=== PATIENT | female | born 1960 | race Caucasian/White ===

== ENCOUNTER 2022-08-14 18:12 | Inpatient (IN) ==
[2022-08-14] MEDS ORDERED: ONDANSETRON INJ 2 MG/ML 2 ML VIAL IV STA (18:58)
[2022-08-14] MEDS ORDERED: MoRPHine SULFATE 10 MG/ML CARP/VIAL IV STA ×2 (18:58→21:03)
[2022-08-14 19:28] LABS: iSTAT Creatinine 0.4 mg/dl (0.6-1.3); iSTAT Hemoglobin 12.9 g/dl (12.0-16.0); iSTAT Ionized Calcium 0.97 mmol/l (1.12-1.32); iSTAT Potassium 3.6 mmol/L (3.3-5.0)
[2022-08-14 19:31] LABS: Basophils # (auto) 0.03 K/uL (0-0.2); Basophils % (auto) 0.4 %; Eosinophils # (auto) 0.05 K/uL (0-0.50); Eosinophils % (auto) 0.6 %; Hematocrit (blood only) 35.9 % (34.1-44.9); Hemoglobin 12.9 g/dl (12.0-16.0); Immature Granulocytes # (auto) 0.02 K/uL (0.00-0.02); Immature Granulocytes % (auto) 0.3 %; Lymphocytes # (auto) 1.35 K/uL (1.2-3.4); Lymphocytes % (auto) 17.4 %; Mean Corpuscular Hemoglobin 34.5 pg (25.0-34.0); Mean Corpuscular Hgb Conc 35.9 g/dL (32.0-36.0); Mean Platelet Volume 10.9 fL (9.4-12.3); Monocytes # (auto) 0.44 K/uL (0.24-0.82); Monocytes % (auto) 5.7 %; Neutrophils # (auto) 5.89 K/uL (1.4-6.5); Neutrophils % (auto) 75.6 %; Platelet Count 176 K/uL (130-400); RDW Coefficient of Variation 12.5 % (11.5-14.5); RDW Standard Deviation 43.4 fL (36.4-46.3); Red Blood Count 3.74 M/uL (3.93-5.22); White Blood Count 7.78 K/ul (4.8-10.8)
--- NOTE | 2022-08-14 19:34 | Emergency Department Note ---
Impression & Plan Fall, Closed rib fracture, Headache, HTN (hypertension) ED Provider Note NAME: MILO FORD AGE: 62 SEX: F : 1960 ARRIVES VIA: Walk-In INFORMANT: Patient ED PROVIDER(S): Kristopher Landaverde DO CHIEF COMPLAINT: fall HPI: Patient is a 62-year-old female with past medical history of diabetes, asthma and hypertension that presents to the ER following mechanical fall. She has fallen twice in the past week. She fell last night and once a week ago. She notes her left knee gives out. She is having severe left-sided rib pain as well as head and neck pain. Pain with breathing as well as twisting, turning, or bending. No belly pain. No nausea, vomiting, or diarrhea. No dysuria, urgency, or frequency. Pain is a 10 and 10. No other exacerbating or remitting factors. PAST MEDICAL HISTORY:See Below PAST SURGICAL HISTORY:See Below FAMILY HISTORY:See Below SOCIAL HISTORY:See Below HOME MEDICATIONS:See Below ALLERGIES:See Below VITALS:See Below PHYSICAL EXAMINATION: GENERAL: alert, well appearing, well nourished, no distress, non-toxic HEAD: normal cephalic, atraumatic EYE EXAM: normal conjunctiva, PERRL and EOM's grossly intact NECK: supple, no nuchal rigidity, no adenopathy, non-tender CHEST: stable to compression anteriorly and posteriorly LUNGS: clear to auscultation. Normal chest wall mechanics HEART: no murmurs, S1 normal and S2 normal ABDOMEN: abdomen soft, non-tender, normo-active bowel sounds, no masses, no rebound or guarding. PELVIS: stable to compression anteriorly and posteriorly BACK: Back is symmetrical on inspection and there is no deformity, no midline tenderness, no CVA tenderness. UPPER EXTREMITIES: full active and passive range of motion of all joints without tenderness to palpation LOWER EXTREMITIES: full active and passive range of motion of all joints without tenderness to palpation NEURO EXAM: Normal sensorium, cranial nerves II-XII grossly intact, normal speech, no gross weakness of arms, no gross weakness of legs. GCS: 15. MEDICAL DECISION MAKING: Patient is a 62-year-old female who presents ER for recurrent falls. IV was established blood work was obtained. External records reviewed. Labs show no significant leukocytosis or anemia. BMP shows an elevated glucose at 200. No transaminitis. T bili 1.3. CT of the head cervical spine was unremarkable. CT of the chest showed [address] abdomen pelvis was negative. Patient was updated at bedside. Patient was given IV morphine and IV Dilaudid. She is updated bedside. Due to the recurrent pain discussed with Dr. Reginald Guerra for further evaluation and treatment. Triage Nursing notes reviewed. Limited review of prior medical records performed Vital Signs: reviewed and remarkable for HTN Differential diagnosis: Differential diagnoses include major intracranial, cervical, spinal, thoracic, abdominal, pelvic and neurologic injury. Fracture, contusion, sprain, strain, laceration, abrasions included as well. ER treatment provided: See below Diagnostics interpreted by me include EKG and cardiac monitoring as listed below: -Cardiac Monitoring: An order was placed for continuous cardiac monitoring. The monitor shows a rate of 82 with sius rhythm. -ECG: none -Laboratory studies:Interpreted by me as stated above in MDM and shown below. Imaging studies: Xrays: As interpreted by me:none CTs show: Graham scan CT shows 2 rib fractures Consultation(s): Discussed with Dr. Reginald Guerra for further evaluation and management in regards to 2 rib fractures and recurrent doses of pain medications Procedures:none Critical Care: None Past Med/Surg History Medical History (Updated 08/14/22 @ 22:14 by Kristopher Landaverde DO) Acute kidney injury Surgical History (Updated 03/27/20 @ 16:05 by Minerva Casillas MA) H/O LEEP History of tonsillectomy and adenoidectomy S/P ORIF (open reduction internal fixation) fracture Family History (Updated 03/27/20 @ 16:07 by Minerva Casillas MA) Mother Diabetes Hypertension Colorectal cancer Myelodysplasia (myelodysplastic syndrome) Father Heart disease Hypertension Brother Hypertension Brother Schizo affective schizophrenia Brother Suicide Social History (Updated 04/25/20 @ 15:07 by JOSSUE Rojo) Smoking Status: Current every day smoker Tobacco Type: Cigarettes Age Started Using Tobacco: 59; packs per day: 0.75; Second Hand Exposure: Yes; Hx Alcohol Use: No Hx Substance Use: No Preferred Language: Mauritanian Communication Ability: Effective Hearing Ability: Normal Certified Industrial Hygienist Required: No marital status: Current Living Situation: Significant Other current occupational status: disabled How many Children do You have: 2 Feels Safe at Home: Yes Childhood Exposure to Second-Hand Smoke: Yes Seatbelt Use: always Sunscreen Use: Yes Allergies Allergies Allergy/AdvReac Type Severity Reaction Status Date / Time tuberculin,PPD,multi-puncture Allergy Unknown CAN'T Verified 08/14/22 21:24 REMEMBER azithromycin [From Zithromax] AdvReac Severe manic Verified 08/14/22 21:24 acetaminophen [From Tylenol] AdvReac Intermediate nausea, Verified 08/14/22 21:24 vomitting buspirone [From BuSpar] AdvReac Intermediate anxious Verified 08/14/22 21:24 NSAIDS (Non-Steroidal AdvReac Unknown HX OF A GI Verified 08/14/22 21:28 Anti-Inflamma BLEED/NOT TO TAKE. Home Meds Home Medications Medication Instructions Recorded Confirmed albuterol sulfate 90 mcg/actuation 2 puff inhalation Q6H PRN 03/27/20 08/14/22 aerosol inhaler (Ventolin HFA) Shortness Of Breath Or Wheezing atorvastatin 10 mg tablet 10 mg PO DAILY 03/27/20 08/14/22 budesonide-formoterol HFA 160 2 puff inhalation BID 03/27/20 08/14/22 mcg-4.5 mcg/actuation aerosol inhaler (Symbicort) levothyroxine 150 mcg tablet 150 mcg PO DAILY 03/27/20 08/14/22 montelukast 10 mg tablet 10 mg PO HS 03/27/20 08/14/22 omeprazole 20 mg capsule,delayed 20 mg PO DAILY 03/27/20 08/14/22 release metoprolol tartrate 100 mg tablet 50 mg PO BID 02/13/22 08/14/22 apixaban 5 mg tablet (Eliquis) 5 mg PO BID 08/14/22 08/14/22 diltiazem HCl 240 mg 240 mg PO QAM 08/14/22 08/14/22 capsule,extended release 24 hr gabapentin 400 mg capsule 400 mg PO BID 08/14/22 08/14/22 lorazepam 1 mg tablet 1 mg PO TID PRN Anxiety 08/14/22 08/14/22 sertraline 100 mg tablet (Zoloft) 150 mg PO DAILY 08/14/22 08/14/22 Previous Rx's Medication Instructions Recorded linagliptin 5 mg tablet (Tradjenta) 5 mg PO DAILY #30 tabs 04/30/20 Results & Data (ED) Vital Signs Vital Signs - 24 hr 08/14/22 18:18 Temperature 36.4 C L Temperature Source Temporal Artery Scan Pulse Rate 90 Respiratory Rate 20 Respiratory Effort / Characteristics Non-Labored Respiratory Depth Normal Respiratory Pattern Regular Blood Pressure 215/95 H Blood Pressure Mean 135 Blood Pressure Position Sitting Pulse Oximetry 97 Oxygen Delivery Method Room Air Sepsis Recent Fever Within 48 Hours No Sepsis New/Unexplained Change in Mental Status No Sepsis Action Taken by Nursing No Action Required Laboratory Data 08/14/22 19:05 08/14/22 19:05 Lab Results 08/14/22 08/14/22 08/14/22 Range/Units 19:05 19:05 19:16 WBC 7.78 (4.8-10.8) K/ul RBC 3.74 L (3.93-5.22) M/uL Hgb 12.9 (12.0-16.0) g/dl POC Hgb 12.9 (12.0-16.0) g/dl Hct 35.9 (34.1-44.9) % POC Hct 38 (37-47) % MCV 96.0 (80.0-100.0) fL MCH 34.5 H (25.0-34.0) pg MCHC 35.9 (32.0-36.0) g/dL RDW Std Deviation 43.4 (36.4-46.3) fL RDW Coeff of Natividad 12.5 (11.5-14.5) % Plt Count 176 (130-400) K/uL MPV 10.9 (9.4-12.3) fL Immature Gran % (Auto) 0.3 % Neut % (Auto) 75.6 % Lymph % (Auto) 17.4 % Leslie % (Auto) 5.7 % Eos % (Auto) 0.6 % Baso % (Auto) 0.4 % Neut # (Auto) 5.89 (1.4-6.5) K/uL Lymph # (Auto) 1.35 (1.2-3.4) K/uL Leslie # (Auto) 0.44 (0.24-0.82) K/uL Eos # (Auto) 0.05 (0-0.50) K/uL Baso # (Auto) 0.03 (0-0.2) K/uL Immature Gran # (Auto) 0.02 (0.00-0.02) K/uL POC Sodium 141 (135-144) mmol/L Sodium 140 (136-145) mmol/L POC Potassium 3.6 (3.3-5.0) mmol/L Potassium 3.6 (3.5-5.1) mmol/L POC Chloride 102 (101-112) mmol/L Chloride 105 (98-107) mmol/L Carbon Dioxide 23 (21-32) mmol/L POC Total CO2 22 L (24-31) mmol/L Anion Gap 12 H (3-11) POC Anion Gap 21.0 (16-25) mmol/L POC BUN 4 L (7-18) mg/dl BUN 6 (6-23) mg/dl Creatinine 0.65 (0.6-1.2) mg/dl POC Creatinine 0.4 L (0.6-1.3) mg/dl Est Cr Clr Drug Dosing 98.7 ml/min Est GFR ( Amer) 109.5 ml/min Est GFR (Non-Af Amer) 94.5 ml/min BUN/Creatinine Ratio 9.2 L (10-20) Glucose 212 H (70-99(Fasting)) mg/dl POC Glucose (other) 213 H (70-99) mg/dl Calcium 8.0 L (8.5-10.1) mg/dl POC Ioniz Calcium Cassius 0.97 L (1.12-1.32) mmol/l Total Bilirubin 1.3 H (0.2-1.0) mg/dl AST 37 (13-39) U/L ALT 45 (7-52) U/L Alkaline Phosphatase 127 H (34-104) U/L Total Protein 7.6 (6.0-8.3) gm/dl Albumin 4.1 (3.4-5.0) gm/dl Globulin 3.5 (2.5-4.0) gm/dl Albumin/Globulin Ratio 1.2 (0.9-2) Administered Medications Discontinued Medications Ioversol (Optiray 350 100ml) 82 ml IV ONCE ONE Stop: 08/14/22 19:47 Last Admin: 08/14/22 19:47 Dose: 82 ml Documented By: ATA Morphine Sulfate (Morphine Sulfate 10 Mg/Ml Carp/Vial) 6 mg IV NOW STA Stop: 08/14/22 18:59 Last Admin: 08/14/22 19:21 Dose: 6 mg Documented By: MITALI Morphine Sulfate (Morphine Sulfate 10 Mg/Ml Carp/Vial) 6 mg IV NOW STA Stop: 08/14/22 21:04 Last Admin: 08/14/22 21:34 Dose: 6 mg Documented By: [id number] Ondansetron HCl (Ondansetron Inj 2 Mg/Ml 2 Ml Vial) 4 mg IV NOW STA Stop: 08/14/22 18:59 Last Admin: 08/14/22 19:23 Dose: 4 mg Documented By: AN Imaging Data Radiologist's Impression: Abdomen/Pelvis CT 08/14/22 18:58 CT SCAN OF THE CHEST, ABDOMEN, AND PELVIS WITH IV CONTRAST CLINICAL HISTORY: Fall. COMPARISON STUDY: Abdominal ultrasound dated 03/03/2022. TECHNIQUE: Following the IV administration of 82 of Optiray 350, CT scan of the chest, abdomen, and pelvis was performed from the thoracic inlet to the proximal femora. Images are reviewed in the axial, sagittal, and coronal planes. IV contrast was administered without complication. A dose lowering technique was utilized adhering to the principles of ALARA. CT DOSE: 3519.59 mGy.cm FINDINGS: CHEST: Thoracic aorta: The thoracic aorta is normal in caliber and demonstrates standard 3-vessel arch anatomy. No dissection is seen. Pulmonary vasculature: The pulmonary trunk is normal in caliber. There are no filling defects identified in the central pulmonary vessels to indicate pulm onary embolus. Note that this examination was not protocoled for evaluation of the pulmonary arteries. Heart: The heart is top normal in size and without pericardial effusion. There are coronary artery calcifications. Lungs and pleural spaces: There is no airspace consolidation, pleural effusion, or pneumothorax. The trachea and central airways are clear. Mild atelectasis is seen at the lung bases. Mediastinum: There is no mediastinal hematoma or lymphadenopathy. Susan: Clear. Axillae: There is no axillary lymphadenopathy. Bony thorax: The skeletal structures are osteopenic. No lytic or blastic lesions are identified. There is chronic posttraumatic deformity of the sternum. Suspect acute left lateral 7th and 8th rib fractures. Numerous additional bilateral rib fractures appear chronic. ABDOMEN AND PELVIS: Liver: The contrast-enhanced liver is enlarged, measuring 22 cm in length. The liver demonstrates diffusely diminished attenuation indicating steatosis. Nodularity of the hepatic surface contour indicates morphologic changes of cirrhosis. There is no intrahepatic biliary ductal dilatation. The hepatic veins and portal veins are patent. Gallbladder: Unremarkable. Spleen: The spleen is mildly enlarged measuring 14.3 cm in length. There are calcifications along the splenic capsule. Pancreas: Unremarkable. Adrenal glands: Left adrenal calcifications are likely chronic. The adrenal glands are otherwise normal in appearance. Kidneys: The contrast enhanced kidneys are normal in size and without hydronephrosis. The kidneys enhance symmetrically. Abdominal vasculature: The abdominal aorta is normal in course and caliber noting mild atherosclerotic calcification. Bowel: There is no bowel obstruction. The appendix is well-visualized and normal. Peritoneum: There is no intraperitoneal free air or abdominal ascites. There is a fat-containing umbilical hernia. Lymphadenopathy: None. Pelvic viscera: The bladder, uterus, and adnexa are normal as visualized. Skeletal structures: The skeletal structures are osteopenic. No lytic or blastic lesions are seen. The lumbosacral spine, bony pelvis, and proximal femora appear intact. There is mild lumbosacral spondylosis. 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 IMPRESSION: 1. There is no airspace consolidation, pleural effusion, or pneumothorax. 2. Question an acute left lateral 7th and 8th rib fracture. Correlate for point tenderness. 3. There is no evidence of solid organ injury in the abdomen or pelvis. 4. The liver is enlarged and steatotic. Nodularity of the hepatic surface contour indicates early morphologic changes of cirrhosis. 5. Mild splenomegaly. 6. Additional findings as above. ACT 112: Negative or not required by law. Electronically signed by: Pritesh Go M.D. 08/14/2022 8:[address] 08/14/22 18:58 CT SCAN OF THE CERVICAL SPINE CLINICAL HISTORY: Fall. Neck pain. COMPARISON STUDY: No priors. TECHNIQUE: CT scan of the cervical spine is performed from the skull base to the upper thoracic spine. Images are reviewed in the axial, sagittal, and coronal planes. IV contrast was not administered for this examination. A dose lowering technique was utilized adhering to the principles of ALARA. FINDINGS: Skeletal structures: The skeletal structures are osteopenic. There is no evidence of fracture or subluxation involving the cervical spine. Vertebral body height and alignment are maintained. Anterior osteophytes are seen throughout. The odontoid process and lateral masses are intact. The atlantoaxial articulation is preserved noting productive degenerative change. The spinous processes appear intact. There is mild multilevel facet arthropathy. Intervertebral discs: There is moderate disc space narrowing at C4-C5, C5-C6, and C6-C7. Central canal: Posterior disc osteophyte complexes at C4-C5 and C5-C6 may contribute to acquired compromise of the central canal. Soft tissues: The prevertebral and paraspinous soft tissues are within normal limits. Calvarium: The visualized calvarium at the skull base appears intact. Brain parenchyma: Partially visualized brain parenchyma at the skull base is within normal limits. Sinuses and mastoids: There is trace mucosal thickening within the maxillary and sphenoid sinuses. The mastoid air cells are well pneumatized. Lung apices: Clear as visualized. IMPRESSION: There is no evidence of fracture or subluxation involving the cervical spine. ACT 112: Negative or not required by law. Electronically signed by: Pritesh Go M.D. 08/14/2022 8:[address] 08/14/22 18:58 CT SCAN OF THE CHEST, ABDOMEN, AND PELVIS WITH IV CONTRAST CLINICAL HISTORY: Fall. COMPARISON STUDY: Abdominal ultrasound dated 03/03/2022. TECHNIQUE: Following the IV administration of 82 of Optiray 350, CT scan of the chest, abdomen, and pelvis was performed from the thoracic inlet to the proximal femora. Images are reviewed in the axial, sagittal, and coronal planes. IV contrast was administered without complication. A dose lowering technique was utilized adhering to the principles of ALARA. CT DOSE: 3519.59 mGy.cm FINDINGS: CHEST: Thoracic aorta: The thoracic aorta is normal in caliber and demonstrates standard 3-vessel arch anatomy. No dissection is seen. Pulmonary vasculature: The pulmonary trunk is normal in caliber. There are no filling defects identified in the central pulmonary vessels to indicate pulmonary embolus. Note that this examination was not protocoled for evaluation of the pulmonary arteries. Heart: The heart is top normal in size and without pericardial effusion. There are coronary artery calcifications. Lungs and pleural spaces: There is no airspace consolidation, pleural effusion, or pneumothorax. The trachea and central airways are clear. Mild atelectasis is seen at the lung bases. Mediastinum: There is no mediastinal hematoma or lymphadenopathy. Susan: Clear. Axillae: There is no axillary lymphadenopathy. Bony thorax: The skeletal structures are osteopenic. No lytic or blastic lesions are identified. There is chronic posttraumatic deformity of the sternum. Suspect acute left lateral 7th and 8th rib fractures. Numerous additional bilateral rib fractures appear chronic. ABDOMEN AND PELVIS: Liver: The contrast-enhanced liver is enlarged, measuring 22 cm in length. The liver demonstrates diffusely diminished attenuation indicating steatosis. Nodularity of the hepatic surface contour indicates morphologic changes of cirrhosis. There is no intrahepatic biliary ductal dilatation. The hepatic veins and portal veins are patent. Gallbladder: Unremarkable. Spleen: The spleen is mildly enlarged measuring 14.3 cm in length. There are calcifications along the splenic capsule. Pancreas: Unremarkable. Adrenal glands: Left adrenal calcifications are likely chronic. The adrenal gl ands are otherwise normal in appearance. Kidneys: The contrast enhanced kidneys are normal in size and without hydronephrosis. The kidneys enhance symmetrically. Abdominal vasculature: The abdominal aorta is normal in course and caliber noting mild atherosclerotic calcification. Bowel: There is no bowel obstruction. The appendix is well-visualized and normal. Peritoneum: There is no intraperitoneal free air or abdominal ascites. There is a fat-containing umbilical hernia. Lymphadenopathy: None. Pelvic viscera: The bladder, uterus, and adnexa are normal as visualized. Skeletal structures: The skeletal structures are osteopenic. No lytic or blastic lesions are seen. The lumbosacral spine, bony pelvis, and proximal femora appear intact. There is mild lumbosacral spondylosis. 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 IMPRESSION: 1. There is no airspace consolidation, pleural effusion, or pneumothorax. 2. Question an acute left lateral 7th and 8th rib fracture. Correlate for point tenderness. 3. There is no evidence of solid organ injury in the abdomen or pelvis. 4. The liver is enlarged and steatotic. Nodularity of the hepatic surface contour indicates early morphologic changes of cirrhosis. 5. Mild splenomegaly. 6. Additional findings as above. ACT 112: Negative or not required by law. Electronically signed by: Pritesh Go M.D. 08/14/2022 8:[address] 08/14/22 18:58 CT SCAN OF THE BRAIN WITHOUT IV CONTRAST CLINICAL HISTORY: Headache. COMPARISON STUDY: No priors. TECHNIQUE: Unenhanced axial CT scan of the brain is performed from the vertex to the skull base. A dose lowering technique was utilized adhering to the principles of ALARA. FINDINGS: Brain parenchyma: There is age-related involutional change noting mild subcortical and periventricular microangiopathic disease. There is no hemorrhage, mass effect, or evidence of acute territorial ischemia by CT criteria. Hensley-white matter differentiation is preserved. No extra-axial fluid collection is seen. Ventricles, sulci, cisterns: Prominent secondary to involutional change. Intracranial vasculature: There is atherosclerotic calcification of the cavernous carotid and vertebral arteries. Calvarium: Unremarkable. Sinuses and mastoids: There is trace mucosal thickening within the maxillary antra. The remaining paranasal sinuses are clear. The mastoid air cells are well pneumatized. Orbits: The bony orbits are grossly intact. IMPRESSION: No acute intracranial abnormality. ACT 112: Negative or not required by law. Electronically signed by: Pritesh Go M.D. 08/14/2022 8:03 PM Discharge Plan Visit Data Chief Complaint: Fall Stated Complaint: REF BY DOC, FALL, RIB PAIN, HEAD PAIN, SOB ED Provider: Kristopher Landaverde Discharge Problem: Fall, Closed rib fracture, Headache, HTN (hypertension) Forms Stand Alone Forms: My [facility] Prescriptions Prescriptions: No Action Tradjenta 5 mg tablet 5 mg PO DAILY Qty: 30 2RF atorvastatin 10 mg tablet 10 mg PO DAILY omeprazole 20 mg capsule,delayed release(DR/EC) 20 mg PO DAILY levothyroxine 150 mcg tablet 150 mcg PO DAILY montelukast 10 mg tablet 10 mg PO HS budesonide-formoterol [Symbicort] 160-4.5 mcg/actuation HFA aerosol inhaler 2 puff inhalation BID albuterol sulfate [Ventolin HFA] 90 mcg/actuation HFA aerosol inhaler 2 puff inhalation Q6H PRN (Reason: Shortness Of Breath Or Wheezing) metoprolol tartrate 100 mg tablet 50 mg PO BID diltiazem HCl 240 mg Capsule,Extended Release 24hr 240 mg PO QAM sertraline [Zoloft] 100 mg Tablet 150 mg PO DAILY lorazepam 1 mg Tablet 1 mg PO TID PRN (Reason: Anxiety) Rx Instructions: PER PT "TAKE PRETTY REGULARLY". Eliquis 5 mg Tablet 5 mg PO BID gabapentin 400 mg capsule 400 mg PO BID Referrals Referrals: Tania Adame [Physician] -
[2022-08-14] MEDS ORDERED: OPTIRAY 350 100ml IV ONE (19:46)
--- NOTE | 2022-08-14 20:05 | CT Scan Report ---
CT SCAN OF THE BRAIN WITHOUT IV CONTRAST CLINICAL HISTORY: Headache. COMPARISON STUDY: No priors. TECHNIQUE: Unenhanced axial CT scan of the brain is performed from the vertex to the skull base. A do se lowering technique was utilized adhering to the principles of ALARA. FINDINGS: Brain parenchyma: There is age-related involutional change noting mild subcortical and periventricula r microangiopathic disease. There is no hemorrhage, mass effect, or evidence of acute territorial isc hemia by CT criteria. Hensley-white matter differentiation is preserved. No extra-axial fluid collection is seen. Ventricles, sulci, cisterns: Prominent secondary to involutional change. Intracranial vasculature: There is atherosclerotic calcification of the cavernous carotid and vertebr al arteries. Calvarium: Unremarkable. Sinuses and mastoids: There is trace mucosal thickening within the maxillary antra. The remaining par anasal sinuses are clear. The mastoid air cells are well pneumatized. Orbits: The bony orbits are grossly intact. IMPRESSION: No acute intracranial abnormality. ACT 112: Negative or not required by law. Electronically signed by: Pritesh Go M.D. 08/14/2022 8:03 PM
[2022-08-14 20:08] LABS: Albumin Globulin Ratio 1.2 (0.9-2); Albumin Level 4.1 gm/dl (3.4-5.0); BUN Creatinine Ratio 9.2 (10-20); Bilirubin,Total 1.3 mg/dl (0.2-1.0); Creatinine Clr Calc Pharmacy 98.7 ml/min; Est GFR (African American) 109.5 ml/min; Est GFR (Non-African American) 94.5 ml/min; Globulin 3.5 gm/dl (2.5-4.0); Potassium 3.6 mmol/L (3.5-5.1); Total Protein 7.6 gm/dl (6.0-8.3)
--- NOTE | 2022-08-14 20:12 | CT Scan Report ---
CT SCAN OF THE CERVICAL SPINE CLINICAL HISTORY: Fall. Neck pain. COMPARISON STUDY: No priors. TECHNIQUE: CT scan of the cervical spine is performed from the skull base to the upper thoracic spine . Images are reviewed in the axial, sagittal, and coronal planes. IV contrast was not administered fo r this examination. A dose lowering technique was utilized adhering to the principles of ALARA. FINDINGS: Skeletal structures: The skeletal structures are osteopenic. There is no evidence of fracture or subl uxation involving the cervical spine. Vertebral body height and alignment are maintained. Anterior os teophytes are seen throughout. The odontoid process and lateral masses are intact. The atlantoaxial a rticulation is preserved noting productive degenerative change. The spinous processes appear intact. There is mild multilevel facet arthropathy. Intervertebral discs: There is moderate disc space narrowing at C4-C5, C5-C6, and C6-C7. Central canal: Posterior disc osteophyte complexes at C4-C5 and C5-C6 may contribute to acquired comp romise of the central canal. Soft tissues: The prevertebral and paraspinous soft tissues are within normal limits. Calvarium: The visualized calvarium at the skull base appears intact. Brain parenchyma: Partially visualized brain parenchyma at the skull base is within normal limits. Sinuses and mastoids: There is trace mucosal thickening within the maxillary and sphenoid sinuses. Th e mastoid air cells are well pneumatized. Lung apices: Clear as visualized. IMPRESSION: There is no evidence of fracture or subluxation involving the cervical spine. ACT 112: Negative or not required by law. Electronically signed by: Pritesh Go M.D. 08/14/2022 8:09 PM
--- NOTE | 2022-08-14 20:28 | CT Scan Report ---
CT SCAN OF THE CHEST, ABDOMEN, AND PELVIS WITH IV CONTRAST CLINICAL HISTORY: Fall. COMPARISON STUDY: Abdominal ultrasound dated 03/03/2022. TECHNIQUE: Following the IV administration of 82 of Optiray 350, CT scan of the chest, abdomen, and p janell was performed from the thoracic inlet to the proximal femora. Images are reviewed in the axial, sagittal, and coronal planes. IV contrast was administered without complication. A dose lowering te chnique was utilized adhering to the principles of ALARA. CT DOSE: 3519.59 mGy.cm FINDINGS: CHEST: Thoracic aorta: The thoracic aorta is normal in caliber and demonstrates standard 3-vessel arch anato my. No dissection is seen. Pulmonary vasculature: The pulmonary trunk is normal in caliber. There are no filling defects identif ied in the central pulmonary vessels to indicate pulmonary embolus. Note that this examination was no t protocoled for evaluation of the pulmonary arteries. Heart: The heart is top normal in size and without pericardial effusion. There are coronary artery ca lcifications. Lungs and pleural spaces: There is no airspace consolidation, pleural effusion, or pneumothorax. The trachea and central airways are clear. Mild atelectasis is seen at the lung bases. Mediastinum: There is no mediastinal hematoma or lymphadenopathy. Susan: Clear. Axillae: There is no axillary lymphadenopathy. Bony thorax: The skeletal structures are osteopenic. No lytic or blastic lesions are identified. Ther e is chronic posttraumatic deformity of the sternum. Suspect acute left lateral 7th and 8th rib fract ures. Numerous additional bilateral rib fractures appear chronic. ABDOMEN AND PELVIS: Liver: The contrast-enhanced liver is enlarged, measuring 22 cm in length. The liver demonstrates dif fusely diminished attenuation indicating steatosis. Nodularity of the hepatic surface contour indicat es morphologic changes of cirrhosis. There is no intrahepatic biliary ductal dilatation. The hepatic veins and portal veins are patent. Gallbladder: Unremarkable. Spleen: The spleen is mildly enlarged measuring 14.3 cm in length. There are calcifications along the splenic capsule. Pancreas: Unremarkable. Adrenal glands: Left adrenal calcifications are likely chronic. The adrenal glands are otherwise norm al in appearance. Kidneys: The contrast enhanced kidneys are normal in size and without hydronephrosis. The kidneys enh ance symmetrically. Abdominal vasculature: The abdominal aorta is normal in course and caliber noting mild atheroscleroti c calcification. Bowel: There is no bowel obstruction. The appendix is well-visualized and normal. Peritoneum: There is no intraperitoneal free air or abdominal ascites. There is a fat-containing umbi lical hernia. Lymphadenopathy: None. Pelvic viscera: The bladder, uterus, and adnexa are normal as visualized. Skeletal structures: The skeletal structures are osteopenic. No lytic or blastic lesions are seen. Th e lumbosacral spine, bony pelvis, and proximal femora appear intact. There is mild lumbosacral spondy losis. 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 IMPRESSION: 1. There is no airspace consolidation, pleural effusion, or pneumothorax. 2. Question an acute left lateral 7th and 8th rib fracture. Correlate for point tenderness. 3. There is no evidence of solid organ injury in the abdomen or pelvis. 4. The liver is enlarged and steatotic. Nodularity of the hepatic surface contour indicates early mor phologic changes of cirrhosis. 5. Mild splenomegaly. 6. Additional findings as above. ACT 112: Negative or not required by law. Electronically signed by: Pritesh Go M.D. 08/14/2022 8:26 PM
--- NOTE | 2022-08-14 23:13 | History & Physical Report ---
Date of Service August 14, 2022 Assessment & Plan (1) Fall: Plan: Patient is a 62 yo female with PMHx including pAfib/flutter, asthma, hyperlipidemia, HTN, TIAs, peripheral neuropathy secondary to DM2, hypothyroidism, anxiety/depression, GERD, and GI bleed who presented to the [facility] ER on 08/14/22 after having multiple falls at home. Falls - Patient reports frequent falls at home related to left knee pain/giving out as well as her peripheral neuropathy - She is planning to get LifeAlert; states that she currently does not feel safe at home as she now lives alone as she was 2 months ago - Does not need to use stairs to enter the home, however there are multiple stairs inside of the home - Ambulates at baseline with a cane - PT/OT evals Closed Rib Fx - Chest CT 08/14 with ? L 7th and 8th rib fx - Tramadol 50mg po q4h prn for pain - Lidoderm patch - Encourage incentive spirometer use q1h while awake Left Knee Pain - Longstanding hx of left knee pain and "giving out" - Left knee XRs ordered, pending - Recommend outpatient ortho consult - PT/OT ordered Headache - CT head/neck 08/14 w/o abnormalities - Pain control as noted above - Avoid NSAID given hx of GI bleed Hypertension, paroxysmal Afib/flutter - Continue home metoprolol, diltiazem, and Eliquis - Patient notes that she has not taken her home diltiazem in several days as there was an error with regards to med refill Peripheral neuropathy - Continue home gabapentin Diabetes - Hold home meds on admission - SSI ordered - Goal 100-140, CF 50, CR 17 - Check A1c in AM Hypothyroidism - Continue home levothyroxine - Unknown last TSH; will check in AM Hypocalcemia - Mild hypocalcemia, Ca 8.0, iCa 0.97 - Unknown hx of hypocalcemia - Will check Vitamin D level and PTH Asthma - Continue home albuterol, Singulair, and Spiriva Depression/Anxiety - Patient reports having outpatient psychiatrist but no therapist - Encouraged her to establish with therapist, especially in light of current grief with of her - Continue home Sertraline and GERD - Continue home omeprazole FENGI: Carb consisent/DM2 diet DVT Ppx: home Eliquis Dispo: admit to med/surg Code status: conditional code -- extensive discussion with patient; she would like chest compressions, defibrillation, and all ACLS medications but would not like to be intubated/on ventilator (2) Closed rib fracture: (3) Headache: (4) HTN (hypertension): (5) Hypercholesterolemia: (6) Hypothyroidism: (7) Diabetes mellitus: (8) Left knee pain: (9) Hypocalcemia: History of Present Illness Primary Care Provider: Leigh Ann Colorado Thereseisaac Patient is a 62 yo female with PMHx including pAfib/flutter, asthma, hyperlipidemia, HTN, TIAs, peripheral neuropathy secondary to DM2, hypothyroidism, anxiety/depression, GERD, and GI bleed who presented to the [facility] ER on 08/14/22 after having a fall at home. Patient states that yesterday, she was walking down the inside stairs of her home with her cane when the left knee "gave out" and she fell down 7 steps. At the bottom of the steps, patient struck her left forehead on a chair and then fell backwards. Her primary complaint at this time is left sided rib pain, a headache, and left knee pain. Patient notes that she has been falling frequently, about 1x per week. She notes that all falls are due to either her left knee giving out or her peripheral neuropathy. There was no reported syncope or LOC. She states that she has been evaluated by ortho in the outpatient setting. She also states that she is "tired of physical therapy" and that she has had physical therapy for years. Patient is tearful and anxious throughout interview and exam. She notes that her 2 months ago and since then she has had difficulty living in her home alone. Patient has started the process to get a LifeAlert but does not yet have one. In the ER, patient received 6mg Morphine x2 and 4mg Zofran. A CT chest/abd/pelvis was performed which revealed no solid organ injury but ? acute left lateral 7th and 8th rib fractures. Head CT with no acute intracranial abnormalities. Labs with no leukocytosis or anemia. Allergies Allergy/AdvReac Type Severity Reaction Status Date / Time tuberculin,PPD,multi-puncture Allergy Unknown CAN'T Verified 08/14/22 21:24 REMEMBER azithromycin [From Zithromax] AdvReac Severe manic Verified 08/14/22 21:24 acetaminophen [From Tylenol] AdvReac Intermediate nausea, Verified 08/14/22 21:24 vomitting buspirone [From BuSpar] AdvReac Intermediate anxious Verified 08/14/22 21:24 NSAIDS (Non-Steroidal AdvReac Unknown HX OF A GI Verified 08/14/22 21:28 Anti-Inflamma BLEED/NOT TO TAKE. Home Medications Medication Instructions Recorded Confirmed Type albuterol sulfate 90 mcg/actuation 2 puff inhalation Q6H PRN 03/27/20 08/14/22 History aerosol inhaler (Ventolin HFA) Shortness Of Breath Or Wheezing atorvastatin 10 mg tablet 10 mg PO DAILY 03/27/20 08/14/22 History budesonide-formoterol HFA 160 2 puff inhalation BID 03/27/20 08/14/22 History mcg-4.5 mcg/actuation aerosol inhaler (Symbicort) levothyroxine 150 mcg tablet 150 mcg PO DAILY 03/27/20 08/14/22 History montelukast 10 mg tablet 10 mg PO HS 03/27/20 08/14/22 History omeprazole 20 mg capsule,delayed 20 mg PO DAILY 03/27/20 08/14/22 History release linagliptin 5 mg tablet (Tradjenta) 5 mg PO DAILY #30 tabs 04/30/20 08/14/22 Rx metoprolol tartrate 100 mg tablet 50 mg PO BID 02/13/22 08/14/22 History apixaban 5 mg tablet (Eliquis) 5 mg PO BID 08/14/22 08/14/22 History diltiazem HCl 240 mg 240 mg PO QAM 08/14/22 08/14/22 History capsule,extended release 24 hr gabapentin 400 mg capsule 400 mg PO BID 08/14/22 08/14/22 History lorazepam 1 mg tablet 1 mg PO TID PRN Anxiety 08/14/22 08/14/22 History sertraline 100 mg tablet (Zoloft) 150 mg PO DAILY 08/14/22 08/14/22 History Past Med/Surg History Medical History (Updated 08/15/22 @ 04:39 by Milana Willams DO) Acute kidney injury Left knee pain Surgical History (Updated 03/27/20 @ 16:05 by Minerva Casillas MA) H/O LEEP History of tonsillectomy and adenoidectomy S/P ORIF (open reduction internal fixation) fracture Family History (Updated 03/27/20 @ 16:07 by Minerva Casillas MA) Mother Diabetes Hypertension Colorectal cancer Myelodysplasia (myelodysplastic syndrome) Father Heart disease Hypertension Brother Hypertension Brother Schizo affective schizophrenia Brother Suicide Social History (Updated 04/25/20 @ 15:07 by JOSSUE Rojo) Smoking Status: Current every day smoker Tobacco Type: Cigarettes Age Started Using Tobacco: 59; packs per day: 0.75; Cigarettes Per Day: 2; Second Hand Exposure: Yes; Do You Dip or Chew Tobacco: No; Tobacco Cessation Education Requested by Patient: No Hx Alcohol Use: Yes Alcohol type: wine Hx Substance Use: No Preferred Language: Irish Communication Ability: Effective Hearing Ability: Normal Assistant Manager [employer] Required: No Beliefs That Will Affect Care: None marital status: Current Living Situation: Alone current occupational status: disabled How many Children do You have: 2 Other Information That Helps Us Care for You: No Feels Safe at Home: Yes Safety Concerns: Feels Safe At This Time Childhood Exposure to Second-Hand Smoke: Yes Seatbelt Use: always Sunscreen Use: Yes Assistive Devices: Cane Review of Systems Review of Systems: See HPI Physical Exam Physical Exam: GENERAL: Well developed and well nourished. Vital signs reviewed as above. EYES: EOMI. Anicteric sclerae. HENT: Moist mucous membranes. RESPIRATORY: Clear to auscultation bilaterally. No wheezing, rales, or rhonchi. CARDIOVASCULAR: Regular rate and rhythm. No murmurs. ABDOMEN: Soft, non-tender and non-distended. Normal bowel sounds. EXTREMITIES: Multiple ecchymosis over bilateral knees, L>R, with variable degrees of healing. Full active range of motion of left knee. SKIN: Warm, dry. NEUROLOGIC: A/O x3. Normal speech. No focal neurological deficits. PSYCHIATRIC: Cooperative. Labile mood. On initial presentation, patient was calm seated in bed reading a book. Throughout interview and exam, she was frequently crying. Results & Data Results & Data ([facility]) Vital Signs (Past 12 Hours) Vital Signs Temp Pulse Resp BP Pulse Ox O2 Del Method 08/14/22 22:30 158/81 H 97 Room Air 08/14/22 22:00 92 Room Air 08/14/22 21:30 96 Room Air 08/14/22 21:00 96 Room Air 08/14/22 20:30 81 14 161/82 H 94 Room Air 08/14/22 20:04 17 08/14/22 19:30 97 08/14/22 19:15 84 15 98 08/14/22 18:18 36.4 C L 90 20 215/95 H 97 Room Air Laboratory Results 08/15/22 08/15/22 08/14/22 Range/Units 03:00 01:09 22:54 WBC (4.8-10.8) K/ul RBC (3.93-5.22) M/uL Hgb (12.0-16.0) g/dl POC Hgb (12.0-16.0) g/dl Hct (34.1-44.9) % POC Hct (37-47) % MCV (80.0-100.0) fL MCH (25.0-34.0) pg MCHC (32.0-36.0) g/dL RDW Std Deviation (36.4-46.3) fL RDW Coeff of [place]ivid[place] (11.5-14.5) % Plt Count (130-400) K/uL MPV (9.4-12.3) fL Immature Gran % (Auto) % Neut % (Auto) % Lymph % (Auto) % [place] % (Auto) % Eos % (Auto) % Baso % (Auto) % Neut # (Auto) (1.4-6.5) K/uL Lymph # (Auto) (1.2-3.4) K/uL [place] # (Auto) (0.24-0.82) K/uL Eos # (Auto) (0-0.50) K/uL Baso # (Auto) (0-0.2) K/uL Immature Gran # (Auto) (0.00-0.02) K/uL POC Sodium (135-144) mmol/L Sodium (136-145) mmol/L POC Potassium (3.3-5.0) mmol/L Potassium (3.5-5.1) mmol/L POC Chloride (101-112) mmol/L Chloride (98-107) mmol/L Carbon Dioxide (21-32) mmol/L POC Total CO2 (24-31) mmol/L Anion Gap (3-11) POC Anion Gap (16-25) mmol/L POC BUN (7-18) mg/dl BUN (6-23) mg/dl Creatinine (0.6-1.2) mg/dl POC Creatinine (0.6-1.3) mg/dl Est Cr Clr Drug Dosing ml/min Est GFR ( Amer) ml/min Est GFR (Non-Af Amer) ml/min BUN/Creatinine Ratio (10-20) Glucose (70-99(Fasting)) mg/dl POC Glucose 176 H (70-99) mg/dl POC Glucose (other) (70-99) mg/dl Calcium (8.5-10.1) mg/dl POC Ioniz Calcium Cassius (1.12-1.32) mmol/l Total Bilirubin (0.2-1.0) mg/dl AST (13-39) U/L ALT (7-52) U/L Alkaline Phosphatase (34-104) U/L Total Protein (6.0-8.3) gm/dl Albumin (3.4-5.0) gm/dl Globulin (2.5-4.0) gm/dl Albumin/Globulin Ratio (0.9-2) Urine Color Yellow Urine Appearance Clear (Clear) Urine pH 6.0 (4.5-7.5) Ur Specific [place] > 1.045 H (1.000-1.030) Urine Protein Trace H (Negative) Urine Glucose (UA) Negative (Negative) Urine Ketones Negative (Negative) Urine Blood Negative (Negative) Urine Nitrite Negative (Negative) Urine Bilirubin Negative (Negative) Urine Urobilinogen Negative (Negative) Ur Leukocyte Esterase Negative (Negative) Urine WBC (Auto) 1-5 (0-5) /hpf Urine RBC (Auto) 0-4 (0-4) /hpf U Hyaline Cast (Auto) 1-5 (0-5) /lpf U Epithel Cells (Auto) >30 H (0-5) /lpf Urine Bacteria (Auto) Negative (Negative) SARS-CoV-2, RNA, NAAT NEGATIVE (NEGATIVE) 08/14/22 08/14/22 08/14/22 Range/Units 19:16 19:05 19:05 WBC 7.78 (4.8-10.8) K/ul RBC 3.74 L (3.93-5.22) M/uL Hgb 12.9 (12.0-16.0) g/dl POC Hgb 12.9 (12.0-16.0) g/dl Hct 35.9 (34.1-44.9) % POC Hct 38 (37-47) % MCV 96.0 (80.0-100.0) fL MCH 34.5 H (25.0-34.0) pg MCHC 35.9 (32.0-36.0) g/dL RDW Std Deviation 43.4 (36.4-46.3) fL RDW Coeff of [place]ivid[place] 12.5 (11.5-14.5) % Plt Count 176 (130-400) K/uL MPV 10.9 (9.4-12.3) fL Immature Gran % (Auto) 0.3 % Neut % (Auto) 75.6 % Lymph % (Auto) 17.4 % [place] % (Auto) 5.7 % Eos % (Auto) 0.6 % Baso % (Auto) 0.4 % Neut # (Auto) 5.89 (1.4-6.5) K/uL Lymph # (Auto) 1.35 (1.2-3.4) K/uL [place] # (Auto) 0.44 (0.24-0.82) K/uL Eos # (Auto) 0.05 (0-0.50) K/uL Baso # (Auto) 0.03 (0-0.2) K/uL Immature Gran # (Auto) 0.02 (0.00-0.02) K/uL POC Sodium 141 (135-144) mmol/L Sodium 140 (136-145) mmol/L POC Potassium 3.6 (3.3-5.0) mmol/L Potassium 3.6 (3.5-5.1) mmol/L POC Chloride 102 (101-112) mmol/L Chloride 105 (98-107) mmol/L Carbon Dioxide 23 (21-32) mmol/L POC Total CO2 22 L (24-31) mmol/L Anion Gap 12 H (3-11) POC Anion Gap 21.0 (16-25) mmol/L POC BUN 4 L (7-18) mg/dl BUN 6 (6-23) mg/dl Creatinine 0.65 (0.6-1.2) mg/dl POC Creatinine 0.4 L (0.6-1.3) mg/dl Est Cr Clr Drug Dosing 98.7 ml/min Est GFR ( Amer) 109.5 ml/min Est GFR (Non-Af Amer) 94.5 ml/min BUN/Creatinine Ratio 9.2 L (10-20) Glucose 212 H (70-99(Fasting)) mg/dl POC Glucose (70-99) mg/dl POC Glucose (other) 213 H (70-99) mg/dl Calcium 8.0 L (8.5-10.1) mg/dl POC Ioniz Calcium Cassius 0.97 L (1.12-1.32) mmol/l Total Bilirubin 1.3 H (0.2-1.0) mg/dl AST 37 (13-39) U/L ALT 45 (7-52) U/L Alkaline Phosphatase 127 H (34-104) U/L Total Protein 7.6 (6.0-8.3) gm/dl Albumin 4.1 (3.4-5.0) gm/dl Globulin 3.5 (2.5-4.0) gm/dl Albumin/Globulin Ratio 1.2 (0.9-2) Urine Color Urine Appearance (Clear) Urine pH (4.5-7.5) Ur Specific [place] (1.000-1.030) Urine Protein (Negative) Urine Glucose (UA) (Negative) Urine Ketones (Negative) Urine Blood (Negative) Urine Nitrite (Negative) Urine Bilirubin (Negative) Urine Urobilinogen (Negative) Ur Leukocyte Esterase (Negative) Urine WBC (Auto) (0-5) /hpf Urine RBC (Auto) (0-4) /hpf U Hyaline Cast (Auto) (0-5) /lpf U Epithel Cells (Auto) (0-5) /lpf Urine Bacteria (Auto) (Negative) SARS-CoV-2, RNA, NAAT (NEGATIVE) Diagnostic Findings [place], [place] [phone] CT Scan Report Patient:MILO FORD Admit Date:08/14/22 MR#:[id number] Address1:[address] [place] [address] Acct ID:[id number] Address2: Date:1960 [facility] [place] [id number] Age:62 Location:ED Sex:F Room/Bed: Att Phy: Diagnosis:REF BY DOC, FALL, RIB PAIN, HEAD PAIN, SOB [place] Phy:Leigh Ann Justin CRNP Service Date:08/14/22 Fam Phy: Interpreting Phy:Pritesh Go MDAdmit Phy: Ordering Phy:Kristopher Landaverde DO cc: ~ CT SCAN OF THE CHEST, ABDOMEN, AND PELVIS WITH IV CONTRAST CLINICAL HISTORY: Fall. COMPARISON STUDY: Abdominal ultrasound dated 03/03/2022. TECHNIQUE: Following the IV administration of 82 of Optiray 350, CT scan of the chest, abdomen, and pelvis was performed from the thoracic inlet to the proximal femora. Images are reviewed in the axial, sagittal, and coronal planes. IV contrast was administered without complication. A dose lowering technique was utilized adhering to the principles of ALARA. CT DOSE: 3519.59 mGy.cm FINDINGS: CHEST: Thoracic aorta: The thoracic aorta is normal in caliber and demonstrates standard 3-vessel arch anatomy. No dissection is seen. Pulmonary vasculature: The pulmonary trunk is normal in caliber. There are no filling defects identified in the central pulmonary vessels to indicate pulmonary embolus. Note that this examination was not protocoled for evaluation of the pulmonary arteries. Heart: The heart is top normal in size and without pericardial effusion. There are coronary artery calcifications. Lungs and pleural spaces: There is no airspace consolidation, pleural effusion, or pneumothorax. The trachea and central airways are clear. Mild atelectasis is seen at the lung bases. Mediastinum: There is no mediastinal hematoma or lymphadenopathy. Susan: Clear. Axillae: There is no axillary lymphadenopathy. Bony thorax: The skeletal structures are osteopenic. No lytic or blastic lesions are identified. There is chronic posttraumatic deformity of the sternum. Suspect acute left lateral 7th and 8th rib fractures. Numerous additional bilateral rib fractures appear chronic. ABDOMEN AND PELVIS: Liver: The contrast-enhanced liver is enlarged, measuring 22 cm in length. The liver demonstrates diffusely diminished attenuation indicating steatosis. Nodularity of the hepatic surface contour indicates morphologic changes of cirrhosis. There is no intrahepatic biliary ductal dilatation. The hepatic veins and portal veins are patent. Gallbladder: Unremarkable. Spleen: The spleen is mildly enlarged measuring 14.3 cm in length. There are calcifications along the splenic capsule. Pancreas: Unremarkable. Adrenal glands: Left adrenal calcifications are likely chronic. The adrenal glands are otherwise normal in appearance. Kidneys: The contrast enhanced kidneys are normal in size and without hydro nephrosis. The kidneys enhance symmetrically. Abdominal vasculature: The abdominal aorta is normal in course and caliber noting mild atherosclerotic calcification. Bowel: There is no bowel obstruction. The appendix is well-visualized and normal. Peritoneum: There is no intraperitoneal free air or abdominal ascites. There is a fat-containing umbilical hernia. Lymphadenopathy: None. Pelvic viscera: The bladder, uterus, and adnexa are normal as visualized. Skeletal structures: The skeletal structures are osteopenic. No lytic or blastic lesions are seen. The lumbosacral spine, bony pelvis, and proximal femora appear intact. There is mild lumbosacral spondylosis. 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 IMPRESSION: 1. There is no airspace consolidation, pleural effusion, or pneumothorax. 2. Question an acute left lateral 7th and 8th rib fracture. Correlate for point tenderness. 3. There is no evidence of solid organ injury in the abdomen or pelvis. 4. The liver is enlarged and steatotic. Nodularity of the hepatic surface contour indicates early morphologic changes of cirrhosis. 5. Mild splenomegaly. 6. Additional findings as above. ACT 112: Negative or not required by law. Electronically signed by: Pritesh Go M.D. 08/14/2022 8:26 PM Dictated:08/14/222010 Transcribed: 08/14/222010 --- [facility], [place] [phone] CT Scan Report Patient:MILO FORD Admit Date:08/14/22 MR#:[id number] Address1:[address] [place] [address] Acct ID:[id number] Address2: Date:1960 [facility] Zip:[place] [id number] Age:62 Location:ED Sex:F Room/Bed: Att Phy: Diagnosis:REF BY DOC, FALL, RIB PAIN, HEAD PAIN, SOB [place] Phy:Leigh Ann Justin CRNP Service Date:08/14/22 Fam Phy: Interpreting Phy:Pritesh Go MDAdmit Phy: Ordering Phy:Kristopher Landaverde DO cc: ~ CT SCAN OF THE CERVICAL SPINE CLINICAL HISTORY: Fall. Neck pain. COMPARISON STUDY: No priors. TECHNIQUE: CT scan of the cervical spine is performed from the skull base to the upper thoracic spine. Images are reviewed in the axial, sagittal, and coronal planes. IV contrast was not administered for this examination. A dose lowering technique was utilized adhering to the principles of ALARA. FINDINGS: Skeletal structures: The skeletal structures are osteopenic. There is no evidence of fracture or subluxation involving the cervical spine. Vertebral body height and alignment are maintained. Anterior osteophytes are seen throughout. The odontoid process and lateral masses are intact. The atlantoaxial articulation is preserved noting productive degenerative change. The spinous processes appear intact. There is mild multilevel facet arthropathy. Intervertebral discs: There is moderate disc space narrowing at C4-C5, C5-C6, and C6-C7. Central canal: Posterior disc osteophyte complexes at C4-C5 and C5-C6 may contribute to acquired compromise of the central canal. Soft tissues: The prevertebral and paraspinous soft tissues are within normal limits. Calvarium: The visualized calvarium at the skull base appears intact. Brain parenchyma: Partially visualized brain parenchyma at the skull base is within normal limits. Sinuses and mastoids: There is trace mucosal thickening within the maxillary and sphenoid sinuses. The mastoid air cells are well pneumatized. Lung apices: Clear as visualized. IMPRESSION: There is no evidence of fracture or subluxation involving the cervical spine. ACT 112: Negative or not required by law. Electronically signed by: Pritesh Go M.D. 08/14/2022 8:09 PM Dictated:08/14/222002 Transcribed: 08/14/222002 [facility], [place] [phone] CT Scan Report Patient:MILO FORD Admit Date:08/14/22 MR#:[id number] Address1:[address] [place], [place] [address] Acct ID:[id number] Address2: Date:1960 [facility] Zip:[place] [id number] Age:62 Location:ED Sex:F Room/Bed: Att Phy: Diagnosis:REF BY DOC, FALL, RIB PAIN, HEAD PAIN, SOB [place] Phy:Leigh Ann Justin CRNP Service Date:08/14/22 [facility] Phy: Interpreting Phy:Pritesh Go MDAdmit Phy: Ordering Phy:Kristopher Landaverde, cc: ~ CT SCAN OF THE BRAIN WITHOUT IV CONTRAST CLINICAL HISTORY: Headache. COMPARISON STUDY: No priors. TECHNIQUE: Unenhanced axial CT scan of the brain is performed from the vertex to the skull base. A dose lowering technique was utilized adhering to the principles of ALARA. FINDINGS: Brain parenchyma: There is age-related involutional change noting mild subcortical and periventricular microangiopathic disease. There is no hemorrhage, mass effect, or evidence of acute territorial ischemia by CT criteria. Hensley-white matter differentiation is preserved. No extra-axial fluid collection is seen. Ventricles, sulci, cisterns: Prominent secondary to involutional change. Intracranial vasculature: There is atherosclerotic calcification of the cavernous carotid and vertebral arteries. Calvarium: Unremarkable. Sinuses and mastoids: There is trace mucosal thickening within the maxillary antra. The remaining paranasal sinuses are clear. The mastoid air cells are well pneumatized. Orbits: The bony orbits are grossly intact. IMPRESSION: No acute intracranial abnormality. ACT 112: Negative or not required by law. Electronically signed by: Pritesh Go M.D. 08/14/2022 8:03 PM Dictated:08/14/221958 Transcribed: 08/14/221958 Code Status & VTE Plan VTE Prophylaxis Plan Reason for no VTE drug order: Contraindicated Supervising Physician Co-Signing Physician Notes Attending addendum: I have physically seen this patient, have supervised the medical residents activities, and agree with the H&P unless as otherwise noted. Assessment and Plan: Status post falls- Likely mechanical secondary to left knee pain/giving out and/or peripheral neuropathy Consult PT/OT Closed rib fractures- Chest CT shows question of left seventh and eighth rib fractures Lidoderm patch Tramadol 50 mg p.o. every 6 hours as needed for moderate pain Acetaminophen 650 mg p.o. every 6 hours as needed for mild pain or fever Remaining orders and notations as noted Resident Activity Tracking Resident Involvement: Resident Care Provided Care Provided: Adult Hospital Medicine
[2022-08-15] MEDS ORDERED: GLUCOSE 10 TAB/TUBE PO PRN (00:58)
[2022-08-15] MEDS ORDERED: ALBUTEROL HFA 8 GM INHALER INH PRN (00:58)
[2022-08-15] MEDS ORDERED: GLUCAGON FOR INJ 1 MG VIAL SQ PRN (00:58)
[2022-08-15] MEDS ORDERED: POLYETHYLENE (MIRALAX) 17 GM PACK PO PRN (00:58)
[2022-08-15] MEDS ORDERED: GLUCOSE 40% GEL 15 GM TUBE PO PRN (00:58)
[2022-08-15] MEDS ORDERED: CARBOHYDRATES FOR HYPOGLYCEMIA PO PRN (00:58)
[2022-08-15] MEDS ORDERED: DEXTROSE 50% 50 ML SYRINGE IV PRN (00:58)
[2022-08-15] MEDS: traMADol HCL 50 MG TABLET PO PRN ×3 (01:47→19:12)
[2022-08-15] MEDS: METOPROLOL TARTRATE 50 MG TAB PO SCH ×3 (01:52→20:54)
[2022-08-15] MEDS: GABAPENTIN 400 MG CAP PO SCH ×3 (01:52→20:54)
[2022-08-15] MEDS ORDERED: LORazepam 1 MG TAB PO STA (02:15)
[2022-08-15] MEDS ORDERED: FLUARIX QUADRIVALENT 0.5 ML SYR IM ONE (02:50)
[2022-08-15 03:17] LABS: Appearance Urine Clear (Clear); Bacteria Urine Automated Negative (Negative); Bilirubin Urine Negative (Negative); Blood Urine Negative (Negative); Color Urine Yellow; Epithelial Cell Urine Auto >30 /lpf (0-5); Glucose Urine UA Negative (Negative); Ketones Urine Negative (Negative); Leukocyte Esterase Urine Negative (Negative); Nitrite Urine Negative (Negative); Protein Urine Trace (Negative); RBC Urine Automated 0-4 /hpf (0-4); Specific Gravity Urine > 1.045 (1.000-1.030); Urobilinogen Urine Negative (Negative)
[2022-08-15] MEDS: LEVOTHYROXINE SODIUM 150 MCG TABLET PO SCH (05:43)
[2022-08-15 06:49] LABS: Basophils # (auto) 0.03 K/uL (0-0.2); Basophils % (auto) 0.4 %; Eosinophils # (auto) 0.16 K/uL (0-0.50); Eosinophils % (auto) 2.1 %; Hematocrit (blood only) 32.7 % (34.1-44.9); Hemoglobin 11.2 g/dl (12.0-16.0); Immature Granulocytes # (auto) 0.02 K/uL (0.00-0.02); Immature Granulocytes % (auto) 0.3 %; Lymphocytes # (auto) 2.24 K/uL (1.2-3.4); Mean Corpuscular Hemoglobin 33.7 pg (25.0-34.0); Mean Corpuscular Hgb Conc 34.3 g/dL (32.0-36.0); Mean Corpuscular Volume 98.5 fL (80.0-100.0); Mean Platelet Volume 11.3 fL (9.4-12.3); Monocytes # (auto) 0.59 K/uL (0.24-0.82); Monocytes % (auto) 7.9 %; Neutrophils # (auto) 4.43 K/uL (1.4-6.5); Neutrophils % (auto) 59.3 %; Platelet Count 137 K/uL (130-400); RDW Coefficient of Variation 12.6 % (11.5-14.5); RDW Standard Deviation 44.8 fL (36.4-46.3); Red Blood Count 3.32 M/uL (3.93-5.22); White Blood Count 7.47 K/ul (4.8-10.8)
[2022-08-15 07:03] LABS: Estimated Average Glucose 160 mg/dl; Hemoglobin A1C 7.2 % (4.5-5.6)
[2022-08-15 07:17] LABS: BUN Creatinine Ratio 8.5 (10-20); Calcium 7.2 mg/dl (8.5-10.1); Est GFR (African American) 113.1 ml/min; Est GFR (Non-African American) 97.5 ml/min
[2022-08-15 07:20] LABS: Thyroid Stimulating Hormone 10.615 uIu/ml (0.300-4.500)
--- NOTE | 2022-08-15 07:51 | XRay Report ---
LEFT KNEE 3 VIEWS HISTORY: falls, L knee pain COMPARISON: None. FINDINGS: There is no fracture or dislocation. Mild anterior soft tissue swelling. No significant kne e effusion. Mild osteoarthritis at the medial compartment of the left knee. No radiopaque foreign bod ies. IMPRESSION: 1. Mild anterior soft tissue swelling within the left knee. 2. No fractures. ACT 112: Negative or not required by law. Electronically signed by: Mitchell Zapata M.D. 08/15/2022 7:50 AM
[2022-08-15 08:02] LABS: T4 Free Thyroxine 1.12 ng/dl (0.61-1.60)
[2022-08-15] MEDS: ATORVASTATIN 10 MG TAB PO SCH (08:08)
[2022-08-15] MEDS: dilTIAZem HCL 240 MG CAPCR PO SCH (08:08)
[2022-08-15] MEDS: SERTRALINE HCL 50 MG TABLET PO SCH (08:08)
[2022-08-15] MEDS: PANTOprazole 40 MG TAB PO SCH (08:08)
[2022-08-15] MEDS: APIXABAN 5 MG TABLET PO SCH ×2 (08:08→20:54)
[2022-08-15] MEDS: FLUTICASONE/VILANTEROL 200/25MCG 14 PUFFS/INHALER INH SCH (08:09)
[2022-08-15] MEDS: LIDOCAINE 5% 1 PATCH TD SCH (08:10)
[2022-08-15] MEDS: INSULIN ASPART PER UNIT SC SCH ×4 (09:16→21:02)
--- NOTE | 2022-08-15 09:20 | XRay Report ---
XR knees AP standing BI HISTORY: 62 years-old Female falls, L knee pain acute bilateral knee pain status post fall COMPARISON: Left knee radiographs August 14, 2022 TECHNIQUE: Standing AP view of the bilateral knees FINDINGS: Mild medial compartment osteoarthritis of the knees. No acute fracture, dislocation, opaque foreign b jorge or osseous erosion. Arterial calcifications. IMPRESSION: No acute fracture or dislocation. ACT 112: Negative or not required by law. The above report was generated using voice recognition software. It may contain grammatical, syntax o r spelling errors. Electronically signed by: Aditya Curran M.D. 08/15/2022 9:18 AM
[2022-08-15] MEDS: LORazepam 1 MG TAB PO PRN ×2 (11:07→21:23)
[2022-08-15] MEDS ORDERED: MoRPHine SULFATE 2 MG/ML CARP IV STA (13:53)
--- NOTE | 2022-08-15 14:13 | Hospitalist Progress Note ---
Date of Service August 15, 2022 Assessment & Plan (1) Fall: Plan: Patient is a 62 yo female with PMHx including pAfib/flutter, asthma, hyperlipidemia, HTN, TIAs, peripheral neuropathy secondary to DM2, hypothyroidism, anxiety/depression, GERD, and GI bleed who presented to the [facility] ER on 08/14/22 after having multiple falls at home. Falls - Patient reports frequent falls at home related to left knee pain/giving out as well as her peripheral neuropathy - States that she currently does not feel safe at home as she now lives alone as she was 2 months ago - Does not need to use stairs to enter the home, however there are multiple stairs inside of the home - Ambulates at baseline with a cane - PT/OT evals -Needs Rehab (2) Closed rib fracture: Plan: Closed Rib Fx - Chest CT 08/14 with ? L 7th and 8th rib fx - Tramadol 50mg po q4h prn for pain - Lidoderm patch - Encourage incentive spirometer use q1h while awake -Morphine 2mg Q6hrs PRN (3) Left knee pain: Plan: Left Knee Pain - Longstanding hx of left knee pain and "giving out" - Left knee XR shows only soft tissue swelling, no fracture or dislocation - PT/OT ordered (4) Headache: Plan: Headache - Now resolved -CT head/neck 08/14 w/o abnormalities - Pain control as noted above - Avoid NSAID given hx of GI bleed (5) Depression with anxiety: Plan: Depression/Anxiety - Patient reports having outpatient psychiatrist but no therapist - Encouraged her to establish with therapist, especially in light of current grief with of her - Continue home Sertraline -Takes Ativan 1mg TID at home, will continue (6) Diabetes mellitus: Plan: Diabetes - Hold home meds on admission - SSI ordered - Goal 100-140, CF 50, CR 17 - Check A1c in AM (7) HTN (hypertension): Plan: Hypertension, paroxysmal Afib/flutter - Continue home metoprolol, diltiazem, and Eliquis - Patient notes that she has not taken her home diltiazem in several days as there was an error with regards to med refill (8) Hypocalcemia: Plan: Hypocalcemia - Mild hypocalcemia, Ca 8.0, iCa 0.97 - Unknown hx of hypocalcemia - Will check Vitamin D level and PTH (9) Hypothyroidism: Plan: Hypothyroidism - Continue home levothyroxine - Unknown last TSH; will check in AM (10) Hypercholesterolemia: Plan FENGI: Carb consisent/DM2 diet DVT Ppx: home Eliquis Dispo: admit to med/surg Code status: conditional code -- extensive discussion with patient; she would like chest compressions, defibrillation, and all ACLS medications but would not like to be intubated/on ventilator Admission and Anticipated Discharge Date Admission Date: August 15, 2022 Subjective patient seen and examined, complains of rib pains and anxiety, says she takes Ativan at home Review of Systems Review of Systems: All systems reviewed are negative, apart from the ones contained in the history. Physical Exam Physical Exam: The patient is awake, alert and oriented 3, well developed and well nourished, normocephalic and atraumatic, lying in bed and in no acute distress. HEENT--PERRL, EOMI, mucous membranes and oropharynx mildly dry Neck--supple. No JVD. No bruits. Thyroid normal, trachea midline, no adenopathy. Heart--normal S1 and S2. No murmurs, rubs or gallops. Lungs--clear bilaterally, no respiratory distress, no accessory muscle use. Abdomen--normal bowel sounds and soft. Mild epigastric and left sided abdominal pain Extremities--no cyanosis or clubbing. No edema. Dermatologic--normal skin turgor, normal color, no abnormal lymph nodes, no rash. Neurologic--cranial nerves II through XII grossly intact. Rheumatologic--normal range of motion. Psychiatric--normal affect. Results & Data Results & Data ([facility]) Vital Signs (Past 12 Hours) Vital Signs Temp Pulse Pulse Resp BP BP Pulse Ox 08/15/22 08:00 98.1 F 79 19 160/96 H 98 08/15/22 05:45 98.1 F 82 16 156/88 H 96 08/15/22 02:55 81 16 183/100 H 96 O2 Del Method 08/15/22 08:00 Room Air 08/15/22 05:45 Room Air 08/15/22 02:55 Room Air PG Care Time/CCT Total # of Minutes Spent Total Time Spent with Patient: Total time spent is greater than 50% in coordination of care (as documented) at patient's floor/unit and/or counseling patient: Coding Level of Care Code 07655 SUB INP/OBS CARE 235MIN Diagnoses Fall W19.XXXA Closed rib fracture S22.39XA Left knee pain M25.562 Headache R51.9 Depression with anxiety F41.8 Diabetes mellitus E11.9 HTN (hypertension) I10 Hypocalcemia E83.51 Hypothyroidism E03.9 Hypercholesterolemia E78.00 Time Spent (min) 35
[2022-08-15] MEDS: MONTELUKAST SODIUM 10 MG TABLET PO SCH (20:54)
[2022-08-16] MEDS: traMADol HCL 50 MG TABLET PO PRN ×5 (00:38→20:23)
[2022-08-16] MEDS: LEVOTHYROXINE SODIUM 150 MCG TABLET PO SCH (05:55)
[2022-08-16 06:35] LABS: Hematocrit (blood only) 30.5 % (34.1-44.9); Hemoglobin 10.7 g/dl (12.0-16.0); Mean Corpuscular Hemoglobin 33.6 pg (25.0-34.0); Mean Corpuscular Hgb Conc 35.1 g/dL (32.0-36.0); Mean Corpuscular Volume 95.9 fL (80.0-100.0); Mean Platelet Volume 10.9 fL (9.4-12.3); Platelet Count 130 K/uL (130-400); RDW Coefficient of Variation 12.1 % (11.5-14.5); RDW Standard Deviation 42.3 fL (36.4-46.3); Red Blood Count 3.18 M/uL (3.93-5.22); White Blood Count 5.61 K/ul (4.8-10.8)
[2022-08-16 06:59] LABS: BUN Creatinine Ratio 8.5 (10-20); Calcium 7.1 mg/dl (8.5-10.1); Est GFR (African American) 113.1 ml/min; Est GFR (Non-African American) 97.5 ml/min; Potassium 3.4 mmol/L (3.5-5.1)
[2022-08-16] MEDS: LIDOCAINE 5% 1 PATCH TD SCH (09:17)
[2022-08-16] MEDS: FLUTICASONE/VILANTEROL 200/25MCG 14 PUFFS/INHALER INH SCH (09:17)
[2022-08-16] MEDS: ATORVASTATIN 10 MG TAB PO SCH (09:18)
[2022-08-16] MEDS: APIXABAN 5 MG TABLET PO SCH ×2 (09:18→20:20)
[2022-08-16] MEDS: dilTIAZem HCL 240 MG CAPCR PO SCH (09:18)
[2022-08-16] MEDS: GABAPENTIN 400 MG CAP PO SCH ×2 (09:18→20:19)
[2022-08-16] MEDS: SERTRALINE HCL 50 MG TABLET PO SCH (09:18)
[2022-08-16] MEDS: METOPROLOL TARTRATE 50 MG TAB PO SCH ×2 (09:19→20:19)
[2022-08-16] MEDS: PANTOprazole 40 MG TAB PO SCH (09:19)
[2022-08-16] MEDS: INSULIN ASPART PER UNIT SC SCH ×4 (09:23→21:26)
[2022-08-16] MEDS: TROLAMINE SALICYLATE 10% CRM 255 APPLN/85 GM TUBE EXT PRN ×2 (11:16→20:20)
[2022-08-16] MEDS: LORazepam 1 MG TAB PO PRN ×2 (12:29→23:24)
--- NOTE | 2022-08-16 13:57 | Hospitalist Progress Note ---
Date of Service August 16, 2022 Assessment & Plan (1) Fall: Plan: Patient is a 62 yo female with PMHx including pAfib/flutter, asthma, hyperlipidemia, HTN, TIAs, peripheral neuropathy secondary to DM2, hypothyroidism, anxiety/depression, GERD, and GI bleed who presented to the [facility] ER on 08/14/22 after having multiple falls at home. Falls - Patient reports frequent falls at home related to left knee pain/giving out as well as her peripheral neuropathy - States that she currently does not feel safe at home as she now lives alone as she was 2 months ago - Does not need to use stairs to enter the home, however there are multiple stairs inside of the home - Ambulates at baseline with a cane - PT/OT evals -Awaiting rehab placement (2) Closed rib fracture: Plan: Closed Rib Fx - Chest CT 08/14 with ? L 7th and 8th rib fx - Tramadol 50mg po q4h prn for pain - Lidoderm patch - Encourage incentive spirometer use q1h while awake -Morphine 2mg Q6hrs PRN (3) Left knee pain: Plan: Left Knee Pain - Longstanding hx of left knee pain and "giving out" - Left knee XR shows only soft tissue swelling, no fracture or dislocation - PT/OT ordered (4) Headache: Plan: Headache - Now resolved, although complains of chronic neck pains -CT head/neck 08/14 w/o abnormalities - Pain control as noted above - Avoid NSAID given hx of GI bleed (5) Depression with anxiety: Plan: Depression/Anxiety - Patient reports having outpatient psychiatrist but no therapist - Encouraged her to establish with therapist, especially in light of current grief with of her - Continue home Sertraline -Takes Ativan 1mg TID at home, will continue (6) Diabetes mellitus: Plan: Diabetes - Hold home meds on admission - SSI ordered - Goal 100-140, CF 50, CR 17 - Check A1c in AM (7) HTN (hypertension): Plan: Hypertension, paroxysmal Afib/flutter - Continue home metoprolol, diltiazem, and Eliquis - Patient notes that she has not taken her home diltiazem in several days as there was an error with regards to med refill (8) Hypocalcemia: Plan: Hypocalcemia - Mild hypocalcemia, Ca 8.0, iCa 0.97 - Unknown hx of hypocalcemia - Will check Vitamin D level and PTH (9) Hypothyroidism: Plan: Hypothyroidism - Continue home levothyroxine - Unknown last TSH; will check in AM (10) Hypercholesterolemia: Plan FENGI: Carb consisent/DM2 diet DVT Ppx: home Eliquis Dispo: admit to med/surg Code status: conditional code -- extensive discussion with patient; she would like chest compressions, defibrillation, and all ACLS medications but would not like to be intubated/on ventilator Admission and Anticipated Discharge Date Admission Date: August 15, 2022 Subjective patient seen and examined, complains of rib pains and neck pain Review of Systems Review of Systems: All systems reviewed are negative, apart from the ones contained in the history. Physical Exam Physical Exam: The patient is awake, alert and oriented 3, well developed and well nourished, normocephalic and atraumatic, lying in bed and in no acute distress. HEENT--PERRL, EOMI, mucous membranes and oropharynx mildly dry Neck--supple. No JVD. No bruits. Thyroid normal, trachea midline, no adenopathy. Heart--normal S1 and S2. No murmurs, rubs or gallops. Lungs--clear bilaterally, no respiratory distress, no accessory muscle use. Abdomen--normal bowel sounds and soft. Mild epigastric and left sided abdominal pain Extremities--no cyanosis or clubbing. No edema. Dermatologic--normal skin turgor, normal color, no abnormal lymph nodes, no rash. Neurologic--cranial nerves II through XII grossly intact. Rheumatologic--normal range of motion. Psychiatric--normal affect. Results & Data Results & Data ([facility]) Vital Signs (Past 12 Hours) Vital Signs Temp Pulse Resp BP Pulse Ox Pulse Ox O2 Del Method 08/16/22 12:08 95 08/16/22 07:38 98.2 F 57 L 16 143/78 H 92 Room Air O2 Flow Rate 08/16/22 12:08 0 08/16/22 07:38 PG Care Time/CCT Total # of Minutes Spent Total Time Spent with Patient: Total time spent is greater than 50% in coordination of care (as documented) at patient's floor/unit and/or counseling patient: Coding Level of Care Code 92636 SUB INP/OBS CARE 2/35MIN Diagnoses Fall W19.XXXA Closed rib fracture S22.39XA Left knee pain M25.562 Headache R51.9 Depression with anxiety F41.8 Diabetes mellitus E11.9 HTN (hypertension) I10 Hypocalcemia E83.51 Hypothyroidism E03.9 Hypercholesterolemia E78.00 Time Spent (min) 35
[2022-08-16] MEDS ORDERED: HYDROmorphone INJ 1 MG/ML SYRINGE IV STA (16:36)
[2022-08-16] MEDS: ONDANSETRON INJ 2 MG/ML 2 ML VIAL IV PRN (17:53)
[2022-08-16] MEDS: MONTELUKAST SODIUM 10 MG TABLET PO SCH (20:19)
[2022-08-16] MEDS: CALCIUM 600MG + VIT D 400 IU TAB PO SCH (20:27)
--- NOTE | 2022-08-16 21:41 | Electrocardiogram Report ---
Test Reason : Blood Pressure : / mmHG Vent. Rate : 081 BPM Atrial Rate : 081 BPM P-R Int : 154 ms QRS Dur : 078 ms QT Int : 418 ms P-R-T Axes : 072 062 047 degrees QTc Int : 485 ms Poor data quality, interpretation may be adversely affected Normal sinus rhythm Nonspecific ST abnormality Prolonged QT Abnormal ECG No previous ECGs available Confirmed by John Chandra ([id number]) on 08/16/2022 9:41:09 PM Referred By: Leigh Ann Justin Confirmed By:John Chandra
[2022-08-17] MEDS: traMADol HCL 50 MG TABLET PO PRN ×3 (01:32→09:02)
[2022-08-17] MEDS: ONDANSETRON INJ 2 MG/ML 2 ML VIAL IV PRN ×3 (01:33→23:23)
[2022-08-17] MEDS: TROLAMINE SALICYLATE 10% CRM 255 APPLN/85 GM TUBE EXT PRN (04:42)
[2022-08-17] MEDS: LEVOTHYROXINE SODIUM 150 MCG TABLET PO SCH (04:43)
[2022-08-17] MEDS: GABAPENTIN 400 MG CAP PO SCH ×2 (08:54→20:08)
[2022-08-17] MEDS: METOPROLOL TARTRATE 50 MG TAB PO SCH ×2 (08:55→20:08)
[2022-08-17] MEDS: CALCIUM 600MG + VIT D 400 IU TAB PO SCH ×2 (08:55→20:08)
[2022-08-17] MEDS: FLUTICASONE/VILANTEROL 200/25MCG 14 PUFFS/INHALER INH SCH (08:55)
[2022-08-17] MEDS: APIXABAN 5 MG TABLET PO SCH ×2 (08:56→20:08)
[2022-08-17] MEDS: LIDOCAINE 5% 1 PATCH TD SCH (08:56)
[2022-08-17] MEDS: PANTOprazole 40 MG TAB PO SCH (08:56)
[2022-08-17] MEDS: SERTRALINE HCL 50 MG TABLET PO SCH (08:56)
[2022-08-17] MEDS: ATORVASTATIN 10 MG TAB PO SCH (08:56)
[2022-08-17] MEDS: dilTIAZem HCL 240 MG CAPCR PO SCH (08:56)
[2022-08-17] MEDS: INSULIN ASPART PER UNIT SC SCH ×4 (08:58→21:06)
[2022-08-17] MEDS ORDERED: traMADol HCL 50 MG TABLET PO PRN (10:22)
[2022-08-17] MEDS ORDERED: HYDROmorphone INJ 0.5 MG/0.5 ML SYR IV STA ×3 (12:25→23:36)
--- NOTE | 2022-08-17 15:33 | Hospitalist Progress Note ---
Date of Service August 17, 2022 Assessment & Plan (1) Fall: Plan: Patient is a 62 yo female with PMHx including pAfib/flutter, asthma, hyperlipidemia, HTN, TIAs, peripheral neuropathy secondary to DM2, hypothyroidism, anxiety/depression, GERD, and GI bleed who presented to the [facility] ER on 08/14/22 after having multiple falls at home. Falls - Patient reports frequent falls at home related to left knee pain/giving out as well as her peripheral neuropathy - States that she currently does not feel safe at home as she now lives alone as she was 2 months ago - Does not need to use stairs to enter the home, however there are multiple stairs inside of the home - Ambulates at baseline with a cane - PT/OT evals -Awaiting rehab placement, however, [facility] says patient not a candidate (2) Closed rib fracture: Plan: Closed Rib Fx - Chest CT 08/14 with ? L 7th and 8th rib fx - Tramadol 50mg po q4h prn for pain - Lidoderm patch - Encourage incentive spirometer use q1h while awake -Morphine 2mg Q6hrs PRN (3) Left knee pain: Plan: Left Knee Pain - Longstanding hx of left knee pain and "giving out" - Left knee XR shows only soft tissue swelling, no fracture or dislocation - PT/OT ordered (4) Headache: Plan: Headache - Now resolved, although complains of chronic neck pains -CT head/neck 08/14 w/o abnormalities - Pain control as noted above - Avoid NSAID given hx of GI bleed (5) Depression with anxiety: Plan: Depression/Anxiety - Patient reports having outpatient psychiatrist but no therapist - Encouraged her to establish with therapist, especially in light of current grief with of her - Continue home Sertraline -Takes Ativan 1mg TID at home, will continue (6) Diabetes mellitus: Plan: Diabetes - Hold home meds on admission - SSI ordered - Goal 100-140, CF 50, CR 17 - Check A1c in AM (7) HTN (hypertension): Plan: Hypertension, paroxysmal Afib/flutter - Continue home metoprolol, diltiazem, and Eliquis - Patient notes that she has not taken her home diltiazem in several days as there was an error with regards to med refill (8) Hypocalcemia: Plan: Hypocalcemia - Mild hypocalcemia, Ca 8.0, iCa 0.97 - Unknown hx of hypocalcemia - Will check Vitamin D level and PTH (9) Hypothyroidism: Plan: Hypothyroidism - Continue home levothyroxine - Unknown last TSH; will check in AM (10) Hypercholesterolemia: Plan Will try to d/c home tomorrow, [facility] said patient does not meet criteria FENGI: Carb consisent/DM2 diet DVT Ppx: home Eliquis Dispo: admit to med/surg Code status: conditional code -- extensive discussion with patient; she would like chest compressions, defibrillation, and all ACLS medications but would not like to be intubated/on ventilator Admission and Anticipated Discharge Date Admission Date: August 15, 2022 Subjective patient seen and examined, complains of rib pains and neck pain Review of Systems Review of Systems: All systems reviewed are negative, apart from the ones contained in the history. Physical Exam Physical Exam: The patient is awake, alert and oriented 3, well developed and well nourished, normocephalic and atraumatic, lying in bed and in no acute distress. HEENT--PERRL, EOMI, mucous membranes and oropharynx mildly dry Neck--supple. No JVD. No bruits. Thyroid normal, trachea midline, no adenopathy. Heart--normal S1 and S2. No murmurs, rubs or gallops. Lungs--clear bilaterally, no respiratory distress, no accessory muscle use. Abdomen--normal bowel sounds and soft. Mild epigastric and left sided abdominal pain Extremities--no cyanosis or clubbing. No edema. Dermatologic--normal skin turgor, normal color, no abnormal lymph nodes, no rash. Neurologic--cranial nerves II through XII grossly intact. Rheumatologic--normal range of motion. Psychiatric--normal affect. Results & Data Results & Data ([facility]) Vital Signs (Past 12 Hours) Vital Signs Temp Pulse Resp BP Pulse Ox O2 Del Method 08/17/22 15:15 98.1 F 63 18 157/85 H 96 Room Air 08/17/22 07:53 Room Air 08/17/22 07:26 98.2 F 70 18 138/79 97 Room Air PG Care Time/CCT Total # of Minutes Spent Total Time Spent with Patient: Total time spent is greater than 50% in coordination of care (as documented) at patient's floor/unit and/or counseling patient: Coding Level of Care Code 58714 SUB INP/OBS CARE 235MIN Diagnoses Fall W19.XXXA Closed rib fracture S22.39XA Left knee pain M25.562 Headache R51.9 Depression with anxiety F41.8 Diabetes mellitus E11.9 HTN (hypertension) I10 Hypocalcemia E83.51 Hypothyroidism E03.9 Hypercholesterolemia E78.00 Time Spent (min) 35
[2022-08-17] MEDS: ACETAMINOPHEN 1,000 MG/100 ML VIAL IV PRN (16:43)
[2022-08-17] MEDS: LORazepam 1 MG TAB PO PRN ×2 (16:46→23:30)
[2022-08-17] MEDS: MONTELUKAST SODIUM 10 MG TABLET PO SCH (20:08)
[2022-08-18] MEDS: LEVOTHYROXINE SODIUM 150 MCG TABLET PO SCH (05:36)
[2022-08-18 07:22] LABS: Hematocrit (blood only) 30.6 % (34.1-44.9); Hemoglobin 10.7 g/dl (12.0-16.0); Mean Corpuscular Volume 97.1 fL (80.0-100.0); Mean Platelet Volume 10.5 fL (9.4-12.3); Platelet Count 134 K/uL (130-400); RDW Coefficient of Variation 12.6 % (11.5-14.5); RDW Standard Deviation 43.5 fL (36.4-46.3); Red Blood Count 3.15 M/uL (3.93-5.22); White Blood Count 4.84 K/ul (4.8-10.8)
[2022-08-18 07:41] LABS: BUN Creatinine Ratio 9.7 (10-20); Calcium 7.5 mg/dl (8.5-10.1); Creatinine Clr Calc Pharmacy 104.7 ml/min; Est GFR (African American) 111.2 ml/min; Potassium 3.6 mmol/L (3.5-5.1)
[2022-08-18] MEDS: ATORVASTATIN 10 MG TAB PO SCH (08:54)
[2022-08-18] MEDS: PANTOprazole 40 MG TAB PO SCH (08:54)
[2022-08-18] MEDS: dilTIAZem HCL 240 MG CAPCR PO SCH (08:54)
[2022-08-18] MEDS: APIXABAN 5 MG TABLET PO SCH (08:54)
[2022-08-18] MEDS: GABAPENTIN 400 MG CAP PO SCH (08:54)
[2022-08-18] MEDS: CALCIUM 600MG + VIT D 400 IU TAB PO SCH (08:54)
[2022-08-18] MEDS: METOPROLOL TARTRATE 50 MG TAB PO SCH (08:54)
[2022-08-18] MEDS: FLUTICASONE/VILANTEROL 200/25MCG 14 PUFFS/INHALER INH SCH (08:55)
[2022-08-18] MEDS: SERTRALINE HCL 50 MG TABLET PO SCH (08:55)
[2022-08-18] MEDS: LIDOCAINE 5% 1 PATCH TD SCH (08:55)
[2022-08-18] MEDS: INSULIN ASPART PER UNIT SC SCH ×2 (08:58→12:42)
[2022-08-18] MEDS: ACETAMINOPHEN 1,000 MG/100 ML VIAL IV PRN (09:09)
[2022-08-18] MEDS: LORazepam 1 MG TAB PO PRN (11:17)
--- NOTE | 2022-08-18 13:57 | Discharge Summary ---
Date of Service August 18, 2022 Admission HPI Per Admitting Provider Patient is a 62 yo female with PMHx including pAfib/flutter, asthma, hyperlipidemia, HTN, TIAs, peripheral neuropathy secondary to DM2, hypothyroidism, anxiety/depression, GERD, and GI bleed who presented to the [facility] ER on 08/14/22 after having a fall at home. Patient states that yesterday, she was walking down the inside stairs of her home with her cane when the left knee "gave out" and she fell down 7 steps. At the bottom of the steps, patient struck her left forehead on a chair and then fell backwards. Her primary complaint at this time is left sided rib pain, a headache, and left knee pain. Patient notes that she has been falling frequently, about 1x per week. She notes that all falls are due to either her left knee giving out or her peripheral neuropathy. There was no reported syncope or LOC. She states that she has been evaluated by ortho in the outpatient setting. She also states that she is "tired of physical therapy" and that she has had physical therapy for years. Patient is tearful and anxious throughout interview and exam. She notes that her 2 months ago and since then she has had difficulty living in her home alone. Patient has started the process to get a LifeAlert but does not yet have one. In the ER, patient received 6mg Morphine x2 and 4mg Zofran. A CT chest/abd/pelvis was performed which revealed no solid organ injury but ? acute left lateral 7th and 8th rib fractures. Head CT with no acute intracranial abnormalities. Labs with no leukocytosis or anemia. Principal Diagnosis fall, rib frcature Discharge Exam The patient is awake, alert and oriented 3, well developed and well nourished, normocephalic and atraumatic, lying in bed and in no acute distress. HEENT--PERRL, EOMI, mucous membranes and oropharynx mildly dry Neck--supple. No JVD. No bruits. Thyroid normal, trachea midline, no adenopathy. Heart--normal S1 and S2. No murmurs, rubs or gallops. Lungs--clear bilaterally, no respiratory distress, no accessory muscle use. Abdomen--normal bowel sounds and soft. Mild epigastric and left sided abdominal pain Extremities--no cyanosis or clubbing. No edema. Dermatologic--normal skin turgor, normal color, no abnormal lymph nodes, no rash. Neurologic--cranial nerves II through XII grossly intact. Rheumatologic--normal range of motion. Psychiatric--normal affect. Discharge Data Allergies Allergy/AdvReac Type Severity Reaction Status Date / Time tuberculin,PPD,multi-puncture Allergy Unknown CAN'T Verified 08/14/22 21:24 REMEMBER azithromycin [From Zithromax] AdvReac Severe manic Verified 08/14/22 21:24 buspirone [From BuSpar] AdvReac Intermediate anxious Verified 08/14/22 21:24 NSAIDS (Non-Steroidal AdvReac Unknown HX OF A GI Verified 08/14/22 21:28 Anti-Inflamma BLEED/NOT TO TAKE. Consultations 08/14/22 21:03 ED Decision to Admit Stat Ordered Studies 08/14/22 18:58 CT Abd and Pelvis [CT abd pelvis IV con only] Stat CT cervical spine wo con Stat CT chest diagnostic w con Stat CT head/brain wo con Stat Hospital Course (1) Fall: Patient is a 62 yo female with PMHx including pAfib/flutter, asthma, hyperlipidemia, HTN, TIAs, peripheral neuropathy secondary to DM2, hypothyroidism, anxiety/depression, GERD, and GI bleed who presented to the [facility] ER on 08/14/22 after having multiple falls at home. Falls - Patient reports frequent falls at home related to left knee pain/giving out as well as her peripheral neuropathy - States that she currently does not feel safe at home as she now lives alone as she was 2 months ago - Does not need to use stairs to enter the home, however there are multiple s tairs inside of the home - Ambulates at baseline with a cane - PT/OT evals -d/c home. Not a candidate for rehab (2) Closed rib fracture: Closed Rib Fx - Chest CT 08/14 with ? L 7th and 8th rib fx - Tramadol 50mg po q4h prn for pain - Lidoderm patch - Encourage incentive spirometer use q1h while awake -Morphine 2mg Q6hrs PRN (3) Left knee pain: Left Knee Pain - Longstanding hx of left knee pain and "giving out" - Left knee XR shows only soft tissue swelling, no fracture or dislocation - PT/OT ordered (4) Headache: Headache - Now resolved, although complains of chronic neck pains -CT head/neck 08/14 w/o abnormalities - Pain control as noted above - Avoid NSAID given hx of GI bleed (5) Depression with anxiety: Depression/Anxiety - Patient reports having outpatient psychiatrist but no therapist - Encouraged her to establish with therapist, especially in light of current grief with of her - Continue home Sertraline -Takes Ativan 1mg TID at home, will continue (6) Diabetes mellitus: Diabetes - Hold home meds on admission - SSI ordered - Goal 100-140, CF 50, CR 17 - Check A1c in AM (7) HTN (hypertension): Hypertension, paroxysmal Afib/flutter - Continue home metoprolol, diltiazem, and Eliquis - Patient notes that she has not taken her home diltiazem in several days as there was an error with regards to med refill (8) Hypocalcemia: Hypocalcemia - Mild hypocalcemia, Ca 8.0, iCa 0.97 - Unknown hx of hypocalcemia - Will check Vitamin D level and PTH (9) Hypothyroidism: Hypothyroidism - Continue home levothyroxine - Unknown last TSH; will check in AM (10) Hypercholesterolemia: Plan Will try to d/c home tomorrow, [facility] said patient does not meet criteria FENGI: Carb consisent/DM2 diet DVT Ppx: home Eliquis Dispo: admit to med/surg Code status: conditional code -- extensive discussion with patient; she would like chest compressions, defibrillation, and all ACLS medications but would not like to be intubated/on ventilator Total Time Total Time Spent Total Time Spent (In Minutes): 35 Discharge Plan Discharge Items Patient Disposition: Home - Self-Care Reason For Visit: FALLS Discharge Diagnosis: fall, rib fracture Activity: Resume your previous activity Non-emergency contact: Primary Care Provider Call non-emergency contact if: you have any medication questions Follow-up/Referrals: Leigh Ann Justin [Primary Care Provider] - 08/21/22 10:45 am Diet: Regular Addtl Attending Provider Instructions: please make appointment to follow up with your regular PCP Pending Studies at Discharge: No Stand-Alone Forms: My Call Britann[place], Smoking Cessation Medications and DC Order Prescriptions: Continued Tradjenta 5 mg tablet 5 mg PO DAILY Qty: 30 2RF atorvastatin 10 mg tablet 10 mg PO DAILY omeprazole 20 mg capsule,delayed release(DR/EC) 20 mg PO DAILY levothyroxine 150 mcg tablet 150 mcg PO DAILY montelukast 10 mg tablet 10 mg PO HS budesonide-formoterol [Symbicort] 160-4.5 mcg/actuation HFA aerosol inhaler 2 puff inhalation BID albuterol sulfate [Ventolin HFA] 90 mcg/actuation HFA aerosol inhaler 2 puff inhalation Q6H PRN (Reason: Shortness Of Breath Or Wheezing) metoprolol tartrate 100 mg tablet 50 mg PO BID diltiazem HCl 240 mg Capsule,Extended Release 24hr 240 mg PO QAM sertraline [Zoloft] 100 mg Tablet 150 mg PO DAILY lorazepam 1 mg Tablet 1 mg PO TID PRN (Reason: Anxiety) Rx Instructions: PER PT "TAKE PRETTY REGULARLY". Eliquis 5 mg Tablet 5 mg PO BID gabapentin 400 mg capsule 400 mg PO BID Discharge Orders: Discharge Order (Routine); Ordered 08/18/22 Ordered By: Kolby Larose/Other Patient Handouts: Managing Type 2 Diabetes Admission Data Admit Date/Time: 08/15/22 10:32 Attending Provider: Kolby Lindo Admit Provider: Milana Willams Primary Care Provider: Leigh Ann Justin Other Providers: Reginald Guerra ; [facility] Other Interventions: Discharge Summary Assessment (RN) Last Done: 08/18/22 11:50 Coding Level of Care Code HOSP INP/OBS DISCH >30 MIN Diagnoses Fall W19.XXXA Closed rib fracture S22.39XA Left knee pain M25.562 Headache R51.9 Depression with anxiety F41.8 Diabetes mellitus E11.9 HTN (hypertension) I10 Hypocalcemia E83.51 Hypothyroidism E03.9 Hypercholesterolemia E78.00 Time Spent (min) 35
== END 2022-08-18 13:56 | disposition home or self-care (01) | DRG 92 ==
LOC: 3N 18:12 → ED 18:12 → SUATTDRO 23:02 → 3N 08-15 00:25

== ENCOUNTER 2023-09-16 22:31 | Inpatient (IN) ==
[2023-09-16 23:11] LABS: Basophils # (auto) 0.01 K/uL (0.00-0.20); Basophils % (auto) 0.1 %; Hemoglobin 12.3 g/dl (12.0-16.0); Immature Granulocytes # (auto) 0.02 K/uL (0.01-0.20); Immature Granulocytes % (auto) 0.3 %; Lymphocytes % (auto) 9.9 %; Mean Corpuscular Hemoglobin 33.5 pg (25.0-34.0); Mean Corpuscular Hgb Conc 34.2 g/dL (32.0-36.0); Mean Corpuscular Volume 98.1 fL (80.0-100.0); Mean Platelet Volume 10.6 fL (9.4-12.4); Monocytes # (auto) 0.15 K/uL (0.11-0.59); Monocytes % (auto) 2.1 %; Neutrophils # (auto) 6.16 K/uL (1.40-6.50); Neutrophils % (auto) 87.6 %; Platelet Count 211 K/uL (130-400); RDW Coefficient of Variation 14.1 % (11.5-14.5); RDW Standard Deviation 51.1 fL (36.4-46.3); Red Blood Count 3.67 M/uL (4.20-5.40); White Blood Count 7.04 K/ul (4.8-10.8)
--- NOTE | 2023-09-16 23:55 | Emergency Department Note ---
Impression & Plan Hyperglycemia, Hypomagnesemia, Diabetic foot ulcer, Chest pain, Atrial fibrillation, Bilateral foot pain ED Provider Note ED Provider Note NAME: MILO FORD AGE:63 SEX: Female : 1960 ARRIVES VIA: private vehicle INFORMANT: Patient ED PROVIDER(s): Rasheeda Franklin DO CHIEF COMPLAINT: Elevated blood glucose HPI: This is a 63-year-old female with a history of diabetes who presents emergency department after noting elevated blood sugar readings at home. Patient was concerned as she did have a steroid injection into her hip joint earlier today in the office. Patient also concerned as she has had increased problems with her feet noting that she has developed several ulcers and feels as though her bones are sticking out and are more painful. She states she does have an appointment tomorrow with her family doctor regarding this. She states she has had rhinorrhea recently and increased cough. She is a former smoker and does have a history of asthma. She does use her inhaler at home. She denies abdominal pain, vomiting or diarrhea. Patient is currently taking antibiotics that she recent had dental procedures performed. She has been on amoxicillin since Wednesday. Patient does have a history of atrial fibrillation and has had a prior Watchman procedure done. She does take sotalol. She states she has been having palpitations and intermittent chest pain today additionally. PAST MEDICAL HISTORY:See Below PAST SURGICAL HISTORY:See Below FAMILY HISTORY:See Below SOCIAL HISTORY:See Below HOME MEDICATIONS:See Below ALLERGIES:See Below VITALS:See Below PHYSICAL EXAMINATION: GENERAL: alert, well appearing, well nourished, no distress, non-toxic EYE EXAM: normal conjunctiva, PERRL and EOM's grossly intact OROPHARYNX: no exudate, no erythema, lips, buccal mucosa, and tongue normal and mucous membranes are moist NECK: supple, no nuchal rigidity, no adenopathy, non-tender LUNGS: Decreased bilateral to auscultation. Normal chest wall mechanics, no w/r/r HEART: no murmurs, S1 normal and S2 normal ABDOMEN: abdomen soft, non-tender, normo-active bowel sounds, no masses, no rebound or guarding. BACK: Back is symmetrical on inspection and there is no deformity, no midline tenderness, no CVA tenderness. SKIN: no rashes, petechiae, orbruising UPPER EXTREMITIES: upper extremities are grossly normal. FROM, nml pulses b/l. LOWER EXTREMITIES: No pitting edema. FROM, nml DP and PT pulses b/l, feet cool to the touch bilaterally however this is symmetric, she was noted to have several areas of ulceration to the plantar aspect of both great toes, as well as along the lateral aspect of the foot over the bony prominence of the fifth metatarsal NEURO EXAM: Normal sensorium, cranial nerves II-XII grossly intact, normal speech, no facial droop,nogross weakness of arms, no gross weakness of legs. Gross sensation intact. No ataxia. Vital Signs: reviewed and remarkable Differential Diagnosis: Diabetic foot ulcer, NIRVA, dehydration, occult fracture, osteomyelitis, cellulitis, DKA, electrolyte abnormality MEDICAL DECISION MAKING: THis is a 63 yo female who presents with concern for hyperglycemia noted at home. She also c/o ongoing foot pain and DM foot ulcers. She was afebrile and VS stable. Labs drawn and sent, IV established, EKG and CXR performed and interpreted at bedside, and patient placed on telemetry. Foot exays obtained additionally and were interpreted by me. She was noted to be hyperglycemic and had borderline AG. She was given 2 L IVF and IV insulin with improvement. She was noted have significant hypomagnesemia. She was noted have a.fib on tele however has a hx of this, but continued to c/o chest pain and palpitations despite repletion of her electrolytes and improved glucose and hydration. Troponin negative. No clinical sx to suggest CHF. I do not suspect PE. She has hx of asthma and is a former smoker. She was given duoneb with improvement in breathing and chest tightness. GIven concern for persistent symptoms of cp, palpitations, foot pain despite treatment in the ER, case discussed with the hospitalist team for additional evaluation. Consultation(s): 0302: Discussed with Dr. Guerra, [place] hospitalist, for additional evaluation and mgmt. ER Treatment Provided: See below Diagnostics Interpreted By Me: -ECG: a.fib at 80, nml axis, nml intervals, nonspecific ST/T wave changes -Cardiac Monitoring: An order was placed for continuous cardiac monitoring. The monitor shows a rate of 80 with normal sinus rhythm. -Laboratory studies: As stated above and show below. -Imaging studies: X-ray Chest: A single view study of the chest was reviewed and was negative for cardiomegaly, focal infiltrate, effusion, pulmonary edema, or wide mediastinum. xr foot b/l: no fx/dislocation Triage Nursing Note Reviewed Prior/Outside Records Reviewed Past Med/Surg History Medical History Left knee pain Acute kidney injury Surgical History S/P ORIF (open reduction internal fixation) fracture H/O LEEP History of tonsillectomy and adenoidectomy Family History Mother Diabetes Hypertension Colorectal cancer Myelodysplasia (myelodysplastic syndrome) Father Heart disease Hypertension Brother Hypertension Brother Schizo affective schizophrenia Brother Suicide Social History Smoking Status: Former smoker Tobacco Type: Cigarettes Age Started Using Tobacco: 59; packs per day: 0.75; Cigarettes Per Day: 2; Second Hand Exposure: No; Do You Dip or Chew Tobacco: No; Hx Alcohol Use: Yes Alcohol type: beer and wine Hx Substance Use: No Preferred Language: Norwegian Communication Ability: Effective Hearing Ability: Normal Exchange Trouble Shooter Required: No Beliefs That Will Affect Care: None marital status: Current Living Situation: Alone current occupational status: disabled How many Children do You have: 2 Feels Safe at Home: Yes Childhood Exposure to Second-Hand Smoke: Yes Seatbelt Use: always Sunscreen Use: Yes Assistive Devices: Cane and Other Allergies Allergies Allergy/AdvReac Type Severity Reaction Status Date / Time tuberculin,PPD,multi-puncture Allergy Severe EXTREME Verified 09/17/23 00:13 SWELLING AT SITE acetaminophen [From Tylenol] AdvReac Severe DUE TO Verified 09/17/23 00:14 LIVER ISSUES-CONTRAINDICATED azithromycin [From Zithromax] AdvReac Severe manic Verified 09/17/23 00:13 buspirone [From BuSpar] AdvReac Intermediate anxious Verified 09/17/23 00:13 NSAIDS (Non-Steroidal AdvReac Unknown HX OF A GI Verified 09/17/23 00:13 Anti-Inflamma BLEED/NOT TO TAKE. Home Meds Home Medications Medication Instructions Recorded Confirmed albuterol sulfate 90 mcg/actuation 2 puff inhalation Q6H PRN 03/27/20 09/17/23 aerosol inhaler (Ventolin HFA) Shortness Of Breath Or Wheezing budesonide-formoterol HFA 160 2 puff inhalation BID 03/27/20 09/17/23 mcg-4.5 mcg/actuation aerosol inhaler (Symbicort) levothyroxine 150 mcg tablet 150 mcg PO DAILY 03/27/20 09/17/23 montelukast 10 mg tablet 10 mg PO HS 03/27/20 09/17/23 atorvastatin 40 mg tablet 40 mg PO DAILY 10/07/22 09/17/23 cholecalciferol (vitamin D3) 10 0 mcg PO DAILY 10/07/22 09/17/23 mcg (400 unit) capsule mecobalamin (vitamin B12) 1,000 1,000 mcg PO DAILY 10/07/22 09/17/23 mcg chewable tablet lllxyyozxgpb-onovstjf-ippfqs tablet 1 tab PO DAILY 10/07/22 09/17/23 amoxicillin 500 mg capsule 500 mg PO TID 09/17/23 09/17/23 aspirin 81 mg tablet,delayed 81 mg PO DAILY 09/17/23 09/17/23 release chlorhexidine gluconate 0.12 % 10 ml mucous membrane BID 09/17/23 09/17/23 mouthwash gabapentin 800 mg tablet 800 mg PO TID 09/17/23 09/17/23 lisinopril 10 mg tablet 10 mg PO DAILY 09/17/23 09/17/23 lorazepam 0.5 mg tablet 0.5 mg PO BID PRN Anxiety 09/17/23 09/17/23 magnesium oxide 400 mg (241.3 mg 400 mg PO DAILY 09/17/23 09/17/23 magnesium) tablet mirtazapine 7.5 mg tablet 7.5 mg PO HS 09/17/23 09/17/23 pantoprazole 40 mg tablet,delayed 40 mg PO DAILY 09/17/23 09/17/23 release potassium chloride 20 mEq 20 meq PO DAILY 09/17/23 09/17/23 tablet,extended release sotalol 120 mg tablet 120 mg PO Q12 09/17/23 09/17/23 temazepam 30 mg capsule 30 mg PO HS PRN NEEDED 09/17/23 09/17/23 tramadol 50 mg tablet 50 mg PO TID PRN Pain 09/17/23 09/17/23 venlafaxine 75 mg capsule,extended 75 mg PO DAILY 09/17/23 09/17/23 release 24 hr Previous Rx's Medication Instructions Recorded linagliptin 5 mg tablet (Tradjenta) 5 mg PO DAILY #30 tabs 04/30/20 Results & Data (ED) Vital Signs Vital Signs - 24 hr 09/16/23 22:41 09/16/23 23:07 09/16/23 23:07 Temperature 36.8 C Temperature Source Temporal Artery Scan Pulse Rate 109 H 96 H Pulse Rate from SpO2 Sensor Pulse Rhythm Regular Pulse Strength Normal Respiratory Rate 18 20 Respiratory Effort / Characteristics Non-Labored Spontaneous Respiratory Depth Normal Respiratory Pattern Regular Blood Pressure 160/91 H 135/74 Blood Pressure Mean 114 91 Blood Pressure Position Sitting Pulse Oximetry 96 Oxygen Delivery Method Room Air Sepsis Recent Fever Within 48 Hours No Sepsis New/Unexplained Change in Mental Status N/A Sepsis Action Taken by Nursing No Action Required 09/16/23 23:15 09/16/23 23:31 09/16/23 23:38 Temperature Temperature Source Pulse Rate 109 H 85 Pulse Rate from SpO2 Sensor Pulse Rhythm Pulse Strength Respiratory Rate 17 18 Respiratory Effort / Characteristics Respiratory Depth Respiratory Pattern Blood Pressure 99/73 L Blood Pressure Mean 84 Blood Pressure Position Pulse Oximetry Oxygen Delivery Method Sepsis Recent Fever Within 48 Hours Sepsis New/Unexplained Change in Mental Status Sepsis Action Taken by Nursing 09/17/23 00:00 09/17/23 00:00 09/17/23 00:30 Temperature Temperature Source Pulse Rate 101 H 82 Pulse Rate from SpO2 Sensor 84 Pulse Rhythm Pulse Strength Respiratory Rate 15 14 Respiratory Effort / Characteristics Respiratory Depth Respiratory Pattern Blood Pressure 118/71 Blood Pressure Mean 81 Blood Pressure Position Pulse Oximetry 100 Oxygen Delivery Method Sepsis Recent Fever Within 48 Hours Sepsis New/Unexplained Change in Mental Status Sepsis Action Taken by Nursing 09/17/23 01:00 09/17/23 01:00 09/17/23 01:30 Temperature Temperature Source Pulse Rate 86 Pulse Rate from SpO2 Sensor 92 H Pulse Rhythm Pulse Strength Respiratory Rate 24 Respiratory Effort / Characteristics Respiratory Depth Respiratory Pattern Blood Pressure 128/76 116/69 Blood Pressure Mean 101 78 Blood Pressure Position Pulse Oximetry 88 L Oxygen Delivery Method Sepsis Recent Fever Within 48 Hours Sepsis New/Unexplained Change in Mental Status Sepsis Action Taken by Nursing 09/17/23 01:30 09/17/23 02:00 09/17/23 02:00 Temperature Temperature Source Pulse Rate 85 83 Pulse Rate from SpO2 Sensor 84 79 Pulse Rhythm Pulse Strength Respiratory Rate 22 18 Respiratory Effort / Characteristics Respiratory Depth Respiratory Pattern Blood Pressure 107/74 Blood Pressure Mean 78 Blood Pressure Position Pulse Oximetry 97 98 Oxygen Delivery Method Sepsis Recent Fever Within 48 Hours Sepsis New/Unexplained Change in Mental Status Sepsis Action Taken by Nursing Laboratory Data 09/18/23 06:42 09/18/23 06:42 Lab Results 09/16/23 09/16/23 09/17/23 Range/Units 22:54 23:04 00:50 WBC 7.04 (4.8-10.8) K/ul RBC 3.67 L (4.20-5.40) M/uL Hgb 12.3 (12.0-16.0) g/dl Hct 36.0 L (37.0-47.0) % MCV 98.1 (80.0-100.0) fL MCH 33.5 (25.0-34.0) pg MCHC 34.2 (32.0-36.0) g/dL RDW Std Deviation 51.1 H (36.4-46.3) fL RDW Coeff of [place] 14.1 (11.5-14.5) % Plt Count 211 (130-400) K/uL MPV 10.6 (9.4-12.4) fL Immature Gran % (Auto) 0.3 % Neut % (Auto) 87.6 % Lymph % (Auto) 9.9 % [place] % (Auto) 2.1 % Eos % (Auto) 0.0 % Baso % (Auto) 0.1 % Neut # (Auto) 6.16 (1.40-6.50) K/uL Lymph # (Auto) 0.70 L (1.20-3.40) K/uL [place] # (Auto) 0.15 (0.11-0.59) K/uL Eos # (Auto) 0.00 (0.00-0.50) K/uL Baso # (Auto) 0.01 (0.00-0.20) K/uL Immature Gran # (Auto) 0.02 (0.01-0.20) K/uL Sodium 132 L (136-145) mmol/L Potassium 4.8 (3.5-5.1) mmol/L Chloride 100 (98-107) mmol/L Carbon Dioxide 20 L (21-32) mmol/L Anion Gap 12 H (3-11) BUN 19 (6-23) mg/dl Creatinine 0.91 (0.6-1.2) mg/dl Est Cr Clr Drug Dosing 64.2 ml/min Est GFR ( Amer) 77.3 ml/min Est GFR (Non-Af Amer) 66.7 ml/min BUN/Creatinine Ratio 20.9 H (10-20) Glucose 469 H* (70-99(Fasting)) mg/dl POC Glucose 507 H* 451 H* (70-99) mg/dl Calcium 9.7 (8.6-10.3) mg/dl Magnesium 1.3 L (1.7-2.4) mg/dl Total Bilirubin 1.1 H (0.2-1.0) mg/dl AST 25 (13-39) U/L ALT 27 (7-52) U/L Alkaline Phosphatase 152 H (34-104) U/L Troponin I High Sens 5.0 (0-14) pg/ml Total Protein 8.3 (6.0-8.3) gm/dl Albumin 4.4 (3.4-5.0) gm/dl Globulin 3.9 (2.5-4.0) gm/dl Albumin/Globulin Ratio 1.1 (0.9-2) Adenovirus (PCR) (NotDetected) B. pertussis DNA (PCR) (NotDetected) B.parapertussis DNA PCR (NotDetected) C. pneumoniae DNA (PCR) (NotDetected) Coronavirus OC43 (PCR) (NotDetected) Coronavirus HKU1 (PCR) (NotDetected) Coronavirus 229E (PCR) (NotDetected) SARS-CoV-2 (PCR) (NotDetected) Coronavirus NL63 (PCR) (NotDetected) Human Metapneumovir PCR (NotDetected) Influenza Type A (PCR) (NotDetected) Influenza Type B (PCR) (NotDetected) M. pneumoniae (PCR) (NotDetected) Parainfluenza 1 (PCR) (NotDetected) Parainfluenza 2 (PCR) (NotDetected) Parainfluenza 3 (PCR) (NotDetected) Parainfluenza 4 (PCR) (NotDetected) RSV (PCR) (NotDetected) Entero/Rhino (PCR) (NotDetected) 09/17/23 09/17/23 09/17/23 Range/Units 01:33 02:06 02:51 WBC (4.8-10.8) K/ul RBC (4.20-5.40) M/uL Hgb (12.0-16.0) g/dl Hct (37.0-47.0) % MCV (80.0-100.0) fL MCH (25.0-34.0) pg MCHC (32.0-36.0) g/dL RDW Std Deviation (36.4-46.3) fL RDW Coeff of [place] (11.5-14.5) % Plt Count (130-400) K/uL MPV (9.4-12.4) fL Immature Gran % (Auto) % Neut % (Auto) % Lymph % (Auto) % [place] % (Auto) % Eos % (Auto) % Baso % (Auto) % Neut # (Auto) (1.40-6.50) K/uL Lymph # (Auto) (1.20-3.40) K/uL [place] # (Auto) (0.11-0.59) K/uL Eos # (Auto) (0.00-0.50) K/uL Baso # (Auto) (0.00-0.20) K/uL Immature Gran # (Auto) (0.01-0.20) K/uL Sodium (136-145) mmol/L Potassium (3.5-5.1) mmol/L Chloride (98-107) mmol/L Carbon Dioxide (21-32) mmol/L Anion Gap (3-11) BUN (6-23) mg/dl Creatinine (0.6-1.2) mg/dl Est Cr Clr Drug Dosing ml/min Est GFR ( Amer) ml/min Est GFR (Non-Af Amer) ml/min BUN/Creatinine Ratio (10-20) Glucose (70-99(Fasting)) mg/dl POC Glucose 347 H* 290 H (70-99) mg/dl Calcium (8.6-10.3) mg/dl Magnesium (1.7-2.4) mg/dl Total Bilirubin (0.2-1.0) mg/dl AST (13-39) U/L ALT (7-52) U/L Alkaline Phosphatase (34-104) U/L Troponin I High Sens (0-14) pg/ml Total Protein (6.0-8.3) gm/dl Albumin (3.4-5.0) gm/dl Globulin (2.5-4.0) gm/dl Albumin/Globulin Ratio (0.9-2) Adenovirus (PCR) Not Detected (NotDetected) B. pertussis DNA (PCR) Not Detected (NotDetected) B.parapertussis DNA PCR Not Detected (NotDetected) C. pneumoniae DNA (PCR) Not Detected (NotDetected) Coronavirus OC43 (PCR) Not Detected (NotDetected) Coronavirus HKU1 (PCR) Not Detected (NotDetected) Coronavirus 229E (PCR) Not Detected (NotDetected) SARS-CoV-2 (PCR) Not Detected (NotDetected) Coronavirus NL63 (PCR) Not Detected (NotDetected) Human Metapneumovir PCR Not Detected (NotDetected) Influenza Type A (PCR) Not Detected (NotDetected) Influenza Type B (PCR) Not Detected (NotDetected) M. pneumoniae (PCR) Not Detected (NotDetected) Parainfluenza 1 (PCR) Not Detected (NotDetected) Parainfluenza 2 (PCR) Not Detected (NotDetected) Parainfluenza 3 (PCR) Not Detected (NotDetected) Parainfluenza 4 (PCR) Not Detected (NotDetected) RSV (PCR) Not Detected (NotDetected) Entero/Rhino (PCR) Not Detected (NotDetected) Administered Medications Amoxicillin (Amoxicillin 500 Mg Cap) 500 mg PO Q8 [facility]; Protocol Stop: 09/27/23 13:59 Last Admin: 09/18/23 12:57 Dose: 500 mg Documented By: Admin: 09/18/23 06:22 Dose: 500 mg Documented By: Admin: 09/17/23 22:26 Dose: 500 mg Documented By: Admin: 09/17/23 13:23 Dose: 500 mg Documented By: MS Apixaban (Apixaban 5 Mg Tablet) 5 mg PO BID JOSSE Stop: 10/17/23 09:44 Last Admin: 09/18/23 07:42 Dose: 5 mg Documented By: Admin: 09/17/23 20:25 Dose: 5 mg Documented By: Admin: 09/17/23 10:04 Dose: 5 mg Documented By: MS Aspirin (Aspirin 81 Mg Ectab) 81 mg PO DAILY JOSSE Stop: 10/17/23 08:59 Last Admin: 09/18/23 07:44 Dose: 81 mg Documented By: Admin: 09/17/23 09:04 Dose: 81 mg Documented By: MS Atorvastatin Calcium (Atorvastatin 40 Mg Tab) 40 mg PO DAILY JOSSE Stop: 10/17/23 08:59 Last Admin: 09/18/23 07:44 Dose: 40 mg Documented By: Admin: 09/17/23 09:04 Dose: 40 mg Documented By: MS Chlorhexidine Gluconate (Chlorhexidine Gluconate 0.12% 480 Ml) 10 ml MT BID JOSSE Stop: 10/17/23 08:59 Last Admin: 09/18/23 07:46 Dose: 10 ml Documented By: Admin: 09/17/23 20:25 Dose: 10 ml Documented By: Admin: 09/17/23 09:04 Dose: 10 ml Documented By: MS Cyanocobalamin (Cyanocobalamin (B-12) 500 Mcg Tablet) 1,000 mcg PO DAILY JOSSE Stop: 10/17/23 08:59 Last Admin: 09/18/23 07:44 Dose: 1,000 mcg Documented By: Admin: 09/17/23 09:03 Dose: 1,000 mcg Documented By: MS Fluticasone/Vilanterol (Fluticasone/Vilanterol 200/25mcg 14 Puffs/Inhaler) 1 puffs INH DAILY JOSSE Stop: 10/18/23 11:14 Last Admin: 09/18/23 11:32 Dose: 1 puffs Documented By: Admin: 09/18/23 11:31 Dose: 2 puffs Documented By: CARISA Gabapentin (Gabapentin 800 Mg Tab) 800 mg PO TID JOSSE Stop: 10/17/23 13:59 Last Admin: 09/18/23 12:57 Dose: 800 mg Documented By: Admin: 09/18/23 07:43 Dose: 800 mg Documented By: Admin: 09/17/23 20:26 Dose: 800 mg Documented By: Admin: 09/17/23 13:23 Dose: 800 mg Documented By: Insulin Aspart (Insulin Aspart Per Unit Charge) 0 units SC ACHS JOSSE Stop: 10/17/23 05:59 Last Admin: 09/18/23 12:15 Dose: 5 units Documented By: CARISA Co-signed By: JERMAINE Admin: 09/18/23 07:52 Dose: 8 units Documented By: CARISA Co-signed By: EDIL Admin: 09/17/23 20:15 Dose: Not Given Documented By: Admin: 09/17/23 17:02 Dose: 10 units Documented By: Co-signed By: ENDER Insulin Glargine (Lantus Per Unit Charge) 20 units SQ DAILY JOSSE Stop: 10/17/23 08:59 Last Admin: 09/18/23 07:53 Dose: 20 units Documented By: CARISA Co-signed By: EDIL Admin: 09/17/23 09:10 Dose: 20 units Documented By: Co-signed By: RAULITO Ipratropium [place] (Ipratropium [place] Neb Soln 0.02% 0.5mg/2.5ml Vial) 0.5 mg NEB Q6R JOSSE Stop: 10/17/23 18:59 Last Admin: 09/18/23 12:40 Dose: 0.5 mg Documented By: ANN-MARIE Admin: 09/18/23 07:04 Dose: 0.5 mg Documented By: Admin: 09/18/23 01:01 Dose: 0.5 mg Documented By: Admin: 09/17/23 19:45 Dose: 0.5 mg Documented By: MARCELLA Levothyroxine Sodium (Levothyroxine Sodium 150 Mcg Tablet) 150 mcg PO DAILYBB [facility] Stop: 10/17/23 06:29 Last Admin: 09/18/23 06:22 Dose: 150 mcg Documented By: Admin: 09/17/23 09:01 Dose: 150 mcg Documented By: Lisinopril (Lisinopril 10 Mg Tab) 10 mg PO DAILY JOSSE Stop: 10/17/23 08:59 Last Admin: 09/18/23 07:43 Dose: 10 mg Documented By: Admin: 09/17/23 09:03 Dose: 10 mg Documented By: Metoprolol Succinate (Metoprolol Succ 25mg Ext Rel Tab) 25 mg PO QAM [facility] Stop: 10/17/23 09:44 Last Admin: 09/18/23 07:46 Dose: 25 mg Documented By: Admin: 09/17/23 10:04 Dose: 25 mg Documented By: Mirtazapine (Mirtazapine Tab 15 Mg Tab) 7.5 mg PO HS JOSSE Stop: 10/17/23 20:59 Last Admin: 09/17/23 20:27 Dose: 7.5 mg Documented By: GUANAKO Montelukast Sodium (Montelukast Sodium 10 Mg Tablet) 10 mg PO HS [facility] Stop: 10/17/23 20:59 Last Admin: 09/17/23 20:27 Dose: 10 mg Documented By: GUANAKO Oxycodone HCl (Oxycodone Hcl Ir 5 Mg Tab (Immediate Release)) 10 mg PO Q4H PRN PRN Reason: SEVERE Pain (7,8,9,10) Stop: 10/01/23 09:50 Last Admin: 09/18/23 13:00 Dose: 10 mg Documented By: Admin: 09/17/23 20:59 Dose: 10 mg Documented By: Admin: 09/17/23 11:41 Dose: 10 mg Documented By: Pantoprazole Sodium (Pantoprazole 40 Mg Tab) 40 mg PO DAILY [facility] Stop: 10/17/23 08:59 Last Admin: 09/18/23 07:44 Dose: 40 mg Documented By: Admin: 09/17/23 09:03 Dose: 40 mg Documented By: Potassium Chloride (Potassium Chloride Crtab 20 Meq Tabcr) 20 meq PO DAILY JOSSE Stop: 10/17/23 08:59 Last Admin: 09/18/23 07:42 Dose: 20 meq Documented By: Admin: 09/17/23 09:03 Dose: 20 meq Documented By: Sotalol HCl (Sotalol Hcl 80 Mg Tab) 120 mg PO Q12 JOSSE Stop: 10/17/23 08:59 Last Admin: 09/18/23 07:45 Dose: 120 mg Documented By: Admin: 09/17/23 20:28 Dose: 120 mg Documented By: Admin: 09/17/23 09:03 Dose: 120 mg Documented By: Venlafaxine HCl (Venlafaxine Hcl Xr 75 Mg Capxr) 75 mg PO DAILY JOSSE Stop: 10/17/23 08:59 Last Admin: 09/18/23 07:41 Dose: 75 mg Documented By: Admin: 09/17/23 09:03 Dose: 75 mg Documented By: Vitamin D (Cholecalciferol 10 Mcg (400 Units) Tab) 10 mcg PO DAILY JOSSE Stop: 10/17/23 08:59 Last Admin: 09/18/23 07:42 Dose: 10 mcg Documented By: Admin: 09/17/23 09:04 Dose: 10 mcg Documented By: Discontinued Medications Albuterol (Albut/Ipratrop 3mg/0.5mg Neb 3 Ml Vial) 3 ml NEB NOW STA; Protocol Stop: 09/16/23 23:50 Last Admin: 09/17/23 00:24 Dose: 3 ml Documented By: LUZ MARINA Amoxicillin (Amoxicillin 500 Mg Cap) 500 mg PO NOW STA; Protocol Stop: 09/17/23 03:45 Last Admin: 09/17/23 04:34 Dose: 500 mg Documented By: LUZ MARINA Gabapentin (Gabapentin 800 Mg Tab) 800 mg PO NOW STA Stop: 09/17/23 03:45 Last Admin: 09/17/23 04:34 Dose: 800 mg Documented By: LUZ MARINA Sodium Chloride (Nss) 1,000 mls @ 125 mls/hr IV .Q8H JOSSE Stop: 10/16/23 23:29 Last Infusion: 09/17/23 06:52 Dose: Infused Documented By: Admin: 09/17/23 00:24 Dose: 125 mls/hr Documented By: LUZ MARINA Magnesium Sulfate/Dextrose (Magnesium Sulfate / D5w) 1 gm in 100 mls @ 100 mls/hr IV Q1H JOSSE Stop: 09/17/23 02:00 Last Infusion: 09/17/23 06:52 Dose: Infused Documented By: Admin: 09/17/23 01:50 Dose: 100 mls/hr Documented By: LUZ MARINA Infusion: 09/17/23 01:40 Dose: Infused Documented By: LUZ MARINA Admin: 09/17/23 00:40 Dose: 100 mls/hr Documented By: LUZ MARINA Magnesium Sulfate/Dextrose (Magnesium Sulfate / D5w) 1 gm in 100 mls @ 50 mls/hr IV ONE STA Stop: 09/17/23 05:36 Last Infusion: 09/17/23 06:44 Dose: Infused Documented By: Infusion: 09/17/23 06:12 Dose: 0 mls/hr Documented By: Admin: 09/17/23 05:09 Dose: 50 mls/hr Documented By: YULIANA Potassium Chloride/Sodium Chloride (Normal Saline W/20 Meq Kcl) 20 meq in 1,000 mls @ 100 mls/hr IV .Q10H JOSSE; Protocol Stop: 10/17/23 04:29 Last Infusion: 09/18/23 01:10 Dose: Infused Documented By: Infusion: 09/17/23 18:17 Dose: Infused Documented By: Admin: 09/17/23 14:32 Dose: 100 mls/hr Documented By: Infusion: 09/17/23 14:32 Dose: Infused Documented By: Admin: 09/17/23 05:03 Dose: 100 mls/hr Documented By: YULIANA Insulin Aspart (Insulin Aspart Per Unit Charge) 0 units SC Q6 JOSSE Stop: 10/17/23 05:59 Last Admin: 09/17/23 12:03 Dose: Not Given Documented By: Admin: 09/17/23 06:16 Dose: 9 units Documented By: YULIANA Co-signed By: RADHA Insulin Human Regular (Novolin-R Insulin Per Unit Charge) 8 units IV NOW STA Stop: 09/17/23 00:32 Last Admin: 09/17/23 00:55 Dose: 8 units Documented By: LUZ MARINA Co-signed By: PAIGE Insulin Human Regular (Novolin-R Insulin Per Unit Charge) 6 units IV NOW STA Stop: 09/17/23 01:37 Last Admin: 09/17/23 02:02 Dose: 6 units Documented By: LUZ MARINA Co-signed By: PAIGE Magnesium Oxide (Magnesium Oxide 400 Mg Tab) 400 mg PO BID JOSSE Stop: 10/17/23 08:59 Last Admin: 09/18/23 07:43 Dose: 400 mg Documented By: Admin: 09/17/23 20:26 Dose: 400 mg Documented By: Admin: 09/17/23 09:03 Dose: 400 mg Documented By: Polyethylene Glycol (Polyethylene (Miralax) 17 Gm Pack) 17 gm PO ONE ONE Stop: 09/18/23 11:00 Last Admin: 09/18/23 11:04 Dose: 17 gm Documented By: CARISA Tramadol HCl (Tramadol Hcl 50 Mg Tablet) 50 mg PO TID PRN PRN Reason: Moderate Pain (Scale 4, 5, 6) Stop: 10/17/23 05:27 Last Admin: 09/17/23 06:04 Dose: 50 mg Documented By: YULIANA Discharge Plan Visit Data Chief Complaint: Hyperglycemia Stated Complaint: BLOOD SUGAR 371, SORES ON FEET, PALPITATIONS ED Provider: Rasheeda Franklin Discharge Problem: Hyperglycemia, Hypomagnesemia, Diabetic foot ulcer, Chest pain, Atrial fibrillation, Bilateral foot pain Patient Disposition: Admitted As Inpatient Discharge Instructions Interventions: ED Discharge Assessment Last Done: 09/17/23 04:30
[2023-09-16 23:56] LABS: Albumin Level 4.4 gm/dl (3.4-5.0); Bilirubin,Total 1.1 mg/dl (0.2-1.0); Calcium 9.7 mg/dl (8.6-10.3); Magnesium 1.3 mg/dl (1.7-2.4); Potassium 4.8 mmol/L (3.5-5.1)
[2023-09-17] MEDS: SODIUM CHLORIDE 0.9% 1,000 ML IV SCH (00:24)
[2023-09-17] MEDS: ALBUT/IPRATROP 3MG/0.5MG NEB 3 ML VIAL NEB STA (00:24)
[2023-09-17 00:30] LABS: BUN Creatinine Ratio 20.9 (10-20); Creatinine Clr Calc Pharmacy 64.2 ml/min; Est GFR (African American) 77.3 ml/min; Est GFR (Non-African American) 66.7 ml/min
[2023-09-17 00:31] LABS: Albumin Globulin Ratio 1.1 (0.9-2); Globulin 3.9 gm/dl (2.5-4.0); Total Protein 8.3 gm/dl (6.0-8.3)
[2023-09-17] MEDS: MAGNESIUM SULFATE / D5W 1 GM/100 ML BAG IV SCH (00:40)
[2023-09-17] MEDS: NovoLIN-R INSULIN PER UNIT CHARGE IV STA ×2 (00:55→02:02)
[2023-09-17 03:09] LABS: Adenovirus PCR Not Detected (NotDetected); Bordetella parapertussis PCR Not Detected (NotDetected); Bordetella pertussis PCR Not Detected (NotDetected); Chlamydia pneumoniae PCR Not Detected (NotDetected); Coronavirus 229E PCR Not Detected (NotDetected); Coronavirus CoV-2 (COVID19)PCR Not Detected (NotDetected); Coronavirus HKU1 PCR Not Detected (NotDetected); Coronavirus NL63 PCR Not Detected (NotDetected); Coronavirus OC43PCR Not Detected (NotDetected); Human Metapneumovirus PCR Not Detected (NotDetected); Influenza A PCR Not Detected (NotDetected); Influenza B PCR Not Detected (NotDetected); Mycoplasma pneumoniae PCR Not Detected (NotDetected); Parainfluenza Virus 1 PCR Not Detected (NotDetected); Parainfluenza Virus 2 PCR Not Detected (NotDetected); Parainfluenza Virus 3 PCR Not Detected (NotDetected); Parainfluenza Virus 4 PCR Not Detected (NotDetected); Respiratory Syncytial VirusPCR Not Detected (NotDetected); Rhinovirus/Enterovirus PCR Not Detected (NotDetected)
--- NOTE | 2023-09-17 03:58 | History & Physical Report ---
Date of Service September 17, 2023 Assessment & Plan (1) Hyperglycemia due to type 2 diabetes mellitus: (2) Atrial fibrillation: (3) HTN (hypertension): (4) Hypomagnesemia: (5) Hypercholesterolemia: (6) Asthma: (7) Hypothyroidism: (8) Dental infection: (9) Depression with anxiety: Plan Hyperglycemia status post steroid hip injection/associated diabetes mellitus type 2- Patient received regular insulin 8 units IV, followed by regular insulin 6 units IV with the following glucose change: [phone] Hold linagliptin NSS + KCl 20 mill equivalents at 100 mL/h Placed on Accu-Cheks with NovoLog SSI Atrial fibrillation with controlled ventricular response/status post Watchman procedure approximately /hypertension-- The patient will be admitted to telemetry for serial cardiac enzymes, serial EKG's, cardiac rhythm monitoring and a 2-D echocardiogram with Dopplers. Initial troponin 5.0 Continue sotalol 120 mg p.o. every 12 hours, aspirin 81 mg daily and lisinopril 10 mg daily Hold anticoagulation at this time, since it is now 4:00 AM, and will defer to cardiology consult. Of note, patient had been on Eliquis pre and post Watchman procedure, and was then changed to clopidogrel, and then changed to aspirin Lopressor 5 mg IV every 4 hours as needed for heart rate greater than 110 IV fluids as above Correct magnesium Hypomagnesemia- Magnesium 1.3 on admission Received tube grams of magnesium sulfate IV from the ED, will give an additional 30 mg now Recheck laboratories in the morning. If magnesium continues to be resistant to improvement, will stay off pantoprazole, and will change to famotidine. Dental infection- Continue amoxicillin 500 mg p.o. 3 times daily, patient may use own Peripheral neuropathy- Continue tramadol, and gabapentin Depression with anxiety- Continue gabapentin, lorazepam, temazepam and venlafaxine History of Present Illness Chief Complaint: The patient presents to the emergency department after having out patient blood sugars increased from initially the low 300s up to the mid 400s, after having received a steroid injection earlier in the day today. Associated with increased, she has noted a return of the irregular heartbeat accompanied by left-sided chest discomfort, that she had had prior to having a Watchman placed approximately September 2022. Primary Care Provider: Leigh Ann Justin The patient is a 63-year-old female with a past medical history including atrial fibrillation, diabetic foot ulcer, hypertension, hypercholesterolemia, hypothyroidism, diabetes mellitus, asthma and depression with anxiety. The patient reports that she had a steroid injection in her hip earlier in the day, and later received a call that her blood sugar was elevated to around 315. She continues to check her sugars, and they continue to gradually increase up to around 450, and this prompted her to come to the ED for assessment. She also reports that the last time she had atrial fibrillation was prior to her Watchman procedure in either late September or early October 2022. She had initially been on Eliquis, and then was changed to Plavix, and most recently has been on aspirin. From the emergency department patient received regular insulin 8 units IV, then 6 units IV, and glucose had decreased to 290. Significant other laboratories: Hemoglobin 12.3, hematocrit 36.0, sodium 132, glucose 469 and magnesium 1.3. From the ED patient received the following: DuoNeb treatment, magnesium sulfate 2 g IV, regular insulin 8 units IV and then regular insulin 6 units IV. She reports also that she has been taking amoxicillin for a dental infection, and is on day 2 of 5 Allergies Allergy/AdvReac Type Severity Reaction Status Date / Time tuberculin,PPD,multi-puncture Allergy Severe EXTREME Verified 09/17/23 00:13 SWELLING AT SITE acetaminophen [From Tylenol] AdvReac Severe DUE TO Verified 09/17/23 00:14 LIVER ISSUES-CONTRAINDICATED azithromycin [From Zithromax] AdvReac Severe manic Verified 09/17/23 00:13 buspirone [From BuSpar] AdvReac Intermediate anxious Verified 09/17/23 00:13 NSAIDS (Non-Steroidal AdvReac Unknown HX OF A GI Verified 09/17/23 00:13 Anti-Inflamma BLEED/NOT TO TAKE. Home Medications Medication Instructions Recorded Confirmed Type albuterol sulfate 90 mcg/actuation 2 puff inhalation Q6H PRN 03/27/20 09/17/23 History aerosol inhaler (Ventolin HFA) Shortness Of Breath Or Wheezing budesonide-formoterol HFA 160 2 puff inhalation BID 03/27/20 09/17/23 History mcg-4.5 mcg/actuation aerosol inhaler (Symbicort) levothyroxine 150 mcg tablet 150 mcg PO DAILY 03/27/20 09/17/23 History montelukast 10 mg tablet 10 mg PO HS 03/27/20 09/17/23 History linagliptin 5 mg tablet (Tradjenta) 5 mg PO DAILY #30 tabs 04/30/20 09/17/23 Rx atorvastatin 40 mg tablet 40 mg PO DAILY 10/07/22 09/17/23 History cholecalciferol (vitamin D3) 10 0 mcg PO DAILY 10/07/22 09/17/23 History mcg (400 unit) capsule mecobalamin (vitamin B12) 1,000 1,000 mcg PO DAILY 10/07/22 09/17/23 History mcg chewable tablet [id number] tablet 1 tab PO DAILY 10/07/22 09/17/23 History amoxicillin 500 mg capsule 500 mg PO TID 09/17/23 09/17/23 History aspirin 81 mg tablet,delayed 81 mg PO DAILY 09/17/23 09/17/23 History release chlorhexidine gluconate 0.12 % 10 ml mucous membrane BID 09/17/23 09/17/23 History mouthwash gabapentin 800 mg tablet 800 mg PO TID 09/17/23 09/17/23 History lisinopril 10 mg tablet 10 mg PO DAILY 09/17/23 09/17/23 History lorazepam 0.5 mg tablet 0.5 mg PO BID PRN Anxiety 09/17/23 09/17/23 History magnesium oxide 400 mg (241.3 mg 400 mg PO DAILY 09/17/23 09/17/23 History magnesium) tablet mirtazapine 7.5 mg tablet 7.5 mg PO HS 09/17/23 09/17/23 History pantoprazole 40 mg tablet,delayed 40 mg PO DAILY 09/17/23 09/17/23 History release potassium chloride 20 mEq 20 meq PO DAILY 09/17/23 09/17/23 History tablet,extended release sotalol 120 mg tablet 120 mg PO Q12 09/17/23 09/17/23 History temazepam 30 mg capsule 30 mg PO HS PRN NEEDED 09/17/23 09/17/23 History tramadol 50 mg tablet 50 mg PO TID PRN Pain 09/17/23 09/17/23 History venlafaxine 75 mg capsule,extended 75 mg PO DAILY 09/17/23 09/17/23 History release 24 hr Past Med/Surg History Medical History (Updated 09/17/23 @ 05:22 by Reginald Guerra MD) Left knee pain Acute kidney injury Surgical History (Updated 03/27/20 @ 16:05 by Minreva Casillas MA) S/P ORIF (open reduction internal fixation) fracture H/O LEEP History of tonsillectomy and adenoidectomy Family History (Updated 03/27/20 @ 16:07 by Minerva Casillas MA) Mother Diabetes Hypertension Colorectal cancer Myelodysplasia (myelodysplastic syndrome) Father Heart disease Hypertension Brother Hypertension Brother Schizo affective schizophrenia Brother Suicide Social History (Updated 04/25/20 @ 15:07 by JOSSUE Rojo) Smoking Status: Former smoker Tobacco Type: Cigarettes Age Started Using Tobacco: 59; packs per day: 0.75; Cigarettes Per Day: 2; Second Hand Exposure: Yes; Do You Dip or Chew Tobacco: No; Hx Alcohol Use: Yes Alcohol type: wine Hx Substance Use: No Preferred Language: Nepali Communication Ability: Effective Hearing Ability: Normal 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 Required: No Beliefs That Will Affect Care: None marital status: Current Living Situation: Alone current occupational status: disabled How many Children do You have: 2 Feels Safe at Home: Yes Childhood Exposure to Second-Hand Smoke: Yes Seatbelt Use: always Sunscreen Use: Yes Assistive Devices: Cane Review of Systems Review of Systems: The patient denies cough, lower extremity swelling, sore throat, fevers, chills, sweats, weight change, fatigue, nausea, vomiting, diarrhea , constipation, abdominal pain, pelvic pain, blood in urine or stool, dysuria, urinary frequency or urgency, lightheadedness, dizziness, headache, memory loss, loss of consciousness, rash, abnormal bruising or bleeding, focal or generalized weakness, numbness or tingling in arms or legs, generalized arthralgias or myalgias, back or neck pain, or night sweats. The review of systems is otherwise negative other than for that already noted above, and at least 10 systems have been reviewed. Physical Exam Physical Exam: The patient is awake, alert and oriented 3, well developed and well nourished, normocephalic and atraumatic, lying in bed and in no acute distress. HEENT--PERRL, EOMI, mucous membranes and oropharynx mildly dry. Neck--supple. No JVD. No bruits. Thyroid normal, trachea midline, no adenopathy. Heart-- atrial fibrillation with controlled rate. No murmurs, rubs or gallops. Lungs--clear bilaterally, no respiratory distress, no accessory muscle use. Abdomen--normal bowel sounds and soft. Nontender. Nondistended Extremities--No edema. Dermatologic--normal skin turgor, normal color, no abnormal lymph nodes, no rash. Neurologic--cranial nerves II through XII grossly intact. Rheumatologic--normal range of motion. Psychiatric--normal affect. Results & Data Results & Data Vital Signs (Past 12 Hours) Vital Signs Temp Pulse Resp BP Pulse Ox O2 Del Method 09/17/23 03:49 84 09/17/23 02:00 107/74 09/17/23 02:00 83 18 98 09/17/23 01:30 85 22 97 09/17/23 01:30 116/69 09/17/23 01:00 128/76 09/17/23 01:00 86 24 88 L 09/17/23 00:30 82 14 100 09/17/23 00:00 118/71 09/17/23 00:00 101 H 15 09/16/23 23:38 85 18 09/16/23 23:31 99/73 L 09/16/23 23:15 109 H 17 09/16/23 23:07 135/74 09/16/23 23:07 96 H 20 09/16/23 22:41 36.8 C 109 H 18 160/91 H 96 Room Air Laboratory Results Laboratory Results WBC 7.04 K/ul (4.8-10.8) 09/16/23 22:54 RBC 3.67 M/uL (4.20-5.40) L 09/16/23 22:54 Hgb 12.3 g/dl (12.0-16.0) 09/16/23 22:54 Hct 36.0 % (37.0-47.0) L 09/16/23 22:54 MCV 98.1 fL (80.0-100.0) 09/16/23 22:54 MCH 33.5 pg (25.0-34.0) 09/16/23 22:54 MCHC 34.2 g/dL (32.0-36.0) 09/16/23 22:54 RDW Std Deviation 51.1 fL (36.4-46.3) H 09/16/23 22:54 RDW Coeff of Natividad 14.1 % (11.5-14.5) 09/16/23 22:54 Plt Count 211 K/uL (130-400) 09/16/23 22:54 MPV 10.6 fL (9.4-12.4) 09/16/23 22:54 Immature Gran % (Auto) 0.3 % 09/16/23 22:54 Neut % (Auto) 87.6 % 09/16/23 22:54 Lymph % (Auto) 9.9 % 09/16/23 22:54 Taliaferro % (Auto) 2.1 % 09/16/23 22:54 Eos % (Auto) 0.0 % 09/16/23 22:54 Baso % (Auto) 0.1 % 09/16/23 22:54 Neut # (Auto) 6.16 K/uL (1.40-6.50) 09/16/23 22:54 Lymph # (Auto) 0.70 K/uL (1.20-3.40) L 09/16/23 22:54 Taliaferro # (Auto) 0.15 K/uL (0.11-0.59) 09/16/23 22:54 Eos # (Auto) 0.00 K/uL (0.00-0.50) 09/16/23 22:54 Baso # (Auto) 0.01 K/uL (0.00-0.20) 09/16/23 22:54 Immature Gran # (Auto) 0.02 K/uL (0.01-0.20) 09/16/23 22:54 Sodium 132 mmol/L (136-145) L 09/16/23 22:54 Potassium 4.8 mmol/L (3.5-5.1) 09/16/23 22:54 Chloride 100 mmol/L (98-107) 09/16/23 22:54 Carbon Dioxide 20 mmol/L (21-32) L 09/16/23 22:54 Anion Gap 12 (3-11) H 09/16/23 22:54 BUN 19 mg/dl (6-23) 09/16/23 22:54 Creatinine 0.91 mg/dl (0.6-1.2) 09/16/23 22:54 Est Cr Clr Drug Dosing 64.2 ml/min 09/16/23 22:54 Est GFR ( Amer) 77.3 ml/min 09/16/23 22:54 Est GFR (Non-Af Amer) 66.7 ml/min 09/16/23 22:54 BUN/Creatinine Ratio 20.9 (10-20) H 09/16/23 22:54 Glucose 469 mg/dl (70-99(Fasting)) H* 09/16/23 22:54 POC Glucose 290 mg/dl (70-99) H 09/17/23 02:51 Calcium 9.7 mg/dl (8.6-10.3) 09/16/23 22:54 Magnesium 1.3 mg/dl (1.7-2.4) L 09/16/23 22:54 Total Bilirubin 1.1 mg/dl (0.2-1.0) H 09/16/23 22:54 AST 25 U/L (13-39) 09/16/23 22:54 ALT 27 U/L (7-52) 09/16/23 22:54 Alkaline Phosphatase 152 U/L (34-104) H 09/16/23 22:54 Troponin I High Sens 5.0 pg/ml (0-14) 09/16/23 22:54 Total Protein 8.3 gm/dl (6.0-8.3) 09/16/23 22:54 Albumin 4.4 gm/dl (3.4-5.0) 09/16/23 22:54 Globulin 3.9 gm/dl (2.5-4.0) 09/16/23 22:54 Albumin/Globulin Ratio 1.1 (0.9-2) 09/16/23 22:54 Adenovirus (PCR) Not Detected (NotDetected) 09/17/23 02:06 B. pertussis DNA (PCR) Not Detected (NotDetected) 09/17/23 02:06 B.parapertussis DNA PCR Not Detected (NotDetected) 09/17/23 02:06 C. pneumoniae DNA (PCR) Not Detected (NotDetected) 09/17/23 02:06 Coronavirus OC43 (PCR) Not Detected (NotDetected) 09/17/23 02:06 Coronavirus HKU1 (PCR) Not Detected (NotDetected) 09/17/23 02:06 Coronavirus 229E (PCR) Not Detected (NotDetected) 09/17/23 02:06 SARS-CoV-2 (PCR) Not Detected (NotDetected) 09/17/23 02:06 Coronavirus NL63 (PCR) Not Detected (NotDetected) 09/17/23 02:06 Human Metapneumovir PCR Not Detected (NotDetected) 09/17/23 02:06 Influenza Type A (PCR) Not Detected (NotDetected) 09/17/23 02:06 Influenza Type B (PCR) Not Detected (NotDetected) 09/17/23 02:06 M. pneumoniae (PCR) Not Detected (NotDetected) 09/17/23 02:06 Parainfluenza 1 (PCR) Not Detected (NotDetected) 09/17/23 02:06 Parainfluenza 2 (PCR) Not Detected (NotDetected) 09/17/23 02:06 Parainfluenza 3 (PCR) Not Detected (NotDetected) 09/17/23 02:06 Parainfluenza 4 (PCR) Not Detected (NotDetected) 09/17/23 02:06 RSV (PCR) Not Detected (NotDetected) 09/17/23 02:06 Entero/Rhino (PCR) Not Detected (NotDetected) 09/17/23 02:06 Code Status & VTE Plan Code Status Full code VTE Prophylaxis Plan VTE Prophylaxis will be ordered: Yes PG Care Time/CCT Total # of Minutes Spent Total Time Spent with Patient: Total time spent is greater than 50% in coordination of care (as documented) at patient's floor/unit and/or counseling patient: Coding Level of Care Code 56217 INT INP/OBS CARE 3/75MIN Diagnoses Hyperglycemia due to type 2 diabetes mellitus E11.65 Atrial fibrillation I48.91 HTN (hypertension) I10 Hypomagnesemia E83.42 Hypercholesterolemia E78.00 Asthma J45.909 Hypothyroidism E03.9 Dental infection K04.7 Depression with anxiety F41.8
[2023-09-17] MEDS: GABAPENTIN 800 MG TAB PO STA (04:34)
[2023-09-17] MEDS: AMOXICILLIN 500 MG CAP PO STA (04:34)
[2023-09-17] MEDS: NSS + 20MEQ KCL 20 MEQ/1,000 ML BAG IV SCH (05:03)
[2023-09-17] MEDS: MAGNESIUM SULFATE / D5W 1 GM/100 ML BAG IV STA (05:09)
[2023-09-17] MEDS ORDERED: GLUCAGON FOR INJ 1 MG VIAL SQ PRN (05:28)
[2023-09-17] MEDS ORDERED: GLUCOSE 40% GEL 15 GM TUBE PO PRN (05:28)
[2023-09-17] MEDS ORDERED: ALBUTEROL HFA 8 GM INHALER INH PRN (05:28)
[2023-09-17] MEDS ORDERED: CARBOHYDRATES FOR HYPOGLYCEMIA PO PRN (05:28)
[2023-09-17] MEDS ORDERED: ONDANSETRON INJ 2 MG/ML 2 ML VIAL IV PRN (05:28)
[2023-09-17] MEDS ORDERED: DEXTROSE 50% 50 ML SYRINGE IV PRN (05:28)
[2023-09-17] MEDS ORDERED: METOPROLOL TARTRATE 1 MG/ML VIAL IV PRN (05:28)
[2023-09-17] MEDS ORDERED: GLUCOSE 10 TAB/TUBE PO PRN (05:28)
[2023-09-17] MEDS ORDERED: TEMAZEPAM 15 MG CAPSULE PO PRN (05:28)
[2023-09-17] MEDS: traMADol HCL 50 MG TABLET PO PRN (06:04)
[2023-09-17] MEDS: INSULIN ASPART PER UNIT CHARGE SC SCH ×2 (06:16→17:02)
--- NOTE | 2023-09-17 07:21 | XRay Report ---
XR chest 1V portable HISTORY: 63 years-old Female palpitations, cough acute cough with cardiac palpitations COMPARISON: Chest CT 08/14/2022 TECHNIQUE: AP view of the chest FINDINGS: Cardiomediastinal and hilar silhouettes are within normal limits. No pneumothorax, pleural effusion o r airspace consolidation. The bones appear grossly intact. IMPRESSION: No acute process. ACT 112: Negative or not required by law. The above report was generated using voice recognition software. It may contain grammatical, syntax o r spelling errors. Electronically signed by: Aditya Curran M.D. 09/17/2023 7:19 AM
--- NOTE | 2023-09-17 07:30 | XRay Report ---
XR foot RT min 3V routine CLINICAL HISTORY: pain, ulcers COMPARISON: None FINDINGS: Lucency of the plantar aspect of the right first toe suggests a wound. No associated bony destruction is present. No evidence for acute osteomyelitis within the right foot. Tarsometatarsal nasir ints are intact. There are no acute fractures within the right foot. IMPRESSION: 1. Right first toe wound. No radiographic evidence for acute osteomyelitis. 2. No acute fractures within the right foot. ACT 112: Negative or not required by law. Electronically signed by: Ezequiel Lopez M.D. 09/17/2023 7:28 AM
--- NOTE | 2023-09-17 07:31 | XRay Report ---
XR foot LT min 3V routine CLINICAL HISTORY: pain, ulcers COMPARISON: None FINDINGS: Suspected left first toe wound is present. No bony erosions are identified within the left foot. There is no acute fracture within the left foot. Tarsometatarsal joints are intact. IMPRESSION: 1. Left first toe wound. No radiographic evidence for acute osteomyelitis. 2. No acute fractures within the left foot. ACT 112: Negative or not required by law. Electronically signed by: Ezequiel Lopez M.D. 09/17/2023 7:30 AM
--- OUTSIDE RECORDS SUMMARY | 2023-09-17 07:53 | External Medical Summary | Summary of Care ---
Author Name Unknown Organization [facility] Address [address] [place] [address] Phone [phone] Care Team Providers Care Tumbler Dyeing Machine Operator Name Role Phone Leigh Ann Justin Primary Care Provider [phone] Reason for Visit * Reason Onset Date Comments Advice 05/24/2023 Encounter Details Date Type Department Care Team (Late st Contact Info) Description 05/24/2023 Telephone Access Center, [place] [address] [facility] *DO NOT REMOVE THIS DEPARTMENT* [place] [id number] Leigh Ann Justin CRNP [address] [place] [address] Advice Allergies Active Allergy Reactions Criticality Noted Date Comments Buspirone 07/20/2018 Nsaids 06/26/2019 GI bleed Tuberculin Tests 09/01/2018 Acetaminophen 07/20/2018 Azithromycin 07/20/2018 documented as of this encounter (statuses as of 08/23/2023) Medications Medication Sig Dispensed Refills Start Date End Date Status Cyanocobalamin (VITAMIN B-12) 1000 MCG TabletIndications:Vi tamin B12 deficiency [address] 1 Tab under the tongue daily. 90 Tab 3 06/27/2019 Active Multiple Vitamins-Minerals (MULTIVITAMIN ADULT) TABS Take by mouth. 0 Active Cholecalciferol (VITAMIN D3) 125 MCG (5000 UT) Tablet Take 2,000 Units by mouth daily. 0 Active guaiFENesin 200 MG TABS Take 1 Tablet by mouth as needed. 0 Active Accu-Chek Nuha Plus In Vitro Strip (Glucose Blood) Check once a day or as instructed for blood sugars. 250.00 100 Strip 3 06/24/2020 Active Gabapentin 400 MG Oral Capsule (Neurontin) Take 1 Capsule by mouth in the morning and 1 Capsule at noon and 1 Capsule before bedtime. 180 Cap 5 06/12/2021 Active Montelukast Sodium 10 MG Oral Tablet (Singulair) TAKE 1 TABLET BY MOUTH AT BEDTIME RELATED TO MILD INTERMITTENT ASTHMA 90 Tablet 3 09/08/2021 Active Symbicort 160-4.5 MCG/ACT Inhalation Aerosol TAKE 2 PUFFS BY MOUTH TWICE A DAY 10.2 g 3 09/12/2021 Active Ventolin HFA 108 (90 Base) MCG/ACT Inhalation Aerosol Solution Inhale by mouth 2 Puffs every 4 hours as needed for Shortness of Breath. 18 g 3 09/12/2021 Active linaGLIPtin 5 MG Oral Tablet (Tradjenta) Take by mouth 1 Tablet in the morning. 90 Tablet 0 10/01/2021 Active Levothyroxine Sodium 150 MCG Oral Tablet (Levoxyl)Indications :Acquired hypothyroidism Take by mouth 1 Tablet in the morning. 90 Tablet 0 10/01/2021 Active Atorvastatin Calcium 40 MG Oral Tablet (Lipitor) TAKE 1 TABLET BY MOUTH EVERY DAY EVERY AFTERNOON 90 Tablet 0 03/31/2022 Active Magnesium 400 MG Oral Tablet 400 mg every evening. 0 04/21/2023 Active LORazepam 0.5 MG Oral Tablet (Ativan) Take 1 Tablet by mouth 2 times a day as needed. 0 Active Lisinopril 5 MG Oral Tablet (Prinivil) 2 Tablets in the morning. 0 09/23/2022 Active Bimatoprost 0.03 % External Solution APPLY TO THE SKIN OF THE UPPER EYELID AT THE BASE OF THE EYELASHES 0 Active [facility] Aspirin Low Dose 81 MG Oral Tablet Delayed Release Take 1 Tablet by mouth in the morning. 0 Active Budesonide-Formotero l Fumarate 160-4.5 MCG/ACT Inhalation Aerosol (Symbicort) 2 Puffs. 0 05/19/2022 Activ e Venlafaxine HCl ER 75 MG Oral Capsule Extended Release 24 Hour (Effexor XR) Take 1 Capsule by mouth in the morning. 0 Active Mirtazapine 7.5 MG Oral Tablet (Remeron) Take 1 Tablet by mouth at bedtime. 0 03/30/2023 Active Remeron 15 MG Oral Tablet Take 1 Tablet by mouth at bedtime. 0 04/07/2023 Active Pantoprazole Sodium 40 MG Oral Tablet Delayed Release (Protonix) Take 1 Tablet by mouth in the morning. 0 Active Potassium Chloride ER 20 MEQ Oral Tablet Extended Release Take 1 Tablet by mouth in the morning. 0 04/21/2023 Active Sotalol HCl 120 MG Oral Tablet Take 1 Tablet by mouth in the morning and 1 Tablet before bedtime. 0 Active documented as of this encounter (statuses as of 08/23/2023) Active Problems Problem Noted Date Diagnosed Date Hyperkalemia 06/05/2021 Acute hyponatremia 06/05/2021 Hypochloremia 06/05/2021 Encephalopathy acute 06/05/2021 Metabolic acidosis 06/05/2021 Type 2 diabetes mellitus wit h diabetic neuropathy, unspecified 11/28/2020 Paroxysmal atrial fibrillation 11/28/2020 Interstitial cystitis (chronic) without hematuri a 11/28/2020 Primary osteoarthritis of both knees 10/01/2020 Overview: 10/01/2020 ref to pht and ortho Psychophysiological insomnia 10/01/2020 Injury of left ulnar nerve 10/01/2020 Overview: 10/01/2020 ref to ortho Panic disorder 07/07/2020 Depression, major, recurrent, in partial remissi on 07/07/2020 Complicated UTI (urinary tract infection) 2019 Acute renal failure (ARF) 06/29/2020 Altered mental status 06/29/2020 Ambulatory dysfunction 06/05/2020 History of TIA (transient ischemic attack) 06/04 Atrial fibrillation with RVR 06/04/2020 Encounter for long-term (current) use of medicat ions 05/20/2020 Acquired hypothyroidism 10/04/2019 Overview: TSH Results: Lab Results Component Value Date/Time TSH - [facility] 1.08 06/29/2020 07:49 AM TSH - [facility] 0.43 06/05/2020 06:06 AM TSH - [facility] 1.98 03/27/2020 02:56 PM Gastroesophageal reflux disease without esophagi tis 10/04/2019 Dyslipidemia, goal LDL below 70 10/04/2019 Controlled substance agreement terminated 2018 Overview: 06/05/2021 Tox screen upon admission 06/05 indicated hydrocodone which was not prescribed and oxycodone. No further opioids will be prescribed Moderate episode of recurrent major depressive d isorder 06/26/2019 Severe obesity (BMI 35.0-39.9) with comorbidity 06/26/2019 Type 2 diabetes mellitus wit h hemoglobin A1c goal of less than 7.0% 06/26/2019 Essential hypertension with goal blood pressure less than 140/90 06/26/2019 NABOR (generalized anxiety disorder) 06/26/2019 Chronic bilateral low back pain without sciatica 06/26/2019 Overview: 06/18/21 Urine tox screen was positive for hydrocodone which was not prescribed and for prescribe oxycodone In setting of benzodiazepine. No further opioid prescriptions are planned Mild intermittent asthma without complication Polypharmacy 06/26/2019 documented as of this encounter (statuses as of 08/23/2023) Immunizations Name Administration Dates Next Due COVID-19 mRNA, LNP-s, No Pre serve, 2-Dose Series (Moderna) 04/02/2021,12/19/2020,11/19/2020 COVID-19, mRNA, LNP-s, PF, B ooster, 100mcg/0.5mg (Moderna) 09/01/2021 Pneumococcal Conjugate Vacc, 13 Valent (Prevnar) 12/26/2015 Seasonal Influenza Virus Vac cine, Unspecified Formulation 05/25/2016 Seasonal Influenza, PF, 6 M & above, IM , (FluLaval or Fluzone) 06/18/2021,04/25/2020,06/30/2019 Zoster Vaccine Recombinant (Shingrix) 07/11/2020 documented as of this encounter Social History Tobacco Use Types Packs/Day Years Used Date Smoking Tobacco: Every Day Cigarettes 0.5 Smokeless Tobacco: Never Alcohol Use Standard Drinks/Week Comments Yes 0 (1 standard drink = 0.6 oz pur e alcohol) rarely PHQ-2 Answer Date Recorded PHQ Adult Total Score 7 11/28/2020 Hunger Vital Sign Answer Date Recorded Worried About Running Out of Food in the Last Ye ar Never true 06/26/2019 Ran Out of Food in the Last Year Never true 06/26/2019 Sex and Gender Information Value Date Recorded Sex Assigned at Female 07/03/2019 6:23 PM EST Gender Identity Female 07/03/2019 6:23 PM EST Sexual Orientation Straight 07/03/2019 6: 23 PM EST Job Start Date Occupation Industry Not on file Not on file Not on file documented as of this encounter Functional Status Functional Status Response Date of Assess ment Are you deaf or do you have serious difficulty h earing? No 06/05/2021 Are you blind or do you have serious difficulty seeing, even when wearing glasses? No 06/29/2020 Do you have serious difficul ty walking or climbing stairs? (5 years old or older) No 06/05/2021 Do you have difficulty dress ing or bathing? (5 years old or older) No 06/05/2021 Because of a physical, menta l, or emotional condition, do you have difficulty doing errands alone such as visiting a doctor s office or shopping? (15 years old or older) No 06/05/20 Cognitive Status Response Date of Assessm ent Because of a physical, menta l, or emotional condition, do you have serious difficulty concentrating, remembering, or making decisions? (5 years old or older) No 06/05/2021 documented as of this encounter Plan of Treatment Upcoming Encounters Date Type Department Care Team (Latest Contact Info) Description 09/16/2023 12:41 PM EST Hospital Encounter OR [facility], Operating Room, [facility] - 4th Floor [address] [address] Rafael Pollard MD [address] [place] [address] 09/16/2023 12:41 PM EST - 09/16/2023 1:01 PM EST Surgery OR [facility], Operating Room, [facility] - 4th Floor [address] [place] [address] Rafael Pollard MD [address] [place], [place] [address] [address] INJECTION SACROILIAC JOINT Scheduled Procedures Name Priority Associated Diagnoses Date/Ti me INJECTION SACROILIAC JOINT Bilateral sacroiliitis (HCC) 09/16/2023 12:41 PM EST COLONOSCOPY FLEXIBLE PROXIMAL DIAGNOSTIC Recall History of colonic polyps Health Maintenance Due Date Last Done Comments DISCUSS TOBACCO CESSATION (REFER TO SMARTSET #5187) 1959 Diabetic Eye Exam 1977 DTaP,Tdap,and Td Vaccines (1 - Tdap) 1978 Pap Smear 1980 Cervical Cancer Screening 1989 HPV/Co-Test 1989 Mammogram 1999 Pneumococcal Vaccine: Pediatrics (0 to 5 Years) and At-Risk Patients (6 to 64 Years) (2 - PPSV23 or PCV20) 02/20/2016 12/26/2015 Hepatitis B (1 of 3 - Risk 3-dose series) 2019 Albumin/Creatinine Ratio 06/26/2020 06/26/2019 Zoster Vaccines (2 of 2) 09/05/2020 07/11/2020, 1210/2019 TSH 06/29/2021 06/29/2020, 05/10, 03/27/2020, Additional history exists B-12 11/28/2021 11/28/2020, 03/09, 06/26/2019 Depression Screening 11/28/2021 11/28/2020 HbA1c 12/05/2021 06/06/2021, 11/08, 06/29/2020, Additional history exists Diabetic Foot Exam 06/18/2022 06/18/2021, 05/20/2020 *SPIROMETRY ONCE FOR ASTHMA-ADULT 07/02/2022 COLONOSCOPY-EVERY 3 YRS AGES 18-100 08/18/2022 08/18/2019, 08/18/2019 COVID-19 Vaccine (2022- season) 2023 09/01/2021, 04/02/2021, 12/19/2020, Additional history exists Influenza Vaccine (FLU shot) (#1) 2023 06/18/2021, 06/18/2021, 04/25/2020, Additional history exists GFR 02/12/2024 02/11/2023, 12/0 08/2021, 06/12/2021, Additional history exists Lipid Panel 06/05/2025 06/05/2020, 03/09, 06/26/2019 GARDASIL-HPV IMMUNIZATION SERIES Aged Out No longer eligible based on patient's age to complete this topic MENINGOCOCCAL (MENACTRA/MENVEO) Aged Out No longer eligible based on patient's age to complete this topic documented as of this encounter Medical Devices Not on filedocumented as of this encounter Advance Directives Latest Code Status on File Code Status Date Activated Date Inactivated Comments Full Code 06/05/2021 12:21 AM 06/13/2021 12:58 AM Th is order reflects the patients wishes and were consensually agreed upon. Question Answer Comments Discussion of Advance Directives occurred with: Not Discussed Does the patient have a Living Will? No Does the patient have Health Care Power of Nurse First Assist? No Code Status History Code Status Date Activated Date Inactivated Comments Full Code 06/29/2020 1:16 AM 06/30/2020 5:29 PM Thi s order reflects the patients wishes and were consensually agreed upon. Question Answer Comments Discussion of Advance Directives occurred with: Patient Full Code 06/04/2020 6:06 PM 06/06/2020 10:12 PM Th is order reflects the patients wishes and were consensually agreed upon. Question Answer Comments Discussion of Advance Directives occurred with: Patient Care Teams Tumbler Dyeing Machine Operator Relationship Specialty Start Date End Date Leigh Ann Justin CRNP [address] [place] [address] PCP - General Nurse Practitioner 04/13/23 documented as of this encounter
--- OUTSIDE RECORDS SUMMARY | 2023-09-17 07:53 | External Medical Summary | Summary of Care ---
Author Name Unknown Organization [facility] Address [address] [place] [address] Phone [phone] Care Team Providers Care Shrimp Pond Laborer Name Role Phone Leigh Ann Justin Primary Care Provider [phone] Reason for Visit * Reason Onset Date Comments Appointment 08/17/2023 Encounter Details Date Type Department Care Team (Late st Contact Info) Description 08/17/2023 Telephone Interventional Pain Center, [facility] [address] [place] [address] Rafael Pollard MD [address] [place] [address] Appointment Allergies Active Allergy Reactions Criticality Noted Date Comments Buspirone 07/20/2018 Nsaids 06/26/2019 GI bleed Tuberculin Tests 09/01/2018 Acetaminophen 07/20/2018 Azithromycin 07/20/2018 documented as of this encounter (statuses as of 08/19/2023) Medications Medication Sig Dispensed Refills Start Date [...] and 1 Tablet before bedtime. 0 Active folic acid 0.25 MG OR TABS Folic Acid 0 Active Vitamin B-12 25 MCG OR TABS Vitamin B12 0 Active documented as of this encounter (statuses as of 08/19/2023) Active Problems Problem Noted Date Diagnosed Date [...] as of this encounter (statuses as of 08/19/2023) Immunizations Name Administration Dates Next Due COVID-19 [...] No 06/05/2021 documented as of this encounter Miscellaneous Notes * Telephone Encounter - Elsa Hoffmann MA - 08/19/2023 12:02 PM EST Made pt aware, verbs understanding Procedure rescheduled for 09/16/23 with Pollard Bilateral SI Joint Pre-Procedure Instructions reviewed verbally, patient verbalized understanding. Copy sent via Mail. * Telephone Encounter - Franci Vilchis OSA - 08/18/2023 10:41 AM EST She was an OR procedure. * Telephone Encounter - Elsa Hoffmann MA - 08/17/2023 8:39 AM EST Patient needs called for rescheduling Bilateral SI Joint Injection * Telephone Encounter - Nichole Cevallos OSA - 08/17/2023 7:27 AM EST Patient calling wanting to reschedule appointment from today as she won't be able to make it due totransportation. documented in this encounter Plan of Treatment Upcoming Encounters Date Type Department Care Team (Late st Contact Info) Description 09/16/2023 Hospital Encounter OR [facility], Operating Room, [facility] - 4th Floor [address] [place] [address] Rafael Pollard MD [address] [facility] [place] [address] Scheduled Procedures Name Priority Associated Diagnoses Date/Ti me INJECTION SACROILIAC JOINT Bilateral sacroiliitis (HCC) COLONOSCOPY FLEXIBLE PROXIMA L DIAGNOSTIC Recall History of colonic polyps Health Maintenance Due Date Last Done Comments DISCUSS TOBACCO CESSATION (REFER TO SMARTSET #9114) 1959 Diabetic Eye Exam 1977 DTaP,Tdap,and Td [...] Zoster Vaccines (2 of 2) 09/05/2020 07/11/2020, 12/0 10/2019 TSH 06/29/2021 06/29/2020, 05/10, 03/27/2020, Additional history [...] the patient have Health Care Power of Broadcast Field Supervisor? No Code Status History Code Status Date [...] Advance Directives occurred with: Patient Care Teams Shrimp Pond Laborer Relationship Specialty Start Date End Date Leigh Ann Justin CRNP [address] [place] [address] PCP - General Nurse Practitioner 04/13/23 documented as of this encounter
--- OUTSIDE RECORDS SUMMARY | 2023-09-17 07:53 | External Medical Summary | Continuity of Care Document ---
Author Name Unknown Organization [id number] Address [address] [place] [id number] Care Team Providers Care Production Recovery Operator Name Role Phone Leigh Ann Justin Primary Care Physician [phone] [id number] Date[facility]s): 07/14/23 - 07/14/23 [facility] 0 [facility] [facility] Medicine [address] [place] [address] Encounter Diagnosis Diabetic neuropathy(Discharge Diagnosis) - 07/14/23 Left carpal tunnel syndrome(Discharge Diagnosis) - 07/14/23 Ulnar tunnel syndrome of left wrist(Discharge Diagnosis) - 07/14/23 Discharge Disposition: Home or Self Care Attending Physician: MD Callum, Jack Nguyen Referring Physician: DAJUAN Justin Tara Allergies, Adverse Reactions, Alerts Substance Reaction Severity Status acetaminophen Unknown reaction Active tuberculin purified protein derivative Swelling Active NSAIDs GI bleeding Active Zithromax Rash Active BuSpar increased BP Active Immunizations Given and Recorded Vaccine Date Status Refusal Reason SARS-CoV-2 (COVID-19) mRNA-1273 vaccine 09/01/21 R ecorded SARS-CoV-2 (COVID-19) mRNA-1273 vaccine 04/02/21 R ecorded SARS-CoV-2 (COVID-19) mRNA-1273 vaccine 1 12/19/20 Recorded SARS-CoV-2 (COVID-19) mRNA-1273 vaccine 11/19/20 R ecorded influenza virus vaccine, inactivated 06/18/21 Denis rded influenza virus vaccine, inactivated 04/25/20 Denis rded influenza virus vaccine, inactivated 06/30/19 Denis rded influenza virus vaccine, inactivated 05/25/16 Denis rded zoster vaccine live 07/11/20 Recorded pneumococcal 13-valent vaccine 12/26/15 Recorded 1Result Comment: 2021-11-11: Historical information-source unspecified Medications Albuterol (Eqv-ProAir HFA) Start: 01/09/22 13:21:00 EDT, 2 puff, inhaled, q4h, PRN Start Date: 01/09/22 Status: Ordered aspirin 81 mg oral delayed release tablet Start: 01/12/23 14:54:00 EDT, 1 tab, PO, Daily, Disp# 90 tab, Refills: 3, Pharmacy: [facility]/pharmacy #[id number] Start Date: 01/12/23 Status: Ordered atorvastatin 40 mg oral tablet Start: 06/14/23 12:22:00 EST, 1 tab, PO, Daily, Disp# 90 tab, Refills: 3, TAKE 1 TABLET BY MOUTH EVERY DAY EVERY AFTERNOON, Pharmacy: [facility]/pharmacy #[id number] Start Date: 06/14/23 Status: Ordered Centrum Silver oral tablet Start: 01/09/22 13:24:00 EDT, 1 tab, PO, Daily Start Date: 01/09/22 Status: Ordered Folate Forte Start: 04/19/23 14:46:00 EDT Start Date: 04/19/23 Status: Ordered gabapentin 400 mg oral capsule Start: 04/07/23 11:57:00 EDT, 1 cap, PO, tid, Disp# 90 cap, Refills: 11, Pharmacy: [facility]/pharmacy #[id number] Start Date: 04/07/23 Stop Date: 04/01/24 Status: Ordered ipratropium 0.02% for nebulization Start: 04/07/23 11:56:00 EDT, 2.5 mL, inhaled, q6h, Disp# 60 each, Refills: 6, Pharmacy: [facility]/pharmacy #[id number] Start Date: 04/07/23 Status: Ordered Latisse 0.03% topical solution Start: 02/23/23 16:37:00 EDT, See Instructions, Disp# 3 mL, Refills: 3, apply to the skin of the upper eyelid at the base of the eyelashes, Note to Pharmacy: pt will pay out of pocket, Pharmacy: [facility]/pharmacy #[id number] Start Date: 02/23/23 Status: Ordered levothyroxine 150 mcg (0.15 mg) oral tablet Start: 04/26/23 10:28:00 EDT, See Instructions, Disp# 90 tab, Refills: 2, TAKE BY MOUTH 1 TABLET INTHE MORNING., Pharmacy: [id number] Start Date: 04/26/23 Status: Ordered lisinopril 5 mg oral tablet Start: 12/31/22 10:01:00 EDT, 1 tab, PO, Daily, Disp# 30 tab, Refills: 11, [id number] Start Date: 12/31/22 Status: Ordered LORazepam 0.5 mg oral tablet Start: 11/09/22 8:42:00 EDT, 1 tab, PO, bid, PRN: as needed for anxiety Start Date: 11/09/22 Status: Ordered magnesium oxide 400 mg (241.3 mg elemental magnesium) oral tablet Start: 04/21/23 16:34:00 EDT, 1 tab, PO, bid, Disp# 90 tab, Refills: 3, [id number] Start Date: 04/21/23 Status: Ordered Medical Marijuana Start: 02/19/22 13:02:00 EDT, See Instructions, 1 gain PO sublingual Start Date: 02/19/22 Status: Ordered montelukast 10 mg oral tablet Start: 03/08/23 10:54:00 EDT, See Instructions, Disp# 90 tab, Refills: 0, TAKE 1 TABLET BY MOUTH ATBEDTIME RELATED TO MILD INTERMITTENT ASTHMA, Pharmacy: [id number] Start Date: 03/08/23 Status: Ordered pantoprazole 40 mg oral delayed release tablet Start: 01/12/23 14:54:00 EDT, 1 tab, PO, Daily, Disp# 90 tab, Refills: 3, Pharmacy: [facility]/pharmacy #[id number] Start Date: 01/12/23 Status: Ordered Potassium Chloride (Eqv-K-Tab) 20 mEq oral tablet, extended release Start: 05/14/23 16:21:00 EDT, 1 tab, PO, Daily, Disp# 90 tab, Refills: 3, Pharmacy: [facility]/pharmacy #[id number] Start Date: 05/14/23 Status: Ordered Remeron 15 mg oral tablet Start: 04/07/23 11:21:00 EDT, 1.5 tab, PO, qhs Start Date: 04/07/23 Status: Ordered sotalol 120 mg oral tablet Start: 04/29/23 11:16:00 EDT, See Instructions, Disp# 60 tab, Refills: 4, TAKE 1 TABLET BY MOUTH EVERY 12 HOURS, Pharmacy: [id number] Start Date: 04/29/23 Status: Ordered Symbicort 160 mcg-4.5 mcg/inh inhalation aerosol Start: 11/20/22 16:23:00 EDT, 2 puff, inhaled, bid, Disp# 1 each, Refills: 5, Pharmacy: [facility]/pharmacy #[id number] Start Date: 11/20/22 Status: Ordered Tradjenta 5 mg oral tablet Start: 06/07/23 16:20:00 EDT, 1 tab, PO, Daily, Disp# 30 tab, Refills: 5, Pharmacy: [id number] Start Date: 06/07/23 Status: Ordered venlafaxine 75 mg oral capsule, extended release Start: 04/07/23 11:20:00 EDT, 1 cap, PO, Daily Start Date: 04/07/23 Status: Ordered Vitamin B12 100 mcg oral tablet Start: 01/09/22 13:23:00 EDT, 1 tab, PO, Daily Start Date: 01/09/22 Status: Ordered Vitamin D3 400 intl units (10 mcg) oral tablet Start: 01/09/22 13:24:00 EDT, 1 tab, PO, Daily Start Date: 01/09/22 Status: Ordered Mental Status 07/14/23 Barriers to Learning one year None evide nt Mandatory Health Literacy Documentation Yes Health Literacy Communication Barriers N ever Primary Language Azerbaijani Problem List Condition Confirmation Course Effective Dates Status H ealth Status Informant Atrial fibrillation Confirmed Active Left carpal tunnel syndrome Confirmed Active Presence of Watchman left atrial appendage closure device Confirmed Active Transaminitis Confirmed Active Hx-TIA (transient ischemic attack) Confirmed Active Hepatomegaly Confirmed Active Diabetic neuropathy Confirmed Active DARNELL (nonalcoholic steatohepatitis) Confirmed Active Splenomegaly Confirmed Active Tobacco user Confirmed Active Diabetes mellitus, type II Confirmed Active Ulnar tunnel syndrome of left wrist Confirmed Active Diagnosis Diagnosis Type Effective Dates Health Status Clinical Service Informant Diabetic neuropathy Discharge Diagnosis 07/14/23 Left carpal tunnel syndrome Discharge Diagnosis 07/14/23 Ulnar tunnel syndrome of left wrist Discharge Diagnosis 07/14/23 Procedures Procedure Date Related Diagnosis Body Site Status Colonoscopy 1 05/07/23 Completed EGD - esophagogastroduodenoscopy 2 05/07/23 Completed LIVER ELASTOGRAPHY 3 04/23/[address] angiography of chest and abdomen with contrast 4 08/14/[address] brain without contrast 5 08/14/[address] cervical spine without contrast 6 08/14/22 Completed Chest X-ray 7 06/05/21 Completed Ultrasound renal 8 06/05/21 Comple johann Knee X-ray 9 10/11/20 Completed Pelvis X-ray 10 10/11/20 Completed Plain X-ray of lumbar spine 11 10/09/20 Completed Chest X-ray 12 07/01/[address] of head 13 07/01/[address] of head 14 06/29/[address] angiography of chest with contrast 15 06/21/[address] angiography of head and n tony with contrast 16 06/21/[address] of brain 17 06/21/[address] angiography of head, neck and brain with contrast 18 06/06/20 Completed Chest X-ray 19 06/04/20 Completed Chest X-ray 20 06/04/20 Completed Plain X-ray of left hand 21 03/31/20 Completed Diagnostic colonoscopy 22 08/18/19 Completed 1recommendationsareas follows Impressionsm - The rectum, sigmoid colon, descending colon, splenic flexure, transverse colon, hepatic flexure, ascending colon, cecum and recto-sigmoid colon are normal. 2Impression: Normal esophagus. A medium amount of food (residue) in the stomach. Retained food in the duodenum. No specimens collected 3Significantly fibrotic liver--F3. Recommend liver Bx 41. there is no airspace consolidation, pleural effusion, or pneumothorax 2. question an acute left lateral 7th and 8th rib fracture. correlate for point tenderness 3. there is no evidence of solid organ injury in the abdomen or pelvis 4. the liver is enlarged and steatotic. nodularity of the hepatic surface contour indicates early morphologic changes of cirrhosis 5. mild splenomegaly 5no acute intracranial abnormality 6there is no evidence of fracture or subluxation involving the cervical spine 7impression Right lj central venous catheter terminates at the cavoatrial junction. No Pneumothorax 8impression left kidney is not seen No right hydronephrosis 9impression: Degenerative changes in the lumbar spine as above. No significant hip or knee arthrosis 10impression: impression Degenerative changes in the lumbar spine as above. No significant hip or knee arthrosis 11impression Degenerative changes in the lumbar spine as above. No significant hip or knee arthrosis 12impression: 1. Findings suggest emphysema and mild CHF 13impression: unremarkable CT of head 14impression unremarkable CT of head 15impression 1. No acute abnormalities identified specifically, no evidence of acute ischemia 2. Mild generalized age-related cerebral parenchymal atrophy and possible mild chronic small vesselwhite matter ischemic changes 16impression: CTA Brain 1. 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 The remainder of the visualized major intracranial arteries apper patent with no evidence of hemodynamically significant stenosis dissection or aneurysm CTA neck 1. No evidence of hemodynamically significant stenosis dissection, or aneurysm in the visualized major cervical arteries 2. There is left sided vertebral artery dominance 17impression: No acute intracranial pathology 18impression: Head 1. Hypoplasia of A1 segment of the right anterior cerebral artery may represent an anatomical variant 2. The remainder of the visualized major intracranial arteries appear patent with no evidence of hemodynamically significant stenosis dissection or aneurysm Neck 1. No evidence of hymodynamically significant stenosis dissection or aneurysm in the visualized major cervical arteries 2. Vernell is left sided vertebral artery dominance Brain: 1, Hypoplasia of the A1 segment of the right anterior cerebral arery may represent an anatomical variant 2. The remainder of the visualized major intracranial arteries appear patent with no evidence of hemodynamically significant stenosis, dissectin or aneurysm 19impression: No pneumonia 20impression: no pneumonia 21impression: No definitive acute fracture. 22The perianal and digital rectal examinations were normal. A 5 mm polyp was found at 60 cm proximal to the anus. The polyp was sessile. The polyp was removed with a cold snare. Resection and retrieval were complete. Verification of patient identification for the specimen was done by the physician and nurse using the patient's name and medical record number. Estimated blood loss was minimal. The exam was otherwise without abnormality on direct and retroflexion Pathology: Tubulovillious Vital Signs Most recent to oldest [Reference Range]: 1 Height 166.4 cm (07/14/23 8:22 AM) Patient Weight 78.8 kg (07/14/23 8:22 AM) Body Mass Index 28.46 kg/m2 (07/14/23 8:22 AM) Social History Social History Type Response Tobacco Former smoker, Cigar ettes 1 Smoking Status Current [facility] smoker Sex 1then smoked in her car only for 2 days while working. It would take her a few weeks to go thru a pack Patient Care team information Care Team Personnel Name: DAJUAN Justin Tara Position: Nurse Pract - Family Med Member Role: Primary Care Provider Address: Address: [address] [place] [address] Name: Kennedi Walsh Ann Position: Pharmacist Schedule II Member Role: Pharmacy - Lifetime Care Team Related Persons Name: HOPE GUERRERO
--- OUTSIDE RECORDS SUMMARY | 2023-09-17 07:53 | External Medical Summary | Summary of Care ---
Author Name Unknown Organization [facility] Address [address] [place] [address] Phone [phone] Care Team Providers Care Regional Sales Engineer Name Role Phone Leigh Ann Justin Primary Care Provider [phone] Reason for Visit * Reason Onset Date Comments Appointment 08/17/2023 Encounter Details Date Type Department Care Team (Late st Contact Info) Description 08/17/2023 Telephone [facility], [facility] [address] [place] [address] Rafael Pollard MD [address] [place] [address] Appointment Allergies Active Allergy Reactions [...] (15 years old or older) No 06/05/20 21 Cognitive Status Response Date of Assessm ent Because of a physical, menta l, or emotional condition, do you have serious difficulty concentrating, remembering, or making decisions? (5 years old or older) No 06/05/2021 documented as of this encounter Miscellaneous Notes * Telephone Encounter - Elsa Hoffmann MA - 08/19/2023 12:04 PM EST No october 2023 Schedule Please schedule 1 Month Return Bilateral SI Joint- 09/16/23 * Telephone Encounter - Elsa Hoffmann MA [...] Contact Info) Description 09/16/[address] [facility], Operating Room, [facility] - 4th Floor [address] [place] [id number] Rafael Pollard MD [address] [place] [address] Scheduled Procedures Name Priority Associated Diagnoses Date/Ti me INJECTION SACROILIAC JOINT Bilateral sacroiliitis (HCC) COLONOSCOPY FLEXIBLE PROXIMA L DIAGNOSTIC Recall History of colonic polyps Health Maintenance Due Date Last Done Comments DISCUSS TOBACCO CESSATION (REFER TO SMARTSET #2216) 1960 Diabetic Eye Exam 1977 DTaP,Tdap,and Td [...] the patient have Health Care Power of Customer Support Associate? No Code Status History Code Status Date [...] Advance Directives occurred with: Patient Care Teams Regional Sales Engineer Relationship Specialty Start Date End Date Leigh Ann Justin CRNP [address] [place] [address] PCP - General Nurse Practitioner 04/13/23 documented as of this encounter
--- OUTSIDE RECORDS SUMMARY | 2023-09-17 07:53 | External Medical Summary | Summary of Care ---
Author Name Unknown Organization [facility] Address [address] [place] [address] Phone [phone] Care Team Providers Care Computed Tomography Scanner Operator Name Role Phone Leigh Ann Justin Primary Care Provider [phone] Reason for Visit * Reason Onset Date Comments Appointment 08/17/2023 Encounter Details Date Type Department Care Team (Late st Contact Info) Description 08/17/2023 Telephone [facility], [facility] [address] [place] [address] Rafael Pollard MD [address] [place] [address] Appointment Allergies Active Allergy Reactions Criticality Noted Date Comments Buspirone 07/20/2018 Nsaids 06/26/2019 GI bleed Tuberculin Tests 09/01/2018 Acetaminophen 07/20/2018 Azithromycin 07/20/2018 documented as of this encounter (statuses as of 08/20/2023) Medications Medication Sig Dispensed Refills Start Date [...] as of this encounter (statuses as of 08/20/2023) Active Problems Problem Noted Date Diagnosed Date [...] as of this encounter (statuses as of 08/20/2023) Immunizations Name Administration Dates Next Due COVID-19 [...] encounter Miscellaneous Notes * Telephone Encounter - Franci Vilchis OSA - 08/20/2023 10:40 AM EST Pt's appt request placed in "to be scheduled" folder. She will be contacted once the provider's template has been released. * Telephone Encounter - Elsa Hoffmann MA [...] 09/16/2023 12:41 PM EST Hospital Encounter OR [facility], Operating Room, [facility] - 4th Floor [address] [place] [address] Rafael Pollard MD [address] [place] [address] 09/16/2023 12:41 PM EST - 09/16/2023 1:01 PM EST Surgery OR [facility], Operating Room, [facility] - 4th Floor [address] [place] [address] Rafael Pollard MD [address] [place] [address] [place] [address] INJECTION SACROILIAC JOINT Scheduled Procedures Name Priority Associated Diagnoses Date/Ti me INJECTION SACROILIAC JOINT Bilateral sacroiliitis (HCC) 09/16/2023 12:41 PM EST COLONOSCOPY FLEXIBLE PROXIMAL DIAGNOSTIC Recall History of colonic polyps Health Maintenance Due Date Last Done Comments DISCUSS TOBACCO CESSATION (REFER TO SMARTSET #0394) 1960 Diabetic Eye Exam 1977 DTaP,Tdap,and Td [...] AGES 18-100 08/18/2022 08/18/2019, 08/18/2019 COVID-19 Vaccine ( - 2022- season) 2023 09/01/2021, 04/02/2021, 12/19/2020, Additional history [...] the patient have Health Care Power of Plant Associate? No Code Status History Code Status [...] Advance Directives occurred with: Patient Care Teams Computed Tomography Scanner Operator Relationship Specialty Start Date End Date Leigh Ann Justin CRNP [address] [facility] [place] [address] PCP - General Nurse Practitioner 04/13/23 documented as of this encounter
--- OUTSIDE RECORDS SUMMARY | 2023-09-17 07:53 | External Medical Summary | Continuity of Care Document ---
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 Name Role Phone Henry Justina Primary Care Physician [phone] [facility]counter [id number] Date(s): 07/13/23 - 07/13/[address] [place] A [address] [address] [phone] Encounter Diagnosis Transaminitis(Discharge Diagnosis) - 07/13/23 Hepatomegaly(Discharge Diagnosis) - 07/13/23 DARNELL (nonalcoholic steatohepatitis)(Discharge Diagnosis) - 07/13/23 Splenomegaly(Discharge Diagnosis) - 07/13/23 Body mass index [BMI] 28.0-28.9, adult(Discharge Diagnosis) - 07/13/23 Discharge Disposition: Home or Self Care Attending Physician: EDMUND Dumont Kelli Jo Referring Physician: EDMUND Dumont Kelli Jo Allergies, Adverse Reactions, Alerts Substance Reaction Severity Status acetaminophen Unknown reaction Active tuberculin purified protein derivative Swelling Active NSAIDs GI bleeding Active BuSpar increased BP Active Zithromax Rash Active Assessment and Plan Extracted from: Title:Office Visit Note Author:EDMUND Dumont Kell i Jo Date:07/13/23 1.Transaminitis 2.Hepatomegaly 3.DARNELL (nonalcoholic steatohepatitis) 4.Splenomegaly Patient returns today status post transjugular liver bx. She has a history of transaminitis for many years,with her most recent labs beinglow-lying, her alk phos is predominantly moreelevated, no elevation of bone isoenzyme. Liver bx consistent with FibroScanwhich was F3. Lab work demonstrated positive BETTY. Reflex BETTY work up normal. Patient's EGD in April revealed medium amount of residual food. Given her abdominal pain and diabetes, will order gastricemptying study at this time. Did provide patient with information regarding gastroparesis andlow fiber/lowfat dietlifestyle modifications. Will consider repeat EGD after this to mari ARROYO. I have also discussed with patient her liver diagnosis. Recommended weight managementin addition to strict diabetic control. She is agreeable to both. Continue daily coffeeas long as it does not exacerbate her abdominal pain. Also recommend low fructose diet,handouts provided in office and reviewed today. RUQ US due Spring 2023, orders placed today. Repeat Hepatic panel prior to appt as well. Liverhistory Diagnosis: F3 Fibrosis FibroTest: N/A Liver biopsy: 06/23/2023 Focal Possible Bridging (F3), LORAINE 11/14 (Borderline). Corrected sinusoidal Pressure 4mmHg Paracentesis: NA Diuretics: NA Other livermedications: NA Alcohol use: Weekends only, 1-2 beverages Vaccinations: Hep A & B immunity noted HCC surveillance EGD: 05/07/2023 Normal esophagus. A medium amount of food (residue) in the stomach. Retained food in the duodenum. No specimens collected AFP: 06/28/2023 (2.1) Liver US: CT Scan 08/14/22 the liver is enlarged and steatotic. nodularity of the hepatic surface contour indicates early morphologic changes of cirrhosis. FibroScan: 04/23/2023 Significantly fibrotic liver--F3. GI follow up in6 months, sooner if needed. I have spent54 minutes in evaluation, education and documentation of this pt in both face to face and non-face to face activities. 20 mins precharting 22 mins eval 12 documenting Immunizations Given and Recorded Vaccine Date Status [...] Disp# 90 tab, Refills: 3, Pharmacy: [facility]/pharmacy #[id number] Start Date: 01/12/23 Status: Ordered atorvastatin 40 mg oral tablet Start: 06/14/23 12:22:00 EST, 1 tab, PO, Daily, Disp# 90 tab, Refills: 3, TAKE 1 TABLET BY MOUTH EVERY DAY EVERY AFTERNOON, Pharmacy: [facility]/pharmacy #[id number] Start Date: 06/14/23 Status: Ordered Centrum Silver oral tablet Start: 01/09/22 13:24:00 EDT, 1 tab, PO, Daily Start Date: 01/09/22 Status: Ordered Folate Forte Start: 04/19/23 14:46:00 EDT Start Date: 04/19/23 Status: Ordered gabapentin 400 mg oral capsule Start: 04/07/23 11:57:00 EDT, 1 cap, PO, tid, Disp# 90 cap, Refills: 11, [id number] Start Date: 04/07/23 Stop Date: 04/01/24 Status: Ordered ipratropium 0.02% for nebulization Start: 04/07/23 11:56:00 EDT, 2.5 mL, inhaled, q6h, Disp# 60 each, Refills: 6, Pharmacy: [facility]/pharmacy #[id number] Start Date: 04/07/23 Status: Ordered Latisse 0.03% topical solution Start: 02/23/23 16:37:00 EDT, See Instructions, Disp# 3 mL, Refills: 3, apply to the skin of the upper eyelid at the base of the eyelashes, Note to Pharmacy: pt will pay out of pocket, Pharmacy: [facility]/pharmacy #[id number] Start Date: 02/23/23 Status: Ordered levothyroxine 150 mcg (0.15 mg) oral tablet Start: 04/26/23 10:28:00 EDT, See Instructions, Disp# 90 tab, Refills: 2, TAKE BY MOUTH 1 TABLET INTHE MORNING., Pharmacy: [facility] [id number] Start Date: 04/26/23 Status: Ordered lisinopril 5 mg oral tablet Start: 12/31/22 10:01:00 EDT, 1 tab, PO, Daily, Disp# 30 tab, Refills: 11, [id number] Start Date: 12/31/22 Status: Ordered LORazepam 0.5 mg oral tablet Start: 11/09/22 8:42:00 EDT, 1 tab, PO, bid, PRN: as needed for anxiety Start Date: 11/09/22 Status: Ordered magnesium oxide 400 mg (241.3 mg elemental magnesium) oral tablet Start: 04/21/23 16:34:00 EDT, 1 tab, PO, bid, Disp# 90 tab, Refills: 3, [id number] Start Date: 04/21/23 Status: Ordered Medical Marijuana Start: 02/19/22 13:02:00 EDT, See Instructions, 1 gain PO sublingual Start Date: 02/19/22 Status: Ordered montelukast 10 mg oral tablet Start: 03/08/23 10:54:00 EDT, See Instructions, Disp# 90 tab, Refills: 0, TAKE 1 TABLET BY MOUTH ATBEDTIME RELATED TO MILD INTERMITTENT ASTHMA, Pharmacy: [facility] [id number] Start Date: 03/08/23 Status: Ordered pantoprazole 40 mg oral delayed release tablet Start: 01/12/23 14:54:00 EDT, 1 tab, PO, Daily, Disp# 90 tab, Refills: 3, Pharmacy: [facility]/pharmacy #[id number] Start Date: 01/12/23 Status: Ordered Potassium Chloride (Eqv-K-Tab) 20 mEq oral tablet, extended release Start: 05/14/23 16:21:00 EDT, 1 tab, PO, Daily, Disp# 90 tab, Refills: 3, Pharmacy: [facility]/pharmacy #[id number] Start Date: 05/14/23 Status: Ordered Remeron 15 mg oral tablet Start: 04/07/23 11:21:00 EDT, 1.5 tab, PO, qhs Start Date: 04/07/23 Status: Ordered sotalol 120 mg oral tablet Start: 04/29/23 11:16:00 EDT, See Instructions, Disp# 60 tab, Refills: 4, TAKE 1 TABLET BY MOUTH EVERY 12 HOURS, Pharmacy: [facility] [id number] Start Date: 04/29/23 Status: Ordered Symbicort 160 mcg-4.5 mcg/inh inhalation aerosol Start: 11/20/22 16:23:00 EDT, 2 puff, inhaled, bid, Disp# 1 each, Refills: 5, Pharmacy: [facility]/pharmacy #[id number] Start Date: 11/20/22 Status: Ordered Tradjenta 5 mg oral tablet Start: 06/07/23 16:20:00 EDT, 1 tab, PO, Daily, Disp# 30 tab, Refills: 5, Pharmacy: [facility] [id number] Start Date: 06/07/23 Status: Ordered venlafaxine 75 [...] Start Date: 01/09/22 Status: Ordered Mental Status 07/13/23 Barriers to Learning one year None evide nt Mandatory Health Literacy Documentation Yes Health Literacy Communication Barriers N ever Primary Language Latvian Problem List Condition Confirmation Course Effective Dates [...] Effective Dates Health Status Clinical Service Informant Hepatomegaly Discharge Diagnosis 07/13/23 Splenomegaly Discharge Diagnosis 07/13/23 Transaminitis Discharge Diagnosis 07/13/23 DARNELL (nonalcoholic steatohepatitis) Discharge Diagnosis 07/13/23 Body mass index [BMI] 28.0-28.9, adult Discharge Diagnosis 07/13/23 Non-Specified Procedures Procedure Date Related Diagnosis Body Site [...] recent to oldest [Reference Range]: 1 Height 167.6 cm (07/13/23 10:04 AM) Patient Weight 81.1 kg (07/13/23 10:04 AM) Body Mass Index 28.87 kg/m2 (07/13/23 10:04 AM) Heart Rate 104 bpm (07/13/23 10:04 AM) Blood Pressure 146/88mmHg (07/13/23 10:04 AM) Cuff Pulse Pressure 58 mmHg (07/13/23 10:04 AM) BP Location # 1 Left Arm (07/13/23 10:04 AM) Social History Social History Type Response Tobacco Former smoker, Cigar ettes 1 Smoking Status Current every day [facility] smoker Sex 1then smoked in her car only for 2 days while working. It would take her a few weeks to go thru a pack Gastroenterology Outpatient Note * EDMUND Dumont, Radha Walsh: PERFORM Event Display: Gastroenterology Outpt Note Authored Date: [id number] Chief Complaint 3 month f/u for DARNELL. Pt had liver Bx. History of Present Illness The patient is a pleasant 89-axil-ensfkhwpseeu presents today for follow up evaluation of elevated LFTs.[facility],and past medical historyreviewed. Prior records: 08/18/2019 [place]: The perianal and digital rectal examinations were normal.A 5 mm polyp was found at 60 cm proximal to the anus. The polyp wassessile.The exam was otherwise without abnormalityon direct and retroflexion. Pathology: Tubulovillous 03/02/2022Labs: ALT 67, T. bili 1.0, D bili 0.2, alk phos 138, AST 72, hep a total reactive, hepB surface antigen negative, hep B surface antibody positive, hepatitis C negative 08/14/2022 CT Angio: 1. there is no airspace consolidation, pleural effusion, or pneumothorax 2. question an acute left lateral 7th and 8th rib fracture. correlate for point tenderness 3. there is no evidence of solid organ injury in the abdomen or pelvis 4. the liver is enlarged and steatotic. nodularity of the hepatic surface contour indicates early morphologic changes of cirrhosis 5. mild splenomegaly 11/09/2022 labs: Sodium 136 L, BUNs/CR 17/0.77, magnesium 9.1, WBC 9.32, H&H 11/32.9 L, RBC 3.28L, MCV 100.3 H, MCH 33.5, PLT 195, ALT 28, T. bili 1.4, alk phos 101, AST 66 H, A1c 6.6, TSH 3.86, ferritin 96.6, B12 525, folate 6.4L, iron 92 03/12/2023 OV ([place]): elevated LFTs. She states that she recalls 13 years ago being admitted at [facility] for LFTs in the 700s. She states that she was there for 17 days. Since this time she is intermittently have a lowerelevations. She had tried supplements and medications for this and ultimately in 2020 went into acute renal failure in [place]. Will occasionally pass bilewithstomach upsethowever this has been several months since happening. 04/23/2023 FibroScan: Significantly fibrotic liver--F3. 05/05/2023 labs: PT/INR 13.5/1.0, PTT 25, sodium 140, potassium 4.2, BUNs/CR 10/0.61, glucose 327, calcium 8.4, magnesium 1.3, ceruloplasmin 24, ALT 60, T. bili 1.0, D bili 0.1, alk phos 233, AST 58, TSH 0.73, BETTY +1: 320 speckled, celiac panel negative, AMA 3.7, LKM WNL, alpha-1 antitrypsin 138, smooth muscle 12 05/07/2023 [place]: - The rectum, sigmoid colon, descending colon, splenic flexure, transverse colon, hepatic flexure, ascending colon, cecum and recto-sigmoid colon are normal. No specimens collected 05/07/2023 EGD: Impression: Normal esophagus. A medium amount of food (residue) in the stomach. Retained food in the duodenum. No specimens collected 2023 OV ([place]): discuss herFibroScanandcolonoscopy and EGD results. Patient has no GIcomplaints today. She isin a lot of pain from her recent dental procedure and has been on5 mgofoxycodone for this. I reviewed with patient that her EGD and colonoscopy were normaloutsideof some residual foodin her EGDdiscussed possible gastroparesis. Discussed patient's positiveANA and need to repeatreflex titers. I did discuss with patient her FibroScan which demonstrated F3. Patient states she continues to work to get her diabetes under control her A1c has beenslowlyimproving. She states that she remains on her atorvastatin to control her cholesterol. She does state thateating has been an issue now that she is on gabapentin and Remeron. 06/23/2023 Liver, transjugular, needle biopsy: - Mild to moderate macrovesicular steatosis with features of mild steatohepatitis. - Portal and pericellular fibrosis with focal possible bridging fibrosis. - See microscopic description and synoptic report. LORAINE 11/14, Fibrosis: Focal Possible Bridging Fibrosis Corrected sinusoidal Pressure 4mmHg 06/28/2023 Labs: BETTY pos, 1:320 Speckled; reflex labs normal 07/13/2023 OV ([place]): Patient returns today to follow-up after her biopsy. She states that she continues to be under large amount of stress and has been stress eating. At times this has been causing her someleft sided to epigastric abdominal pain that can last for half the day before it goes away. She remains on her Protonix nightly on an empty stomach. Otherwise she is symptom free. She has discontinued use of alcohol. Denies anydiarrhea, constipation, mucus, melena or hematochezia. Denies nausea or vomiting or dysphagia. No active reflux symptoms breaking through. 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 Mother with ulcerative colitis mid age Paternal uncle with colorectal cancerwith mets to the liver. 29-year-old paternal uncle with rectal cancer,anotherpaternal uncle with oral cancer No further complaints or concerns today. Physical Exam Vitals & Measurements HR:104(Monitored) BP:146/88 HT:167.6cm WT:81.100kg(Dosing) WT:81.1kg BMI:28.87 General:Alert and oriented, No acute distress, appears stated age HENT:Normocephalic, normal hearing Respiratory: Respiration are non-labored, pt speaking in complete sentences,and no evidence of respiratory distress is noted Integumentary:Exposed skin viewable is dry and intact Psychiatric:Cooperative, appropriate mood & affect, Normal judgement Assessment/Plan 1.Transaminitis 2.Hepatomegaly 3.DARNELL (nonalcoholic steatohepatitis) 4.Splenomegaly Patient returns today status post transjugular liver bx. She has a history of transaminitis for many years,with her most recent labs beinglow-lying, her alk phos is predominantly moreelevated, no elevation of bone isoenzyme. Liver bx consistent with FibroScanwhich was F3. Lab work demonstrated positive BETTY. Reflex BETTY work up normal. Patient's EGD in April revealed medium amount of residual food. Given her abdominal pain and diabetes, will order gastricemptying study at this time. Did provide patient with information regarding gastroparesis andlow fiber/lowfat dietlifestyle modifications. Will consider repeat EGD after this to mari ARROYO. I have also discussed with patient her liver diagnosis. Recommended weight managementin addition to strict diabetic control. She is agreeable to both. Continue daily coffeeas long as it does not exacerbate her abdominal pain. Also recommend low fructose diet,handouts provided in office and reviewed today. RUQ US due Spring 2023, orders placed today. Repeat Hepatic panel prior to appt as well. Liverhistory Diagnosis: F3 Fibrosis FibroTest: N/A Liver biopsy: 06/23/2023 Focal Possible Bridging (F3), LORAINE 4/8 (Borderline). Corrected sinusoidal Pressure 4mmHg Paracentesis: NA Diuretics: NA Other livermedications: NA Alcohol use: Weekends only, 1-2 beverages Vaccinations: Hep A & B immunity noted HCC surveillance EGD: 05/07/2023 Normal esophagus. A medium amount of food (residue) in the stomach. Retained food inthe duodenum. No specimens collected AFP: 06/28/2023 (2.1) Liver US: CT Scan 08/14/22 the liver is enlarged and steatotic. nodularity of the hepatic surface contour indicates early morphologic changes of cirrhosis. FibroScan: 04/23/2023 Significantly fibrotic liver--F3. GI follow up in6 months, sooner if needed. I have spent54 minutes in evaluation, education and documentation of this pt in both face to faceand non-face to face activities. 20 mins precharting 22 mins eval 12 documenting Problem List/Past Medical History Ongoing Atrial fibrillation Diabetes mellitus, type II Hepatomegaly Hx-TIA (transient ischemic attack) DARNELL (nonalcoholic steatohepatitis) Presence of Watchman left atrial appendage closure device Splenomegaly Tobacco user Transaminitis Historical Afib Infected superficial injury of toe of right foot Procedure/Surgical History EGD - esophagogastroduodenoscopy (05/07/2023)Colonoscopy (05/07/2023)LIVER ELASTOGRAPHY (04/23/2023)CT brain without contrast (08/14/2022)CT angiography of chest and abdomen with contrast (08/14/2022)CT cervical spine without contrast (08/14/2022)Chest X-ray (06/05/2021)Ultrasound renal (06/05/2021)Pelvis X-ray (10/11/2020)Knee X-ray (10/11/2020)Plain X-ray of lumbar spine (10/09/2020)CT of head (07/01/2020)Chest X-ray (07/01/2020)CT of head (06/29/2020)CT of brain (06/21/2020)CT angiography of head and neck with contrast (06/21/2020)CT angiography of chest with contrast (06/21/2020)CT angiography of head, neck and brain with contrast (06/06/2020)Chest X-ray (06/04/2020)Chest X-ray (06/04/2020)Plain X-ray of left hand (03/31/2020)Diagnostic colonoscopy (08/18/2019) Medications albuterol(Albuterol (Eqv-ProAir HFA)), 2 puff, inhaled, q4h aspirin(aspirin 81 mg oral delayed release tablet), 81 mg= 1 tab, PO, Daily, 3 refills atorvastatin(atorvastatin 40 mg oral tablet), 40 mg= 1 tab, PO, Daily, 3 refills bimatoprost topical ophthalmic(Latisse 0.03% topical solution), See Instructions, 3 refills budesonide-formoterol(Symbicort 160 mcg-4.5 mcg/inh inhalation aerosol), 2 puff, inhaled, bid, 5 refills cannabis(Medical Marijuana), See Instructions cholecalciferol(Vitamin D3 400 intl units (10 mcg) oral tablet), 10 mcg= 1 tab, PO, Daily cyanocobalamin(Vitamin B12 100 mcg oral tablet), 100 mcg= 1 tab, PO, Daily gabapentin(gabapentin 400 mg oral capsule), 400 mg= 1 cap, PO, tid, 11 refills ipratropium(ipratropium 0.02% for nebulization), 0.5 mg= 2.5 mL, inhaled, q6h, 6 refills levothyroxine(levothyroxine 150 mcg (0.15 mg) oral tablet), See Instructions linagliptin(Tradjenta 5 mg oral tablet), 1 tab, PO, Daily lisinopril(lisinopril 5 mg oral tablet), 5 mg= 1 tab, PO, Daily, 11 refills LORazepam(LORazepam 0.5 mg oral tablet), 0.5 mg= 1 tab, PO, bid, PRN magnesium oxide(magnesium oxide 400 mg (241.3 mg elemental magnesium) oral tablet), 400 mg= 1 tab, PO, bid, 3 refills mirtazapine(Remeron 15 mg oral tablet), 22.5 mg= 1.5 tab, PO, qhs montelukast(montelukast 10 mg oral tablet), See Instructions multivitamin(Folate Forte) multivitamin with minerals(Centrum Silver oral tablet), 1 tab, PO, Daily pantoprazole(pantoprazole 40 mg oral delayed release tablet), 40 mg= 1 tab, PO, Daily, 3 refills potassium chloride(Potassium Chloride (Eqv-K-Tab) 20 mEq oral tablet, extended release), 20 mEq= 1 tab, PO, Daily, 3 refills sotalol(sotalol 120 mg oral tablet), See Instructions venlafaxine(venlafaxine 75 mg oral capsule, extended release), 75 mg= 1 cap, PO, Daily Allergies BuSparincreased BP NSAIDsGI bleeding ZithromaxRash acetaminophenUnknown reaction tuberculin purified protein derivativeSwelling Social History Smoking Status Current every day light smoker Alcohol - Low Risk Use:Current Type:Beer, Wine Frequency:1-2 times per week Employment/School - Not employed or in school Exercise - Does not exercise Home/Environment - Low Risk Nutrition/Health - Low Risk Sexual - No Sexual Activity Tobacco - High Risk Use:Former smoker Type:Cigarettes - Comments: then smoked in her car only for 2 days while working. It would take cecy few weeks to go thru a pack Family History Atrial fibrillation: Father. Cancer: Paternal Uncle. Cancer of colon: Mother and Paternal Uncle. Hypertension: Mother and Father. Multiple myeloma: Mother. Rectal cancer: Paternal Uncle. Type II diabetes mellitus: Mother. Health Status Family Member(s) Immunizations Vaccine Date Status SARS-CoV-2 (COVID-19) mRNA-1273 vaccine 09/01/2021 Recorded influenza virus vaccine, inactivated 06/18/2021 Recorded SARS-CoV-2 (COVID-19) mRNA-1273 vaccine 04/02/2021 Recorded SARS-CoV-2 (COVID-19) mRNA-1273 vaccine 12/19/2020 Recorded Comments : 2021-11-11: Historical information-source unspecified SARS-CoV-2 (COVID-19) mRNA-1273 vaccine 11/19/2020 Recorded zoster vaccine live 07/11/2020 Recorded influenza virus vaccine, inactivated 04/25/2020 Recorded influenza virus vaccine, inactivated 06/30/2019 Recorded influenza virus vaccine, inactivated 05/25/2016 Recorded pneumococcal 13-valent vaccine 12/26/2015 Recorded Recommendations Health Maintenance Pending(in the next year) OverDue Adult Influenza Vaccine due02/06/23and every 1year Due Adult Tdap/Td Vaccine due07/13/23Unknown Frequency Breast Cancer Screening due07/13/23Unknown Frequency Cervical Cancer Screening due07/13/23Unknown Frequency Pneumococcal Vaccine Adults and Adolescents with Chronic Illness due07/13/23One-time only Shingles Vaccine due07/13/23One-time only Due In Future Diabetic Eye Exam not due until03/25/24and every 366day Diabetes Management A1c not due until04/23/24and every 366day Satisfied(in the past 1 year) Satisfied Body Mass Index on07/13/23.Satisfied by DAMIAN Veronica Erin Diabetes Management A1c on04/23/23.Satisfied by Contributor_system, [employer] Electronic Signature on File CC: DAJUAN Dukes [address] [facility] [id number] Electronically Reviewed/Signed by: Radha Dumont PA-C Author Signature Dt/Tm:07/13/2023 10:50 AM Division of Gastroenterology Electronically Reviewed/Signed by: Desmond Painter MD Cosigner Signature Dt/Tm: 07/13/2023 02:23 PM Division of Gastroenterology [facility] Patient Care team information Care Team Personnel Name: DAJUAN Justin Tara Position: Nurse Pract - Family Med Member Role: Primary Care Provider Address: Address: [address] [place] [address], [place] [address] Name: Kennedi Walsh Ann Position: Pharmacist Schedule II Member Role: Pharmacy - Lifetime Care Team Related Persons Name: HOPE GUERRERO
--- OUTSIDE RECORDS SUMMARY | 2023-09-17 07:53 | External Medical Summary | Summary of Care ---
Author Name Unknown Organization [facility] Address [address] [place] [address] Phone [phone] Care Team Providers Care Building Guard Deputy Sheriff Name Role Phone Leigh Ann Justin Primary Care Provider Reason for Visit * Reason Comments Pain Bilateral Low Back/B uttock (Right Side Worse Than Left); Neck and Arm Pain; Hand and Foot Pain * Evaluate & Treat - Unlimited Visits (Within 30 days (routine)) - Pending Review Specialty Diagnoses / Procedures Referred By Rudi matamoros Referred To Contact Pain Management / Pain Medicine Diagnoses Lumbar radiculopathy Leigh Ann Justin CRNP [address] [place] [address] Referral ID Status Reason Start Date Expiration Date Visits Requested Visits Authorized [id number] Pending Review Specialty Services Required 04/22/[phone] Encounter Details Date Type Department Care Team (Late st Contact Info) Description 07/12/2023 12:00 PM EST Office Visit [facility], [facility] [address] [place] [address] Rafael Pollard MD [address] [place], [place] [id number] Sacroiliitis (HCC)* Allergies Active Allergy Reactions Criticality Noted Date Comments Buspirone 07/20/2018 Nsaids 06/26/2019 GI bleed Tuberculin Tests 09/01/2018 Acetaminophen 07/20/2018 Azithromycin 07/20/2018 documented as of this encounter (statuses as of 07/13/2023) Medications Medication Sig Dispensed Refills Start Date [...] as of this encounter (statuses as of 07/13/2023) Active Problems Problem Noted Date Diagnosed Date [...] as of this encounter (statuses as of 07/13/2023) Immunizations Name Administration Dates Next Due COVID-19 mRNA, LNP-s, No Pre serve, 2-Dose Series (Moderna) 04/02/2021,12/19/2020,11/19/2020 COVID-19, mRNA, LNP-s, PF, B ooster, 100mcg/0.5mg (Moderna) 09/01/2021 Pneumococcal Conjugate Vacc, 13 Valent (Prevnar) 12/26/2015 SEASONAL INFLUENZA, PF, 6 M & Above, IM , (FLULAVAL or FLUZONE) 06/18/2021,04/25/2020,06/30/2019 Seasonal Influenza Virus Vac cine, Unspecified Formulation 05/25/2016 Zoster Vaccine Recombinant (Shingrix) 07/11/2020 documented as [...] on file documented as of this encounter Last Filed Vital Signs Vital Sign Reading Time Taken Comments Blood Pressure 129/67 07/12/2023 12:20 PM EST Pulse 64 07/12/2023 12:20 PM EST Temperature 36.5 C (97.7 F) 07/12/2023 12:[address] Respiratory Rate - - Oxygen Saturation 98% 07/12/2023 12:20 PM EST Inhaled Oxygen Concentration - - Weight - - Height - - Body Mass Index - - documented in this encounter Functional Status Functional Status Response [...] No 06/05/2021 documented as of this encounter Progress Notes * Rafael Pollard MD - 07/12/2023 12:30 PM EST Subjective: Thank you for the opportunity to see your patient. As you know Arabella Cruz is a 63 year old female who presents to our clinic with a chief complaint of Pain (Bilateral Low Back/Buttock (Right Side Worse Than Left); Neck and Arm Pain; Hand and Foot Pain) She describes a longstanding history of back pain after a fall 22 years ago onto concrete. She was placed on opioid medications by a physician in [facility] which led to dependence and eventually addiction. No other intervention was performed at that time. Since that time, patient reports that she has been weaned off opioids, but her pain has acutely worsened in the last three years. It has become so severe that she is unable to take care of her own home. The patient is is able to do their ADLs. Her current pain is 7/10. Providers: PCP: DAJUAN Carr Referring provider: DAJUAN Carr Investigations performed: XR Lumbar Spine (10/09/2020): FINDINGS Lumbar spine: No visible fracture. AP alignment is normal. Multilevel degenerative disc disease, most pronounced at L4-L5 and L5-S1 with disc space narrowing, subchondral sclerosis and marginal osteophyte formation. Facet arthropathy and atherosclerotic disease also noted. No dynamic instability. Pelvis: No fracture. Alignment is normal. Hip joint spaces are preserved. Soft tissues are unremarkable. Right knee: No fracture. Alignment is normal. Joint spaces are preserved. Soft tissues are unremarkable. Left knee: No fracture. Alignment is normal. Joint spaces are preserved. Soft tissues are unremarkable. IMPRESSION IMPRESSION Degenerative changes in the lumbar spine as above. No significant hip or knee arthrosis. Non-interventional techniques: Physical Therapy: Completed in 2019 at [facility], not helpful Massage: not participated Chiropractic: not participated Acupuncture: not participated Bracing: not participated Interventional Pain techniques: Injections: None recent, had injections completed over 20 years ago Surgeries: None for pain Medications and Allergies: Current Outpatient Medications Medication Instructions Accu-Chek Nuha Plus In Vitro Strip (Glucose Blood) Check once a day or as instructed for blood sugars. 250.00 Atorvastatin Calcium 40 MG Oral Tablet (Lipitor) TAKE 1 TABLET BY MOUTH EVERY DAY EVERY AFTERNOON Bimatoprost 0.03 % External Solution APPLY TO THE SKIN OF THE UPPER EYELID AT THE BASE OF THE EYELASHES Budesonide-Formoterol Fumarate 160-4.5 MCG/ACT Inhalation Aerosol (Symbicort) 2 Puffs [facility] Aspirin Low Dose 81 mg, Oral, Daily(AM) folic acid 0.25 MG OR TABS Folic Acid Gabapentin (NEURONTIN) 400 mg, Oral, TID(AM/NOON/HS) guaiFENesin 200 mg, Oral, PRN levothyroxine (LEVOXYL) 150 mcg, Oral, [id number] linaGLIPtin (TRADJENTA) 5 mg, Oral, Daily(AM) Lisinopril (PRINIVIL) 10 mg, Daily(AM) LORAzepam (ATIVAN) 0.5 mg, Oral, BID PRN Magnesium 400 mg, DAILY(1900) Mirtazapine (REMERON) 7.5 mg, Oral, HS Montelukast Sodium 10 MG Oral Tablet (Singulair) TAKE 1 TABLET BY MOUTH AT BEDTIME RELATED TO MILD INTERMITTENT ASTHMA Multiple Vitamins-Minerals (MULTIVITAMIN ADULT) TABS Oral pantoprazole (PROTONIX) 40 mg, Oral, Daily(AM) Potassium Chloride ER 20 MEQ Oral Tablet Extended Release 20 mEq, Oral, Daily(AM) Remeron 15 mg, Oral, HS Sotalol HCl 120 mg, Oral, Q12H Symbicort 160-4.5 MCG/ACT Inhalation Aerosol TAKE 2 PUFFS BY MOUTH TWICE A DAY venlafaxine XR (EFFEXOR XR) 75 mg, Oral, Daily(AM) Ventolin HFA 108 (90 Base) MCG/ACT Inhalation Aerosol Solution 2 Puffs, Inhalation, Q4H PRN Vitamin B-12 25 MCG OR TABS Vitamin B12 Vitamin B-12 1,000 mcg, Sublingual, Daily(AM) Vitamin D3 2,000 Units, Oral, Daily(AM) Review of patient's allergies indicates: Allergen Reactions Buspar [Buspirone] Nsaids GI bleed Tuberculin Tests Tylenol [Acetaminophen] Zithromax [Azithromycin] Past Medical History: Past Medical History: Diagnosis Date Chronic lower back pain NABOR (generalized anxiety disorder) Major depression Mild intermittent asthma Obesity (BMI 30.0-34.9) Type 2 diabetes mellitus with hemoglobin A1c goal of less than 7.0% (HCC) Past Surgical History: Past Surgical History: Procedure Laterality Date COLONOSCOPY, DIAGNOSTIC (RECTUM) N/A 08/18/2019 biopsies show tubulovillous adenoma/recall 3 years/Colonoscopy COLONOSCOPY, DIAGNOSTIC (RECTUM) N/A 08/18/2019 COLONOSCOPY FLEXIBLE PROXIMAL DIAGNOSTIC performed by Gopi Graham MD at ENDOS[facility] Family History: Family History Problem Relation Age of Onset Colon cancer Mother 67 at age 67 Colon polyps Father at 87 yo 07/2019 No Past Hx Son Depression Daughter Social History: Social History Socioeconomic History Marital status: Single Spouse name: Not on file Number of children: Not on file Years of education: Not on file Highest education level: Not on file Occupational History Not on file Tobacco Use Smoking status: Every Day Packs/day: .5 Types: Cigarettes Smokeless tobacco: Never Vaping Use Vaping Use: Never used Substance and Sexual Activity Alcohol use: Yes Comment: rarely Drug use: Never Sexual activity: Not on file Other Topics Concern Not on file Social History Narrative Not on file Social Determinants of Health Financial Resource Strain: Not on file Food Insecurity: No Food Insecurity (06/26/2019) Hunger Vital Sign Worried About Running Out of Food in the Last Year: Never true Ran Out of Food in the Last Year: Never true Transportation Needs: Not on file Physical Activity: Not on file Stress: Not on file Social Connections: Not on file Intimate Partner Violence: Not on file Housing Stability: Not on file ROS: A comprehensive ROS was peformed and negative except as stated above. Objective: Filed Vitals: 07/12/23 1220 BP: 129/67 Pulse: 64 Temp: 36.5 C (97.7 F) TempSrc: Temporal Artery SpO2: 98% GENERAL APPEARANCE: Well-developed, well-nourished, in no acute distress. HEENT: Normocephalic and atraumatic. No scleral icterus. Pupils are equal.No conjunctival injectionis noted. LUNGS: Symmetric. No wheezes, rhonchi, or rales appreciated HEART: Regular rate and rhythm. ABDOMEN: Non-tender, non-distended. Bowel sounds are present. EXTREMITIES: No cyanosis, clubbing, or edema. NEUROLOGIC: Gait is normal. Cranial nerves II through XII are grossly intact. PSYCHIATRIC: The patient is awake, alert, and oriented x3. Appropriate mood and affect. SKIN: Warm, dry, and well perfused. Good turgor. No lesions, nodules or rashes are noted on exposedskin. MSK: Upon initial assessment, the patient is seated in a comfortable position. Upon inspection there is not scoliosis of the thoracolumbar spine. Muscle bulk appears adequate. Palpation exam does not reveal midline lumbar tenderness and does reveal lumbar paraspinous tenderness. There is tenderness to palpation of the sacroiliac joints bilaterally +HOSEA, +Gaenslens, +SI joint compression bilaterally ROM lumbar spine is limited. There is discomfort with back extension and rotation bilaterally. Motor strength exam reveals: hip flexion R 5/5 L 5/5 knee extension R 5/5 L 5/5 knee flexion R 5/5 L 5/5 ankle dorsiflexion R 5/5 L 5/5 ankle plantarflexion R 5/5 L 5/5 EHL R 5/5 L 5/5 Deep tendon reflexes, 2+ patellar, 2+ Achilles, no clonus. Sensory exam is intact to light touch and sharp stimulation grossly in the bilateral upper and lower extremities. Assessment: 63 year old year-old female presents with bilateral axial low back pain. She reports pain across her entire low back with radiation into the buttocks but denies any radiation down the lower extremities. Physical exam reveals pain with sacroiliac joint provocative maneuvers. I personally reviewed the images of lumbar spine X-ray with the patient and explained that she has diffuse degenerative changes. It would be reasonable to perform bilateral sacroiliac joint injections. Her medical history iscomplicated by prior opioid dependence and addiction. She states that "because there are so many addicts out there I can't get my pain medication anymore. I can't even get a tramadol." I informed herthat we have [facility] pain pharmacy available at [facility] if she would like to discuss non interventional pain medication options, but she does not have a [facility] PCP and she is not interested in patient education. She is tearful on interview today from the debilitating emotional distress of the painand the loss of her . I informed her that with any procedure it is important to have reasonable expectations in terms of relief. Plan: Investigations: - None ordered at this time Interventions: -Bilateral sacroiliac joint injection Physical Therapy: -Continue home exercise program Consults: - none ordered at this visit Follow Up: - after procedure I spent a total of 20-29 minutes (exact time 26 mins) on the date of service in preparation, delivery, and documentation of the care provided to Arabella Cruz excluding any time spent in the performance of separately billed services. Thank you for you allowing us to participate in the care of your patient. If you have any questions, please feel free to contact us. documented in this encounter Nursing Notes * Yesi Jordan RN - 07/12/2023 12:08 PM EST New- Lumbar Radiculopathy 06/23/23 Transjugular Liver Biopsy C/O- Bilateral Low Back/Buttock (Right Side Worse Than Left); Neck and Arm Pain; Hand and Foot Pain Ongoing- 22 years ([place] Worse in the last 3 years (Patient was weened off medication- her a year ago, she states that she's unable to take care of her home now perpatient) Aggravating- Standing, Bending, Steps, Laundry, Housework Alleviating- Sitting Imaging- 10/09/20 XR L Spine Pain Meds- Gabapentin Diabetic, Summer 2022 A1 C= 6.1 per patient Bloodthinner- Aspirin No Back or Neck Surgery Injection- 21 Years ago [place] Cervical, Lumbar PT- ?2019 [facility]; 2019 [facility] (IPC assessment); 2018 [facility] (Shoulder) Consult- Ortho Lisa COUCH 02/12/23; [facility] 08/16/2019 Referred by DAJUAN Dukes documented in this encounter Plan of Treatment Upcoming Encounters Date Type Department Care Team (Latest Contact Info) Description 08/17/2023 11:40 AM EST Hospital Encounter OR [facility], Operating Room, [facility] - 4th Floor [address] [id number] Rafael Pollard MD [address] [place] [address] 08/17/2023 11:40 AM EST - 08/17/2023 12:00 PM EST Surgery OR [facility], Operating Room, [facility] - 4th Floor [address] [place] [phone] Rafael Pollard MD [address] [facility] [place] [address] INJECTION SACROILIAC JOINT 09/23/2023 11:00 AM EST Office Visit [facility] [address] [facility] [place] [phone] Rafael Pollard MD [address] [facility] [place] [address] Scheduled Procedures Name Priority Associated Diagnoses Date/Ti me INJECTION SACROILIAC JOINT Bilateral sacroiliitis (HCC) 08/17/2023 11:40 AM EST COLONOSCOPY FLEXIBLE PROXIMAL DIAGNOSTIC Recall History of colonic polyps Health Maintenance Due Date Last Done Comments DISCUSS TOBACCO CESSATION (REFER TO SMARTSET #[id number]) 1959 Diabetic Eye Exam 1977 DTaP,Tdap,and Td [...] Zoster Vaccines (2 of 2) 09/05/2020 07/11/2020, 12/10/2019 TSH 06/29/2021 06/29/2020, 05/10, 03/27/2020, Additional history [...] Not on filedocumented as of this encounter Visit Diagnoses Diagnosis Sacroiliitis (HCC)- Primary Sacroiliitis, not elsewhere classified Bilateral sacroiliitis (HCC) documented in this encounter Advance Directives Latest Code Status on File Code Status Date Activated Date Inactivated Comments Full Code 06/05/2021 12:21 AM 06/13/2021 12:58 AM Th is order reflects the patients wishes and were consensually agreed upon. Question Answer Comments Discussion of Advance Directives occurred with: Not Discussed Does the patient have a Living Will? No Does the patient have Health Care Power of Display Fabrication Supervisor? No Code Status History Code Status [...] Advance Directives occurred with: Patient Care Teams Building Guard Deputy Sheriff Relationship Specialty Start Date End Date Leigh Ann Justin CRNP [address] [place] [address] PCP - General Nurse Practitioner 04/13/23 documented as of this encounter
--- OUTSIDE RECORDS SUMMARY | 2023-09-17 07:53 | External Medical Summary | Continuity of Care Document ---
Author Name Unknown Organization [facility] Address [address] [place] [id number] Care Team Providers Care Mule Developer Name Role Phone Leigh Ann Justin Primary Care Physician [phone] Encounter [facility] [id number] Date(s): 06/23/23 - 06/23/[address] [phone] Encounter Diagnosis Abnormal results of liver function studies(Final) - Discharge Disposition: Home or Self Care Attending Physician: MD Deutsch Nirnimesh C Referring Physician: EDMUND Dumont Kelli J Allergies, Adverse Reactions, Alerts Substance Reaction Severity Status acetaminophen Unknown reaction Active tuberculin purified protein derivative Swelling Active Zithromax Rash Active BuSpar increased BP Active NSAIDs GI bleeding Active Assessment and Plan Extracted from: Title:Transjugular liver biopsy 06/23/23. Author :EDMUND Springer Holly Date:06/03/23 INTERVENTIONAL RADIOLOGY OUTPATIENT NOTE Name: LILIANA ALEX MILO Jewel Patient Number: [id number] : 1960 Date of Service: 06/03/2023 PROCEDURE: IR Transjugular Liver Biopsy SCHEDULED DATE: 06/23/2023 Diet and Medications: No food after midnight except for clear non-carbonated liquids up to 1 hour prior to arrival time. Take all prescribed medications with small sips of water except as directed below. Hold the following oral hypoglycemics the morning of the procedure: Tradjenta Other Orders: Extracted from: Title:CVIR Orders for 2023 Author :EDMUND Marcelino Sharon L Date:05/17/23 INTERVENTIONAL RADIOLOGY OUTPATIENT ORDERS Name: RONNELL ABBASIHLEEN Jewel Patient Number: [id number] : 1960 Date of Service: 05/17/2023 PROCEDURE: IR Transjugular Liver Biopsy SCHEDULED DATE: 06/03/2023 Diet and Medications: No food after midnight except for clear non-carbonated liquids up to 1 hour prior to arrival time. Take all prescribed medications including Aspirin with small sips of water except as directed below. Other Orders: Please instruct the patient to hold Tradjenta the morning of the CVIR procedure. Functional Status 06/23/23 History of Fall in Last 3 Months Serrano N o Presence of Secondary Diagnosis Serrano Ye s Use of Ambulatory Aid Serrano Crutches/can e/walker IV/Heparin Lock Fall Risk Serrano No Gait/Transferring Fall Risk Serrano Normal /bedrest/immobile Mental Status Fall Risk Serrano Oriented t o own ability Serrano Fall Risk Score 30 Serrano Fall Risk Low Risk Immunizations Given and Recorded Vaccine Date Status [...] Daily, Disp# 90 tab, Refills: 3, Pharmacy: [facility]/pharmacy #[id number] Start Date: 01/12/23 Status: Ordered atorvastatin 40 mg oral tablet Start: 06/14/23 12:22:00 EST, 1 tab, PO, Daily, Disp# 90 tab, Refills: 3, TAKE 1 TABLET BY MOUTH EVERY DAY EVERY AFTERNOON, Pharmacy: [facility]/pharmacy #[id number] Start Date: 06/14/23 Status: Ordered Centrum Silver oral tablet Start: 01/09/22 13:24:00 EDT, 1 tab, PO, Daily Start Date: 01/09/22 Status: Ordered Folate Forte Start: 04/19/23 14:46:00 EDT Start Date: 04/19/23 Status: Ordered gabapentin 400 mg oral capsule Start: 04/07/23 11:57:00 EDT, 1 cap, PO, tid, Disp# 90 cap, Refills: 11, [id number] Start Date: 04/07/23 Stop Date: 04/01/24 Status: Ordered ipratropium 0.02% for nebulization Start: 04/07/23 11:56:00 EDT, 2.5 mL, inhaled, q6h, Disp# 60 each, Refills: 6, [id number] Start Date: 04/07/23 Status: Ordered Latisse 0.03% topical solution Start: 02/23/23 16:37:00 EDT, See Instructions, Disp# 3 mL, Refills: 3, apply to the skin of the upper eyelid at the base of the eyelashes, Note to Pharmacy: pt will pay out of pocket, [id number] Start Date: 02/23/23 Status: Ordered levothyroxine 150 mcg (0.15 mg) oral tablet Start: 04/26/23 10:28:00 EDT, See Instructions, Disp# 90 tab, Refills: 2, TAKE BY MOUTH 1 TABLET INTHE MORNING., Pharmacy: [id number] Start Date: 04/26/23 Status: Ordered lisinopril 5 mg oral tablet Start: 12/31/22 10:01:00 EDT, 1 tab, PO, Daily, Disp# 30 tab, Refills: 11, Pharmacy: [facility]/pharmacy #[id number] Start Date: 12/31/22 Status: Ordered LORazepam 0.5 mg oral tablet Start: 11/09/22 8:42:00 EDT, 1 tab, PO, bid, PRN: as needed for anxiety Start Date: 11/09/22 Status: Ordered magnesium oxide 400 mg (241.3 mg elemental magnesium) oral tablet Start: 04/21/23 16:34:00 EDT, 1 tab, PO, bid, Disp# 90 tab, Refills: 3, Pharmacy: [facility]/pharmacy #[id number] Start Date: 04/21/23 Status: Ordered Medical Marijuana Start: 02/19/22 13:02:00 EDT, See Instructions, 1 gain PO sublingual Start Date: 02/19/22 Status: Ordered montelukast 10 mg oral tablet Start: 03/08/23 10:54:00 EDT, See Instructions, Disp# 90 tab, Refills: 0, TAKE 1 TABLET BY MOUTH ATBEDTIME RELATED TO MILD INTERMITTENT ASTHMA, Pharmacy: [id number] Start Date: 03/08/23 Status: Ordered pantoprazole 40 mg oral delayed release tablet Start: 01/12/23 14:54:00 EDT, 1 tab, PO, Daily, Disp# 90 tab, Refills: 3, Pharmacy: [facility] #[id number] Start Date: 01/12/23 Status: Ordered Potassium Chloride (Eqv-K-Tab) 20 mEq oral tablet, extended release Start: 05/14/23 16:21:00 EDT, 1 tab, PO, Daily, Disp# 90 tab, Refills: 3, Pharmacy: [facility] #[id number] Start Date: 05/14/23 Status: Ordered Remeron 15 mg oral tablet Start: 04/07/23 11:21:00 EDT, 1.5 tab, PO, qhs Start Date: 04/07/23 Status: Ordered sotalol 120 mg oral tablet Start: 04/29/23 11:16:00 EDT, See Instructions, Disp# 60 tab, Refills: 4, TAKE 1 TABLET BY MOUTH EVERY 12 HOURS, Pharmacy: [id number] Start Date: 04/29/23 Status: Ordered Symbicort 160 mcg-4.5 mcg/inh inhalation aerosol Start: 11/20/22 16:23:00 EDT, 2 puff, inhaled, bid, Disp# 1 each, Refills: 5, Pharmacy: [facility]/pharmacy #[id number] Start Date: 11/20/22 Status: Ordered Tradjenta 5 mg oral tablet Start: 06/07/23 16:20:00 EDT, 1 tab, PO, Daily, Disp# 30 tab, Refills: 5, Pharmacy: [id number] Start Date: 06/07/23 Status: Ordered venlafaxine 75 [...] PO, Daily Start Date: 01/09/22 Status: Ordered Problem List Condition Confirmation Course Effective Dates Status H ealth Status Informant Atrial fibrillation Confirmed Active Presence of Watchman left atrial appendage closure device Confirmed Active Transaminitis Confirmed Active Hx-TIA (transient ischemic attack) Confirmed Active Hepatomegaly Confirmed Active DARNELL (nonalcoholic steatohepatitis) Confirmed Active Splenomegaly Confirmed Active Tobacco user Confirmed Active Diabetes mellitus, type II Confirmed Active Procedures Procedure Date Related Diagnosis Body Site [...] abnormality on direct and retroflexion Pathology: Tubulovillious Results Laboratory List Name Date Complete Blood Count (CBC w Platelets) 1 08/23/22 Prothrombin Time w/ INR (PT/INR) 3 Renal Profile 06/23/23 Most recent to oldest [Reference Range]: 1 eGFR CKD-EPI [>60 mL/min/1.73 m2] 80 mL/ min/1.73 m2 (06/23/23 8:17 AM) Estimated CrCl 74.05 mL/min (06/23/23 9:16 AM) MPV [9.0-12.2 fL] 11.0 fL (06/23/23 8:17 AM) RDW [11.5-14.2 %] 13.4 % (06/23/23 8:17 AM) BUN [6-23 mg/dL] 18 mg/dL (06/23/23 8:17 AM) Cret [0.60-1.00 mg/dL] 0.82 mg/dL (06/23/23 8:17 AM) Hct [35-44 %] 33.9 % *LOW* (06/23/23 8:17 AM) Hgb [11.7-15.0 g/dL] 11.2 g/dL *LOW* (06/23/23 8:17 AM) INR [0.9-1.1] 1.0 1 (06/23/23 8:17 AM) MCH [28-33 pg] 33.2 pg *HI* (06/23/23 8:17 AM) MCHC [32-36 g/dL] 33.0 g/dL (06/23/23 8:17 AM) MCV [81-96 fL] 100.6 fL *HI* (06/23/23 8:17 AM) Plts [150-350 K/uL] 205 K/uL (06/23/23 8:17 AM) PT [12.0-14.2 seconds] 13.3 seconds (06/23/23 8:17 AM) RBC [3.90-5.00 M/uL] 3.37 M/uL *LOW* (06/23/23 8:17 AM) WBC [4.0-10.4 K/uL] 7.43 K/uL (06/23/23 8:17 AM) 1Result Comment: Suggested therapeutic range for low-intensity Coumadin therapy for venous thromboembolism is INR 2.0-3.0 (ex: atrial fibrillation, history of TIA/stroke). For high risk patients, the suggested therapeutic range is INR 2.5-3.5 (ex: mechanical prosthetic valves). Radiology Reports * Exam Date Time Procedure Performing Provider Status 06/23/23 10:04 AM IR Transjugular Liver Biopsy Jewel Hutchinson; Final Notes: (IR Transjugular Liver Biopsy) Reason For Exam: transaminitis, F3 fibrotic liver, positive BETTY IR Transjugular Liver Biopsy PROCEDURES: Hemodynamic Measurement, Hepatic Free and Wedge Pressures Hepatic Venography Moderate Sedation, Physician Supervised Transjugular Liver Biopsy Ultrasound Guidance for Venipuncture HISTORY: 63-year-old female with a history of Nonalcoholic steatohepatitis (DARNELL) INDICATIONS: Abnormal Liver Function Tests PHYSICIANS: MD Clarence Tao MD SUPERVISION: The Attending was physically present in the room and supervised the performance of the procedure. SEDATION: The risks and benefits of moderate sedation were discussed with the patient as part of the procedural informed consent process. Provider supervised intra- procedure moderate sedation was performed using a trained independent observer who monitored the patient's level of sedation and physiologic status throughout the procedure. Pre-procedure and post-procedure sedation assessments were performed inaccordance with institutional sedation policy and are documented separately in the medical record. Total Provider Sedation Supervision Time: 30 minutes. MEDICATIONS: Fentanyl 200 mcg Midazolam 4 mg CONTRAST: Omnipaque 350 - 10 ml DOSIMETRY: Fluoroscopy Time: 1.90 min Cumulative Dose: 30 mGy SPECIMENS: Liver Core Biopsy. EST. BLOOD LOSS: 3 ml COMPLICATIONS: None. SUPPORTING DOCUMENTATION: Pre-Procedure Verification (Physician/Provider) [X]: Patient Name and Verified Against Patient ID Band [X]: Written Consent Verified (Patient, Procedure, Site/Side) [ ]: Site Marking Verified (keep unchecked if not applicable) [X]: H \T\ P Completed (if required) Documented 06/23/2023 at 09:14:05 By Lasha Monique MD Pre-Procedure Verification (Nurse/Technologist) [X]: Patient Name and Verified Against Patient ID Band [X]: Written Consent Verified (Patient, Procedure, Site/Side) [ ]: Site Marking Verified (keep unchecked if not applicable) [X]: H \T\ P Verified (if required) Documented 06/23/2023 at 09:14:05 By MASTER Sanabria Time Out [X]: Patient Identified by Name and [X]: Written Consent Verified (Patient,Procedure, Site/Side) [X]: Patient Positioned Correctly [X]: Patient Records Available (Order, Images) [X]: Anticipated Procedure Equipment / Devices Available [ ]: Site / Side Marking Completed (keep unchecked if not applicable) [X]: Preprocedure Medications Administered (Antibiotics,Premedications, or n/a) [X]: All team members are present and are in agreement with Time Out (not documented prior to 12/18/2017). Documented 06/23/2023 at 09:31:51 By Paul Hernandez RN Physician Post Procedure Sign Out [X]: Diagnosis Confirmed [X]: Performed Procedure Confirmed [X]: Specimen Identification Confirmed [X]: Patient Recovery / Post Procedure Care Concerns Discussed Documented 06/23/2023 at 09:58:30 By Lasha Monique MD TECHNIQUE: Following informed consent, and verification of the correct patient identity and plannedprocedure, the patient's right neck and chest were prepped and draped in the usual sterile fashion.Local anesthesia was achieved with lidocaine 2%. Using ultrasound guidance, puncture of the right internal jugular vein was performed using a 4 Greenlandic micropuncture set. A static image of the patent vein at the site of access was captured and sent to PACS. An 0.038 inch Bahena guide wire was introduced to the inferior vena cava. A 10Fr sheath was placed. Through the sheath and over the wire, a 7 Greenlandic multipurpose catheter was introduced and used to catheterize a third order branch of the righthepatic vein. Simultaneous right atrial and free hepatic vein pressures were obtained. The catheterand sheath were advanced together until the catheter was in a wedged position and the sheath tip was within the right hepatic vein. Simultaneous wedged and free hepatic vein pressures were obtained. Transjugular liver biopsy was then performed through the 10Fr sheath using a LABS 200 (ONEHOPE) biopsy set. Three biopsy passes were performed resulting in approximately three full cores of specimen. Following the biopsy, contrast was injected through the side arm of the sheath and DSA imaging was performed of the liver as a post biopsy hepatic venogram to exclude biopsy related venous / liver injury. At the conclusion of the procedure, all catheters wires and sheaths were removed. Manual pressure was applied to the puncture site until hemostasis was achieved. FINDINGS: Hepatic venogram of the right hepatic vein was normal. Hemodynamic data is as follows: Right Atrium: 10 mmHg Free Hepatic Vein #1: 13 mmHg Free Hepatic Vein #2: 13 mmHg Wedged Hepatic Vein: 17 mmHg Corrected Sinusoidal Pressure: 4 mmHg. (>5 compatible with sinusoidal portal hypertension, >10 compatible with severe sinusoidal portal hypertension) As described above, transjugular biopsy was performed from the right hepatic vein. The biopsy specimens were full cores. Post biopsy venogram demonstrated no extravasation. INTERPRETATION / IMPRESSION: 1. Unremarkable hemodynamic findings as detailed above. 2. Transjugular liver biopsy. 3. Patent right IJV by US evaluation. Workstation ID: [id number] Final Dictated by:MD Monique Andrew Robert Dictated DT/TM:06/23/2023 10:07 Signed by:MD Monique Andrew Robert Signed (Electronic Signature):06/23/2023 10:06 Vital Signs Most recent to oldest [Reference Range]: 1 2 3 Patient Weight 80.29 kg (06/23/23 7:49 AM) Temperature [36.5-37.9 DegC] 36.6 DegC (06/23/23 10:00 AM) 36.2 DegC *LOW* (06/23/23 8:03 AM) Heart Rate 64 bpm (06/23/23 11:45 AM) 68 bpm (06/23/23 11:15 AM) 71 bpm (06/23/23 10:45 AM) Respiratory Rate 13 br/min (06/23/23 11:45 AM) 18 br/min (06/23/23 11:15 AM) 19 br/min (06/23/23 10:45 AM) Blood Pressure 138/69mmHg (06/23/23 11:45 AM) 150/75mmHg (06/23/23 11:15 AM) 125/72mmHg (06/23/23 10:45 AM) Mean Blood Pressure 88 mmHg (06/23/23 11:45 AM) 96 mmHg (06/23/23 11: AM) 79 mmHg (06/23/23 10:45 AM) Cuff Pulse Pressure 69 mmHg (06/23/23 11:45 AM) 75 mmHg (06/23/23: AM) 53 mmHg (06/23/23:45 AM) BP Location # 1 Left Arm (06/23/23 11:45 AM) Left Arm (06/23/23:15 AM) Left Arm (06/23/23 10:45 AM) Social History Social History Type Response Tobacco Former smoker, Cigar ettes 1 Smoking Status Former Smoker, quit within 31 days - 1 yr Sex 1then smoked in her car only for 2 days while working. It would take her a few weeks to go thru a pack Pre-OP H & P * MD Eneida, Lasha Herbert: PERFORM Event Display: Pre-OP H & P Authored Date: [id number] Interventional Radiology Pre-procedure History and Physical Patient Name: MILO ABBASI Date Of : 1960 Medical Record: [id number] Date of Service: 2023-06-23 Planned Procedure: IR Transjugular Liver Biopsy Reason For Consult: Venogram: Transjugular Liver Biopsy History of Present Illness: 63F w/ hepatomegaly/splenomegaly, transaminities, DARNELL and fibroscan w/ F3 fibrosis, also +BETTY, requesting transjugular liver biopsy for further evaluation of liver disease. Past Medical and Surgical History: Ongoing, Atrial fibrillation - Watchman placed, Diabetes mellitus, type II, Hepatomegaly, Hx-TIA (transient ischemic attack), DARNELL (nonalcoholic steatohepatitis), Presence of Watchman left atrial appendage closure device, Splenomegaly, Tobacco user, Transaminitis, Infected superficial injury of toeof right foot, Procedure/Surgical History, EGD - esophagogastroduodenoscopy (05/07/2023), Colonoscopy (05/07/2023), LIVER ELASTOGRAPHY (04/23/2023), CT brain without contrast (08/14/2022), CT angiography of chest and abdomen with contrast (08/14/2022), CT cervical spine without contrast (08/14/2022), Chest X-ray (06/05/2021), Ultrasound renal (06/05/2021), Pelvis X-ray (10/11/2020), Knee X-ray (10/11/2020), Plain X-ray of lumbar spine (10/09/2020), CT of head(07/01/2020), Chest X-ray (07/01/2020), CT of head (06/29/2020), CT of brain (06/21/2020),CT angiography of head and neck with contrast (06/21/2020), CT angiography of chest with contrast (06/21/2020), CT angiography of head, neck and brain with contrast (06/06/2020), Chest X-ray (06/04/2020), Chest X-ray (06/04/2020), Plain X-ray of left hand (03/31/2020), Diagnostic colonoscopy (08/18/2019), Allergies: Buspar NSAIDS Zithromax Tuberculin Derivative Medications: albuterol(Albuterol (Eqv-ProAir HFA)), 2 puff, inhaled, q4h, aspirin(aspirin 81 mg oral delayed release tablet), 81 mg= 1 tab, PO, Daily, 3 refills, atorvastatin(atorvastatin 40 mg oral tablet), bimatoprost topical ophthalmic(Latisse 0.03% topical solution), See Instructions, 3 refills, budesonide-formoterol(Symbicort 160 mcg-4.5 mcg/inh inhalation aerosol), 2 puff, inhaled, bid, 5 refills, cannabis(Medical Marijuana), See Instructions, cholecalciferol(Vitamin D3 400 intl units (10 mcg) oral tablet), 10 mcg= 1 tab, PO, Daily, cyanocobalamin(Vitamin B12 100 mcg oral tablet), 100 mcg= 1 tab, PO, Daily, gabapentin(gabapentin 400 mg oral capsule), 400 mg= 1 cap, PO, tid, 11 refills, ipratropium(ipratropium 0.02% for nebulization), 0.5 mg= 2.5 mL, inhaled, q6h, 6 refills, levothyroxine(levothyroxine 150 mcg (0.15 mg) oral tablet), See Instructions, linagliptin(Tradjenta 5 mg oral tablet), 5 mg= 1 tab, PO, Daily, 5 refills, lisinopril(lisinopril 5 mg oral tablet), 5 mg= 1 tab, PO, Daily, 11refills, LORazepam(LORazepam 0.5 mg oral tablet), 0.5 mg= 1 tab, PO, bid, PRN, magnesium oxide(magnesium oxide 400 mg (241.3 mg elemental magnesium) oral tablet), 400 mg= 1 tab, PO, bid, 3 refills, mirtazapine(Remeron 15 mg oral tablet), 22.5 mg= 1.5 tab, PO, qhs, montelukast(montelukast 10 mg oraltablet), See Instructions, multivitamin(Folate Forte), multivitamin with minerals(Centrum Silver oral tablet), 1 tab, PO, Daily, pantoprazole(pantoprazole 40 mg oral delayed release tablet), 40 mg= 1tab, PO, Daily, 3 refills, potassium chloride(Potassium Chloride (Eqv-K-Tab) 20 mEq oral tablet, extended release), 20 mEq= 1 tab, PO, Daily, 3 refills, sotalol(sotalol 120 mg oral tablet), See Instructions, temazepam(temazepam 15 mg oral capsule), venlafaxine(venlafaxine 75 mg oral capsule, extended release), 75 mg= 1 cap, PO, Daily Other Studies: CT 02/01/2023 Physical Exam: LOC / Mental Status: Awake, Alert, Oriented Airway: Mallampati Score: Class 2: Complete visualization of the uvula Lungs: Clear Cardiac: Normal Sinus Rhythm Extremities: RIJ patent w resp variation. No chest wall collaterals. ASA Classification: Class II: Patient with mild systemic disease Assessment: 63F w/ hepatomegaly/splenomegaly, transaminities, DARNELL and fibroscan w/ F3 fibrosis, also +BETTY, requesting transjugular liver biopsy for further evaluation of liver disease. Plan: TJLBSedation Sedation / Anesthesia Plan: Moderate Sedation Consent by Patient Electronic Signature on File Electronically Reviewed/Signed by: Lasha Monique MD Author Signature Dt/Tm:06/23/2023 09:17 AM Division of Interventional Radiology [facility] Interventional Rad Outpt Note * EDMUND Springer, Qi: PERFORM Event Display: Interventional Rad Outpt Note Authored Date: [id number] INTERVENTIONAL RADIOLOGY OUTPATIENT NOTE Name: MILO ABBASI Patient Number: [id number] : 1960 Date of Service: 06/03/2023 PROCEDURE: IR Transjugular Liver Biopsy SCHEDULED DATE: 06/23/2023 Diet and Medications: No food after midnight except for clear non-carbonated liquids up to 1 hour prior to arrival time. Take all prescribed medications with small sips of water except as directed below. Hold the following oral hypoglycemics the morning of the procedure: Tradjenta Other Orders: Electronic Signature on File Electronically Reviewed/Signed by: IZA Vigil Author Signature Dt/Tm:06/03/2023 10:50 AM [facility] [place] * EDMUND Marcelino Sharon L: PERFORM Event Display: Interventional Rad Outpt Note Authored Date: [id number] INTERVENTIONAL RADIOLOGY OUTPATIENT ORDERS Name: MILO ABBASI Patient Number: [id number] : 1960 Date of Service: 05/17/2023 PROCEDURE: IR Transjugular Liver Biopsy SCHEDULED DATE: 06/03/2023 Diet and Medications: No food after midnight except for clear non-carbonated liquids up to 1 hour prior to arrival time. Take all prescribed medications including Aspirin with small sips of water except as directed below. Other Orders: Please instruct the patient to hold Tradjenta the morning of the CVIR procedure. Electronic Signature on File Electronically Reviewed/Signed by: Izzy Marcelino PA-C Author Signature Dt/Tm:05/17/2023 05:24 PM Division of Interventional Cardiology [facility] Anesthesia records * Services, CPDI: PERFORM Event Display: Sedation & Analgesia Record Authored Date: Surgical pathology study * MD Skinner Guoli: VERIFY MD Skinner Guoli: VERIFY, PERFORM Event Display: SP Gross Authored Date: 1. Received in formalin, labeled with the patients name, medical record number and `` liver biopsy, are four cores of gonzalez-yellow tissue measuring 0.1 cm in diameter, and from 0.6 up to 1.9 cm in length. Special stains including PAS with diastase, trichrome, iron and reticulin will be performed. Entirely submitted in a tissue processing bag. Block Summary: 1A. (JOSE) * MD Skinner Guoli: VERIFY MD Skinner Guoli: VERIFY, PERFORM Event Display: SP Dx Authored Date: 1. Liver, transjugular, needle biopsy: - Mild to moderate macrovesicular steatosis with features of mild steatohepatitis. - Portal and pericellular fibrosis with focal possible bridging fibrosis. - See microscopic description and synoptic report. Gabe Skinner MD (Electronically signed by) Verified: 06/25/2023 12:25 EST Performing Location: [facility] * MD Skinner Guoli: VERIFY MD Skinner Guoli: VERIFY, PERFORM Event Display: SP Clinical History Authored Date: transaminitis, F3 fibrotic liver, positive BETTY Clinical diagnosis: Nonalcoholic steatohepatitis * MD Skinner Guoli: TRANSCRIBE, PERFORM, VERIFY Event Display: SP Synoptic Report Authored Date: Synoptic Report LORAINE COMPONENTS Score Steatosis >33-66% 2 Lobular inflammation <2 foci/200x 1 Hepatocyte Ballooning Few balloon cells 1 Total 4/8 Fibrosis Stage (Evaluated separately from LORAINE) Fibrosis Perisinusoidal and portal/periportal 2/4 * MD Skinner Guoli: VERIFY MD Skinner Guoli: VERIFY, PERFORM Event Display: SP Disclaimer Authored Date: [id number] The following statement applies to flow cytometry, immunohistochemical, histochemical, molecular genetics, immunofluorescence, and in situ hybridization assays. These tests were developed and their performance characteristics determined by a [facility] Department of Pathology Laboratory. All controls show appropriate reactivity. Not all tests have been cleared or approved by the U.S. Food and Drug Administration. The FDA has determined that such clearance or approval is not necessary. For decalcified specimen types, focused validation may have been done that may or may not apply to all decalcified specimen types. Results should be interpreted with caution. * MD Skinner Guoli: VERIFY MD Skinner Guoli: VERIFY, PERFORM Event Display: SP Micro Authored Date: [id number] 1. Histologic sections demonstrate multiple liver cores with an adequate number of portal tracts. The liver parenchyma shows macrovesicular and microvesicular steatosis (approximately 35%) with rare ballooned hepatocytes and Yecenia hyaline bodies. There are scattered foci of mild lobular inflammation. No apparent acidophilic bodies are identified. The portal tracts show none to mild inflammationwith focal minimal interface activity. The bile duct appears to be intact with focal ductular proliferation. Trichrome stain shows patchy periportal and pericellular fibrosis with focal bridging-likefibrosis. The reticulin stain is mildly distorted due to the steatosis. Iron stain is negative for stainable iron in the hepatocytes. PASD stain highlights occasional macrophages but is negative for intracytoplasmic globules. Note: Fatty liver changes can be associated with obesity/metabolic disease, alcohol usage, drug/toxic effect, Owen disease or other conditions. To be noted, the attached synoptic report is only indicated for evaluation of nonalcoholic fatty liver diseases. Clinical correlation is recommended. Patient Care team information Care Team Personnel Name: DAJUAN Justin Tara Position: Nurse Pract - Family Med Member Role: Primary Care Provider Address: Address: [address] [place] [address], [place] [address] Name: Kennedi Walsh Ann Position: Pharmacist Member Role: Pharmacy - Lifetime Care Team Related Persons Name: HOPE GUERRERO
--- OUTSIDE RECORDS SUMMARY | 2023-09-17 07:53 | External Medical Summary | Summary of Care ---
Author Name Unknown Organization [facility] Address [address] [place] [address] Phone [phone] Care Team Providers Care Network Systems Engineer Name Role Phone Leigh Ann Justin Primary Care Provider [phone] Reason for Visit * Reason Onset Date Comments Appointment 08/17/2023 Encounter Details Date Type Department Care Team (Late st Contact Info) Description 08/17/2023 Telephone [facility] [address] [place] [address] Rafael Pollard MD [address] [place] [address] Appointment Allergies Active Allergy Reactions Criticality Noted Date Comments Buspirone 07/20/2018 Nsaids 06/26/2019 GI bleed Tuberculin Tests 09/01/2018 Acetaminophen 07/20/2018 Azithromycin 07/20/2018 documented as of this encounter (statuses as of 08/18/2023) Medications Medication Sig Dispensed Refills Start Date [...] as of this encounter (statuses as of 08/18/2023) Active Problems Problem Noted Date Diagnosed Date [...] as of this encounter (statuses as of 08/18/2023) Immunizations Name Administration Dates Next Due COVID-19 [...] won't be able to make it due tothumbertosportation. documented in this encounter Plan of Treatment Scheduled Procedures Name Priority Associated Diagnoses Date/Ti me INJECTION SACROILIAC JOINT Bilateral sacroiliitis (HCC) COLONOSCOPY FLEXIBLE PROXIMA L DIAGNOSTIC Recall History of colonic polyps Health Maintenance Due Date Last Done Comments DISCUSS TOBACCO CESSATION (REFER TO SMARTSET #6706) 1959 Diabetic Eye Exam 1977 DTaP,Tdap,and Td [...] AGES 18-100 08/18/2022 08/18/2019, 08/18/2019 COVID-19 Vaccine (5 - 2022- season) 2023 09/01/2021, 04/02/2021, 12/19/2020, [...] the patient have Health Care Power of Yarn Sorter? No Code Status History Code Status Date [...] Advance Directives occurred with: Patient Care Teams Network Systems Engineer Relationship Specialty Start Date End Date Leigh Ann Justin CRNP [address] [place] [address] PCP - General Nurse Practitioner 04/13/23 documented as of this encounter
--- OUTSIDE RECORDS SUMMARY | 2023-09-17 07:54 | External Medical Summary | Summary of Care ---
Author Name Unknown Organization [facility] Address [address] [place] [address] Phone [phone] Care Team Providers Care Pmo Business Analyst Name Role Phone Leigh Ann Justin Primary Care Provider [phone] Reason for Visit * Reason Onset Date Comments Other 05/25/2023 X-ray results Encounter Details Date Type Department Care Team Description 05/25/2023 [facility]phone [facility] [address] [facility] [address] Steph Cerrato DPM [address] [place] [id number] Other (X-ray results ) Allergies Active Allergy Reactions Severity Noted Date Comments Buspirone 07/20/2018 Nsaids 06/26/2019 GI bleed Tuberculin Tests 09/01/2018 Acetaminophen 07/20/2018 Azithromycin 07/20/2018 documented as of this encounter (statuses as of 05/25/2023) Medications Medication Sig Dispensed Refills Start Date [...] Active Lisinopril 5 MG Oral Tablet (Prinivil) 1 Tablet in the morning. 0 09/23/2022 Active Bimatoprost [...] as of this encounter (statuses as of 05/25/2023) Active Problems Problem Noted Date Hyperkalemia 06/05/2021 Acute hyponatremia 06/05/2021 Hypochloremia 06/05/2021 Encephalopathy acute 06/05/2021 Metabolic acidosis 06/05/2021 Type 2 diabetes mellitus with diabetic n europathy, unspecified 11/28/2020 Paroxysmal atrial fibrillation Interstitial cystitis (chronic) without hematuria 11/28/2020 Primary osteoarthritis of both knees Overview: 10/01/2020 ref to pht and ortho Psychophysiological insomnia 10/01/2020 Injury of left ulnar nerve 10/01/2020 Overview: 10/01/2020 ref to ortho Panic disorder 07/07/2020 Depression, major, recurrent, in partial remission 07/07/2020 Complicated UTI (urinary tract infection ) 06/29/2020 Acute renal failure (ARF) 06/29/2020 Altered mental status 06/29/2020 Ambulatory dysfunction 06/05/2020 History of TIA (transient ischemic attac k) 06/04/2020 Atrial fibrillation with RVR 06/04/2020 Encounter for long-term (current) use of medications 05/20/2020 Acquired hypothyroidism 10/04/2019 Overview: TSH Results: Lab Results Component Value Date/Time TSH - [facility] 1.08 06/29/2020 07:49 AM TSH - [facility] 0.43 06/05/2020 06:06 AM TSH - [facility] 1.98 03/27/2020 02:56 PM Gastroesophageal reflux disease without esophagitis 10/04/2019 Dyslipidemia, goal LDL below 70 10/04/19 20 Controlled substance agreement terminate d 07/03/2019 Overview: 06/05/2021 Tox screen upon admission 06/05 indicated hydrocodone which was not prescribed and oxycodone. No further opioids will be prescribed Moderate episode of recurrent major depr essive disorder 06/26/2019 Severe obesity (BMI 35.0-39.9) with marco rbidity 06/26/2019 Type 2 diabetes mellitus with hemoglobin A1c goal of less than 7.0% 06/26/2019 Essential hypertension with goal blood p ressure less than 140/90 06/26/2019 NABOR (generalized anxiety disorder) 06/26 Chronic bilateral low back pain without sciatica 06/26/2019 Overview: 06/18/21 Urine tox screen was positive for hydrocodone which was not prescribed and for prescribe oxycodone In setting of benzodiazepine. No further opioid prescriptions are planned Mild intermittent asthma without complic ation 06/26/2019 Polypharmacy 06/26/2019 documented as of this encounter (statuses as of 05/25/2023) Immunizations Name Administration Dates Next Due COVID-19 [...] = 0.6 oz pur e alcohol) rarely Food Insecurity Answer Date Recorded Within the past 12 months, y ou worried that your food would run out before you got money to buy more. Never true 06/26/2019 Within the past 12 months, t he food you bought just didn't last and you didn't have money to get more. Never true 06/26/2019 Sex Assigned at Date Recorded Female 07/03/2019 6:[address] Job Start Date Occupation Industry Not on [...] or making decisions? (5 years old or older No 06/05/2021 documented as of this encounter Miscellaneous Notes * Telephone Encounter - LATOSHA Ortega - 05/25/2023 8:22 AM EDT Patient called in wondering what her x-ray results were. Please advise. documented in this encounter Plan of Treatment Upcoming Encounters Date Type Specialty Care Team Description 06/10/2023 Office Visit Pain Medicine Mark Mendes CRNP [address] [place] [id number] Scheduled Procedures Name Priority Associated Diagnoses Date/Ti me COLONOSCOPY FLEXIBLE PROXIMA L DIAGNOSTIC Recall History of colonic polyps Health Maintenance Due Date Last Done Comments DISCUSS TOBACCO CESSATION (REFER TO SMARTSET #0376) 1960 DIABETES-EYE EXAM 1977 DTaP,Tdap,and Td Vaccines (1 - Tdap) 1978 Pap Smear 1980 Cervical Cancer Screening 1989 HPV/Co-Test 1989 Mammogram 1999 Pneumococcal Vaccine: Pediatrics (0 to 5 Years) and At-Risk Patients (6 to 64 Years) (2 - PPSV23 or PCV20) 02/20/2016 12/26/2015 Albumin/Creatinine Ratio 06/26/2020 06/26/2019 Zoster Vaccines (2 [...] on patient's age to complete this topic Hepatitis B Aged Out No longer eligi ble based on patient's age to complete this [...] the patient have Health Care Power of Chief Deputy? No Code Status History Code Status Date [...] Advance Directives occurred with: Patient Care Teams Pmo Business Analyst Relationship Specialty Start Date End Date Leigh Ann Justin CRNP [address] [place] [address] PCP - General Nurse Practitioner 04/13/23 documented as of this encounter
--- OUTSIDE RECORDS SUMMARY | 2023-09-17 07:54 | External Medical Summary | Continuity of Care Document ---
Author Name Unknown Organization [address] Address [address] [place], [place] [id number] Care Team Providers Care Speech Assistant Name Role Phone Leigh Ann Justin Primary Care Physician [phone] Encounter [facility] [id number] Date(s): 05/14/23 - 05/14/[address] [place] A [address] [address] [phone] Encounter Diagnosis DARNELL (nonalcoholic steatohepatitis)(Discharge Diagnosis) - 05/14/23 Hepatomegaly(Discharge Diagnosis) - 05/14/23 Splenomegaly(Discharge Diagnosis) - 05/14/23 Transaminitis(Discharge Diagnosis) - 05/14/23 BETTY positive(Discharge Diagnosis) - 05/14/23 Discharge Disposition: Home or Self Care Attending Physician: EDMUND Dumont Kelli Jo Referring Physician: DAJUAN Justin Tara Allergies, Adverse Reactions, Alerts Substance Reaction Severity Status tuberculin purified protein derivative Swelling Active Zithromax Rash Active BuSpar increased BP Active NSAIDs GI bleeding Active Immunizations Given and Recorded Vaccine Date [...] Daily, Disp# 90 tab, Refills: 3, Pharmacy: [facility]/pharmacy #[id number] Start Date: 01/12/23 Status: Ordered atorvastatin 40 mg oral tablet TAKE 1 TABLET BY MOUTH EVERY DAY EVERY AFTERNOON Start Date: 01/09/22 Status: Ordered Centrum Silver oral tablet Start: 01/09/22 13:24:00 EDT, 1 tab, PO, Daily Start Date: 01/09/22 Status: Ordered Folate Forte Start: 04/19/23 14:46:00 EDT Start Date: 04/19/23 Status: Ordered gabapentin 400 mg oral capsule Start: 04/07/23 11:57:00 EDT, 1 cap, PO, tid, Disp# 90 cap, Refills: 11, Pharmacy: [facility]/pharmacy #[id number] Start Date: 04/07/23 Stop Date: 04/01/24 Status: Ordered ipratropium 0.02% for nebulization Start: 04/07/23 11:56:00 EDT, 2.5 mL, inhaled, q6h, Disp# 60 each, Refills: 6, Pharmacy: [facility]/pharmacy #[id number] Start Date: 04/07/23 Status: Ordered Latisse 0.03% topical solution Start: 02/23/23 16:37:00 EDT, See Instructions, Disp# 3 mL, Refills: 3, apply to the skin of the upper eyelid at the base of the eyelashes, Note to Pharmacy: pt will pay out of pocket, Pharmacy: [facility]/pharmacy #[id number] Start Date: 02/23/23 Status: Ordered levothyroxine 150 mcg (0.15 mg) oral tablet Start: 04/26/23 10:28:00 EDT, See Instructions, Disp# 90 tab, Refills: 2, TAKE BY MOUTH 1 TABLET INTHE MORNING., Pharmacy: [id number] Start Date: 04/26/23 Status: Ordered lisinopril 5 mg oral tablet Start: 12/31/22 10:01:00 EDT, 1 tab, PO, Daily, Disp# 30 tab, Refills: 11, Pharmacy: [facility]/pharmacy #[id number] Start Date: 12/31/22 Status: Ordered LORazepam 0.5 mg oral tablet Start: 11/09/22 8:42:00 EDT, 1 tab, PO, bid, PRN: as needed for anxiety Start Date: 11/09/22 Status: Ordered magnesium oxide 400 mg (241.3 mg elemental magnesium) oral tablet Start: 04/21/23 16:34:00 EDT, 1 tab, PO, bid, Disp# 90 tab, Refills: 3, Pharmacy: [facility] #[id number] Start Date: 04/21/23 Status: Ordered Medical Marijuana Start: 02/19/22 13:02:00 EDT, See Instructions, 1 gain PO sublingual Start Date: 02/19/22 Status: Ordered montelukast 10 mg oral tablet Start: 03/08/23 10:54:00 EDT, See Instructions, Disp# 90 tab, Refills: 0, TAKE 1 TABLET BY MOUTH ATBEDTIME RELATED TO MILD INTERMITTENT ASTHMA, Pharmacy: [id number] Start Date: 03/08/23 Status: Ordered pantoprazole 40 mg oral delayed release tablet Start: 01/12/23 14:54:00 EDT, 1 tab, PO, Daily, Disp# 90 tab, Refills: 3, Pharmacy: [facility]/pharmacy #[id number] Start Date: 01/12/23 Status: Ordered Potassium Chloride (Eqv-K-Tab) 20 mEq oral tablet, extended release Start: 05/14/23 16:21:00 EDT, 1 tab, PO, Daily, Disp# 90 tab, Refills: 3, Pharmacy: [facility]/pharmacy #[id number] Start Date: 05/14/23 Status: Ordered Remeron 15 mg oral tablet Start: 04/07/23 11:21:00 EDT, 1.5 tab, PO, qhs Start Date: 04/07/23 Status: Ordered sotalol 120 mg oral tablet Start: 04/29/23 11:16:00 EDT, See Instructions, Disp# 60 tab, Refills: 4, TAKE 1 TABLET BY MOUTH EVERY 12 HOURS, Pharmacy: [id number] Start Date: 04/29/23 Status: Ordered Symbicort 160 mcg-4.5 mcg/inh inhalation aerosol Start: 11/20/22 16:23:00 EDT, 2 puff, inhaled, bid, Disp# 1 each, Refills: 5, [id number] Start Date: 11/20/22 Status: Ordered temazepam 15 mg oral capsule TAKE 1 CAPSULE BY MOUTH EVERYDAY AT BEDTIME Start Date: 02/11/23 Status: Ordered Tradjenta 5 mg oral tablet Start: 11/23/22 17:12:00 EDT, 1 tab, PO, Daily, Disp# 30 tab, Refills: 5, TAKE 1 TABLET BY MOUTH EVERY DAY, [id number] Start Date: 11/23/22 Stop Date: 05/22/23 Status: Ordered venlafaxine 75 mg oral capsule, [...] Start Date: 01/09/22 Status: Ordered Mental Status 05/14/23 Barriers to Learning one year None evide nt Mandatory Health Literacy Documentation Yes Health Literacy Communication Barriers N ever Primary Language [place] Problem List Condition Confirmation Course Effective Dates Status H ealth Status Informant Atrial fibrillation Confirmed Active Presence of Watchman left atrial appendage closure device Confirmed Active Transaminitis Confirmed Active Hx-TIA (transient ischemic attack) Confirmed Active Hepatomegaly Confirmed Active DARNELL (nonalcoholic steatohepatitis) Confirmed Active Splenomegaly Confirmed Active Tobacco user Confirmed Active Diabetes mellitus, type II Confirmed Active Diagnosis Diagnosis Type Effective Dates Health Status Clinical Service Informant Hepatomegaly Discharge Diagnosis 05/14/23 Splenomegaly Discharge Diagnosis 05/14/23 DARNELL (nonalcoholic steatohepatitis) Discharge Diagnosis 05/14/23 Transaminitis Discharge Diagnosis 05/14/23 BETTY positive Discharge Diagnosis 05/14/23 Non-Specified Procedures Procedure Date Related Diagnosis Body [...] Most recent to oldest [Reference Range]: 1 Patient Weight 80.2 kg (05/14/23 2:25 PM) Heart Rate 78 bpm (05/14/23 2:25 PM) Respiratory Rate 16 br/min (05/14/23 2:25 PM) Blood Pressure 114/64mmHg (05/14/23 2:25 PM) Cuff Pulse Pressure 50 mmHg (05/14/23 2:25 PM) Social History Social History Type Response Tobacco [...] Member Role: Primary Care Provider Address: Address: [address] [place] [address] Name: Kennedi Walsh Ann Position: Pharmacist Member Role: Pharmacy - Lifetime Care Team Related Persons Name: HOPE GUERRERO
--- OUTSIDE RECORDS SUMMARY | 2023-09-17 07:54 | External Medical Summary | Continuity of Care Document ---
Author Name Unknown Organization [facility] [address] [place] [id number] Care Team Providers Care Spray Painter Name Role Phone ThereseLeigh Ann gray Primary Care Physician [phone] [id number] Date[facility]s): 05/05/23 - 05/05/23 [facility] [address] [facility] [address] [facility], [address] [place], [place] [phone] Encounter Diagnosis Other fecal abnormalities(Final) - Anemia, unspecified(Final) - Other specified abnormal findings of blood chemistry(Final) - Fatty (change of) liver, not elsewhere classified(Final) - Dysphagia, unspecified(Final) - Hepatomegaly, not elsewhere classified(Final) - Splenomegaly, not elsewhere classified(Final) - Discharge Disposition: Home or Self Care [...] Daily, Disp# 90 tab, Refills: 3, Pharmacy: [facility]/pharmacy #[id number] Start Date: 01/12/23 Status: Ordered atorvastatin [...] tid, Disp# 90 cap, Refills: 11, Pharmacy: [facility]/pharmacy #[id number] Start Date: 04/07/23 Stop Date: 04/01/24 Status: Ordered ipratropium 0.02% for nebulization Start: 04/07/23 11:56:00 EDT, 2.5 mL, inhaled, q6h, Disp# 60 each, Refills: 6, Pharmacy: [facility]/pharmacy #[id number] Start Date: 04/07/23 Status: Ordered Latisse 0.03% topical solution Start: 02/23/23 16:37:00 EDT, See Instructions, Disp# 3 mL, Refills: 3, apply to the skin of the upper eyelid at the base of the eyelashes, Note to Pharmacy: pt will pay out of pocket, Pharmacy: [facility]/pharmacy #[id number] Start Date: 02/23/23 Status: Ordered levothyroxine 150 mcg (0.15 mg) oral tablet Start: 04/26/23 10:28:00 EDT, See Instructions, Disp# 90 tab, Refills: 2, TAKE BY MOUTH 1 TABLET INTHE MORNING., Pharmacy: [id number] Start Date: 04/26/23 Status: Ordered lisinopril 5 mg oral tablet Start: 12/31/22 10:01:00 EDT, 1 tab, PO, Daily, Disp# 30 tab, Refills: 11, Pharmacy: [facility]/pharmacy #[id number] Start Date: 12/31/22 Status: Ordered LORazepam 0.5 mg oral tablet Start: 11/09/22 8:42:00 EDT, 1 tab, PO, bid, PRN: as needed for anxiety Start Date: 11/09/22 Status: Ordered magnesium oxide 400 mg (241.3 mg elemental magnesium) oral tablet Start: 04/21/23 16:34:00 EDT, 1 tab, PO, bid, Disp# 90 tab, Refills: 3, Pharmacy: [facility] #[id number] Start Date: 04/21/23 Status: Ordered Medical Marijuana Start: 02/19/22 13:02:00 EDT, See Instructions, 1 gain PO sublingual Start Date: 02/19/22 Status: Ordered montelukast 10 mg oral tablet Start: 03/08/23 10:54:00 EDT, See Instructions, Disp# 90 tab, Refills: 0, TAKE 1 TABLET BY MOUTH ATBEDTIME RELATED TO MILD INTERMITTENT ASTHMA, Pharmacy: [id number] Start Date: 03/08/23 Status: Ordered pantoprazole 40 mg oral delayed release tablet Start: 01/12/23 14:54:00 EDT, 1 tab, PO, Daily, Disp# 90 tab, Refills: 3, Pharmacy: [facility]/pharmacy #[id number] Start Date: 01/12/23 Status: Ordered Potassium Chloride (Eqv-K-Tab) 20 mEq oral tablet, extended release Start: 04/21/23 16:35:00 EDT, 1 tab, PO, Daily, Disp# 30 tab, Refills: 3, Pharmacy: [facility]/pharmacy #[id number] Start Date: 04/21/23 Status: Ordered Remeron 15 mg oral tablet Start: 04/07/23 11:21:00 EDT, 1.5 tab, PO, qhs Start Date: 04/07/23 Status: Ordered sotalol 120 mg oral tablet Start: 04/29/23 11:16:00 EDT, See Instructions, Disp# 60 tab, Refills: 4, TAKE 1 TABLET BY MOUTH EVERY 12 HOURS, Pharmacy: [id number] Start Date: 04/29/23 Status: Ordered Symbicort 160 mcg-4.5 mcg/inh inhalation aerosol Start: 11/20/22 16:23:00 EDT, 2 puff, inhaled, bid, Disp# 1 each, Refills: 5, [id number] Start Date: 11/20/22 Status: Ordered temazepam 15 mg oral capsule TAKE 1 CAPSULE BY MOUTH EVERYDAY AT BEDTIME Start Date: 02/11/23 Status: Ordered Tradjenta 5 mg oral tablet Start: 11/23/22 17:12:00 EDT, 1 tab, PO, Daily, Disp# 30 tab, Refills: 5, TAKE 1 TABLET BY MOUTH EVERY DAY, [id number] Start Date: 11/23/22 Stop Date: 05/22/23 Status: [...] List Condition Confirmation Course Effective Dates Status Health St atus Informant Atrial fibrillation Confirmed Active Presence of Watchman left atrial appendage closure device Confirmed Active Hx-TIA (transient ischemic attack) Confirmed Active Hepatic steatosis Confirmed Active Tobacco user Confirmed Active Diabetes mellitus, type II Confirmed Active Procedures Procedure Date Related Diagnosis Body Site Status Colonoscopy 1 05/07/23 Completed LIVER ELASTOGRAPHY 2 04/23/[address] angiography of chest and abdomen with contrast 3 08/14/[address] brain without contrast 4 08/14/[address] cervical spine without contrast 5 08/14/22 Completed Chest X-ray 6 06/05/21 Completed Ultrasound renal 7 06/05/21 Comple johann Knee X-ray 8 10/11/20 Completed Pelvis X-ray 9 10/11/20 Completed Plain X-ray of lumbar spine 10 10/09/20 Completed Chest X-ray 11 07/01/[address] of head 12 07/01/[address] of head 13 06/29/[address] angiography of chest with contrast 14 06/21/[address] angiography of head and n tony with contrast 15 06/21/[address] of brain 16 06/21/[address] angiography of head, neck and brain with contrast 17 06/06/20 Completed Chest X-ray 18 06/04/20 Completed Chest X-ray 19 06/04/20 Completed Plain X-ray of left hand 20 03/31/20 Completed Diagnostic colonoscopy 21 08/18/19 Completed 1recommendationsareas follows Impressionsm - The rectum, sigmoid colon, descending colon, splenic flexure, transverse colon, hepatic flexure, ascending colon, cecum and recto-sigmoid colon are normal. 2Significantly fibrotic liver--F3. Recommend liver Bx 31. there is no airspace consolidation, pleural effusion, or pneumothorax 2. question an acute left lateral 7th and 8th rib fracture. correlate for point tenderness 3. there is no evidence of solid organ injury in the abdomen or pelvis 4. the liver is enlarged and steatotic. nodularity of the hepatic surface contour indicates early morphologic changes of cirrhosis 5. mild splenomegaly 4no acute intracranial abnormality 5there is no evidence of fracture or subluxation involving the cervical spine 6impression Right lj central venous catheter terminates at the cavoatrial junction. No Pneumothorax 7impression left kidney is not seen No right hydronephrosis 8impression: Degenerative changes in the lumbar spine as above. No significant hip or knee arthrosis 9impression: impression Degenerative changes in the lumbar spine as above. No significant hip or knee arthrosis 10impression Degenerative changes in the lumbar spine as above. No significant hip or knee arthrosis 11impression: 1. Findings suggest emphysema and mild CHF 12impression: unremarkable CT of head 13impression unremarkable CT of head 14impression 1. No acute abnormalities identified specifically, no evidence of acute ischemia 2. Mild generalized age-related cerebral parenchymal atrophy and possible mild chronic small vesselwhite matter ischemic changes 15impression: CTA Brain 1. Hypoplasia of the A1 [...] There is left sided vertebral artery dominance 16impression: No acute intracranial pathology 17impression: Head 1. Hypoplasia of A1 segment of [...] of hemodynamically significant stenosis, dissectin or aneurysm 18impression: No pneumonia 19impression: no pneumonia 20impression: No definitive acute fracture. 21The perianal and digital rectal examinations were normal. [...] Pathology: Tubulovillious Results Laboratory List Name Date BETTY with Reflex titer (BETTY W REFLEX TITE R) 05/05/23 Hepatic Function Panel (HEPATIC FUNCT PA SULEMA) 05/05/23 Immunoglobulin A (IGA) 05/05/23 Partial Thromboplastin Time (PTT) 3 Prothrombin Time w/ INR (PROTIME WITH IN R) 05/05/23 Request to FAX Report (First Location) ( ACC NO TO BE FAXED) 05/05/23 Thyroid Stimulating Hormone (TSH) 3 Most recent to oldest [Reference Range]: 1 BETTY, by IFA [L80N] POSITIVE *Abnormal* (05/05/23 9:33 AM) BETTY Titer/Pattern (1) 1:320 Speckled *Unknown* (05/05/23 9:33 AM) Phone No [phone] (05/05/23 9:33 AM) Alb [3.5-5.0 g/dL] 4.4 g/dL (05/05/23 9:33 AM) Alk Phos [38-126 unit/L] 233 unit/L *HI* (05/05/23 9:33 AM) ALT [<35 unit/L] 60 unit/L *HI* (05/05/23 9:33 AM) AST [15-46 unit/L] 58 unit/L *HI* (05/05/23 9:33 AM) D Bili [0.0-0.6 mg/dL] <0.1 mg/dL (05/05/23 9:33 AM) IgA [70-400 mg/dL] 293 mg/dL (05/05/23 9:33 AM) INR [0.9-1.1] 1.0 2 (05/05/23 9:33 AM) PT [12.0-14.2 seconds] 13.5 seconds (05/05/23 9:33 AM) PTT [23-35 seconds] 25 seconds (05/05/23 9:33 AM) T Bili [0.2-1.3 mg/dL] 1.0 mg/dL (05/05/23 9:33 AM) Prot [6.3-8.2 g/dL] 7.5 g/dL 3 (05/05/23 9:33 AM) TSH [0.47-4.68 uIU/mL] 0.73 uIU/mL 4 (05/05/23 9:33 AM) 1Result Comment: Testing Performed By: Dept of Pathology [facility] Lisa Mccarthy, [address] [place] [address], [place] [address] 2Result Comment: Suggested therapeutic range for low-intensity Coumadin therapy for venous thromboembolism is INR 2.0-3.0 (ex: atrial fibrillation, history of TIA/stroke). For high risk patients, the suggested therapeutic range is INR 2.5-3.5 (ex: mechanical prosthetic valves). Testing Performed By: Dept of Pathology [facility] Lisa Mccarthy, [address] [place], [place] [address] [place] [address] 3Result Comment: Testing Performed By: Dept of Pathology [facility] Lisa Mccarthy, [address] [place] [address], [place] [address] 4Result Comment: Testing Performed By: Dept of Pathology [facility] Lisa Mccarthy, [address] [place] [address], [place] [address] Social History Social History Type Response Tobacco [...] Member Role: Primary Care Provider Address: Address: [address] [place] [address], [place] [address] Name: Kennedi Walsh Ann Position: Pharmacist Member Role: Pharmacy - Lifetime Care Team Related Persons Name: HOPE GUERRERO
--- OUTSIDE RECORDS SUMMARY | 2023-09-17 07:54 | External Medical Summary | Summary of Care ---
Author Name Unknown Organization [facility] Address [address] [place] [address] Phone [phone] Care Team Providers Care Munitions Factory Worker Name Role Phone Leigh Ann Justin Primary Care Provider [phone] Reason for Visit * Reason Onset Date Comments Test Results 05/19/2023 X-ray results Encounter Details Date Type Department Care Team Description 05/19/2023 Telephone Podiatry, [facility] [address] [place] [address] Steph Cerrato DPM [address] [facility] [place] [address] Test Results (X-ray results) Allergies Active Allergy Reactions Severity Noted Date Comments Buspirone 07/20/2018 Nsaids 06/26/2019 GI bleed Tuberculin Tests 09/01/2018 Acetaminophen 07/20/2018 Azithromycin 07/20/2018 documented as of this encounter (statuses as of 05/19/2023) Medications Medication Sig Dispensed Refills Start Date [...] as of this encounter (statuses as of 05/19/2023) Active Problems Problem Noted Date Hyperkalemia 06/05/2021 [...] as of this encounter (statuses as of 05/19/2023) Immunizations Name Administration Dates Next Due COVID-19 [...] encounter Miscellaneous Notes * Telephone Encounter - Christine New - 05/19/2023 4:28 PM EDT Patient called requesting her x-ray results from . Please call her on Wednesday afternoon as she will be out of town on . documented in this encounter Plan of Treatment Upcoming Encounters Date Type Specialty Care Team Description 06/10/2023 Office Visit Pain Medicine Mark Mendes CRNP [address] [facility] [place] [address] Scheduled Procedures Name Priority Associated Diagnoses Date/Ti me COLONOSCOPY FLEXIBLE PROXIMA L DIAGNOSTIC Recall History of colonic polyps Health Maintenance Due Date Last Done Comments DISCUSS TOBACCO CESSATION (REFER TO SMARTSET #7253) 1959 DIABETES-EYE EXAM 1977 DTaP,Tdap,and Td Vaccines (1 - Tdap) 1978 Pap Smear 1980 Cervical Cancer Screening 1989 HPV/Co-Test 1989 Mammogram 1999 Pneumococcal Vaccine: Pediatrics (0 to 5 Years) and At-Risk Patients (6 to 64 Years) (2 - PPSV23 or PCV20) 02/20/2016 12/26/2015 Albumin/Creatinine Ratio 06/26/2020 06/26/2019 Zoster Vaccines (2 of 2) 09/05/2020 07/11/2020, 10/2019 TSH 06/29/2021 06/29/2020, 05/10, 03/27/2020, Additional [...] the patient have Health Care Power of Concrete Spreader? No Code Status History Code Status Date [...] Advance Directives occurred with: Patient Care Teams Munitions Factory Worker Relationship Specialty Start Date End Date Leigh Ann Justin CRNP [address] [place] [address] PCP - General Nurse Practitioner 04/13/23 documented as of this encounter
--- OUTSIDE RECORDS SUMMARY | 2023-09-17 07:54 | External Medical Summary | Continuity of Care Document ---
Author Name Unknown Organization [address] Address [address] [place], [place] [id number] Care Team Providers Care Cop Name Role Phone Leigh Ann Justin Primary Care Physician [phone] [id number] Date(s): 05/04/23 - 05/04/23 [facility] [address], [address] [place] [address] [phone] Encounter Diagnosis QT prolongation(Discharge Diagnosis) - 05/04/23 Abnormal electrocardiogram [ECG] [EKG](Final) - Discharge Disposition: Home or Self Care Attending Physician: DAJUAN Rizzo Sarah A Referring Physician: DAJUAN Rizzo Sarah A Allergies, Adverse Reactions, Alerts Substance Reaction Severity [...] Daily, Disp# 90 tab, Refills: 3, Pharmacy: [facility]/pharmacy #[id number] Start Date: 01/12/23 Status: Ordered [...] tid, Disp# 90 cap, Refills: 11, Pharmacy: [facility]/pharmacy #[id number] Start Date: 04/07/23 Stop Date: 04/01/24 Status: Ordered ipratropium 0.02% for nebulization Start: 04/07/23 11:56:00 EDT, 2.5 mL, inhaled, q6h, Disp# 60 each, Refills: 6, Pharmacy: [facility]/pharmacy #[id number] Start Date: 04/07/23 Status: Ordered Latisse 0.03% topical solution Start: 02/23/23 16:37:00 EDT, See Instructions, Disp# 3 mL, Refills: 3, apply to the skin of the upper eyelid at the base of the eyelashes, Note to Pharmacy: pt will pay out of pocket, Pharmacy: [facility]/pharmacy #[id number] Start Date: 02/23/23 Status: Ordered levothyroxine 150 mcg (0.15 mg) oral tablet Start: 04/26/23 10:28:00 EDT, See Instructions, Disp# 90 tab, Refills: 2, TAKE BY MOUTH 1 TABLET INTHE MORNING., Pharmacy: [facility] [id number] Start Date: 04/26/23 Status: Ordered lisinopril 5 mg oral tablet Start: 12/31/22 10:01:00 EDT, 1 tab, PO, Daily, Disp# 30 tab, Refills: 11, [id number] Start Date: 12/31/22 Status: Ordered LORazepam 0.5 mg oral tablet Start: 11/09/22 8:42:00 EDT, 1 tab, PO, bid, PRN: as needed for anxiety Start Date: 11/09/22 Status: Ordered magnesium oxide 400 mg (241.3 mg elemental magnesium) oral tablet Start: 04/21/23 16:34:00 EDT, 1 tab, PO, bid, Disp# 90 tab, Refills: 3, Pharmacy: [facility]/pharmacy #[id number] Start Date: 04/21/23 Status: Ordered Medical Marijuana Start: 02/19/22 13:02:00 EDT, See Instructions, 1 gain PO sublingual Start Date: 02/19/22 Status: Ordered montelukast 10 mg oral tablet Start: 03/08/23 10:54:00 EDT, See Instructions, Disp# 90 tab, Refills: 0, TAKE 1 TABLET BY MOUTH ATBEDTIME RELATED TO MILD INTERMITTENT ASTHMA, Pharmacy: [id number] Start Date: 03/08/23 Status: Ordered pantoprazole 40 mg oral delayed release tablet Start: 01/12/23 14:54:00 EDT, 1 tab, PO, Daily, Disp# 90 tab, Refills: 3, Pharmacy: [facility] #[id number] Start Date: 01/12/23 Status: Ordered Potassium Chloride (Eqv-K-Tab) 20 mEq oral tablet, extended release Start: 04/21/23 16:35:00 EDT, 1 tab, PO, Daily, Disp# 30 tab, Refills: 3, Pharmacy: [facility]/pharmacy #[id number] Start Date: 04/21/23 Status: Ordered Remeron 15 mg oral tablet Start: 04/07/23 11:21:00 EDT, 1.5 tab, PO, qhs Start Date: 04/07/23 Status: Ordered sotalol 120 mg oral tablet Start: 04/29/23 11:16:00 EDT, See Instructions, Disp# 60 tab, Refills: 4, TAKE 1 TABLET BY MOUTH EVERY 12 HOURS, Pharmacy: [facility] [id number] Start Date: 04/29/23 Status: Ordered Symbicort 160 mcg-4.5 mcg/inh inhalation aerosol Start: 11/20/22 16:23:00 EDT, 2 puff, inhaled, bid, Disp# 1 each, Refills: 5, Pharmacy: [facility]/pharmacy #[id number] Start Date: 11/20/22 Status: Ordered temazepam 15 mg oral capsule TAKE 1 CAPSULE BY MOUTH EVERYDAY AT BEDTIME Start Date: 02/11/23 Status: Ordered Tradjenta 5 mg oral tablet Start: 11/23/22 17:12:00 EDT, 1 tab, PO, Daily, Disp# 30 tab, Refills: 5, TAKE 1 TABLET BY MOUTH EVERY DAY, Pharmacy: [facility]/pharmacy #[id number] Start Date: 11/23/22 Stop Date: 05/22/23 Status: [...] Diagnosis Diagnosis Type Effective Dates Health Status Cl inical Service Informant QT prolongation Discharge Diagnosis 05/04/23 Non-Specified Procedures Procedure Date Related Diagnosis Body Site Status LIVER ELASTOGRAPHY 1 04/23/[address] angiography of chest and abdomen with contrast 2 08/14/[address] brain without contrast 3 08/14/[address] cervical spine without contrast 4 08/14/22 Completed Chest X-ray 5 06/05/21 Completed Ultrasound renal 6 06/05/21 Comple johann Knee X-ray 7 10/11/20 Completed Pelvis X-ray 8 10/11/20 Completed Plain X-ray of lumbar spine 9 10/09/20 Completed Chest X-ray 10 07/01/[address] of head 11 07/01/[address] of head 12 06/29/[address] angiography of chest with contrast 13 06/21/[address] angiography of head and n tony with contrast 14 06/21/[address] of brain 15 06/21/[address] angiography of head, neck and brain with contrast 16 06/06/20 Completed Chest X-ray 17 06/04/20 Completed Chest X-ray 18 06/04/20 Completed Plain X-ray of left hand 19 03/31/20 Completed Diagnostic colonoscopy 20 08/18/19 Completed 1Significantly fibrotic liver--F3. Recommend liver Bx 21. there is no airspace consolidation, pleural effusion, or pneumothorax 2. question an acute left lateral 7th and 8th rib fracture. correlate for point tenderness 3. there is no evidence of solid organ injury in the abdomen or pelvis 4. the liver is enlarged and steatotic. nodularity of the hepatic surface contour indicates early morphologic changes of cirrhosis 5. mild splenomegaly 3no acute intracranial abnormality 4there is no evidence of fracture or subluxation involving the cervical spine 5impression Right lj central venous catheter terminates at the cavoatrial junction. No Pneumothorax 6impression left kidney is not seen No right hydronephrosis 7impression: Degenerative changes in the lumbar spine as above. No significant hip or knee arthrosis 8impression: impression Degenerative changes in the lumbar spine as above. No significant hip or knee arthrosis 9impression Degenerative changes in the lumbar spine as above. No significant hip or knee arthrosis 10impression: 1. Findings suggest emphysema and mild CHF 11impression: unremarkable CT of head 12impression unremarkable CT of head 13impression 1. No acute abnormalities identified specifically, no evidence of acute ischemia 2. Mild generalized age-related cerebral parenchymal atrophy and possible mild chronic small vesselwhite matter ischemic changes 14impression: CTA Brain 1. Hypoplasia of the A1 [...] There is left sided vertebral artery dominance 15impression: No acute intracranial pathology 16impression: Head 1. Hypoplasia of A1 segment of [...] of hemodynamically significant stenosis, dissectin or aneurysm 17impression: No pneumonia 18impression: no pneumonia 19impression: No definitive acute fracture. 20The perianal and digital rectal examinations were normal. [...] Pathology: Tubulovillious Results Laboratory List Name Date Basic Metabolic Panel (BASIC METAB PANEL ) 05/04/23 Magnesium Level (MAGNESIUM) 05/04/23 Most recent to oldest [Reference Range]: 1 eGFR CKD-EPI [>60 mL/min/1.73 m2] >90 mL /min/1.73 m2 1 (05/04/23 9:41 AM) Estimated CrCl 98.53 mL/min (05/04/23 10:17 AM) Anion Gap [5-14 mmol/L] 12 mmol/L (05/04/23 9:41 AM) BUN [7-20 mg/dL] 10 mg/dL (05/04/23 9:41 AM) Ca [8.4-10.2 mg/dL] 8.4 mg/dL (05/04/23 9:41 AM) Cl- [96-107 mmol/L] 106 mmol/L (05/04/23 9:41 AM) HCO3 [22-30 mmol/L] 22 mmol/L (05/04/23 9:41 AM) Cret [0.60-1.00 mg/dL] 0.61 mg/dL (05/04/23 9:41 AM) Glu [74-106 mg/dL] 327 mg/dL *HI* (05/04/23 9:41 AM) K [3.5-5.1 mmol/L] 4.2 mmol/L (05/04/23 9:41 AM) Mg [1.6-2.3 mg/dL] 1.3 mg/dL 2 *LOW* (05/04/23 9:41 AM) Na [137-145 mmol/L] 140 mmol/L (05/04/23 9:41 AM) 1Result Comment: Testing Performed By: Dept of Pathology [facility] Lisa Blanc, [address] [facility] [place] [address] 2Result Comment: Testing Performed By: Dept of Pathology [facility] Lisa Blanc, [address] [facility] [place] [address] Social History Social History Type Response Tobacco Former smoker, Cigar ettes 1 Smoking Status Former Smoker, quit within 31 days - 1 yr Sex 1then smoked in her car only for 2 days while working. It would take her a few weeks to go thru a pack Cardiology * Contributor_system, MUSE01: VERIFY, PERFORM Event Display: EKG Authored Date: Please click on link to see image. Patient Care team information Care Team Personnel Name: DAJUAN Justin Tara Position: Nurse Pract - Family Med Member Role: Primary Care Provider Address: Address: [address] [place] [address], [place] [address] [place] Name: Kennedi Walsh Ann Position: Pharmacist Member Role: Pharmacy - Lifetime Care Team Related Persons Name: HOPE GUERRERO
--- OUTSIDE RECORDS SUMMARY | 2023-09-17 07:54 | External Medical Summary | Summary of Care ---
Author Name Unknown Organization [facility] Address [address] [place] [address] Phone [phone] Care Team Providers Care Research Test Engine Operator Name Role Phone Leigh Ann Justin Primary Care Provider [phone] Reason for Visit * Reason Onset Date Comments Test Results 05/19/2023 X-ray results Encounter Details Date Type Department Care Team Description 05/19/2023 Telephone Podiatry, [facility] [address] [place] [address] Steph Cerrato DPM [address] [facility] [place] [address] Test Results (X-ray results) Allergies Active Allergy Reactions Severity Noted Date Comments Buspirone 07/20/2018 Nsaids 06/26/2019 GI bleed Tuberculin Tests 09/01/2018 Acetaminophen 07/20/2018 Azithromycin 07/20/2018 documented as of this encounter (statuses as of 05/21/2023) Medications Medication Sig Dispensed Refills Start Date [...] as of this encounter (statuses as of 05/21/2023) Active Problems Problem Noted Date Hyperkalemia 06/05/2021 [...] as of this encounter (statuses as of 05/21/2023) Immunizations Name Administration Dates Next Due COVID-19 [...] encounter Miscellaneous Notes * Telephone Encounter - Cheri Proctor LPN - 05/21/2023 3:51 PM EDT The referral and a list of providers for the diabetic shoes and inserts was mailed out to the pt on05/21/23. * Telephone Encounter - Cheri Proctor LPN - 05/21/2023 1:09 PM EDT LVM for pt to CB * Telephone Encounter - Christine New - 05/19/2023 4:28 PM EDT Patient called requesting her x-ray results from . Please call her on Wednesday afternoon as she will be out of town on . documented in this encounter Plan of Treatment Upcoming Encounters Date Type Specialty Care Team Description 06/10/2023 Office Visit Pain Medicine Mark Mendes CRNP [address] [place] [address] Scheduled Procedures Name Priority Associated Diagnoses Date/Ti me COLONOSCOPY FLEXIBLE PROXIMA L DIAGNOSTIC Recall History of colonic polyps Health Maintenance Due Date Last Done Comments DISCUSS TOBACCO CESSATION (REFER TO SMARTSET #4408) 1959 DIABETES-EYE EXAM 1977 DTaP,Tdap,and Td Vaccines [...] the patient have Health Care Power of Manager [employer]? No Code Status History Code Status Date [...] Advance Directives occurred with: Patient Care Teams Research Test Engine Operator Relationship Specialty Start Date End Date Leigh Ann Justin CRNP [address] [place] [address] PCP - General Nurse Practitioner 04/13/23 documented as of this encounter
--- OUTSIDE RECORDS SUMMARY | 2023-09-17 07:54 | External Medical Summary | Summary of Care ---
Author Name Unknown Organization [facility] Address [address] [place] [address] Phone [phone] Care Team Providers Care Manager Action Name Role Phone Leigh Ann Justin Primary Care Provider [phone] Reason for Visit * Reason Onset Date Comments Test Results 05/19/2023 X-ray results Encounter Details Date Type Department Care Team Description 05/19/2023 Telephone Podiatry, [facility] [address] [place] [address] Steph Cerrato DPM [address] [facility] [place] [address] Test Results (X-ray results) Allergies Active Allergy [...] Visit Pain Medicine Mark Mendes CRNP [address] [place] [address] Scheduled Procedures Name Priority Associated Diagnoses Date/Ti me COLONOSCOPY FLEXIBLE PROXIMA L DIAGNOSTIC Recall History of colonic polyps Health Maintenance Due Date Last Done Comments DISCUSS TOBACCO CESSATION (REFER TO SMARTSET #6553) 1960 DIABETES-EYE EXAM 1977 DTaP,Tdap,and Td Vaccines [...] the patient have Health Care Power of Senior Facilities Manager? No Code Status History Code Status Date [...] Advance Directives occurred with: Patient Care Teams Manager Action Relationship Specialty Start Date End Date Leigh Ann Justin CRNP [address] [place] [address] PCP - General Nurse Practitioner 04/13/23 documented as of this encounter
--- OUTSIDE RECORDS SUMMARY | 2023-09-17 07:54 | External Medical Summary | Summary of Care ---
Author Name Unknown Organization [facility] Address [address] [place] [address] Phone [phone] Care Team Providers Care Motor Racer Name Role Phone Leigh Ann Justin Primary Care Provider [phone] Reason for Visit * Reason Onset Date Comments Order Request 05/20/2023 Encounter Details Date Type Department Care Team Description 05/20/[address] [facility] [address] [place] [address] Steph Cerrato DPM [address] [place] [address] Order Request Allergies Active Allergy Reactions Severity Noted Date Comments Buspirone 07/20/2018 Nsaids 06/26/2019 GI bleed Tuberculin Tests 09/01/2018 Acetaminophen 07/20/2018 Azithromycin 07/20/2018 documented as of this encounter (statuses as of 05/20/2023) Medications Medication Sig Dispensed Refills Start Date [...] as of this encounter (statuses as of 05/20/2023) Active Problems Problem Noted Date Hyperkalemia 06/05/2021 [...] as of this encounter (statuses as of 05/20/2023) Immunizations Name Administration Dates Next Due COVID-19 [...] encounter Miscellaneous Notes * Telephone Encounter - Steph Cerrato DPM - 05/20/2023 11:53 AM EDT Rx for diabetic shoes and inserts placed. documented in this encounter Plan of Treatment Upcoming Encounters Date Type Specialty Care Team Description 06/10/2023 Office Visit Pain Medicine Mark Mendes CRNP [address] [facility] [place] [id number] Scheduled Procedures Name Priority Associated Diagnoses Date/Ti me COLONOSCOPY FLEXIBLE PROXIMA L DIAGNOSTIC Recall History of colonic polyps Health Maintenance Due Date Last Done Comments DISCUSS TOBACCO CESSATION (REFER TO SMARTSET #8776) 1960 DIABETES-EYE EXAM 1977 DTaP,Tdap,and Td Vaccines [...] 08/18/2022 08/18/2019, 08/18/2019 COVID-19 Vaccine ( - 2022-24 season) 2023 09/01/2021, 04/02/2021, 12/19/2020, Additional history [...] as of this encounter Visit Diagnoses Diagnosis Bilateral foot pain- Primary Pain in limb Type 2 diabetes mellitus with hemoglobin A1c goal of less than 7.0% (HCC) Type 2 diabetes mellitus with diabetic neuropathy, unspecified whether terminal supervisor insulin use (HCC) Open wound of right foot, initial encounter Onychomycosis Dermatophytosis of nail documented in this encounter Advance Directives Latest [...] the patient have Health Care Power of Entry Level Drafter? No Code Status History Code Status Date [...] Advance Directives occurred with: Patient Care Teams Motor Racer Relationship Specialty Start Date End Date Leihg Ann Justin CRNP [address] [place] [address] PCP - General Nurse Practitioner 04/13/23 documented as of this encounter
--- OUTSIDE RECORDS SUMMARY | 2023-09-17 07:54 | External Medical Summary | Summary of Care ---
Author Name Unknown Organization [facility] Address [address] [place] [address] Phone [phone] Care Team Providers Care Emergency Medicine Medical Director Name Role Phone Leigh Ann Justin Primary Care Provider [phone] Reason for Visit * Reason Comments Office Procedure Fibroscan Encounter Details Date Type Department Care Team Description 04/23/2023 Nurse Only Gastroenterology, [address], [place] [address] [place] [address] [place], Nurse Gastro [address] [place] [address] [place] [address] Office Procedure (Fibroscan) Allergies Active Allergy Reactions Severity Noted Date Comments Buspirone 07/20/2018 Nsaids 06/26/2019 GI bleed Tuberculin Tests 09/01/2018 Acetaminophen 07/20/2018 Azithromycin 07/20/2018 documented as of this encounter (statuses as of 05/17/2023) Medications Medication Sig Dispensed Refills Start Date End Date Status Cyanocobalamin (VITAMIN B-12) 1000 MCG TabletIndications:V itamin B12 deficiency Place 1 Tab under the [...] Active Levothyroxine Sodium 150 MCG Oral Tablet (Levoxyl)Indication s:Acquired hypothyroidism Take by mouth 1 Tablet in [...] by mouth in the morning. 0 Active Budesonide-Formoter ol Fumarate 160-4.5 MCG/ACT Inhalation Aerosol (Symbicort) 2 [...] and 1 Tablet before bedtime. 0 Active Sertraline HCl 100 MG Oral Tablet (Zoloft) Take 1 tablet daily 0 05/20/2021 04/23/20 Discontinu ed(Medicat ion List Clean Up) Omeprazole 20 MG Oral Capsule Delayed Release (PriLOSEC) TAKE 1 CAPSULE BY MOUTH ONCE DAILY RELATED TO GASTRO-ESOPHAGEAL REFLUX DISEASE 90 Cap 1 06/08/2021 04/23/20 Discontinu ed(Medicat ion List Clean Up) clonazePAM 1 MG Oral Tablet (KlonoPIN) Take 0.5 Tablets by mouth 3 times a day as needed for Anxiety. 0 06/12/2021 04/23/20 Discontinu ed(Medicat ion List Clean Up) Metoprolol Tartrate 100 MG Oral Tablet (Lopressor)Indicati ons:Atrial fibrillation with RVR (HCC) Take by mouth 1 Tablet in the morning AND 1 Tablet before bedtime. Increased to 100mg dose to reduce pills.. 90 Tablet 3 01/02/2022 04/23/20 Discontinu ed(Medicat ion List Clean Up) Eliquis 5 MG Oral Tablet (Apixaban) TAKE 1 TABLET BY MOUTH TWICE A DAY 180 Tablet 3 01/13/2022 04/23/20 Discontinu ed(Medicat ion List Clean Up) documented as of this encounter (statuses as of 05/17/2023) Active Problems Problem Noted Date Hyperkalemia 06/05/2021 [...] as of this encounter (statuses as of 05/17/2023) Immunizations Name Administration Dates Next Due COVID-19 [...] Sign Reading Time Taken Comments Blood Pressure 168/88 04/23/2023 12:37 PM EDT Pulse 68 04/23/2023 12:37 PM EDT Temperature 36.5 C (97.7 F) 04/23/2023 12:37 PM E DT Respiratory Rate 16 04/23/2023 12:37 PM EDT Oxygen Saturation - - Inhaled Oxygen Concentration - - Weight 78.1 kg (172 lb 3.2 oz) 04/23/2023 12:37 PM EDT Height - - Body Mass Index 27.79 02/11/2023 5:15 PM EDT documented in this encounter Functional Status Functional [...] as of this encounter Progress Notes * Julienne King RN - 04/23/2023 1:04 PM EDT [facility] Department of Gastroenterology & Hepatology Fibroscan/Vibration Controlled Transient Elastography (VCTE) Procedure Report Date: 04/23/2023 Patient: Arabella Cruz Referring Provider: Rahda Dumont Pa-C, DAJUAN Dukes Interpreting Provider: Dr Holley Indication: Fatty liver and elevated LFTs NPO 3-Hours: Yes Probe: M Procedure: After providing oral explanation of the procedure to the patient, patient was placed in a supine position with right arm extended over the head to allow optimal exposure of the right lateral abdomen. Ultrasound location was identified by locating the terminus of the xiphoid process and finding intercostal spacing located midline and lateral to this point. 50 Hz Shear Wave pulses were applied and the resulting Shear Wave and Propagation Speed detected with 3.5 MHz ultrasonic signal, using the FibroScan probe. Skin to liver capsule distance and liver parenchyma were accessed during the entire examination using the FibroScan probe. Eleven Shear wave impulses were produced; individual measurements of each Shear Wave were calculated. Patient tolerated procedure well. Findings: Results for orders placed or performed in visit on 04/23/23 LIVER ELASTOGRAPHY W/O IMAGING Result Value Ref Range Median Shear Wave Speed 1.96 meters/second Median Liver Stiffness 11.5 kilopascal (kPa) IQR/med 17 Range < 30% Fibrosis Staging CAP SCORE 320 dB/m The Interquartile Range to Median ration (IQR/med) for all measurements was 17% , indicating a goodquality study was performed. (Acceptable range of IQR/med less than 30%) Interpretation: Table 1. Significantly fibrotic liver (F3) Recommendations: Consider EUS guided liver biopsy. Refer to hepatology. Signature: Amber Holley DO References: Grady Min, Alexis Holloway. (2014) Utilization of FibroScan in Clinical Practice. Curr Gastroenterol Rep. DOI 10.1007/y59313-416-4781-3 Table 1 Recommended values for different stage of fibrosis Disease F0-F1 (kPA) F2 (kPA) F3 (kPA) F4 (kPA) Hepatitis B < 6.0 > 6.0 > 9.0 >12.0 Hepatitis C < 7.0 > 7.0 > 9.5 > 12.0 HCV-HIV coinfection < 7.0 < 10.0 > 11.0 >14.0 Cholestatic liver disease < 7.0 > 7.5 > 10.0 > 17.0 NAFLD/DARNELL < 7.0 > 7.5 < 10.0 > 14.0 Thank you for referring your patient for Fibroscan. Please do not hesitate to contact us for further information. documented in this encounter Nursing Notes * Julienne King RN - 04/23/2023 12:43 PM EDT Chief Complaint Patient presents with Office Procedure Fibroscan Verified NPO x 3 hours documented in this encounter Plan of Treatment Upcoming Encounters Date Type Specialty Care Team Description 06/10/2023 Office Visit Pain Medicine Mark Mendes CRNP [address] [facility] [place] [address] Pending Results Name Type Priority Associated Diagnoses Date /Time LIVER ELASTOGRAPHY W/O IMAGING Procedures Routine Fatty liver 04/23/2023 12:55 PM EDT Scheduled Procedures Name Priority Associated Diagnoses Date/Ti me COLONOSCOPY FLEXIBLE PROXIMA L DIAGNOSTIC Recall History of colonic polyps Health Maintenance Due Date Last Done Comments DISCUSS TOBACCO CESSATION (REFER TO SMARTSET #3774) 1960 DIABETES-EYE EXAM 1977 DTaP,Tdap,and Td Vaccines [...] 04/25/2020, Additional history exists GFR 02/12/2024 02/11/2023, 12/08/2021, 06/12/2021, Additional history exists Lipid Panel 06/05/2025 [...] Not on filedocumented as of this encounter Procedures Procedure Name Priority Date/Time Associated Diagnosis Comments LIVER ELASTOGRAPHY W/O IMAGING Routine 04/23/2023 12:55 PM EDT Fatty liver documented in this encounter Visit Diagnoses Diagnosis Fatty liver- Primary Other chronic nonalcoholic liver disease documented in this encounter Advance Directives Latest [...] the patient have Health Care Power of Salon Manager? No Code Status History Code Status [...] Advance Directives occurred with: Patient Care Teams Emergency Medicine Medical Director Relationship Specialty Start Date End Date Leigh Ann Justin CRNP [address] [facility] [place] [address] PCP - General Nurse Practitioner 04/13/23 documented as of this encounter
--- OUTSIDE RECORDS SUMMARY | 2023-09-17 07:54 | External Medical Summary | Continuity of Care Document ---
Author Name Unknown Organization [facility] [address] [place] [address] Address [address] [place], [place] [address] Care Team Providers Care Operations Planner Name Role Phone Leigh Ann Justin Primary Care Physician [phone] Encounter [facility] [id number] Date(s): 04/23/23 - 04/23/23 [facility] [address] [place] [address] [facility] [address] [facility], [facility] [address] [place], [place] [phone] Encounter Diagnosis Encounter for other preprocedural examination(Final) - Discharge Disposition: Home or Self Care Attending Physician: DAJUAN Justin Tara Referring Physician: DAJUAN Justin Tara Allergies, Adverse [...] Daily, Disp# 90 tab, Refills: 3, Pharmacy: [facility]/pharmacy #[id number] Start Date: 01/12/23 Status: Ordered atorvastatin [...] tid, Disp# 90 cap, Refills: 11, Pharmacy: [facility]/pharmacy #[id number] Start Date: 04/07/23 Stop Date: 04/01/24 Status: Ordered ipratropium 0.02% for nebulization Start: 04/07/23 11:56:00 EDT, 2.5 mL, inhaled, q6h, Disp# 60 each, Refills: 6, Pharmacy: [facility]/pharmacy #[id number] Start Date: 04/07/23 Status: Ordered Latisse 0.03% topical solution Start: 02/23/23 16:37:00 EDT, See Instructions, Disp# 3 mL, Refills: 3, apply to the skin of the upper eyelid at the base of the eyelashes, Note to Pharmacy: pt will pay out of pocket, Pharmacy: [facility]/pharmacy #[id number] Start Date: 02/23/23 Status: Ordered levothyroxine 150 mcg (0.15 mg) oral tablet Start: 01/26/23 15:13:00 EDT, 1 tab, PO, Daily, Disp# 90 tab, Refills: 0, TAKE BY MOUTH 1 TABLET INTHE MORNING., Pharmacy: [facility]/pharmacy #[id number] Start Date: 01/26/23 Status: Ordered lisinopril 5 mg oral tablet Start: 12/31/22 10:01:00 EDT, 1 tab, PO, Daily, Disp# 30 tab, Refills: 11, [id number] Start Date: 12/31/22 Status: Ordered LORazepam 0.5 mg oral tablet Start: 11/09/22 8:42:00 EDT, 1 tab, PO, bid, PRN: as needed for anxiety Start Date: 11/09/22 Status: Ordered magnesium oxide 400 mg (241.3 mg elemental magnesium) oral tablet Start: 04/21/23 16:34:00 EDT, 1 tab, PO, Daily, Disp# 90 tab, Refills: 3, Pharmacy: [facility]/pharmacy #[id number] Start Date: 04/21/23 Status: Ordered Medical Marijuana Start: 02/19/22 13:02:00 EDT, See Instructions, 1 gain PO sublingual Start Date: 02/19/22 Status: Ordered montelukast 10 mg oral tablet Start: 03/08/23 10:54:00 EDT, See Instructions, Disp# 90 tab, Refills: 0, TAKE 1 TABLET BY MOUTH ATBEDTIME RELATED TO MILD INTERMITTENT ASTHMA, Pharmacy: [facility] [id number] Start Date: 03/08/23 Status: Ordered pantoprazole 40 mg oral delayed release tablet Start: 01/12/23 14:54:00 EDT, 1 tab, PO, Daily, Disp# 90 tab, Refills: 3, [id number] Start Date: 01/12/23 Status: Ordered Potassium Chloride (Eqv-K-Tab) 20 mEq oral tablet, extended release Start: 04/21/23 16:35:00 EDT, 1 tab, PO, Daily, Disp# 30 tab, Refills: 3, [id number] Start Date: 04/21/23 Status: Ordered Remeron 15 mg oral tablet Start: 04/07/23 11:21:00 EDT, 1.5 tab, PO, qhs Start Date: 04/07/23 Status: Ordered sotalol 120 mg oral tablet Start: 10/29/22 13:04:00 EDT, 1 tab, PO, q12h, Disp# 60 tab, Refills: 5, Pharmacy: [facility] [place] Start Date: 10/29/22 Stop Date: 04/27/23 Status: Ordered Symbicort 160 mcg-4.5 mcg/inh inhalation aerosol Start: 11/20/22 16:23:00 EDT, 2 puff, inhaled, bid, Disp# 1 each, Refills: 5, Pharmacy: [facility]/pharmacy #[id number] Start Date: 11/20/22 Status: Ordered temazepam 15 mg oral capsule TAKE 1 CAPSULE BY MOUTH EVERYDAY AT BEDTIME Start Date: 02/11/23 Status: Ordered Tradjenta 5 mg oral tablet Start: 11/23/22 17:12:00 EDT, 1 tab, PO, Daily, Disp# 30 tab, Refills: 5, TAKE 1 TABLET BY MOUTH EVERY DAY, Pharmacy: [facility]/pharmacy #[id number] Start Date: 11/23/22 Stop Date: 05/22/23 Status: [...] Laboratory List Name Date Complete Blood Count w Differential (CBC ,DIFFH) 04/23/23 Comprehensive Metabolic Panel (COMP META B PANEL) 04/23/23 Hemoglobin A1C (HEMOGLOBIN, A1C) 04/23/23 Prothrombin Time w/ INR (PROTIME WITH IN R) 04/23/23 Most recent to oldest [Reference Range]: 1 eGFR CKD-EPI [>60 mL/min/1.73 m2] >90 mL /min/1.73 m2 (04/23/23 4:09 PM) Estimated Average Glucose 134 mg/dL (04/23/23 4:09 PM) Estimated CrCl 85.86 mL/min (04/23/23 7:39 PM) MPV [9.0-12.2 fL] 10.2 fL (04/23/23 4:09 PM) Immature Gran% 0.2 % (04/23/23 4:09 PM) Neut% 55.3 % (04/23/23 4:09 PM) Lymph% 36.9 % (04/23/23 4:09 PM) Gray% 5.8 % (04/23/23 4:09 PM) Baso% 0.3 % (04/23/23 4:09 PM) Eos% 1.5 % (04/23/23 4:09 PM) Immat Gran, Abs [0-0.4 K/uL] 0.01 K/uL 1 (04/23/23 4:09 PM) Neut, Abs [2.0-7.7 K/uL] 3.22 K/uL (04/23/23 4:09 PM) Lymph, Abs [1.0-3.4 K/uL] 2.15 K/uL (04/23/23 4:09 PM) Gray, Abs [0-1.0 K/uL] 0.34 K/uL (04/23/23 4:09 PM) Baso, Abs [0-0.1 K/uL] 0.02 K/uL (04/23/23 4:09 PM) Eos, Abs [0-0.5 K/uL] 0.09 K/uL (04/23/23 4:09 PM) Type of Diff: AUTO *Unknown* (04/23/23:09 PM) RDW [11.5-14.2 %] 13.6 % (04/23/23 4:09 PM) Anion Gap [5-14 mmol/L] 12 mmol/L (04/23/23 4:09 PM) Alb [3.5-5.2 g/dL] 4.1 g/dL (04/23/23 4:09 PM) Alk Phos [35-115 unit/L] 247 unit/L *HI* (04/23/23 4:09 PM) ALT [0-33 unit/L] 274 unit/L *HI* (04/23/23 4:09 PM) AST [0-32 unit/L] 185 unit/L *HI* (04/23/23 4:09 PM) BUN [6-23 mg/dL] 10 mg/dL (04/23/23 4:09 PM) Ca [8.4-10.2 mg/dL] 9.2 mg/dL (04/23/23 4:09 PM) Cl- [98-107 mmol/L] 107 mmol/L (04/23/23 4:09 PM) HCO3 [22-29 mmol/L] 25 mmol/L (04/23/23 4:09 PM) Cret [0.60-1.00 mg/dL] 0.70 mg/dL (04/23/23 4:09 PM) HbA1c [<5.7 %] 6.3 % *HI* (04/23/23 4:09 PM) Glu [74-109 mg/dL] 180 mg/dL 2 *HI* (04/23/23 4:09 PM) Hct [35-44 %] 35.2 % (04/23/23 4:09 PM) Hgb [11.7-15.0 g/dL] 12.1 g/dL (04/23/23 4:09 PM) INR [0.9-1.1] 1.1 3 (04/23/23 4:09 PM) K [3.5-5.1 mmol/L] 4.7 mmol/L (04/23/23 4:09 PM) MCH [28-33 pg] 35.4 pg *HI* (04/23/23:09 PM) MCHC [32-36 g/dL] 34.4 g/dL (04/23/23:09 PM) MCV [81-96 fL] 102.9 fL *HI* (04/23/23 4:09 PM) Na [136-145 mmol/L] 144 mmol/L (04/23/23:09 PM) Plts [150-350 K/uL] 175 K/uL (04/23/23 4:09 PM) PT [12.0-14.2 seconds] 13.8 seconds (04/23/23:09 PM) RBC [3.90-5.00 M/uL] 3.42 M/uL *LOW* (04/23/23 4:09 PM) T Bili [0.0-1.2 mg/dL] 1.0 mg/dL (04/23/23 4:09 PM) Prot [6.4-8.3 g/dL] 7.2 g/dL (04/23/23 4:09 PM) WBC [4.0-10.4 K/uL] 5.83 K/uL (04/23/23 4:09 PM) 1Result Comment: Testing Performed By: Dept of Pathology [facility] [address], [address], [place] [address] 2Result Comment: ADA recommendation for FASTING Serum/Plasma Glucose: Normal: 70-100 mg/dL Prediabetes: 100-125 mg/dL Diabetes: 126 mg/dL or higher 3Result Comment: Suggested therapeutic range for low-intensity Coumadin therapy for venous thromboembolism is INR 2.0-3.0 (ex: atrial fibrillation, history of TIA/stroke). For high risk patients, the suggested therapeutic range is INR 2.5-3.5 (ex: mechanical prosthetic valves). Testing Performed By: Dept of Pathology [facility] [address], [address], [place] [address] Social History Social History Type Response Tobacco [...] Member Role: Primary Care Provider Address: Address: [address] [place] [address], [place] [address] Name: Kennedi Walsh Ann Position: Pharmacist Member Role: Pharmacy - Lifetime Care Team Related Persons Name: HOPE GUERRERO
--- OUTSIDE RECORDS SUMMARY | 2023-09-17 07:54 | External Medical Summary | Summary of Care ---
Author Name Unknown Organization [facility] Address [address] [place] [address] Phone [phone] Care Team Providers Care Utility Helicopter Repairer Name Role Phone Leigh Ann Justin Primary Care Provider [phone] Reason for Visit * Reason Onset Date Comments Films 05/25/2023 Test Results 05/25/2023 Encounter Details Date Type Department Care Team Description 05/25/2023 Telephone Podiatry, [facility] [address] [facility] [place] [address] Steph Cerrato DPM [address] [facility] [place] [address] Films; Test Results Allergies Active Allergy Reactions Severity Noted Date [...] Telephone Encounter - Cheri Proctor LPN - 05/25/2023 9:42 AM EDT Third attempt to contact pt regarding x ray results. 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 Script for diabetic shoes and inserts along with a list of providerswas mailed out on 05/21/23. documented in this encounter Plan of Treatment Upcoming Encounters Date Type Specialty Care Team Description 06/10/2023 Office Visit Pain Medicine Mark Mendes CRNP [address] [place] [address] Scheduled Procedures Name Priority Associated Diagnoses Date/Ti me COLONOSCOPY FLEXIBLE PROXIMA L DIAGNOSTIC Recall History of colonic polyps Health Maintenance Due Date Last Done Comments DISCUSS TOBACCO CESSATION (REFER TO SMARTSET #9030) 1960 DIABETES-EYE EXAM 1977 DTaP,Tdap,and Td Vaccines [...] the patient have Health Care Power of Event Operations Manager? No Code Status History Code Status [...] Advance Directives occurred with: Patient Care Teams Utility Helicopter Repairer Relationship Specialty Start Date End Date Leigh Ann Justin CRNP [address] [place] [address] PCP - General Nurse Practitioner 04/13/23 documented as of this encounter
[2023-09-17 08:01] LABS: BUN Creatinine Ratio 26.2 (10-20); Calcium 9.2 mg/dl (8.6-10.3); Chol HDL Ratio 2.6 (0-5); Creatinine Clr Calc Pharmacy 90.6 ml/min; Est GFR (African American) 108.7 ml/min; Est GFR (Non-African American) 93.8 ml/min; Phosphorus 3.4 mg/dl (2.5-4.9); Potassium 4.1 mmol/L (3.5-5.1)
[2023-09-17 08:07] LABS: Troponin I High Sensitivity 5.3 pg/ml (0-14)
--- OUTSIDE RECORDS SUMMARY | 2023-09-17 08:16 | External Medical Summary | Summary of Care ---
Author Name Unknown Organization [facility] Address [address] [place] [address] Phone [phone] Care Team Providers Care Student Teacher Name Role Phone Leigh Ann Justin Primary Care Provider [phone] Reason for Visit * Auth/Cert Specialty Diagnoses / Procedures Referred By Rudi t Referred To Contact Diagnoses Bilateral sacroiliitis (HCC) Bilateral sacroiliitis (HCC) [M46.1] Procedures SACROILIAC JOINT INJECT W/GUIDANCE INJECTION SACROILIAC JOINT Referral ID Status Reason Start Date Expiration Date Visits Re quested Visits Authorized [id number] Encounter Details Date Type Department Care Team (Latest Contact Info) Description 09/16/2023 7:46 AM EST - 09/16/2023 9:17 AM EST Hospital Encounter OR [facility], Operating Room, [facility] - 4th Floor [address] [place] [address] Rafael Pollard MD [address] [place] [address] Discharge Disposition: Home - Self Care Allergies Active Allergy Reactions Criticality Noted Date Comments Buspirone 07/20/2018 Nsaids 06/26/2019 GI bleed Tuberculin Tests 09/01/2018 Acetaminophen 07/20/2018 Azithromycin 07/20/2018 documented as of this encounter (statuses as of 09/16/2023) Medications Medication Sig Dispensed Refills Start Date [...] as of this encounter (statuses as of 09/16/2023) Active Problems Problem Noted Date Diagnosed Date [...] as of this encounter (statuses as of 09/16/2023) Immunizations Name Administration Dates Next Due COVID-19 [...] Sign Reading Time Taken Comments Blood Pressure 116/65 09/16/2023 9:03 AM EST Pulse 84 09/16/2023 9:03 AM EST Temperature 36.3 C (97.3 F) 09/16/2023 9:03 AM ES T Respiratory Rate 18 09/16/2023 9:03 AM EST Oxygen Saturation 100% 09/16/2023 9:03 AM EST Inhaled Oxygen Concentration - - Weight 78 kg (172 lb) 09/16/2023 8:06 AM EST Height 162.6 cm (5' 4") 09/16/2023 8:06 AM EST Body Mass Index 29.52 09/16/2023 8:06 AM EST documented in this encounter Functional Status Functional [...] No 06/05/2021 documented as of this encounter Discharge Instructions * Discharge Instr - AVS* Rafael Pollard MD - 09/16/2023 7:55 AM EST Discharge Date: 09/16/2023 Check your Patient Education Brochure for further information. If you have any further questions call your physician at [phone]. The information below provides you with the instructions and the list of medications you need to betaking following discharge from the hospital. If you have any questions, please ask before leaving.If you have questions after you leave, you can reach us at the number above. You had the following procedure performed: Sacroiliac Joint Injection Wound Care: You may shower normally, but be sure to keep the injection site clean and dry. No soaking in a bathfor 48 hours. Activity: You may resume your regular diet as tolerated. Return to normal activities slowly as tolerated. Walking is very important for healing and your rehabilitation. Initially, you should walk at least two to three times daily. Then slowly and gradually increase your distance as your tolerance for physical activity increases. You may go up and down stairs carefully. You may resume home medications. If you received sedation, for the next 24 hours, you should NOT: Drive a vehicle, operate power machinery or power equipment Drink alcoholic beverages, including beer Make important decisions, such as signing contracts, etc. Notify physician for: Temperature greater than 101 degrees F. Increased pain. Calf swelling or tenderness. Drainage or redness of the incision. Chest pain or shortness of breath (and go to the Emergency Department) Date you may return to work or school: today documented in this encounter H&P Notes * Rafael Pollard MD - 09/16/2023 7:55 AM EST Today's Date: 09/16/23 Subjective: Thank you for the opportunity to [...] on opioid medications by a physician in [facility] which led to dependence and eventually addiction. [...] techniques: Physical Therapy: Completed in 2019 at [facility] and [place], not helpful Massage: not participated Chiropractic: not [...] Oral, PRN levothyroxine (LEVOXYL) 150 mcg, Oral, [id number] linaGLIPtin (TRADJENTA) 5 mg, Oral, Daily(AM) Lisinopril [...] Daily(AM) Vitamin D3 2,000 Units, Oral, Daily(AM) Allergies Review of patient's allergies indicates: Allergen Reactions Buspar [Buspirone] Nsaids GI bleed Tuberculin Tests Tylenol [Acetaminophen] Zithromax [Azithromycin] Past Medical History: Past Medical History Past Medical History: Diagnosis Date Chronic lower back pain NABOR (generalized anxiety disorder) Major depression Mild intermittent asthma Obesity (BMI 30.0-34.9) Type 2 diabetes mellitus with hemoglobin A1c goal of less than 7.0% (FORM[facility]LY [facility]) Past Surgical History: Past Surgical History Past Surgical History: Procedure Laterality Date COLONOSCOPY, DIAGNOSTIC (RECTUM) N/A 08/18/2019 biopsies show tubulovillous adenoma/recall 3 years/Colonoscopy COLONOSCOPY, DIAGNOSTIC (RECTUM) N/A 08/18/2019 COLONOSCOPY FLEXIBLE PROXIMAL DIAGNOSTIC performed by Gopi Graham MD at ENDOSCOPY [facility] Family History: Family History Problem Relation Age [...] and negative except as stated above. Objective: There were no vitals taken for this visit. GENERAL APPEARANCE: Well-developed, well-nourished, in no acute [...] a tramadol." I informed herthat we have [facility] pain pharmacy available at [facility] if she would like to discuss non interventional pain medication options, but she does not have a [facility] PCP and she is not interested in patient education. She is tearful on interview today from the debilitating emotional distress of the painand the loss of her . I informed her that with any procedure it is important to have reasonable expectations in terms of relief. Plan: Interventions: -Bilateral sacroiliac joint injection documented in this encounter OR Notes * OR Surgeon - Rafael Pollard MD - 09/16/2023 9:07 AM EST Procedure Note Sacroiliac Joint Injection Procedure Date: 09/16/2023 PREOPERATIVE DIAGNOSIS: Sacroiliac Joint Dysfunction POSTOPERATIVE DIAGNOSIS: Same PROCEDURE PERFORMED: Sacroiliac joint injection under fluoroscopic guidance SIDE: Bilateral ESTIMATED BLOOD LOSS: None SPECIMENS AND DRAINS: None INDICATIONS FOR PROCEDURE: Patient presents with a clinical picture consistent with sacroiliac joint pain. PROCEDURE AND FINDINGS: The patient was greeted in the pre procedure holding area. The risk, benefits and alternatives to the procedure were again reviewed with the patient and written informed consent was placed in the chart. Prior to the procedure a time out was completed, verifying correct patient, procedure, site, positioning, and implants and/or special equipment. The patient was taken to the procedure room and positioned prone on the fluoroscopy table. A concrete rod buster film was taken to identify the correct level. The skin was prepped and draped in the usual sterile fashion. The overlying skin and subcutaneous tissue was anesthetized using a 25-gauge 1-1/2 inch needle with 1% preservative-free lidocaine for a total volume of 3 mls. Then a 22-gauge 3.5- inch Quinckespinal needle was advanced into the joint space between the sacrum and ilium under intermittent fluoroscopic guidance. Needle position was confirmed on both AP and lateral views. 1mL of Omnipaque 180mg/ml showed intraarticular spread. After negative aspiration, 2.0 mls containing 0.5% bupivacaine and 40 mg of Triamcinalone was injected without incident. The needle was re-styletted and removed. The needle insertion site was dressed appropriately. The procedure was then performed on the contralateral side using the same technique as above. The patient was taken to the recovery room where they were monitored for a brief period of time. They tolerated the procedure well and were discharged home in stable condition with post procedural instructions. COMPLICATIONS: None documented in this encounter Plan of Treatment Upcoming Encounters Date Type Department Care Team (Late st Contact Info) Description 10/19/2023 10:30 AM EDT Office Visit [facility], [facility] [address] [phone] Rafael Pollard MD [address] [address] Scheduled Procedures Name Priority Associated Diagnoses Date/Ti me INJECTION SACROILIAC JOINT Bilateral sacroiliitis (HCC) 09/16/2023 8:44 AM EST COLONOSCOPY FLEXIBLE PROXIMAL DIAGNOSTIC Recall History of colonic polyps Health Maintenance Due Date Last Done Comments DISCUSS TOBACCO CESSATION (REFER TO SMARTSET #[id number]) 1960 Diabetic Eye Exam 1977 DTaP,Tdap,and Td [...] Procedure Name Priority Date/Time Associated Diagnosis Comments FLUORO INTERVENTIONAL PAIN PROCEDURE NONBILLABLE Routine 09/16/2023 9:00 AM EST documented in this encounter Results * FLUORO INTERVENTIONAL PAIN PROCEDURE NONBILLABLE (09/16/2023 9:00 AM EST) Narrative Scheduling, Silent - 09/16/2023 9:00 AM EST This procedure will not be read by a Radiologist. Please see operative note. Rafael Pollard MD RAD FLUOROSCOPY documented in this encounter Active and Recently Administered Medications Times are shown in EST. PRN Medication Order 09/14/2023 09/15/2023 09/16/2023 buffered lidocaine 1 % inj (CANCELED) ONCE PRN INTRA PROCEDURE, Starting on Berta 24 at 0855, Until Berta 2/824 at 0859, Intra-Op 0855 (Given - Provid er: Rafael Pollard MD) Iopamidol (Isovue M 200) inj (CANCELED) ONCE PRN INTRA PROCEDURE, Starting on Berta 2/8/24 at 0855, Until Berta 2/8/24 at 0859, Intra-Op 0855 (Given - Provid er: Rafael Pollard MD) Triamcinolone Acetonide (Kenalog) 10 MG/ML inj (CANCELED) ONCE PRN INTRA PROCEDURE, Starting on Berta 24 at 0856, Until Berta 2/824 at 0859, Intra-Op 0856 (Given - Provid er: Rafael Pollard MD) documented in this encounter Advance Directives Latest [...] the patient have Health Care Power of Restaurant Worker? No Code Status History Code Status Date [...] Advance Directives occurred with: Patient Care Teams Student Teacher Relationship Specialty Start Date End Date Leigh Ann Justin CRNP [address] [place] [address] PCP - General Nurse Practitioner 04/13/23 documented as of this encounter
[2023-09-17] MEDS: LEVOTHYROXINE SODIUM 150 MCG TABLET PO SCH (09:01)
[2023-09-17] MEDS: MAGNESIUM OXIDE 400 MG TAB PO SCH (09:03)
[2023-09-17] MEDS: lisinopril 10 MG TAB PO SCH (09:03)
[2023-09-17] MEDS: VENLAFAXINE HCL XR 75 MG CAPXR PO SCH (09:03)
[2023-09-17] MEDS: PANTOprazole 40 MG TAB PO SCH (09:03)
[2023-09-17] MEDS: POTASSIUM CHLORIDE CRTAB 20 MEQ TABCR PO SCH (09:03)
[2023-09-17] MEDS: SOTALOL HCL 80 MG TAB PO SCH (09:03)
[2023-09-17] MEDS: CYANOCOBALAMIN (B-12) 500 MCG TABLET PO SCH (09:03)
[2023-09-17] MEDS: ATORVASTATIN 40 MG TAB PO SCH (09:04)
[2023-09-17] MEDS: CHOLECALCIFEROL 10 MCG (400 UNITS) TAB PO SCH (09:04)
[2023-09-17] MEDS: ASPIRIN 81 MG ECTAB PO SCH (09:04)
[2023-09-17] MEDS: CHLORHEXIDINE GLUCONATE 0.12% 480 ML MT SCH (09:04)
[2023-09-17] MEDS: LANTUS PER UNIT CHARGE SQ SCH (09:10)
[2023-09-17 09:30] LABS: Estimated Average Glucose 194 mg/dl; Hemoglobin A1C 8.4 % (4.5-5.6)
--- NOTE | 2023-09-17 09:38 | Cardiology Consultation ---
Date of Consultation September 17, 2023 History of Present Illness Reason for Consultation: Symptomatic atrial fibrillation Attending Physician: Naomy Ochoa MD History of Present Illness This is a pleasant 63-year-old female with a history of atrial flutter. She has previously undergone a flutter ablation and then a Watchman procedure due to a history of bleeding on anticoagulation. Of note she tolerated her Eliquis after her Watchman procedure as well as the transition to aspirin and Plavix without any bleeding. She notes Wednesday night into she was scheduled to have a procedure on morning. She did not sleep at all even though she used multiple medications to help her sleep. She does have a history of insomnia. But the stress of the procedure the next day caused her to feel poorly. She ultimately felt palpitations consistent with her atrial fibrillation. She also notes when she is in A-fib she has shortness of breath. She had a procedure and then her blood pressures onelia significantly. Of note, the procedure was injection in her back. Given her elevated blood sugars and palpitation she came to the emergency room. She was found to be in atrial fibrillation. She does describe a slight fluttering in her chest she also describes some mild chest tightness with her atrial fibrillation and notes she is more short of breath and A-fib when she goes to exert herself compared to when she is in sinus rhythm. She has no lightheadedness or dizziness. She has no presyncope or syncope. She has no lower extremity edema. She has not had any abdominal distention. Allergies Allergy/AdvReac Type Severity Reaction Status Date / Time tuberculin,PPD,multi-puncture Allergy Severe EXTREME Verified 09/17/23 00:13 SWELLING AT SITE acetaminophen [From Tylenol] AdvReac Severe DUE TO Verified 09/17/23 00:14 LIVER ISSUES-CONTRAINDICATED azithromycin [From Zithromax] AdvReac Severe manic Verified 09/17/23 00:13 buspirone [From BuSpar] AdvReac Intermediate anxious Verified 09/17/23 00:13 NSAIDS (Non-Steroidal AdvReac Unknown HX OF A GI Verified 09/17/23 00:13 Anti-Inflamma BLEED/NOT TO TAKE. Home Medications Medication Instructions Recorded Confirmed Type albuterol sulfate 90 mcg/actuation 2 puff inhalation Q6H PRN 03/27/20 09/17/23 History aerosol inhaler (Ventolin HFA) Shortness Of Breath Or Wheezing budesonide-formoterol HFA 160 2 puff inhalation BID 03/27/20 09/17/23 History mcg-4.5 mcg/actuation aerosol inhaler (Symbicort) levothyroxine 150 mcg tablet 150 mcg PO DAILY 03/27/20 09/17/23 History montelukast 10 mg tablet 10 mg PO HS 03/27/20 09/17/23 History linagliptin 5 mg tablet (Tradjenta) 5 mg PO DAILY #30 tabs 04/30/20 09/17/23 Rx atorvastatin 40 mg tablet 40 mg PO DAILY 10/07/22 09/17/23 History cholecalciferol (vitamin D3) 10 0 mcg PO DAILY 10/07/22 09/17/23 History mcg (400 unit) capsule mecobalamin (vitamin B12) 1,000 1,000 mcg PO DAILY 10/07/22 09/17/23 History mcg chewable tablet csgzvfgvhavq-rdkqhisq-otqavb tablet 1 tab PO DAILY 10/07/22 09/17/23 History amoxicillin 500 mg capsule 500 mg PO TID 09/17/23 09/17/23 History aspirin 81 mg tablet,delayed 81 mg PO DAILY 09/17/23 09/17/23 History release chlorhexidine gluconate 0.12 % 10 ml mucous membrane BID 09/17/23 09/17/23 History mouthwash gabapentin 800 mg tablet 800 mg PO TID 09/17/23 09/17/23 History lisinopril 10 mg tablet 10 mg PO DAILY 09/17/23 09/17/23 History lorazepam 0.5 mg tablet 0.5 mg PO BID PRN Anxiety 09/17/23 09/17/23 History magnesium oxide 400 mg (241.3 mg 400 mg PO DAILY 09/17/23 09/17/23 History magnesium) tablet mirtazapine 7.5 mg tablet 7.5 mg PO HS 09/17/23 09/17/23 History pantoprazole 40 mg tablet,delayed 40 mg PO DAILY 09/17/23 09/17/23 History release potassium chloride 20 mEq 20 meq PO DAILY 09/17/23 09/17/23 History tablet,extended release sotalol 120 mg tablet 120 mg PO Q12 09/17/23 09/17/23 History temazepam 30 mg capsule 30 mg PO HS PRN NEEDED 09/17/23 09/17/23 History tramadol 50 mg tablet 50 mg PO TID PRN Pain 09/17/23 09/17/23 History venlafaxine 75 mg capsule,extended 75 mg PO DAILY 09/17/23 09/17/23 History release 24 hr Patient History Medical History Left knee pain Acute kidney injury Surgical History S/P ORIF (open reduction internal fixation) fracture H/O LEEP History of tonsillectomy and adenoidectomy Family History Mother Diabetes Hypertension Colorectal cancer Myelodysplasia (myelodysplastic syndrome) Father Heart disease Hypertension Brother Hypertension Brother Schizo affective schizophrenia Brother Suicide Social History Smoking Status: Former smoker Tobacco Type: Cigarettes Age Started Using Tobacco: 59; packs per day: 0.75; Cigarettes Per Day: 2; Second Hand Exposure: No; Do You Dip or Chew Tobacco: No; Hx Alcohol Use: Yes Alcohol type: beer and wine Hx Substance Use: No Preferred Language: Mexican Communication Ability: Effective Hearing Ability: Normal Productivity Engineer Required: No Beliefs That Will Affect Care: None marital status: Current Living Situation: Alone current occupational status: disabled How many Children do You have: 2 Feels Safe at Home: Yes Childhood Exposure to Second-Hand Smoke: Yes Seatbelt Use: always Sunscreen Use: Yes Assistive Devices: Cane and Other Results & Data Vital Signs (Past 12 Hours) Vital Signs Temp Pulse Pulse Resp BP BP Pulse Ox 09/17/23 08:24 36.4 C L 92 H 18 143/90 H 99 09/17/23 07:30 86 09/17/23 05:32 36.4 C L 93 H 20 125/77 97 09/17/23 05:28 09/17/23 04:00 131/89 09/17/23 04:00 85 18 93 09/17/23 03:49 84 09/17/23 03:30 133/72 09/17/23 03:30 83 18 98 09/17/23 03:01 129/60 09/17/23 03:01 89 17 99 09/17/23 03:00 80 19 94 09/17/23 02:30 96/63 L 09/17/23 02:30 84 15 98 09/17/23 02:00 107/74 09/17/23 02:00 83 18 98 09/17/23 01:30 85 22 97 09/17/23 01:30 116/69 09/17/23 01:00 128/76 09/17/23 01:00 86 24 88 L 09/17/23 00:30 82 14 100 09/17/23 00:00 118/71 09/17/23 00:00 101 H 15 09/16/23 23:38 85 18 09/16/23 23:31 99/73 L 09/16/23 23:15 109 H 17 09/16/23 23:07 135/74 09/16/23 23:07 96 H 20 09/16/23 22:41 36.8 C 109 H 18 160/91 H 96 Pulse Ox O2 Del Method O2 Del Method 09/17/23 08:24 Room Air 09/17/23 07:30 09/17/23 05:32 Room Air 09/17/23 05:28 97 Room Air 09/17/23 04:00 09/17/23 04:00 09/17/23 03:49 09/17/23 03:30 09/17/23 03:30 09/17/23 03:01 09/17/23 03:01 09/17/23 03:00 09/17/23 02:30 09/17/23 02:30 09/17/23 02:00 09/17/23 02:00 09/17/23 01:30 09/17/23 01:30 09/17/23 01:00 09/17/23 01:00 09/17/23 00:30 09/17/23 00:00 09/17/23 00:00 09/16/23 23:38 09/16/23 23:31 09/16/23 23:15 09/16/23 23:07 09/16/23 23:07 09/16/23 22:41 Room Air She is awake alert and oriented x 3 in no acute distress HEENT: 2+ carotid upstroke sounds carotid bruits Lungs: Coarse breath sounds throughout. Heart: Irregular rate and rhythm no appreciable murmurs Abdomen: Soft nontender distended positive bowel sounds Extremities: No clubbing cyanosis or edema Psychiatric: Her affect appeared appropriate. IMPRESSIONS: 1. Atrial fibrillation likely secondary to increased catecholamine state 2. History of atrial flutter status post flutter ablation 3. Recurrent atrial fibrillation after her flutter ablation currently on sotalol 120 mg twice daily 4. Status post Watchman device 5. History of normal LV function by echo with type II diastolic dysfunction and top normal pulmonary artery pressures 6. Hypertension 7. History of tobacco abuse currently abstaining 8. Anxiety and depression I would add 25 mg of Toprol-XL to her medical regiment this morning to try to slow her heart rate down. We will then anticoagulate her with Eliquis this morning 5 mg twice a day. She can ultimately be discharged home today. The plan would be hopefully she converts back on her own to sinus rhythm by next week. If she does not convert we will arrange for cardioversion as an outpatient. The question is whether we will need to increase her sotalol as an outpatient wh ich would require a 3-day hospital admission. It sounds like she went into atrial fibrillation Wednesday into . But she does note that she has had on and off palpitations which she is attributed to her history of PVCs. If she does not convert, she may need a ELIUD cardioversion to get her back into sinus rhythm. I reassured her today. We did review her echo in detail as she thought her heart was spongy but I discussed with her it is actually stiff and noncompliant. Will arrange for follow-up in the office.
[2023-09-17] MEDS: APIXABAN 5 MG TABLET PO SCH (10:04)
[2023-09-17] MEDS: METOPROLOL SUCC 25MG EXT REL TAB PO SCH (10:04)
--- NOTE | 2023-09-17 11:04 | Electrocardiogram Report ---
Test Reason : Blood Pressure : / mmHG Vent. Rate : 080 BPM Atrial Rate : 000 BPM P-R Int : 000 ms QRS Dur : 092 ms QT Int : 406 ms P-R-T Axes : 000 088 084 degrees QTc Int : 468 ms Atrial fibrillation Abnormal ECG When compared with ECG of 14-AUG-2022 19:22, Atrial fibrillation has replaced Sinus rhythm Confirmed by Jean Marie Hay ([id number]) on 09/17/2023 11:04:01 AM Referred By: REFERRED SELF Confirmed By:Jean Marie Hay
--- NOTE | 2023-09-17 11:39 | XCELERA ---
[id number] [id number]
[2023-09-17] MEDS: oxyCODONE HCL IR 5 MG TAB (IMMEDIATE RELEASE) PO PRN (11:41)
[2023-09-17] MEDS: GABAPENTIN 800 MG TAB PO SCH (13:23)
[2023-09-17] MEDS: AMOXICILLIN 500 MG CAP PO SCH (13:23)
[2023-09-17] MEDS ORDERED: Nursing to Pharmacy Communication SCH (13:45)
[2023-09-17] MEDS ORDERED: LEVALBUTEROL HCL 0.63 MG/3 ML NEB NEB PRN (17:51)
[2023-09-17] MEDS: IPRATROPIUM BROMIDE NEB SOLN 0.02% 0.5MG/2.5ML VIAL NEB SCH (19:45)
[2023-09-17] MEDS: MIRTAZAPINE TAB 15 MG TAB PO SCH (20:27)
[2023-09-17] MEDS: MONTELUKAST SODIUM 10 MG TABLET PO SCH (20:27)
--- NOTE | 2023-09-18 07:11 | Electrocardiogram Report ---
Test Reason : Blood Pressure : / mmHG Vent. Rate : 067 BPM Atrial Rate : 067 BPM P-R Int : 168 ms QRS Dur : 084 ms QT Int : 420 ms P-R-T Axes : 085 068 050 degrees QTc Int : 443 ms Normal sinus rhythm Normal ECG When compared with ECG of 17-SEP-2023 03:14, Sinus rhythm has replaced Atrial fibrillation Confirmed by Ej Martinez ([id number] on 09/18/2023 7:10:34 AM Referred By: REFERRED SELF Confirmed By:Alan Martinez
[2023-09-18 07:38] LABS: Hematocrit (blood only) 25.2 % (37.0-47.0); Hemoglobin 8.7 g/dl (12.0-16.0); Mean Corpuscular Hgb Conc 34.5 g/dL (32.0-36.0); Mean Corpuscular Volume 98.4 fL (80.0-100.0); Mean Platelet Volume 10.5 fL (9.4-12.4); Platelet Count 125 K/uL (130-400); RDW Coefficient of Variation 14.6 % (11.5-14.5); RDW Standard Deviation 52.2 fL (36.4-46.3); Red Blood Count 2.56 M/uL (4.20-5.40); White Blood Count 5.12 K/ul (4.8-10.8)
[2023-09-18 08:02] LABS: BUN Creatinine Ratio 21.1 (10-20); Calcium 8.7 mg/dl (8.6-10.3); Creatinine Clr Calc Pharmacy 77.3 ml/min; Est GFR (African American) 96.1 ml/min; Est GFR (Non-African American) 82.9 ml/min; Potassium 5.3 mmol/L (3.5-5.1)
[2023-09-18] MEDS: POLYETHYLENE (MIRALAX) 17 GM PACK PO ONE (11:04)
--- NOTE | 2023-09-18 11:05 | Hospitalist Progress Note ---
Date of Service September 18, 2023 Assessment & Plan (1) Hyperglycemia due to type 2 diabetes mellitus: Plan: stable , continue current treatment (2) Atrial fibrillation: Plan: converted to sinus rhythm continue current meds (3) HTN (hypertension): Plan: stable , continue current meds (4) Hypomagnesemia: Plan: resolved (5) Hypercholesterolemia: Plan: continue current meds (6) Asthma: Plan: exacerbation start Symbicort, continue nebs (7) Hypothyroidism: Plan: continue synthroid (8) Dental infection: Plan: continue amoxicillin (9) Depression with anxiety: Plan: continue home meds Plan Hyperglycemia status post steroid hip injection/associated diabetes mellitus type 2- Patient received regular insulin 8 units IV, followed by regular insulin 6 units IV with the following glucose change: [phone] Hold linagliptin NSS + KCl 20 mill equivalents at 100 mL/h Placed on Accu-Cheks with NovoLog SSI Atrial fibrillation with controlled ventricular response/status post Watchman procedure approximately /hypertension-- The patient will be admitted to telemetry for serial cardiac enzymes, serial EKG's, cardiac rhythm monitoring and a 2-D echocardiogram with Dopplers. Initial troponin 5.0 Continue sotalol 120 mg p.o. every 12 hours, aspirin 81 mg daily and lisinopril 10 mg daily Hold anticoagulation at this time, since it is now 4:00 AM, and will defer to cardiology consult. Of note, patient had been on Eliquis pre and post Watchman procedure, and was then changed to clopidogrel, and then changed to aspirin Lopressor 5 mg IV every 4 hours as needed for heart rate greater than 110 IV fluids as above Correct magnesium Hypomagnesemia- Magnesium 1.3 on admission Received tube grams of magnesium sulfate IV from the ED, will give an additional 30 mg now Recheck laboratories in the morning. Dental infection- Continue amoxicillin 500 mg p.o. 3 times daily, patient may use own Peripheral neuropathy- Continue tramadol, and gabapentin Depression with anxiety- Continue gabapentin, lorazepam, temazepam and venlafaxine asthma/copd exacerbation patient is still wheezy start symbicort she does not want to take steroids hyperkalemia stop potassium laxatives repeat K in am Admission and Anticipated Discharge Date Admission Date: September 17, 2023 Review of Systems Review of Systems: The patient denies cough, lower extremity swelling, sore throat, fevers, chills, sweats, weight change, fatigue, nausea, vomiting, diarrhea , constipation, abdominal pain, pelvic pain, blood in urine or stool, dysuria, urinary frequency or urgency, lightheadedness, dizziness, headache, memory loss, loss of consciousness, rash, abnormal bruising or bleeding, focal or generalized weakness, numbness or tingling in arms or legs, generalized arthralgias or myalgias, back or neck pain, or night sweats. The review of systems is otherwise negative other than for that already noted above, and at least 10 systems have been reviewed. Results & Data Results & Data Vital Signs (Past 12 Hours) Vital Signs Temp Pulse Pulse Resp BP Pulse Ox O2 Del Method 09/18/23 07:38 36.7 C 66 17 113/67 95 Room Air 09/18/23 07:34 66 22 91 Room Air 09/18/23 06:58 66 09/18/23 05:28 09/18/23 03:35 36.5 C 72 18 137/91 97 Room Air 09/18/23 01:01 18 Room Air 09/18/23 00:10 80 O2 Del Method 09/18/23 07:38 09/18/23 07:34 09/18/23 06:58 09/18/23 05:28 Room Air 09/18/23 03:35 09/18/23 01:01 09/18/23 00:10 PG Care Time/CCT Total # of Minutes Spent Total Time Spent with Patient: Total time spent is greater than 50% in coordination of care (as documented) at patient's floor/unit and/or counseling patient: Coding Level of Care Code 29812 SUB INP/OBS CARE 2/35MIN Diagnoses Hyperglycemia due to type 2 diabetes mellitus E11.65 Atrial fibrillation I48.91 HTN (hypertension) I10 Hypomagnesemia E83.42 Hypercholesterolemia E78.00 Asthma J45.909 Hypothyroidism E03.9 Dental infection K04.7 Depression with anxiety F41.8
[2023-09-18] MEDS: FLUTICASONE/VILANTEROL 200/25MCG 14 PUFFS/INHALER INH SCH (11:31)
[2023-09-19 07:01] LABS: Hematocrit (blood only) 26.4 % (37.0-47.0); Hemoglobin 9.1 g/dl (12.0-16.0); Mean Corpuscular Hgb Conc 34.5 g/dL (32.0-36.0); Mean Corpuscular Volume 98.5 fL (80.0-100.0); Mean Platelet Volume 10.7 fL (9.4-12.4); Platelet Count 132 K/uL (130-400); RDW Coefficient of Variation 14.9 % (11.5-14.5); RDW Standard Deviation 53.2 fL (36.4-46.3); Red Blood Count 2.68 M/uL (4.20-5.40); White Blood Count 7.01 K/ul (4.8-10.8)
--- NOTE | 2023-09-19 07:17 | Electrocardiogram Report ---
Test Reason : Blood Pressure : / mmHG Vent. Rate : 068 BPM Atrial Rate : 068 BPM P-R Int : 164 ms QRS Dur : 086 ms QT Int : 436 ms P-R-T Axes : 091 074 060 degrees QTc Int : 463 ms Normal sinus rhythm Normal ECG When compared with ECG of 18-SEP-2023 05:14, No significant change was found Confirmed by Ej Martinez ([id number]) on 09/19/2023 7:16:37 AM Referred By: REFERRED SELF Confirmed By:Alan Martinez
[2023-09-19 07:28] LABS: BUN Creatinine Ratio 20.8 (10-20); Calcium 9.2 mg/dl (8.6-10.3); Est GFR (African American) 102.6 ml/min; Est GFR (Non-African American) 88.5 ml/min; Potassium 4.5 mmol/L (3.5-5.1)
[2023-09-19] MEDS: POLYETHYLENE (MIRALAX) 17 GM PACK ONE (10:26)
[2023-09-19] MEDS: POLYETHYLENE (MIRALAX) 17 GM PACK PO SCH (10:26)
[2023-09-19] MEDS: LORazepam 0.5 MG TAB PO PRN (10:40)
--- NOTE | 2023-09-19 15:21 | Hospitalist Progress Note ---
Date of Service September 19, 2023 Assessment & Plan (1) Hyperglycemia due to type 2 diabetes mellitus: Plan: stable , continue current treatment (2) Atrial fibrillation: Plan: converted to sinus rhythm continue current meds (3) HTN (hypertension): Plan: stable , continue current meds (4) Hypomagnesemia: Plan: resolved (5) Hypercholesterolemia: Plan: continue current meds (6) Asthma: Plan: exacerbation start Symbicort, continue nebs (7) Hypothyroidism: Plan: continue synthroid (8) Dental infection: Plan: continue amoxicillin (9) Depression with anxiety: Plan: continue home meds Plan Hyperglycemia status post steroid hip injection/associated diabetes mellitus type 2- Patient received regular insulin 8 units IV, followed by regular insulin 6 units IV with the following glucose change: [phone] Hold linagliptin NSS + KCl 20 mill equivalents at 100 mL/h Placed on Accu-Cheks with NovoLog SSI Atrial fibrillation with controlled ventricular response/status post Watchman procedure approximately /hypertension-- The patient will be admitted to telemetry for serial cardiac enzymes, serial EKG's, cardiac rhythm monitoring and a 2-D echocardiogram with Dopplers. Initial troponin 5.0 Continue sotalol 120 mg p.o. every 12 hours, aspirin 81 mg daily and lisinopril 10 mg daily Hold anticoagulation at this time, since it is now 4:00 AM, and will defer to cardiology consult. Of note, patient had been on Eliquis pre and post Watchman procedure, and was then changed to clopidogrel, and then changed to aspirin Lopressor 5 mg IV every 4 hours as needed for heart rate greater than 110 IV fluids as above Correct magnesium Hypomagnesemia- Magnesium 1.3 on admission Received tube grams of magnesium sulfate IV from the ED, will give an additional 30 mg now Recheck laboratories in the morning. Dental infection- Continue amoxicillin 500 mg p.o. 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 Admission and Anticipated Discharge Date Admission Date: September 17, 2023 Subjective reports lower extremities ulcers Review of Systems Review of Systems: The patient denies cough, lower extremity swelling, sore throat, fevers, chills, sweats, weight change, fatigue, nausea, vomiting, diarrhea , constipa tion, abdominal pain, pelvic pain, blood in urine or stool, dysuria, urinary frequency or urgency, lightheadedness, dizziness, headache, memory loss, loss of consciousness, rash, abnormal bruising or bleeding, focal or generalized weakness, numbness or tingling in arms or legs, generalized arthralgias or myalgias, back or neck pain, or night sweats. The review of systems is otherwise negative other than for that already noted above, and at least 10 systems have been reviewed. Physical Exam Physical Exam: head atraumatic neck supple lungs wheezing b/l heart regular, no murmurs abdomen soft, nt, nd, bs present extremities ulcers lower extremities Results & Data Results & Data Vital Signs (Past 12 Hours) Vital Signs Temp Pulse Resp BP BP Pulse Ox O2 Del Method 09/19/23 13:22 68 18 99 Room Air 09/19/23 11:05 36.7 C 62 18 137/81 98 Room Air 09/19/23 10:20 Room Air 09/19/23 08:00 36.6 C 63 20 144/76 H 99 Room Air 09/19/23 07:29 61 20 99 Room Air 09/19/23 05:00 09/19/23 03:30 36.7 C 71 18 126/69 96 Room Air O2 Del Method 09/19/23 13:22 09/19/23 11:05 09/19/23 10:20 09/19/23 08:00 09/19/23 07:29 09/19/23 05:00 Room Air 09/19/23 03:30 Laboratory Results Abnormal lab results 09/19/23 09/19/23 09/19/23 Range/Units 06:27 07:19 11:06 RBC 2.68 L (4.20-5.40) M/uL Hgb 9.1 L (12.0-16.0) g/dl Hct 26.4 L (37.0-47.0) % RDW Std Deviation 53.2 H (36.4-46.3) fL RDW Coeff of Natividad 14.9 H (11.5-14.5) % Chloride 109 H (98-107) mmol/L BUN/Creatinine Ratio 20.8 H (10-20) Glucose 168 H (70-99(Fasting)) mg/dl POC Glucose 157 H 133 H (70-99) mg/dl PG Care Time/CCT Total # of Minutes Spent Total Time Spent with Patient: Total time spent is greater than 50% in coordination of care (as documented) at patient's floor/unit and/or counseling patient: Coding Level of Care Code 99403 SUB INP/OBS CARE 2/35MIN Diagnoses Hyperglycemia due to type 2 diabetes mellitus E11.65 Atrial fibrillation I48.91 HTN (hypertension) I10 Hypomagnesemia E83.42 Hypercholesterolemia E78.00 Asthma J45.909 Hypothyroidism E03.9 Dental infection K04.7 Depression with anxiety F41.8
--- NOTE | 2023-09-19 16:56 | Ultrasound Report ---
BILATERAL LOWER EXTREMITY DOPPLER ULTRASOUND CLINICAL HISTORY: ulcers COMPARISON STUDY: No previous studies for comparison. TECHNIQUE: Bilateral ankle to brachial indices were obtained. Color and duplex Doppler sonography of the arterial systems of the lower extremities was then performed. FINDINGS: The right ankle-brachial index measured 1.05 and the left ankle to brachial index measured 1.03. No elevated velocities were identified within the lower extremities. These vessels were patent. Prominently triphasic flow was noted within the lower extremities. IMPRESSION: 1. Normal bilateral ankle to brachial indices. Unremarkable lower extremity arterial Doppler ultrasou nd. 2. No evidence for a hemodynamically significant stenosis within the lower extremities. Patent vessel s. ACT 112: Negative or not required by law. Electronically signed by: Ezequiel Lopez M.D. 09/19/2023 4:54 PM
[2023-09-19] MEDS: oxyCODONE HCL IR 5 MG TAB (IMMEDIATE RELEASE) PO PRN (17:17)
[2023-09-19] MEDS: guaiFENesin 600 MG TABCR PO SCH (19:51)
[2023-09-20 07:56] LABS: Basophils # (auto) 0.03 K/uL (0.00-0.20); Basophils % (auto) 0.5 %; Eosinophils # (auto) 0.08 K/uL (0.00-0.50); Eosinophils % (auto) 1.4 %; Hematocrit (blood only) 27.6 % (37.0-47.0); Hemoglobin 9.3 g/dl (12.0-16.0); Immature Granulocytes # (auto) 0.02 K/uL (0.01-0.20); Immature Granulocytes % (auto) 0.3 %; Lymphocytes # (auto) 1.64 K/uL (1.20-3.40); Lymphocytes % (auto) 28.6 %; Mean Corpuscular Hemoglobin 33.7 pg (25.0-34.0); Mean Corpuscular Hgb Conc 33.7 g/dL (32.0-36.0); Mean Platelet Volume 10.9 fL (9.4-12.4); Monocytes # (auto) 0.53 K/uL (0.11-0.59); Monocytes % (auto) 9.2 %; Neutrophils # (auto) 3.43 K/uL (1.40-6.50); Platelet Count 136 K/uL (130-400); RDW Coefficient of Variation 14.6 % (11.5-14.5); RDW Standard Deviation 52.8 fL (36.4-46.3); Red Blood Count 2.76 M/uL (4.20-5.40); White Blood Count 5.73 K/ul (4.8-10.8)
[2023-09-20 08:31] LABS: Iron 40 mcg/dl (35-150); Unsaturated Iron Binding Cap 326 mcg/dl (155-355)
--- NOTE | 2023-09-20 11:34 | Hospitalist Progress Note ---
Date of Service September 20, 2023 Assessment & Plan (1) Hyperglycemia due to type 2 diabetes mellitus: Plan: stable , continue current treatment (2) Atrial fibrillation: Plan: converted to sinus rhythm continue current meds (3) HTN (hypertension): Plan: stable , continue current meds (4) Hypomagnesemia: Plan: resolved (5) Hypercholesterolemia: Plan: continue current meds (6) Asthma: Plan: exacerbation start Symbicort, continue nebs (7) Hypothyroidism: Plan: continue synthroid (8) Dental infection: Plan: continue amoxicillin (9) Depression with anxiety: Plan: continue home meds Plan Hyperglycemia status post steroid hip injection/associated diabetes mellitus type 2- Patient received regular insulin 8 units IV, followed by regular insulin 6 units IV with the following glucose change: [phone] Hold linagliptin NSS + KCl 20 mill equivalents at 100 mL/h Placed on Accu-Cheks with NovoLog SSI Blood glucose now under better control Atrial fibrillation with controlled ventricular response/status post Watchman procedure approximately /hypertension-- The patient will be admitted to telemetry for serial cardiac enzymes, serial EKG's, cardiac rhythm monitoring and a 2-D echocardiogram with Dopplers. Initial troponin 5.0 Continue sotalol 120 mg p.o. every 12 hours, aspirin 81 mg daily and lisinopril 10 mg daily Hold anticoagulation at this time, since it is now 4:00 AM, and will defer to cardiology consult. Of note, patient had been on Eliquis pre and post Watchman procedure, and was then changed to clopidogrel, and then changed to aspirin Lopressor 5 mg IV every 4 hours as needed for heart rate greater than 110 IV fluids as above Correct magnesium Hypomagnesemia- Magnesium 1.3 on admission Received tube grams of magnesium sulfate IV from the ED, will give an additional 30 mg now Recheck laboratories in the morning. Dental infection- Continue amoxicillin 500 mg p.o. 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 Physical Exam Physical Exam: The patient is awake, alert and oriented 3, well developed and well nourished, normocephalic and atraumatic, lying in bed and in no acute distress. HEENT--PERRL, EOMI, mucous membranes and oropharynx mildly dry Neck--supple. No JVD. No bruits. Thyroid normal, trachea midline, no adenopathy. Heart--normal S1 and S2. No murmurs, rubs or gallops. Lungs--clear bilaterally, no respiratory distress, no accessory muscle use. Abdomen--normal bowel sounds and soft. Mild epigastric and left sided abdominal pain Extremities--no cyanosis or clubbing. Diabetic foot ulcers Dermatologic--normal skin turgor, normal color, no abnormal lymph nodes, no rash. Neurologic--cranial nerves II through XII grossly intact. Rheumatologic--normal range of motion. Psychiatric--normal affect. Results & Data Results & Data Vital Signs (Past 12 Hours) Vital Signs Temp Pulse Pulse Pulse Resp BP BP 09/20/23 07:53 97.9 F 66 18 121/73 09/20/23 07:09 76 18 09/20/23 03:52 97.3 F L 65 18 138/83 09/20/23 01:00 66 18 09/20/23 00:25 70 Pulse Ox O2 Del Method 09/20/23 07:53 97 Room Air 09/20/23 07:09 93 Room Air 09/20/23 03:52 94 Room Air 09/20/23 01:00 96 Room Air 09/20/23 00:25 PG Care Time/CCT Total # of Minutes Spent Total Time Spent with Patient: Total time spent is greater than 50% in coordination of care (as documented) at patient's floor/unit and/or counseling patient: Coding Level of Care Code 78688 SUB INP/OBS CARE 2/35MIN Diagnoses Hyperglycemia due to type 2 diabetes mellitus E11.65 Atrial fibrillation I48.91 HTN (hypertension) I10 Hypomagnesemia E83.42 Hypercholesterolemia E78.00 Asthma J45.909 Hypothyroidism E03.9 Dental infection K04.7 Depression with anxiety F41.8 Time Spent (min) 35
[2023-09-20] MEDS: guaiFENesin 600 MG TABCR PO SCH (14:26)
--- NOTE | 2023-09-20 20:25 | Orthopedic Consultation ---
Date of Consultation September 20, 2023 Assessment & Plan (1) Diabetic foot ulcer: Patient seen, evaluated in room S241-2. I examined the patient for an ulcer that has been resistant to healing. No signs or symptoms of infection were observed or reported. Manners in which pressure reduction could be achieved were investigated and initiated. Surgical offloading shoes ordered to beside. Off-loading is a critical part of this patient's management. Factors which likely contribute to non-healing include: lack of adequate off- loading when supine, lack of adequate off-loading when ambulating, lack of adherence to diabetic footwear, a limited understanding of the disease of diabetes and its processes, lack of appropriate podiatric care, lack of adherence to diabetic control measures, To offload or remove pressure to the wound is essential. Patient education today to include: the warning signs and symptoms of infection and, if noted, the patient is to call or go to the [facility] Emergency Department. Will continue to follow while Patient remains in house. Thank you for allowing me to participate in the care of this Patient. (2) Bilateral foot pain: (3) Hyperglycemia due to type 2 diabetes mellitus: History of Present Illness Attending Physician: Kolby Lindo MD History of Present Illness Patient is a 63-year-old female seen at bedside in room S241-1 for bilateral diabetic foot ulcers. Patient has a past medical history significant for atrial fibrillation, diabetic foot ulcers, hypertension, hypercholesterolemia, hypothyroidism, diabetes mellitus, asthma and depression with anxiety. Patient presented to the [facility] Emergency Department on 09/17/23 after have a steroid injection in her hip caused elevated blood glucose 469 mg/dL. Allergies Allergy/AdvReac Type Severity Reaction Status Date / Time tuberculin,PPD,multi-puncture Allergy Severe EXTREME Verified 09/17/23 00:13 SWELLING AT SITE acetaminophen [From Tylenol] AdvReac Severe DUE TO Verified 09/17/23 00:14 LIVER ISSUES-CONTRAINDICATED azithromycin [From Zithromax] AdvReac Severe manic Verified 09/17/23 00:13 buspirone [From BuSpar] AdvReac Intermediate anxious Verified 09/17/23 00:13 NSAIDS (Non-Steroidal AdvReac Unknown HX OF A GI Verified 09/17/23 00:13 Anti-Inflamma BLEED/NOT TO TAKE. Home Medications Medication Instructions Recorded Confirmed Type albuterol sulfate 90 mcg/actuation 2 puff inhalation Q6H PRN 03/27/20 09/17/23 History aerosol inhaler (Ventolin HFA) Shortness Of Breath Or Wheezing budesonide-formoterol HFA 160 2 puff inhalation BID 03/27/20 09/17/23 History mcg-4.5 mcg/actuation aerosol inhaler (Symbicort) levothyroxine 150 mcg tablet 150 mcg PO DAILY 03/27/20 09/17/23 History montelukast 10 mg tablet 10 mg PO HS 03/27/20 09/17/23 History linagliptin 5 mg tablet (Tradjenta) 5 mg PO DAILY #30 tabs 04/30/20 09/17/23 Rx atorvastatin 40 mg tablet 40 mg PO DAILY 10/07/22 09/17/23 History cholecalciferol (vitamin D3) 10 0 mcg PO DAILY 10/07/22 09/17/23 History mcg (400 unit) capsule mecobalamin (vitamin B12) 1,000 1,000 mcg PO DAILY 10/07/22 09/17/23 History mcg chewable tablet pkqiltmiaivc-xebnxetz-jyaitu tablet 1 tab PO DAILY 10/07/22 09/17/23 History amoxicillin 500 mg capsule 500 mg PO TID 09/17/23 09/17/23 History aspirin 81 mg tablet,delayed 81 mg PO DAILY 09/17/23 09/17/23 History release chlorhexidine gluconate 0.12 % 10 ml mucous membrane BID 09/17/23 09/17/23 History mouthwash gabapentin 800 mg tablet 800 mg PO TID 09/17/23 09/17/23 History lisinopril 10 mg tablet 10 mg PO DAILY 09/17/23 09/17/23 History lorazepam 0.5 mg tablet 0.5 mg PO BID PRN Anxiety 09/17/23 09/17/23 History magnesium oxide 400 mg (241.3 mg 400 mg PO DAILY 09/17/23 09/17/23 History magnesium) tablet mirtazapine 7.5 mg tablet 7.5 mg PO HS 09/17/23 09/17/23 History pantoprazole 40 mg tablet,delayed 40 mg PO DAILY 09/17/23 09/17/23 History release potassium chloride 20 mEq 20 meq PO DAILY 09/17/23 09/17/23 History tablet,extended release sotalol 120 mg tablet 120 mg PO Q12 09/17/23 09/17/23 History temazepam 30 mg capsule 30 mg PO HS PRN NEEDED 09/17/23 09/17/23 History tramadol 50 mg tablet 50 mg PO TID PRN Pain 09/17/23 09/17/23 History venlafaxine 75 mg capsule,extended 75 mg PO DAILY 09/17/23 09/17/23 History release 24 hr Patient History Medical History Left knee pain Acute kidney injury Surgical History S/P ORIF (open reduction internal fixation) fracture H/O LEEP History of tonsillectomy and adenoidectomy Family History Mother Diabetes Hypertension Colorectal cancer Myelodysplasia (myelodysplastic syndrome) Father Heart disease Hypertension Brother Hypertension Brother Schizo affective schizophrenia Brother Suicide Social History Smoking Status: Former smoker Tobacco Type: Cigarettes Age Started Using Tobacco: 59; packs per day: 0.75; Cigarettes Per Day: 2; Second Hand Exposure: No; Do You Dip or Chew Tobacco: No; Hx Alcohol Use: Yes Alcohol type: beer and wine Hx Substance Use: No Preferred Language: [place] Communication Ability: Effective Hearing Ability: Normal Property Handler Required: No Beliefs That Will Affect Care: None marital status: Current Living Situation: Alone current occupational status: disabled How many Children do You have: 2 Feels Safe at Home: Yes Childhood Exposure to Second-Hand Smoke: Yes Seatbelt Use: always Sunscreen Use: Yes Assistive Devices: Cane Review of Systems Review of Systems: All systems reviewed & are unremarkable except as noted in HPI & below Physical Exam Constitutional: cooperative and comfortable Eyes: normal visual mark by confrontation Neck: normal visual inspection Respiratory: normal respiratory effort Cardiovascular: Rate/Rhythm: regular rate and + irregularly irregular Vessels: posterior tibial pulses present and dorsalis pedis pulses present atrial fibrillation with controlled rate. No murmurs, rubs or gallops. Musculoskeletal: Extremities: extremities normal to inspection and + foot abnormality (Decreased ROM of first MTPJ) Bilateral Skin: + ulcer (Right and Left great toe distal plantar diabetic foot ulcers) No signs of infection were observed or reported. Neurologic: Absent epicritic sensation Results & Data Vital Signs (Past 12 Hours) Vital Signs Temp Pulse Resp BP BP Pulse Ox O2 Del Method 09/20/23 19:34 65 16 99 Room Air 09/20/23 15:56 36.2 C L 60 18 147/86 H 98 Room Air 09/20/23 13:59 68 16 98 Room Air 09/20/23 11:11 36.7 C 69 21 161/91 H 97 Room Air Diagnostic Findings [place], [place] [phone] Ultrasound Report Patient: MILO FORD Admit Date: 09/17/23 MR#: [id number] Address1: [address] [place] [address] Acct ID:[id number] Address2: Date: 1960 [facility] Zip: [place] [address] Age: 63 Location: Sex: F Room/Bed: [facility] Att Phy: Naomy Ochoa MD Diagnosis: ATRIAL FIB WITH CHEST PAIN [place] Phy: Leigh Ann Justin CRNP Service Date: 09/19/23 Fam Phy: Interpreting Phy: Ezequiel Lopez MDAdmit Phy: Reginald Guerra MD Ordering Phy: Naomy Ochoa MD cc: ~ BILATERAL LOWER EXTREMITY DOPPLER ULTRASOUND CLINICAL HISTORY: ulcers COMPARISON STUDY: No previous studies for comparison. TECHNIQUE: Bilateral ankle to brachial indices were obtained. Color and duplex Doppler sonography of the arterial systems of the lower extremities was then performed. FINDINGS: The right ankle-brachial index measured 1.05 and the left ankle to brachial index measured 1.03. No elevated velocities were identified within the lower extremities. These vessels were patent. Prominently triphasic flow was noted within the lower extremities. IMPRESSION: 1. Normal bilateral ankle to brachial indices. Unremarkable lower extremity arterial Doppler ultrasound. 2. No evidence for a hemodynamically significant stenosis within the lower extremities. Patent vessels. ACT 112: Negative or not required by law. Electronically signed by: Ezequiel Lopez M.D. 09/19/2023 4:54 PM Dictated: 09/19/231651 Transcribed: 09/19/231651 [facility], [place] [phone] XRay Report Patient: MILO FORD Admit Date: 09/17/23 MR#: [id number] Address1: [facility] Acct ID:[id number] Address2: Date: 1960 [facility] Zip: [place] [address] Age: 63 Location: 2S Sex: F Room/Bed: [facility] Att Phy: Naomy Ochoa MD Diagnosis: ATRIAL FIB WITH CHEST PAIN [place] Phy: Leigh Ann Justin CRNP Service Date: 09/16/23 Fam Phy: Interpreting Phy: Ezequiel Mulligan Phy: Reginald Guerra MD Ordering Phy: Rasheeda Franklin DO cc: ~ XR foot RT min 3V routine CLINICAL HISTORY: pain, ulcers COMPARISON: None FINDINGS: Lucency of the plantar aspect of the right first toe suggests a wound. No associated bony destruction is present. No evidence for acute osteomyelitis within the right foot. Tarsometatarsal joints are intact. There are no acute fractures within the right foot. IMPRESSION: 1. Right first toe wound. No radiographic evidence for acute osteomyelitis. 2. No acute fractures within the right foot. ACT 112: Negative or not required by law. Electronically signed by: Ezequiel Lopez M.D. 09/17/2023 7:28 AM Dictated: 09/17/23 07 Transcribed: 09/17/23 07 [facility], [place] [phone] XRay Report Patient: MILO FORD Admit Date: 09/17/23 MR#: [id number] Address1: [place] [facility] Acct ID:[id number] Address2: Date: [address] [facility] Zip: [place] [address] Age: 63 Location: 2S Sex: F Room/Bed: [facility] Att Phy: Naomy Ochoa MD Diagnosis: ATRIAL FIB WITH CHEST PAIN [place] Phy: Leigh Ann Justin CRNP Service Date: 09/16/23 Fam Phy: Interpreting Phy: Ezequiel Mulligan Phy: Reginald Guerra MD Ordering Phy: Rasheeda Franklin DO cc: ~ XR foot LT min 3V routine CLINICAL HISTORY: pain, ulcers COMPARISON: None FINDINGS: Suspected left first toe wound is present. No bony erosions are identified within the left foot. There is no acute fracture within the left foot. Tarsometatarsal joints are intact. IMPRESSION: 1. Left first toe wound. No radiographic evidence for acute osteomyelitis. 2. No acute fractures within the left foot. ACT 112: Negative or not required by law. Electronically signed by: Ezequiel Lopez M.D. 09/17/2023 7:30 AM Dictated: 09/17/23 0728 Transcribed: 09/17/23 0728
[2023-09-20] MEDS: MAGNESIUM HYDROXIDE SUSP 30 ML UDC PO PRN (20:57)
[2023-09-21 07:02] LABS: Hematocrit (blood only) 30.4 % (37.0-47.0); Mean Corpuscular Hgb Conc 32.9 g/dL (32.0-36.0); Mean Corpuscular Volume 100.3 fL (80.0-100.0); Mean Platelet Volume 10.7 fL (9.4-12.4); Platelet Count 146 K/uL (130-400); RDW Coefficient of Variation 14.4 % (11.5-14.5); RDW Standard Deviation 52.3 fL (36.4-46.3); Red Blood Count 3.03 M/uL (4.20-5.40); White Blood Count 5.75 K/ul (4.8-10.8)
[2023-09-21] MEDS: bisacodyL 10 MG SUPP PR STA (10:23)
--- NOTE | 2023-09-21 12:26 | Hospitalist Progress Note ---
Date of Service September 21, 2023 Assessment & Plan (1) Hyperglycemia due to type 2 diabetes mellitus: Plan: stable , continue current treatment (2) Atrial fibrillation: Plan: converted to sinus rhythm continue current meds (3) HTN (hypertension): Plan: stable , continue current meds (4) Hypomagnesemia: Plan: resolved (5) Hypercholesterolemia: Plan: continue current meds (6) Asthma: Plan: exacerbation start Symbicort, continue nebs (7) Hypothyroidism: Plan: continue synthroid (8) Dental infection: Plan: continue amoxicillin (9) Depression with anxiety: Plan: continue home meds Plan Hyperglycemia status post steroid hip injection/associated diabetes mellitus type 2- Patient received regular insulin 8 units IV, followed by regular insulin 6 units IV with the following glucose change: [phone] Hold linagliptin NSS + KCl 20 mill equivalents at 100 mL/h Placed on Accu-Cheks with NovoLog SSI Blood glucose now under better control Continue insulin glargine 20 units daily and also insulin sliding scale Atrial fibrillation with controlled ventricular response/status post Watchman procedure approximately /hypertension-- The patient will be admitted to telemetry for serial cardiac enzymes, serial EKG's, cardiac rhythm monitoring and a 2-D echocardiogram with Dopplers. Initial troponin 5.0 Continue sotalol 120 mg p.o. every 12 hours, aspirin 81 mg daily and lisinopril 10 mg daily Hold anticoagulation at this time, since it is now 4:00 AM, and will defer to cardiology consult. Of note, patient had been on Eliquis pre and post Watchman procedure, and was then changed to clopidogrel, and then changed to aspirin Lopressor 5 mg IV every 4 hours as needed for heart rate greater than 110 IV fluids as above Correct magnesium Hypomagnesemia- Now resolved Dental infection- Continue amoxicillin 500 mg p.o. 3 times daily, patient may use own Peripheral neuropathy- Continue tramadol, and gabapentin Depression with anxiety- Continue gabapentin, lorazepam, temazepam and venlafaxine asthma/copd exacerbation Patient still have some wheeze continue symbicort she does not want to take steroids, says it makes her hyperactive and also eats more continue mucinex She requests home nebulizer admission hyperkalemia Resolved anemia monitor ferrous sulfate lower extremities ulcers arterial doppler was normal Evaluated by podiatry Recommend offloading surgical shoes Also urged strict adherence to her diabetes control measures and also adherence to diabetic foot wear. Hopefully discharge in next 24 hours Admission and Anticipated Discharge Date Admission Date: September 17, 2023 Subjective Patient seen and examined, complains of pain on both feet Review of Systems Review of Systems: All systems reviewed are negative, apart from the ones contained in the history. Physical Exam Physical Exam: The patient is awake, alert and oriented 3, well developed and well nourished, normocephalic and atraumatic, lying in bed and in no acute distress. HEENT--PERRL, EOMI, mucous membranes and oropharynx mildly dry Neck--supple. No JVD. No bruits. Thyroid normal, trachea midline, no adenopathy. Heart--normal S1 and S2. No murmurs, rubs or gallops. Lungs--clear bilaterally, no respiratory distress, no accessory muscle use. Abdomen--normal bowel sounds and soft. Mild epigastric and left sided abdominal pain Extremities--no cyanosis or clubbing. Diabetic foot ulcers Dermatologic--normal skin turgor, normal color, no abnormal lymph nodes, no rash. Neurologic--cranial nerves II through XII grossly intact. Rheumatologic--normal range of motion. Psychiatric--normal affect. Results & Data Results & Data Vital Signs (Past 12 Hours) Vital Signs Temp Pulse Pulse Resp BP BP Pulse Ox 09/21/23 11:51 97.7 F 61 18 159/77 H 99 09/21/23 07:44 97.3 F L 55 L 18 144/77 H 98 09/21/23 07:18 63 18 98 09/21/23 07:15 66 09/21/23 03:52 97.3 F L 63 20 119/75 100 O2 Del Method 09/21/23 11:51 Room Air 09/21/23 07:44 Room Air 09/21/23 07:18 Room Air 09/21/23 07:15 09/21/23 03:52 Room Air PG Care Time/CCT Total # of Minutes Spent Total Time Spent with Patient: Total time spent is greater than 50% in coordination of care (as documented) at patient's floor/unit and/or counseling patient: Coding Level of Care Code 65714 SUB INP/OBS CARE 2/35MIN Diagnoses Hyperglycemia due to type 2 diabetes mellitus E11.65 Atrial fibrillation I48.91 HTN (hypertension) I10 Hypomagnesemia E83.42 Hypercholesterolemia E78.00 Asthma J45.909 Hypothyroidism E03.9 Dental infection K04.7 Depression with anxiety F41.8 Time Spent (min) 35
[2023-09-22 05:07] VITALS: TEMP 97.5
[2023-09-22 05:55] VITALS: RESP 18
[2023-09-22 07:43] VITALS: O2SAT 97
[2023-09-22 10:31] VITALS: BP 145/83; PULSE 65
--- NOTE | 2023-09-22 12:28 | Discharge Summary ---
Date of Service September 22, 2023 Admission HPI Per Admitting Provider The patient is a 63-year-old female with a past medical history including atrial fibrillation, diabetic foot ulcer, hypertension, hypercholesterolemia, hypothyroidism, diabetes mellitus, asthma and depression with anxiety. The patient reports that she had a steroid injection in her hip earlier in the day, and later received a call that her blood sugar was elevated to around 315. She continues to check her sugars, and they continue to gradually increase up to around 450, and this prompted her to come to the ED for assessment. She also reports that the last time she had atrial fibrillation was prior to her Watchman procedure in either late September or early October 2022. She had initially been on Eliquis, and then was changed to Plavix, and most recently has been on aspirin. From the emergency department patient received regular insulin 8 units IV, then 6 units IV, and glucose had decreased to 290. Significant other laboratories: Hemoglobin 12.3, hematocrit 36.0, sodium 132, glucose 469 and magnesium 1.3. From the ED patient received the following: DuoNeb treatment, magnesium sulfate 2 g IV, regular insulin 8 units IV and then regular insulin 6 units IV. She reports also that she has been taking amoxicillin for a dental infection, and is on day 2 of 5 Principal Diagnosis Hyperglycemia, atrial fibrillation Discharge Exam The patient is awake, alert and oriented 3, well developed and well nourished, normocephalic and atraumatic, lying in bed and in no acute distress. HEENT--PERRL, EOMI, mucous membranes and oropharynx mildly dry Neck--supple. No JVD. No bruits. Thyroid normal, trachea midline, no adenopathy. Heart--normal S1 and S2. No murmurs, rubs or gallops. Lungs--clear bilaterally, no respiratory distress, no accessory muscle use. Abdomen--normal bowel sounds and soft. Mild epigastric and left sided abdominal pain Extremities--no cyanosis or clubbing. Diabetic foot ulcers Dermatologic--normal skin turgor, normal color, no abnormal lymph nodes, no rash. Neurologic--cranial nerves II through XII grossly intact. Rheumatologic--normal range of motion. Psychiatric--normal affect. Discharge Data Allergies Allergy/AdvReac Type Severity Reaction Status Date / Time tuberculin,PPD,multi-puncture Allergy Severe EXTREME Verified 09/17/23 00:13 SWELLING AT SITE acetaminophen [From Tylenol] AdvReac Severe DUE TO Verified 09/17/23 00:14 LIVER ISSUES-CONTRAINDICATED azithromycin [From Zithromax] AdvReac Severe manic Verified 09/17/23 00:13 buspirone [From BuSpar] AdvReac Intermediate anxious Verified 09/17/23 00:13 NSAIDS (Non-Steroidal AdvReac Unknown HX OF A GI Verified 09/17/23 00:13 Anti-Inflamma BLEED/NOT TO TAKE. Consultations 09/17/23 03:04 ED Decision to Admit Stat 09/17/23 05:28 Consult Cardiology Routine 09/20/23 10:25 Consult Podiatry Routine Ordered Studies 09/19/23 15:15 US arterial duplex LE Routine Hospital Course (1) Hyperglycemia due to type 2 diabetes mellitus: stable , continue current treatment (2) Atrial fibrillation: converted to sinus rhythm continue current meds (3) HTN (hypertension): stable , continue current meds (4) Hypomagnesemia: resolved (5) Hypercholesterolemia: continue current meds (6) Asthma: exacerbation start Symbicort, continue nebs (7) Hypothyroidism: continue synthroid (8) Dental infection: continue amoxicillin (9) Depression with anxiety: continue home meds Plan Hyperglycemia status post steroid hip injection/associated diabetes mellitus type 2- Patient received regular insulin 8 units IV, followed by regular insulin 6 units IV with the following glucose change: [phone] Hold linagliptin NSS + KCl 20 mill equivalents at 100 mL/h Placed on Accu-Cheks with NovoLog SSI Blood glucose now under better control Continue insulin glargine 20 units daily and also insulin sliding scale Patient urged to make appointment to set up with program advisor Atrial fibrillation with controlled ventricular response/status post Watchman procedure approximately 2-2022/hypertension-- The patient will be admitted to telemetry for serial cardiac enzymes, serial EKG's, cardiac rhythm monitoring and a 2-D echocardiogram with Dopplers. Initial troponin 5.0 Continue sotalol 120 mg p.o. every 12 hours, aspirin 81 mg daily and lisinopril 10 mg daily Hold anticoagulation at this time, since it is now 4:00 AM, and will defer to cardiology consult. Of note, patient had been on Eliquis pre and post Watchman procedure, and was then changed to clopidogrel, and then changed to aspirin Lopressor 5 mg IV every 4 hours as needed for heart rate greater than 110 IV fluids as above Correct magnesium Hypomagnesemia- Now resolved Dental infection- Continue amoxicillin 500 mg p.o. 3 times daily, patient may use own Peripheral neuropathy- Continue tramadol, and gabapentin Depression with anxiety- Continue gabapentin, lorazepam, temazepam and venlafaxine asthma/copd exacerbation Patient still have some wheeze continue symbicort she does not want to take steroids, says it makes her hyperactive and also eats more continue mucinex She requests home nebulizer admission hyperkalemia Resolved anemia monitor ferrous sulfate lower extremities ulcers arterial doppler was normal Evaluated by podiatry Recommend offloading surgical shoes Also urged strict adherence to her diabetes control measures and also adherence to diabetic foot wear. Hopefully discharge in next 24 hours Total Time Total Time Spent Total Time Spent (In Minutes): 35 Discharge Plan Discharge Items Patient Disposition: Home - Self-Care Reason For Visit: ATRIAL FIB WITH CHEST PAIN Discharge Diagnosis: diabetes, afib Activity: Resume your previous activity Non-emergency contact: Primary Care Provider and Showroom Executive Director Call non-emergency contact if: you have any medication questions Follow-up/Referrals: Leigh Ann Justin [Primary Care Provider] - 09/29/23 7:05 am Diet: Regular Addtl Attending Provider Instructions: Please make appointment to see Commercial Illustrator Dr Trell Sequeira and also follow up with diabetes foot clinic Pending Studies at Discharge: No Stand-Alone Forms: My [facility], Smoking Cessation Medications and DC Order Prescriptions: New metoprolol succinate 25 mg Tablet Extended Release 24 Hr 25 mg PO QAM 30 Days Qty: 30 0RF oxycodone 5 mg Tablet 5 mg PO Q4H PRN (Reason: pain) Qty: 10 0RF Eliquis 5 mg Tablet 5 mg PO BID 30 Days Qty: 60 0RF Continued Tradjenta 5 mg tablet 5 mg PO DAILY Qty: 30 2RF levothyroxine 150 mcg tablet 150 mcg PO DAILY montelukast 10 mg tablet 10 mg PO HS budesonide-formoterol [Symbicort] 160-4.5 mcg/actuation HFA aerosol inhaler 2 puff inhalation BID albuterol sulfate [Ventolin HFA] 90 mcg/actuation HFA aerosol inhaler 2 puff inhalation Q6H PRN (Reason: Shortness Of Breath Or Wheezing) atorvastatin 40 mg tablet 40 mg PO DAILY cholecalciferol (vitamin D3) 10 mcg (400 unit) capsule 0 mcg PO DAILY Rx Instructions: PT UNSURE OF STRENGTH mecobalamin (vitamin B12) 1,000 mcg tablet,chewable 1,000 mcg PO DAILY hirebiwbnleu-lrukjhyy-mrzkdb Tablet 1 tab PO DAILY amoxicillin 500 mg capsule 500 mg PO TID Rx Instructions: STARTED 09/14/23 FOR 7 DAYS venlafaxine 75 mg capsule,extended release 24hr 75 mg PO DAILY aspirin 81 mg tablet,delayed release (DR/EC) 81 mg PO DAILY tramadol 50 mg tablet 50 mg PO TID PRN (Reason: Pain) sotalol 120 mg tablet 120 mg PO Q12 magnesium oxide 400 mg (241.3 mg magnesium) tablet 400 mg PO DAILY lorazepam 0.5 mg tablet 0.5 mg PO BID PRN (Reason: Anxiety) gabapentin 800 mg tablet 800 mg PO TID temazepam 30 mg capsule 30 mg PO HS PRN (Reason: NEEDED) pantoprazole 40 mg tablet,delayed release (DR/EC) 40 mg PO DAILY lisinopril 10 mg tablet 10 mg PO DAILY mirtazapine 7.5 mg tablet 7.5 mg PO HS chlorhexidine gluconate 0.12 % mouthwash 10 ml mucous membrane BID potassium chloride 20 mEq tablet extended release 20 meq PO DAILY Discharge Orders: Discharge Order (Routine); Ordered 09/22/23 Ordered By: Kolby Lindo Admission Data Admit Date/Time: 09/17/23 03:57 Attending Provider: Kolby Lindo Admit Provider: Reginald Guerra Primary Care Provider: Leigh Ann Justin Other Providers: Reginald Guerra; Jean Marie Hay; Murray Dean Other Interventions: Discharge Summary Assessment (RN) Last Done: 09/22/23 10:29 Coding Level of Care Code 90853 INP/OBS DISCH >30 MIN Diagnoses Hyperglycemia due to type 2 diabetes mellitus E11.65 Atrial fibrillation I48.91 HTN (hypertension) I10 Hypomagnesemia E83.42 Hypercholesterolemia E78.00 Asthma J45.909 Hypothyroidism E03.9 Dental infection K04.7 Depression with anxiety F41.8 Time Spent (min) 35
== END 2023-09-22 12:25 | disposition home or self-care (01) | DRG 638 ==
LOC: ED 22:31 → SUATTDRO 09-17 03:57 → 2S 09-17 03:57
DX: J45.901 Unspecified asthma with (acute) exacerbation; T38.0X5A Adverse effect of glucocorticoids and synthetic analogues, initial encounter; E03.9 Hypothyroidism, unspecified; Z88.6 Allergy status to analgesic agent; Z95.828 Presence of other vascular implants and grafts; E11.42 Type 2 diabetes mellitus with diabetic polyneuropathy; E11.621 Type 2 diabetes mellitus with foot ulcer; Z83.3 Family history of diabetes mellitus; E11.65 Type 2 diabetes mellitus with hyperglycemia; Z79.890 Hormone replacement therapy; Z88.7 Allergy status to serum and vaccine; E87.5 Hyperkalemia; Z87.891 Personal history of nicotine dependence; I48.91 Unspecified atrial fibrillation; Z88.1 Allergy status to other antibiotic agents; E83.42 Hypomagnesemia; K04.7 Periapical abscess without sinus; Y92.019 Unspecified place in single-family (private) house as the place of occurrence of the external cause

== ENCOUNTER 2023-09-25 15:12 | Observation (INO) ==
--- OUTSIDE RECORDS SUMMARY | 2023-09-25 15:18 | External Medical Summary | Summary of Care ---
Author Name Unknown Organization [facility] Address [address] [place] [address] Phone [phone] Care Team Providers Care Chemistry Department Chair Name Role Phone Leigh Ann Justin Primary Care Provider [phone] Reason for Visit * Reason Onset Date Comments FYI 09/24/2023 Encounter Details Date Type Department Care Team (Late st Contact Info) Description 09/24/2023 Telephone Interventional Pain Center, [facility] [address] [place] [address] Rafael Pollard MD [address] [place] [address] FYI Allergies Active Allergy Reactions Criticality Noted Date Comments Buspirone 07/20/2018 Nsaids 06/26/2019 GI bleed Tuberculin Tests 09/01/2018 Acetaminophen 07/20/2018 Azithromycin 07/20/2018 documented as of this encounter (statuses as of 09/24/2023) Medications Medication Sig Dispensed Refills Start Date [...] as of this encounter (statuses as of 09/24/2023) Active Problems Problem Noted Date Diagnosed Date [...] as of this encounter (statuses as of 09/24/2023) Immunizations Name Administration Dates Next Due COVID-19 [...] Used Date Smoking Tobacco: Every Day Cigarettes Smokeless Tobacco: Never Alcohol Use Standard Drinks/Week [...] encounter Miscellaneous Notes * Telephone Encounter - Rafael Pollard MD - 09/24/2023 1:39 PM EST That is inaccurate. I always inform patients that steroid injections can increase their blood sugarboth during the office visit and during the consent process. Her blood glucose was also checked by the nurses and documented prior to proceeding with injection. I do not perform injections on patients with a blood glucose greater than 250 mg/dL. I cannot predict how patient's blood glucose will respond to steroids. However, if she wishes not to follow up that is her decision. Rafael Pollard MD Interventional Pain Physician [facility] Anesthesiology [facility] * Telephone Encounter - Elsa Hoffmann MA - 09/24/2023 1:18 PM EST Noted Will forward to Dr. Pollard * Telephone Encounter - Jack Martini OSA - 09/24/2023 12:48 PM EST Pt, Arabella, called in today to cancel her next injection appointment. Pt states that Dr. Pollard had told her that the injection would not affect her blood sugar levels. Pt states that she ended up in the ER with a blood sugar level over 500 and does not wish to be seen with Enrique ledesma again. documented in this encounter Plan of Treatment Scheduled Procedures Name Priority Associated Diagnoses Date/Ti me COLONOSCOPY FLEXIBLE PROXIMA L DIAGNOSTIC Recall History of colonic polyps Health Maintenance Due Date Last Done Comments DISCUSS TOBACCO CESSATION (REFER TO SMARTSET #[id number]) 1959 Diabetic Eye Exam 1977 DTaP,Tdap,and Td Vaccines (1 - Tdap) 1978 Pap Smear 1980 Cervical Cancer Screening 1989 HPV/Co-Test 1989 Mammogram 1999 Pneumococcal Vaccine: Pediatrics (0 to 5 Years) and At-Risk Patients (6 to 64 Years) (2 of 2 - PPSV23 or PCV20) 02/20/2016 12/26/2015 Albumin/Creatinine [...] the patient have Health Care Power of Social Media Executive? No Code Status History Code Status Date [...] Advance Directives occurred with: Patient Care Teams Chemistry Department Chair Relationship Specialty Start Date End Date Leigh Ann Justin CRNP [address] [place] [address] PCP - General Nurse Practitioner 04/13/23 documented as of this encounter
--- OUTSIDE RECORDS SUMMARY | 2023-09-25 15:18 | External Medical Summary | Summary of Care ---
Author Name Unknown Organization [facility] Address [address] [place] [address] Phone [phone] Care Team Providers Care Warehouse Foreman Name Role Phone Leigh Ann Justin Primary Care Provider [phone] Reason for Visit * Reason Onset Date Comments FYI 09/24/2023 Encounter Details Date Type Department Care Team (Late st Contact Info) Description 09/24/2023 Telephone Interventional Pain Center, [facility] [address] [place] [address] Rafael Pollard MD [address] [place] [address] FYI Allergies Active Allergy Reactions [...] decision. Rafael Pollard MD Interventional Pain Physician [facility] Anesthesiology [facility] * Telephone Encounter - Elsa Hoffmann MA [...] Comments DISCUSS TOBACCO CESSATION (REFER TO SMARTSET #[id number]) 1959 Diabetic Eye Exam 1977 DTaP,Tdap,and Td [...] the patient have Health Care Power of Enrollment Services Dean? No Code Status History Code Status Date [...] Advance Directives occurred with: Patient Care Teams Warehouse Foreman Relationship Specialty Start Date End Date Leigh Ann Justin CRNP [address] [place] [address] PCP - General Nurse Practitioner 04/13/23 documented as of this encounter
--- NOTE | 2023-09-25 15:55 | XRay Report ---
XR chest 1V portable HISTORY: 63 years-old Female Chest pain, nonspecific acute chest pain COMPARISON: 09/16/2023 TECHNIQUE: AP view of the chest FINDINGS: Cardiomediastinal and hilar silhouettes are within normal limits. No pneumothorax, pleural effusion o r airspace consolidation. The bones appear grossly intact. IMPRESSION: No acute process. ACT 112: Negative or not required by law. The above report was generated using voice recognition software. It may contain grammatical, syntax o r spelling errors. Electronically signed by: Aditya Curran M.D. 09/25/2023 3:54 PM
--- NOTE | 2023-09-25 16:06 | Emergency Department Note ---
Impression & Plan COPD (chronic obstructive pulmonary disease), Atrial fibrillation, Elevated brain natriuretic peptide (BNP) level, Pericardial effusion, Chest pain, Dyspnea on minimal exertion ED Provider Note NAME: MILO FORD AGE: 63 SEX: F ARRIVES VIA: Walk-In INFORMANT: Patient ED PROVIDER(S): Clifton Gurrola MD CHIEF COMPLAINT: Chest pain/tightness, atrial fibrillation PLAN: Disposition: Admit MEDICAL DECISION MAKING: The patient is a pleasant 63-year-old woman with a past medical history of COPD, asthma, paroxysmal atrial fibrillation h/o ablation and watchman now on Eliquis presents to the emergency department for evaluation of substernal/anterior chest pain and tightness since this morning which is reminiscent of when she is in atrial fibrillation in setting of being admitted at this facility recently for recurrence of atrial fibrillation after being without episodes of A-fib for the past year following ablation and then Watchman procedure. She reports she was started on metoprolol in addition to her sotalol following her admission and had subsequently cardioverted spontaneously. Otherwise she reports she has been having ongoing cough and congestion over the past week which had started even before hospitalization and continued afterwards. She reports she has not been using her albuterol but has been using ipratropium which had been prescribed prior to hospitalization and also administered during her hospital stay. She denies any fevers, GI or symptoms. The patient did have an echocardiogram on her last admission (09/17) which demonstrated normal left ventricular systolic function, normal right ventricular size and function. There was mildly elevated right ventricular systolic pressure of 30-40mmHg. On my evaluation the patient is fatigued appearing but no acute distress, afebrile with heart rate in the 90s-110s in atrial fibrillation and blood pressure 150s/80s and vital signs otherwise stable. O2 saturation 96% on room air. She appears clinically dry. BLE with scant mottling and no edema. She has wheezes of bilateral lower lung mark. EKG demonstrates atrial fibrillation in the 90s without overt acute ischemia. Chest x-ray negative for acute cardiopulmonary process. WBC, H/H and platelets within normal limits. Chemistry without metabolic acidosis. Magnesium 1.4 with IV repletion provided. Electrolytes unremarkable. High-sensitivity troponin 5.1, within normal limits. BNP is 446, nonspecific without prior for comparison in the setting of the patient's atrial fibrillation. Lipase not elevated. TSH 0.085 with free T4 within normal limits. UA without evidence of infection. Respiratory BioFire was negative. Upon evaluation the patient did have improved air movement though still with persistent bilateral wheezes. She reported no significant improvement however in her anterior chest tightness which has been constant since this morning. Thus, we could proceed with CTA imaging. CTA of the chest was negative for PE pneumonia or acute aortic pathology. However note is made of trace pericardial effusion which was not present on her echocardiogram last week. A second Xopenex nebulizer treatment was provided but the patient denied any improvement following this as well. She continued to feel significant short of breath from her baseline with minimal exertion. The patient denies any acute increase in chest pressure or pain when lying supine and so pericarditis is considered less likely at this time. Given the patient's mildly elevated pulmonary pressures on her prior echocardiogram with elevated BNP today, the possibility of mild hypervolemia is considered though initial impression was that the patient appeared slightly dry. Trial of 20mg dose of IV Lasix was administered. The patient agrees with plan for admission for further management. Case was discussed with HUNTER Johnson hospitalist, who will evaluate the patient for admission. Triage Nursing notes reviewed and agree them. Prior/external medical records reviewed Vital Signs: reviewed Differential diagnosis: Cardiac ischemia, aortic dissection, pulmonary embolism, pneumothorax, pneumonia, pericarditis, myocarditis, esophageal rupture, GERD, cholecystitis, pancreatitis, musculoskeletal, as well as other pathologies. ER treatment provided: See below. Diagnostics interpreted by me: ECG: Atrial fibrillation, 99 bpm, no ectopy, non-specific ST abnormality, no overt ST elevation or depression. Cardiac Monitoring: An order for continuous cardiac monitoring was placed and demonstrated Atrial fibrillation, 99 bpm, no ectopy. Laboratory studies: See below Imaging studies: See below Consultation(s): HUNTER Johnson hospitalist. HPI: The patient is a pleasant 63-year-old woman with a past medical history of COPD, asthma, paroxysmal atrial fibrillation presents to the emergency department for evaluation of substernal/anterior chest pain and tightness since this morning which is reminiscent of when she is in atrial fibrillation in setting of being admitted at this facility recently for recurrence of atrial fibrillation after being without episodes of A-fib for the past year following ablation and then Watchman procedure. She reports she was started on metoprolol in addition to her sotalol following her admission and had subsequently cardioverted spontaneously. Otherwise she reports she has been having ongoing cough and congestion over the past week which had started even before hospitalization and continued afterwards. She reports she has not been using her albuterol but has been using ipratropium which had been prescribed prior to hospitalization and also administered during her hospital stay. She denies any fevers, GI or symptoms. ROS: See above HPI for pertinent positives & negatives. A total of 10 systems reviewed and were otherwise negative. VITALS:See Below PHYSICAL EXAMINATION: GENERAL: Awake, alert, in no distress HENT: Normocephalic, atraumatic. Oropharynx with dry mucous membranes and otherwise unremarkable. EYES: Normal conjunctiva. Sclera non-icteric. NECK: Supple. No nuchal rigidity. FROM. No JVD. RESPIRATORY: Wheezes of bilateral lower lung mark. Mildly dyspneic but no acute distress. CARDIAC: Regular rate, irregular rhythm. Extremities warm and well perfused. Pulses equal. ABDOMEN: Soft, non-distended. No tenderness to palpation. No rebound or guarding. No masses. RECTAL: Deferred. MUSCULOSKELETAL: Chest examination reveals no tenderness. The back is symmetrical on inspection without obvious abnormality. There is no CVA tenderness to palpation. No joint edema. LOWER EXTREMITIES: Calves are equal size bilaterally and non-tender. No edema. Scant mottling. NEURO: Normal sensorium. No sensory or motor deficits noted. SKIN: No rash or jaundice noted. Clifton Gurrola MD Past Med/Surg History Medical History COPD (chronic obstructive pulmonary disease) Atrial fibrillation Hypercholesterolemia Benign essential hypertension Diabetes mellitus Left knee pain Acute kidney injury Surgical History S/P ORIF (open reduction internal fixation) fracture H/O LEEP History of tonsillectomy and adenoidectomy Family History Mother Diabetes Hypertension Colorectal cancer Myelodysplasia (myelodysplastic syndrome) Father Heart disease Hypertension Brother Hypertension Brother Schizo affective schizophrenia Brother Suicide Social History Smoking Status: Never smoker Tobacco Type: Cigarettes Age Started Using Tobacco: 59; packs per day: 0.75; Cigarettes Per Day: 2; Second Hand Exposure: No; Do You Dip or Chew Tobacco: No; Hx Alcohol Use: Yes Alcohol type: beer and wine Hx Substance Use: No Preferred Language: Afghan Communication Ability: Effective Hearing Ability: Normal Financial Dealers Required: No Beliefs That Will Affect Care: None marital status: Current Living Situation: Alone current occupational status: disabled How many Children do You have: 2 Feels Safe at Home: Yes Childhood Exposure to Second-Hand Smoke: Yes Seatbelt Use: always Sunscreen Use: Yes Assistive Devices: Cane Allergies Allergies Allergy/AdvReac Type Severity Reaction Status Date / Time tuberculin,PPD,multi-puncture Allergy Severe EXTREME Verified 09/25/23 19:08 SWELLING AT SITE acetaminophen [From Tylenol] AdvReac Severe DUE TO Verified 09/25/23 19:08 LIVER ISSUES-CONTRAINDICATED azithromycin [From Zithromax] AdvReac Severe manic Verified 09/25/23 19:08 buspirone [From BuSpar] AdvReac Intermediate anxious Verified 09/25/23 19:08 NSAIDS (Non-Steroidal AdvReac Unknown HX OF A GI Verified 09/17/23 00:13 Anti-Inflamma BLEED/NOT TO TAKE. Home Meds Home Medications Medication Instructions Recorded Confirmed albuterol sulfate 90 mcg/actuation 2 puff inhalation Q6H PRN 03/27/20 09/25/23 aerosol inhaler (Ventolin HFA) Shortness Of Breath Or Wheezing budesonide-formoterol HFA 160 2 puff inhalation BID 03/27/20 09/25/23 mcg-4.5 mcg/actuation aerosol inhaler (Symbicort) levothyroxine 150 mcg tablet 150 mcg PO DAILY 03/27/20 09/25/23 montelukast 10 mg tablet 10 mg PO HS 03/27/20 09/25/23 atorvastatin 40 mg tablet 40 mg PO QPM 10/07/22 09/25/23 cholecalciferol (vitamin D3) 10 0 mcg PO DAILY 10/07/22 09/25/23 mcg (400 unit) capsule mecobalamin (vitamin B12) 1,000 1,000 mcg PO DAILY 10/07/22 09/25/23 mcg chewable tablet [id number]-jkjzuttw-prluxi tablet 1 tab PO DAILY 10/07/22 09/25/23 gabapentin 800 mg tablet 800 mg PO TID 09/17/23 09/25/23 lisinopril 10 mg tablet 10 mg PO DAILY 09/17/23 09/25/23 lorazepam 0.5 mg tablet 0.5 mg PO BID PRN Anxiety 09/17/23 09/25/23 magnesium oxide 400 mg (241.3 mg 400 mg PO DAILY 09/17/23 09/25/23 magnesium) tablet mirtazapine 7.5 mg tablet 7.5 mg PO HS 09/17/23 09/25/23 pantoprazole 40 mg tablet,delayed 40 mg PO DAILY 09/17/23 09/25/23 release potassium chloride 20 mEq 20 meq PO DAILY 09/17/23 09/25/23 tablet,extended release sotalol 120 mg tablet 120 mg PO Q12 09/17/23 09/25/23 temazepam 30 mg capsule 30 mg PO HS PRN NEEDED 09/17/23 09/25/23 tramadol 50 mg tablet 50 mg PO TID PRN Pain 09/17/23 09/25/23 venlafaxine 75 mg capsule,extended 75 mg PO DAILY 09/17/23 09/25/23 release 24 hr Previous Rx's Medication Instructions Recorded linagliptin 5 mg tablet (Tradjenta) 5 mg PO DAILY #30 tabs 04/30/20 apixaban 5 mg tablet (Eliquis) 5 mg PO BID 30 days #60 tabs 09/22/23 metoprolol succinate 25 mg 25 mg PO QAM 30 days #30 tabs 09/22/23 tablet,extended release 24 hr oxycodone 5 mg tablet 5 mg PO Q4H PRN pain #10 tabs 09/22/23 Results & Data (ED) Vital Signs Vital Signs - 24 hr 09/25/23 15:17 09/25/23 15:52 09/25/23 15:52 Temperature 36.6 C Temperature Source Temporal Artery Scan Pulse Rate 98 H Pulse Rate [Apical] 114 H Pulse Rate from SpO2 Sensor Pulse Rhythm Irregular Pulse Rhythm [Apical] Regular Pulse Strength [Apical] Normal Respiratory Rate 20 20 Respiratory Effort / Characteristics Non-Labored Non-Labored Spontaneous Respiratory Depth Normal Normal Respiratory Pattern Regular Blood Pressure 148/79 H Blood Pressure [Right Arm] 153/88 H Blood Pressure Mean 102 Blood Pressure Mean [Right Arm] 109 Blood Pressure Position [Right Arm] Semi-fowlers Pulse Oximetry 97 98 98 Oxygen Delivery Method Room Air Room Air Room Air Sepsis Recent Fever Within 48 Hours No Sepsis New/Unexplained Change in Mental Status No Sepsis Action Taken by Nursing No Action Required 09/25/23 15:52 09/25/23 16:23 09/25/23 16:25 Temperature Temperature Source Pulse Rate 88 91 H Pulse Rate [Apical] Pulse Rate from SpO2 Sensor 88 Pulse Rhythm Pulse Rhythm [Apical] Pulse Strength [Apical] Respiratory Rate 17 Respiratory Effort / Characteristics Respiratory Depth Respiratory Pattern Blood Pressure 135/81 Blood Pressure [Right Arm] Blood Pressure Mean 99 Blood Pressure Mean [Right Arm] Blood Pressure Position [Right Arm] Pulse Oximetry 96 97 Oxygen Delivery Method Room Air Room Air Sepsis Recent Fever Within 48 Hours Sepsis New/Unexplained Change in Mental Status Sepsis Action Taken by Nursing Laboratory Data Attestation: I reviewed the patient's lab results. 09/25/23 15:39 09/25/23 15:38 Lab Results 09/25/23 09/25/23 09/25/23 Range/Units 15:38 15:39 16:20 WBC 9.29 (4.8-10.8) K/ul RBC 3.89 L (4.20-5.40) M/uL Hgb 12.6 (12.0-16.0) g/dl Hct 38.4 (37.0-47.0) % MCV 98.7 (80.0-100.0) fL MCH 32.4 (25.0-34.0) pg MCHC 32.8 (32.0-36.0) g/dL RDW Std Deviation 50.9 H (36.4-46.3) fL RDW Coeff of [place]ivid[place] 14.1 (11.5-14.5) % Plt Count 233 (130-400) K/uL MPV 10.5 (9.4-12.4) fL Immature Gran % (Auto) 0.3 % Neut % (Auto) 69.7 % Lymph % (Auto) 23.4 % Gentry % (Auto) 5.8 % Eos % (Auto) 0.4 % Baso % (Auto) 0.4 % Neut # (Auto) 6.47 (1.40-6.50) K/uL Lymph # (Auto) 2.17 (1.20-3.40) K/uL Gentry # (Auto) 0.54 (0.11-0.59) K/uL Eos # (Auto) 0.04 (0.00-0.50) K/uL Baso # (Auto) 0.04 (0.00-0.20) K/uL Immature Gran # (Auto) 0.03 (0.01-0.20) K/uL Platelet Estimate Normal (Normal) RBC Morphology Unremarkable PT Cancelled INR Cancelled Sodium 138 (136-145) mmol/L Potassium 3.6 (3.5-5.1) mmol/L Chloride 104 (98-107) mmol/L Carbon Dioxide 23 (21-32) mmol/L Anion Gap 11 (3-11) BUN 20 (6-23) mg/dl Creatinine 0.73 (0.6-1.2) mg/dl Est Cr Clr Drug Dosing 76.9 ml/min Est GFR ( Amer) 100.9 ml/min Est GFR (Non-Af Amer) 87.0 ml/min BUN/Creatinine Ratio 27.4 H (10-20) Glucose 224 H (70-99(Fasting)) mg/dl Calcium 9.8 (8.6-10.3) mg/dl Phosphorus 3.0 (2.5-4.9) mg/dl Magnesium 1.4 L (1.7-2.4) mg/dl Total Bilirubin 0.7 (0.2-1.0) mg/dl AST 26 (13-39) U/L ALT 32 (7-52) U/L Alkaline Phosphatase 129 H (34-104) U/L Troponin I High Sens 5.1 (0-14) pg/ml B-Natriuretic Peptide (0-100) pg/ml Total Protein 8.6 H (6.0-8.3) gm/dl Albumin 4.4 (3.4-5.0) gm/dl Globulin 4.2 H (2.5-4.0) gm/dl Albumin/Globulin Ratio 1.0 (0.9-2) Lipase 19 (11-82) U/L TSH 0.085 L (0.300-4.500) uIu/ml Free T4 1.00 (0.61-1.60) ng/dl Urine Color Yellow Urine Appearance Clear (Clear) Urine pH 5.5 (4.5-7.5) Ur Specific [place] 1.013 (1.000-1.030) Urine Protein Negative (Negative) Urine Glucose (UA) Negative (Negative) Urine Ketones Negative (Negative) Urine Blood Negative (Negative) Urine Nitrite Negative (Negative) Urine Bilirubin Negative (Negative) Urine Urobilinogen Negative (Negative) Ur Leukocyte Esterase Negative (Negative) Adenovirus (PCR) Not Detected (NotDetected) B. pertussis DNA (PCR) Not Detected (NotDetected) B.parapertussis DNA PCR Not Detected (NotDetected) C. pneumoniae DNA (PCR) Not Detected (NotDetected) Coronavirus OC43 (PCR) Not Detected (NotDetected) Coronavirus HKU1 (PCR) Not Detected (NotDetected) Coronavirus 229E (PCR) Not Detected (NotDetected) SARS-CoV-2 (PCR) Not Detected (NotDetected) Coronavirus NL63 (PCR) Not Detected (NotDetected) Human Metapneumovir PCR Not Detected (NotDetected) Influenza Type A (PCR) Not Detected (NotDetected) Influenza Type B (PCR) Not Detected (NotDetected) M. pneumoniae (PCR) Not Detected (NotDetected) Parainfluenza 1 (PCR) Not Detected (NotDetected) Parainfluenza 2 (PCR) Not Detected (NotDetected) Parainfluenza 3 (PCR) Not Detected (NotDetected) Parainfluenza 4 (PCR) Not Detected (NotDetected) RSV (PCR) Not Detected (NotDetected) Entero/Rhino (PCR) Not Detected (NotDetected) 09/25/23 09/25/23 Range/Units 16:30 Unknown WBC (4.8-10.8) K/ul RBC (4.20-5.40) M/uL Hgb (12.0-16.0) g/dl Hct (37.0-47.0) % MCV (80.0-100.0) fL MCH (25.0-34.0) pg MCHC (32.0-36.0) g/dL RDW Std Deviation (36.4-46.3) fL RDW Coeff of Natividad (11.5-14.5) % Plt Count (130-400) K/uL MPV (9.4-12.4) fL Immature Gran % (Auto) % Neut % (Auto) % Lymph % (Auto) % [place] % (Auto) % Eos % (Auto) % Baso % (Auto) % Neut # (Auto) (1.40-6.50) K/uL Lymph # (Auto) (1.20-3.40) K/uL [place] # (Auto) (0.11-0.59) K/uL Eos # (Auto) (0.00-0.50) K/uL Baso # (Auto) (0.00-0.20) K/uL Immature Gran # (Auto) (0.01-0.20) K/uL Platelet Estimate (Normal) RBC Morphology PT 12.1 H INR 1.1 Sodium (136-145) mmol/L Potassium (3.5-5.1) mmol/L Chloride (98-107) mmol/L Carbon Dioxide (21-32) mmol/L Anion Gap (3-11) BUN (6-23) mg/dl Creatinine (0.6-1.2) mg/dl Est Cr Clr Drug Dosing ml/min Est GFR ( Amer) ml/min Est GFR (Non-Af Amer) ml/min BUN/Creatinine Ratio (10-20) Glucose (70-99(Fasting)) mg/dl Calcium (8.6-10.3) mg/dl Phosphorus (2.5-4.9) mg/dl Magnesium (1.7-2.4) mg/dl Total Bilirubin (0.2-1.0) mg/dl AST (13-39) U/L ALT (7-52) U/L Alkaline Phosphatase (34-104) U/L Troponin I High Sens (0-14) pg/ml B-Natriuretic Peptide 446 H (0-100) pg/ml Total Protein (6.0-8.3) gm/dl Albumin (3.4-5.0) gm/dl Globulin (2.5-4.0) gm/dl Albumin/Globulin Ratio (0.9-2) Lipase (11-82) U/L TSH (0.300-4.500) uIu/ml Free T4 (0.61-1.60) ng/dl Urine Color Urine Appearance (Clear) Urine pH (4.5-7.5) Ur Specific [place] (1.000-1.030) Urine Protein (Negative) Urine Glucose (UA) (Negative) Urine Ketones (Negative) Urine Blood (Negative) Urine Nitrite (Negative) Urine Bilirubin (Negative) Urine Urobilinogen (Negative) Ur Leukocyte Esterase (Negative) Adenovirus (PCR) (NotDetected) B. pertussis DNA (PCR) (NotDetected) B.parapertussis DNA PCR (NotDetected) C. pneumoniae DNA (PCR) (NotDetected) Coronavirus OC43 (PCR) (NotDetected) Coronavirus HKU1 (PCR) (NotDetected) Coronavirus 229E (PCR) (NotDetected) SARS-CoV-2 (PCR) (NotDetected) Coronavirus NL63 (PCR) (NotDetected) Human Metapneumovir PCR (NotDetected) Influenza Type A (PCR) (NotDetected) Influenza Type B (PCR) (NotDetected) M. pneumoniae (PCR) (NotDetected) Parainfluenza 1 (PCR) (NotDetected) Parainfluenza 2 (PCR) (NotDetected) Parainfluenza 3 (PCR) (NotDetected) Parainfluenza 4 (PCR) (NotDetected) RSV (PCR) (NotDetected) Entero/Rhino (PCR) (NotDetected) Administered Medications Discontinued Medications Guaifenesin (Guaifenesin 600 Mg Tabcr) 1,200 mg PO NOW STA Stop: 09/25/23 15:59 Last Admin: 09/25/23 16:19 Dose: 1,200 mg Documented By: IOANA Sodium Chloride (Nss) 500 mls @ 999 mls/hr IV .Q31M ONE Stop: 09/25/23 16:29 Last Infusion: 09/25/23 16:52 Dose: Infused Documented By: Admin: 09/25/23 16:19 Dose: 999 mls/hr Documented By: IOANA Ioversol (Optiray 320 125ml) 115 ml IV ONCE ONE Stop: 09/25/23 19:30 Last Admin: 09/25/23 19:30 Dose: 115 ml Documented By: EAB Levalbuterol HCl (Levalbuterol Hcl 0.63 Mg/3 Ml Neb) 0.63 mg NEB NOW STA; Protocol Stop: 09/25/23 15:59 Last Admin: 09/25/23 16:19 Dose: 0.63 mg Documented By: IOANA Levalbuterol HCl (Levalbuterol Hcl 0.63 Mg/3 Ml Neb) 0.63 mg NEB NOW STA; Protocol Stop: 09/25/23 19:12 Last Admin: 09/25/23 19:35 Dose: 0.63 mg Documented By: IOANA Methylprednisolone (Methylprednisolone 125 Mg/2 Ml Vial) 60 mg IV NOW STA Stop: 09/25/23 15:59 Last Admin: 09/25/23 16:19 Dose: 60 mg Documented By: IOANA Imaging Data Radiologist's Impression: Chest X-Ray 09/25/23 15:29 XR chest 1V portable HISTORY: 63 years-old Female Chest pain, nonspecific acute chest pain COMPARISON: 09/16/2023 TECHNIQUE: AP view of the chest FINDINGS: Cardiomediastinal and hilar silhouettes are within normal limits. No pneumothorax, pleural effusion or airspace consolidation. The bones appear grossly intact. IMPRESSION: No acute process. ACT 112: Negative or not required by law. The above report was generated using voice recognition software. It may contain grammatical, syntax or spelling errors. Electronically signed by: Aditya Curran M.D. 09/25/2023 3:54 PM Chest CTA 09/25/23 19:09 CT angio chest PE protocol CT DOSE: 795.51 mGy.cm HISTORY: 63 years-old Female with cp, elevated bnp, r/o PE. Acute chest pain TECHNIQUE: Multiple CTA images of the chest were obtained after the intravenous administration of 115 ml Optiray. Coronal and sagittal MIPS were obtained from the axial data set and were submitted for review. All measurements were obtained according to NASCET criteria. A dose lowering technique was utilized adhering to the principles of ALARA. COMPARISON: 08/14/2022 FINDINGS: CTA: Cardiomegaly. Trace pericardial effusion. Left atrial exclusion device. Mild coronary artery calcifications. Unremarkable thoracic aorta. Unremarkable pulmonary artery. No pulmonary emboli identified. CT CHEST: Unremarkable thyroid. Calcified mediastinal and hilar lymph nodes. No pneumothorax, pleural effusion, airspace consolidation or pulmonary edema. Mild nonspecific bronchial wall thickening. There are a few scattered low suspicion solid pulmonary nodules measuring up to approximately 3-4 mm. No acute upper abdominal abnormality. Mild marginal nodularity of the liver redemonstrated, possibly represent early cirrhosis. No acute fracture. Unremarkable soft tissues. Healed chronic bilateral rib fractures. IMPRESSION: Unremarkable CTA of the chest. No pulmonary emboli identified. ACT 112: Negative or not required by law. The above report was generated using voice recognition software. It may contain grammatical, syntax or spelling errors. Electronically signed by: Aditya Curran M.D. 09/25/2023 7:54 PM Discharge Plan Visit Data Chief Complaint: Arrhythmia/Palpitations Stated Complaint: IRREGULAR HEART RATE ED Provider: Clifton Gurrola Discharge Problem: COPD (chronic obstructive pulmonary disease), Atrial fibrillation, Elevated brain natriuretic peptide (BNP) level, Pericardial effusion, Chest pain, Dyspnea on minimal exertion Forms Stand Alone Forms: [employer] Prescriptions Prescriptions: No Action Tradjenta 5 mg tablet 5 mg PO DAILY Qty: 30 2RF levothyroxine 150 mcg tablet 150 mcg PO DAILY montelukast 10 mg tablet 10 mg PO HS budesonide-formoterol [Symbicort] 160-4.5 mcg/actuation HFA aerosol inhaler 2 puff inhalation BID albuterol sulfate [Ventolin HFA] 90 mcg/actuation HFA aerosol inhaler 2 puff inhalation Q6H PRN (Reason: Shortness Of Breath Or Wheezing) atorvastatin 40 mg tablet 40 mg PO QPM cholecalciferol (vitamin D3) 10 mcg (400 unit) capsule 0 mcg PO DAILY Rx Instructions: PT UNSURE OF STRENGTH mecobalamin (vitamin B12) 1,000 mcg tablet,chewable 1,000 mcg PO DAILY [id number] Tablet 1 tab PO DAILY venlafaxine 75 mg capsule,extended release 24hr 75 mg PO DAILY tramadol 50 mg tablet 50 mg PO TID PRN (Reason: Pain) sotalol 120 mg tablet 120 mg PO Q12 magnesium oxide 400 mg (241.3 mg magnesium) tablet 400 mg PO DAILY lorazepam 0.5 mg tablet 0.5 mg PO BID PRN (Reason: Anxiety) gabapentin 800 mg tablet 800 mg PO TID temazepam 30 mg capsule 30 mg PO HS PRN (Reason: NEEDED) pantoprazole 40 mg tablet,delayed release (DR/EC) 40 mg PO DAILY lisinopril 10 mg tablet 10 mg PO DAILY mirtazapine 7.5 mg tablet 7.5 mg PO HS potassium chloride 20 mEq tablet extended release 20 meq PO DAILY metoprolol succinate 25 mg Tablet Extended Release 24 Hr 25 mg PO QAM 30 Days Qty: 30 0RF oxycodone 5 mg Tablet 5 mg PO Q4H PRN (Reason: pain) Qty: 10 0RF Eliquis 5 mg Tablet 5 mg PO BID 30 Days Qty: 60 0RF Referrals Referrals: Leigh Ann Justin [Primary Care Provider] - Discharge Problem: COPD (chronic obstructive pulmonary disease) Qualifiers: COPD type: unspecified COPD Qualified Code(s): J44.9 - Chronic obstructive pulmonary disease, unspecified Atrial fibrillation Qualifiers: Atrial fibrillation type: unspecified Qualified Code(s): I48.91 - Unspecified atrial fibrillation Chest pain Qualifiers: Chest pain type: unspecified Qualified Code(s): R07.9 - Chest pain, unspecified
[2023-09-25 16:10] LABS: Albumin Level 4.4 gm/dl (3.4-5.0); BUN Creatinine Ratio 27.4 (10-20); Bilirubin,Total 0.7 mg/dl (0.2-1.0); Calcium 9.8 mg/dl (8.6-10.3); Creatinine Clr Calc Pharmacy 76.9 ml/min; Est GFR (African American) 100.9 ml/min; Globulin 4.2 gm/dl (2.5-4.0); Magnesium 1.4 mg/dl (1.7-2.4); Potassium 3.6 mmol/L (3.5-5.1); Total Protein 8.6 gm/dl (6.0-8.3)
[2023-09-25 16:17] LABS: Troponin I High Sensitivity 5.1 pg/ml (0-14)
[2023-09-25] MEDS: methylPREDNISolone 125 MG/2 ML VIAL IV STA (16:19)
[2023-09-25] MEDS: guaiFENesin 600 MG TABCR PO STA (16:19)
[2023-09-25] MEDS: SODIUM CHLORIDE 0.9% 500 ML IV ONE (16:19)
[2023-09-25] MEDS: LEVALBUTEROL HCL 0.63 MG/3 ML NEB NEB STA ×2 (16:19→19:35)
[2023-09-25 16:25] LABS: Basophils # (auto) 0.04 K/uL (0.00-0.20); Basophils % (auto) 0.4 %; Eosinophils # (auto) 0.04 K/uL (0.00-0.50); Eosinophils % (auto) 0.4 %; Hematocrit (blood only) 38.4 % (37.0-47.0); Hemoglobin 12.6 g/dl (12.0-16.0); Immature Granulocytes # (auto) 0.03 K/uL (0.01-0.20); Immature Granulocytes % (auto) 0.3 %; Lymphocytes # (auto) 2.17 K/uL (1.20-3.40); Lymphocytes % (auto) 23.4 %; Mean Corpuscular Hemoglobin 32.4 pg (25.0-34.0); Mean Corpuscular Hgb Conc 32.8 g/dL (32.0-36.0); Mean Corpuscular Volume 98.7 fL (80.0-100.0); Mean Platelet Volume 10.5 fL (9.4-12.4); Monocytes # (auto) 0.54 K/uL (0.11-0.59); Monocytes % (auto) 5.8 %; Neutrophils # (auto) 6.47 K/uL (1.40-6.50); Neutrophils % (auto) 69.7 %; Platelet Count 233 K/uL (130-400); Platelet Estimate Normal (Normal); RBC Morphology Unremarkable; RDW Coefficient of Variation 14.1 % (11.5-14.5); RDW Standard Deviation 50.9 fL (36.4-46.3); Red Blood Count 3.89 M/uL (4.20-5.40); White Blood Count 9.29 K/ul (4.8-10.8)
[2023-09-25 16:41] LABS: Appearance Urine Clear (Clear); Bilirubin Urine Negative (Negative); Blood Urine Negative (Negative); Color Urine Yellow; Glucose Urine UA Negative (Negative); Ketones Urine Negative (Negative); Leukocyte Esterase Urine Negative (Negative); Nitrite Urine Negative (Negative); Protein Urine Negative (Negative); Specific Gravity Urine 1.013 (1.000-1.030); Urobilinogen Urine Negative (Negative); pH Urine 5.5 (4.5-7.5)
[2023-09-25 16:41] LABS: Thyroid Stimulating Hormone 0.085 uIu/ml (0.300-4.500)
[2023-09-25 17:16] LABS: INR 1.1 (0.9-1.1); Prothrombin Time 12.1 Seconds (9.0-12.0)
[2023-09-25 17:38] LABS: Adenovirus PCR Not Detected (NotDetected); Bordetella parapertussis PCR Not Detected (NotDetected); Bordetella pertussis PCR Not Detected (NotDetected); Chlamydia pneumoniae PCR Not Detected (NotDetected); Coronavirus 229E PCR Not Detected (NotDetected); Coronavirus CoV-2 (COVID19)PCR Not Detected (NotDetected); Coronavirus HKU1 PCR Not Detected (NotDetected); Coronavirus NL63 PCR Not Detected (NotDetected); Coronavirus OC43PCR Not Detected (NotDetected); Human Metapneumovirus PCR Not Detected (NotDetected); Influenza A PCR Not Detected (NotDetected); Influenza B PCR Not Detected (NotDetected); Mycoplasma pneumoniae PCR Not Detected (NotDetected); Parainfluenza Virus 1 PCR Not Detected (NotDetected); Parainfluenza Virus 2 PCR Not Detected (NotDetected); Parainfluenza Virus 3 PCR Not Detected (NotDetected); Parainfluenza Virus 4 PCR Not Detected (NotDetected); Respiratory Syncytial VirusPCR Not Detected (NotDetected); Rhinovirus/Enterovirus PCR Not Detected (NotDetected)
[2023-09-25] MEDS: OPTIRAY 320 125ml IV ONE (19:30)
--- NOTE | 2023-09-25 19:56 | CT Scan Report ---
CT angio chest PE protocol CT DOSE: 795.51 mGy.cm HISTORY: 63 years-old Female with cp, elevated bnp, r/o PE. Acute chest pain TECHNIQUE: Multiple CTA images of the chest were obtained after the intravenous administration of 115 ml Optiray. Coronal and sagittal MIPS were obtained from the axial data set and were submitted for review. All measurements were obtained according to NASCET criteria. A dose lowering technique was u tilized adhering to the principles of ALARA. COMPARISON: 08/14/2022 FINDINGS: CTA: Cardiomegaly. Trace pericardial effusion. Left atrial exclusion device. Mild coronary artery calcific ations. Unremarkable thoracic aorta. Unremarkable pulmonary artery. No pulmonary emboli identified. CT CHEST: Unremarkable thyroid. Calcified mediastinal and hilar lymph nodes. No pneumothorax, pleural effusion, airspace consolidation or pulmonary edema. Mild nonspecific bronchial wall thickening. There are a f ew scattered low suspicion solid pulmonary nodules measuring up to approximately 3-4 mm. No acute upper abdominal abnormality. Mild marginal nodularity of the liver redemonstrated, possibly represent early cirrhosis. No acute fracture. Unremarkable soft tissues. Healed chronic bilateral rib fractures. IMPRESSION: Unremarkable CTA of the chest. No pulmonary emboli identified. ACT 112: Negative or not required by law. The above report was generated using voice recognition software. It may contain grammatical, syntax o r spelling errors. Electronically signed by: Aditya Curran M.D. 09/25/2023 7:54 PM
--- NOTE | 2023-09-25 20:57 | History & Physical Report ---
Date of Service September 25, 2023 Assessment & Plan (1) Chest pain: Plan: 63yo female presenting with chest discomfort and shortness of breath. EKG with no acute ischemic changes. Troponin x 2 NEGATIVE. -Admit to medical with telemetry -Trend troponin (2) COPD (chronic obstructive pulmonary disease): Plan: Patient with diffuse wheezing and shortness of breath. She has been given nebs and steroids in the ER with improvement -Continue Nebs - Albuterol PRN -Continue Fluticasone/Vilanterol -Patient does not like to be on steroids. Will write for short burst 40mg po daily x 3d -Guaifenesin (3) Atrial fibrillation: Plan: Patient with elevated HR, currently 103bpm -Continue Sotalol 120mg po BID -Continue Metoprolol 25mg po qAM -Continue Apixaban anticoagulation -Electrolyte repletion (4) Foot ulcer due to secondary DM: Plan: Patient with ulcers present on bilateral feet. She has been managing them at home. Pulses diminished but palpable. Likely secondary to diabetes. -Wound care -Continue Gabapentin (5) Diabetes mellitus: Plan: With elevated blood sugar currently following steroid administration -Regular insulin 8u IV -Continue Lantus 5u BID and ISS -Goal blood sugar 110 - 140 (6) Hypercholesterolemia: Plan: Chronic. Stable -Continue Atorvastatin (7) Benign essential hypertension: Plan: Chronic. Elevated blood pressure -Continue home medications - Metoprolol and Lisinopril (8) Hypothyroidism: Plan: Chronic -Continue Synthroid History of Present Illness Chief Complaint: shortness of breath, chest discomfort Primary Care Provider: Leigh Ann Justin Arabella Quick is a 63yo male with history of atrial fibrillation, HTN, HLP, Hypothyroidism, DM and Asthma presenting with chest pain and shortness of breath. Patient was recently admitted to [facility] from 09/17/23 - 09/22/23 after presenting with hyperglylcemia, AF and asthma/COPD exacerbation. She was discharged home in stable condition and reports that she felt fairly well. She woke this morning, however, with sharp substernal chest pain and fullness in her chest. She reports that the sensation occurs when she is in AF. Her discomfort has progressed throughout the day and she also feels that she is more short of breath. She feels tightness in her upper chest and feels like she needs to cough and clear secretions but is unable to do so. No report of fever, chills, abdominal pain, nausea, vomiting, diarrhea or constipation. In the ER she is afebrile, tachycardic at 100bpm, NAD ER Course: Lasix Guaifenesn Xopenex Solumedrol Atorvastatin Apixaban Sotalol Fluticasone/Vilanterol Ativan 0.5mg Allergies Allergy/AdvReac Type Severity Reaction Status Date / Time tuberculin,PPD,multi-puncture Allergy Severe EXTREME Verified 09/25/23 19:08 SWELLING AT SITE acetaminophen [From Tylenol] AdvReac Severe DUE TO Verified 09/25/23 19:08 LIVER ISSUES-CONTRAINDICATED azithromycin [From Zithromax] AdvReac Severe manic Verified 09/25/23 19:08 buspirone [From BuSpar] AdvReac Intermediate anxious Verified 09/25/23 19:08 NSAIDS (Non-Steroidal AdvReac Unknown HX OF A GI Verified 09/17/23 00:13 Anti-Inflamma BLEED/NOT TO TAKE. Home Medications Medication Instructions Recorded Confirmed Type albuterol sulfate 90 mcg/actuation 2 puff inhalation Q6H PRN 03/27/20 09/25/23 History aerosol inhaler (Ventolin HFA) Shortness Of Breath Or Wheezing budesonide-formoterol HFA 160 2 puff inhalation BID 03/27/20 09/25/23 History mcg-4.5 mcg/actuation aerosol inhaler (Symbicort) levothyroxine 150 mcg tablet 150 mcg PO DAILY 03/27/20 09/25/23 History montelukast 10 mg tablet 10 mg PO HS 03/27/20 09/25/23 History linagliptin 5 mg tablet (Tradjenta) 5 mg PO DAILY #30 tabs 04/30/20 09/25/23 Rx atorvastatin 40 mg tablet 40 mg PO QPM 10/07/22 09/25/23 History cholecalciferol (vitamin D3) 10 0 mcg PO DAILY 10/07/22 09/25/23 History mcg (400 unit) capsule mecobalamin (vitamin B12) 1,000 1,000 mcg PO DAILY 10/07/22 09/25/23 History mcg chewable tablet vdxtlfryhnuk-rctjxhjb-rzpmnz tablet 1 tab PO DAILY 10/07/22 09/25/23 History gabapentin 800 mg tablet 800 mg PO TID 09/17/23 09/25/23 History lisinopril 10 mg tablet 10 mg PO DAILY 09/17/23 09/25/23 History lorazepam 0.5 mg tablet 0.5 mg PO BID PRN Anxiety 09/17/23 09/25/23 History magnesium oxide 400 mg (241.3 mg 400 mg PO DAILY 09/17/23 09/25/23 History magnesium) tablet mirtazapine 7.5 mg tablet 7.5 mg PO HS 09/17/23 09/25/23 History pantoprazole 40 mg tablet,delayed 40 mg PO DAILY 09/17/23 09/25/23 History release potassium chloride 20 mEq 20 meq PO DAILY 09/17/23 09/25/23 History tablet,extended release sotalol 120 mg tablet 120 mg PO Q12 09/17/23 09/25/23 History temazepam 30 mg capsule 30 mg PO HS PRN NEEDED 09/17/23 09/25/23 History tramadol 50 mg tablet 50 mg PO TID PRN Pain 09/17/23 09/25/23 History venlafaxine 75 mg capsule,extended 75 mg PO DAILY 09/17/23 09/25/23 History release 24 hr apixaban 5 mg tablet (Eliquis) 5 mg PO BID 30 days #60 tabs 09/22/23 09/25/23 Rx metoprolol succinate 25 mg 25 mg PO QAM 30 days #30 tabs 09/22/23 09/25/23 Rx tablet,extended release 24 hr oxycodone 5 mg tablet 5 mg PO Q4H PRN pain #10 tabs 09/22/23 09/25/23 Rx Past Med/Surg History Medical History COPD (chronic obstructive pulmonary disease) Atrial fibrillation Hypercholesterolemia Benign essential hypertension Diabetes mellitus Left knee pain Acute kidney injury Surgical History S/P ORIF (open reduction internal fixation) fracture H/O LEEP History of tonsillectomy and adenoidectomy Family History Mother Diabetes Hypertension Colorectal cancer Myelodysplasia (myelodysplastic syndrome) Father Heart disease Hypertension Brother Hypertension Brother Schizo affective schizophrenia Brother Suicide Social History Smoking Status: Former smoker Tobacco Type: Cigarettes Age Started Using Tobacco: 59; packs per day: 0.75; Cigarettes Per Day: 2; Second Hand Exposure: No; Do You Dip or Chew Tobacco: No; Tobacco Cessation Education Requested by Patient: No Hx Alcohol Use: Yes Alcohol type: beer and wine Hx Substance Use: No Preferred Language: Portuguese Communication Ability: Effective Hearing Ability: Normal Beef Skinner Required: No Beliefs That Will Affect Care: None marital status: Current Living Situation: Alone current occupational status: disabled How many Children do You have: 2 Other Information That Helps Us Care for You: No Feels Safe at Home: Yes Safety Concerns: Feels Safe At This Time Childhood Exposure to Second-Hand Smoke: Yes Seatbelt Use: always Sunscreen Use: Yes Assistive Devices: Cane Assistive Devices Comment: Walking stick Review of Systems Review of Systems: All systems reviewed & are unremarkable except as noted in HPI & below Physical Exam Physical Exam: General: patient resting comfortably, NAD, non-toxic in appearance, AA&O x 4 Skin: warm, dry, no rash HEENT: NC/AT, PERRL, EOMI, anicteric sclera, conjunctiva without injection, external ear normal to inspection and nontender, nares patent, moist mucus mem branes, dentition intact, no oropharyngeal lesions, neck supple, trachea midline, no LAD, no thyromegaly, no JVD Heart: +S1/S2, irregularly irregular, tachycardic, no m/r/g Lungs: equal air entry bilaterally, no rales/rhonchi, diffuse end-expiratory wheezing throughout Abd: +BS, soft, NT/ND, no masses/organomegaly/ascites Ext: warm, 2+ pulses in UE, diminished pulses in bilateral LE but palpable at 1+ bilaterally, no clubbing/cyanosis or edema Neuro: nonfocal, patient AA&O x 4, speech intact, no facial droop, moving all extremities on command with equal strength 5/5 Ulcerations present on great toes bilaterally as well as lateral portions of feet Results & Data Results & Data Vital Signs (Past 12 Hours) Vital Signs Temp Pulse Pulse Resp BP BP Pulse Ox 09/25/23 16:25 91 H 09/25/23 16:23 88 17 135/81 97 09/25/23 15:52 96 09/25/23 15:52 114 H 20 153/88 H 98 09/25/23 15:52 98 09/25/23 15:17 36.6 C 98 H 20 148/79 H 97 O2 Del Method 09/25/23 16:25 09/25/23 16:23 Room Air 09/25/23 15:52 Room Air 09/25/23 15:52 Room Air 09/25/23 15:52 Room Air 09/25/23 15:17 Room Air Laboratory Results Laboratory Results WBC 9.29 K/ul (4.8-10.8) 09/25/23 15:39 RBC 3.89 M/uL (4.20-5.40) L 09/25/23 15:39 Hgb 12.6 g/dl (12.0-16.0) 09/25/23 15:39 Hct 38.4 % (37.0-47.0) 09/25/23 15:39 MCV 98.7 fL (80.0-100.0) 09/25/23 15:39 MCH 32.4 pg (25.0-34.0) 09/25/23 15:39 MCHC 32.8 g/dL (32.0-36.0) 09/25/23 15:39 RDW Std Deviation 50.9 fL (36.4-46.3) H 09/25/23 15:39 RDW Coeff of Natividad 14.1 % (11.5-14.5) 09/25/23 15:39 Plt Count 233 K/uL (130-400) 09/25/23 15:39 MPV 10.5 fL (9.4-12.4) 09/25/23 15:39 Immature Gran % (Auto) 0.3 % 09/25/23 15:39 Neut % (Auto) 69.7 % 09/25/23 15:39 Lymph % (Auto) 23.4 % 09/25/23 15:39 Love % (Auto) 5.8 % 09/25/23 15:39 Eos % (Auto) 0.4 % 09/25/23 15:39 Baso % (Auto) 0.4 % 09/25/23 15:39 Neut # (Auto) 6.47 K/uL (1.40-6.50) 09/25/23 15:39 Lymph # (Auto) 2.17 K/uL (1.20-3.40) 09/25/23 15:39 Love # (Auto) 0.54 K/uL (0.11-0.59) 09/25/23 15:39 Eos # (Auto) 0.04 K/uL (0.00-0.50) 09/25/23 15:39 Baso # (Auto) 0.04 K/uL (0.00-0.20) 09/25/23 15:39 Immature Gran # (Auto) 0.03 K/uL (0.01-0.20) 09/25/23 15:39 Platelet Estimate Normal (Normal) 09/25/23 15:39 RBC Morphology Unremarkable 09/25/23 15:39 PT 12.1 Seconds (9.0-12.0) H 09/25/23 16:30 INR 1.1 (0.9-1.1) 09/25/23 16:30 Sodium 138 mmol/L (136-145) 09/25/23 15:38 Potassium 3.6 mmol/L (3.5-5.1) 09/25/23 15:38 Chloride 104 mmol/L (98-107) 09/25/23 15:38 Carbon Dioxide 23 mmol/L (21-32) 09/25/23 15:38 Anion Gap 11 (3-11) 09/25/23 15:38 BUN 20 mg/dl (6-23) 09/25/23 15:38 Creatinine 0.73 mg/dl (0.6-1.2) 09/25/23 15:38 Est Cr Clr Drug Dosing 76.9 ml/min 09/25/23 15:38 Est GFR ( Amer) 100.9 ml/min 09/25/23 15:38 Est GFR (Non-Af Amer) 87.0 ml/min 09/25/23 15:38 BUN/Creatinine Ratio 27.4 (10-20) H 09/25/23 15:38 Glucose 224 mg/dl (70-99(Fasting)) H 09/25/23 15:38 POC Glucose 369 mg/dl (70-99) H* 09/25/23 22:56 Calcium 9.8 mg/dl (8.6-10.3) 09/25/23 15:38 Phosphorus 3.0 mg/dl (2.5-4.9) 09/25/23 15:38 Magnesium 1.4 mg/dl (1.7-2.4) L 09/25/23 15:38 Total Bilirubin 0.7 mg/dl (0.2-1.0) 09/25/23 15:38 AST 26 U/L (13-39) 09/25/23 15:38 ALT 32 U/L (7-52) 09/25/23 15:38 Alkaline Phosphatase 129 U/L (34-104) H 09/25/23 15:38 Troponin I High Sens 4.3 pg/ml (0-14) 09/25/23 22:52 B-Natriuretic Peptide 446 pg/ml (0-100) H 09/25/23 Unknown Total Protein 8.6 gm/dl (6.0-8.3) H 09/25/23 15:38 Albumin 4.4 gm/dl (3.4-5.0) 09/25/23 15:38 Globulin 4.2 gm/dl (2.5-4.0) H 09/25/23 15:38 Albumin/Globulin Ratio 1.0 (0.9-2) 09/25/23 15:38 Lipase 19 U/L (11-82) 09/25/23 15:38 TSH 0.085 uIu/ml (0.300-4.500) L 09/25/23 15:38 Free T4 1.00 ng/dl (0.61-1.60) 09/25/23 15:38 Urine Color Yellow 09/25/23 16:20 Urine Appearance Clear (Clear) 09/25/23 16:20 Urine pH 5.5 (4.5-7.5) 09/25/23 16:20 Ur Specific Beaver 1.013 (1.000-1.030) 09/25/23 16:20 Urine Protein Negative (Negative) 09/25/23 16:20 Urine Glucose (UA) Negative (Negative) 09/25/23 16:20 Urine Ketones Negative (Negative) 09/25/23 16:20 Urine Blood Negative (Negative) 09/25/23 16:20 Urine Nitrite Negative (Negative) 09/25/23 16:20 Urine Bilirubin Negative (Negative) 09/25/23 16:20 Urine Urobilinogen Negative (Negative) 09/25/23 16:20 Ur Leukocyte Esterase Negative (Negative) 09/25/23 16:20 Adenovirus (PCR) Not Detected (NotDetected) 09/25/23 16:20 B. pertussis DNA (PCR) Not Detected (NotDetected) 09/25/23 16:20 B.parapertussis DNA PCR Not Detected (NotDetected) 09/25/23 16:20 C. pneumoniae DNA (PCR) Not Detected (NotDetected) 09/25/23 16:20 Coronavirus OC43 (PCR) Not Detected (NotDetected) 09/25/23 16:20 Coronavirus HKU1 (PCR) Not Detected (NotDetected) 09/25/23 16:20 Coronavirus 229E (PCR) Not Detected (NotDetected) 09/25/23 16:20 SARS-CoV-2 (PCR) Not Detected (NotDetected) 09/25/23 16:20 Coronavirus NL63 (PCR) Not Detected (NotDetected) 09/25/23 16:20 Human Metapneumovir PCR Not Detected (NotDetected) 09/25/23 16:20 Influenza Type A (PCR) Not Detected (NotDetected) 09/25/23 16:20 Influenza Type B (PCR) Not Detected (NotDetected) 09/25/23 16:20 M. pneumoniae (PCR) Not Detected (NotDetected) 09/25/23 16:20 Parainfluenza 1 (PCR) Not Detected (NotDetected) 09/25/23 16:20 Parainfluenza 2 (PCR) Not Detected (NotDetected) 09/25/23 16:20 Parainfluenza 3 (PCR) Not Detected (NotDetected) 09/25/23 16:20 Parainfluenza 4 (PCR) Not Detected (NotDetected) 09/25/23 16:20 RSV (PCR) Not Detected (NotDetected) 09/25/23 16:20 Entero/Rhino (PCR) Not Detected (NotDetected) 09/25/23 16:20 Impressions Chest X-Ray 09/25/23 15:29 XR chest 1V portable HISTORY: 63 years-old Female Chest pain, nonspecific acute chest pain COMPARISON: 09/16/2023 TECHNIQUE: AP view of the chest FINDINGS: Cardiomediastinal and hilar silhouettes are within normal limits. No pneumothorax, pleural effusion or airspace consolidation. The bones appear grossly intact. IMPRESSION: No acute process. ACT 112: Negative or not required by law. The above report was generated using voice recognition software. It may contain grammatical, syntax or spelling errors. Electronically signed by: Aditya Curran M.D. 09/25/2023 3:54 PM Chest CTA 09/25/23 19:09 CT angio chest PE protocol CT DOSE: 795.51 mGy.cm HISTORY: 63 years-old Female with cp, elevated bnp, r/o PE. Acute chest pain TECHNIQUE: Multiple CTA images of the chest were obtained after the intravenous administration of 115 ml Optiray. Coronal and sagittal MIPS were obtained from the axial data set and were submitted for review. All measurements were obtained according to NASCET criteria. A dose lowering technique was utilized adhering to the principles of ALARA. COMPARISON: 08/14/2022 FINDINGS: CTA: Cardiomegaly. Trace pericardial effusion. Left atrial exclusion device. Mild coronary artery calcifications. Unremarkable thoracic aorta. Unremarkable pul monary artery. No pulmonary emboli identified. CT CHEST: Unremarkable thyroid. Calcified mediastinal and hilar lymph nodes. No pneumothorax, pleural effusion, airspace consolidation or pulmonary edema. Mild nonspecific bronchial wall thickening. There are a few scattered low suspicion solid pulmonary nodules measuring up to approximately 3-4 mm. No acute upper abdominal abnormality. Mild marginal nodularity of the liver redemonstrated, possibly represent early cirrhosis. No acute fracture. Unremarkable soft tissues. Healed chronic bilateral rib fractures. IMPRESSION: Unremarkable CTA of the chest. No pulmonary emboli identified. ACT 112: Negative or not required by law. The above report was generated using voice recognition software. It may contain grammatical, syntax or spelling errors. Electronically signed by: Aditya Curran M.D. 09/25/2023 7:54 PM Diagnostic Findings Laboratory Results WBC 9.29 K/ul (4.8-10.8) 09/25/23 15:39 RBC 3.89 M/uL (4.20-5.40) L 09/25/23 15:39 Hgb 12.6 g/dl (12.0-16.0) 09/25/23 15:39 Hct 38.4 % (37.0-47.0) 09/25/23 15:39 MCV 98.7 fL (80.0-100.0) 09/25/23 15:39 MCH 32.4 pg (25.0-34.0) 09/25/23 15:39 MCHC 32.8 g/dL (32.0-36.0) 09/25/23 15:39 RDW Std Deviation 50.9 fL (36.4-46.3) H 09/25/23 15:39 RDW Coeff of Natividad 14.1 % (11.5-14.5) 09/25/23 15:39 Plt Count 233 K/uL (130-400) 09/25/23 15:39 MPV 10.5 fL (9.4-12.4) 09/25/23 15:39 Immature Gran % (Auto) 0.3 % 09/25/23 15:39 Neut % (Auto) 69.7 % 09/25/23 15:39 Lymph % (Auto) 23.4 % 09/25/23 15:39 Love % (Auto) 5.8 % 09/25/23 15:39 Eos % (Auto) 0.4 % 09/25/23 15:39 Baso % (Auto) 0.4 % 09/25/23 15:39 Neut # (Auto) 6.47 K/uL (1.40-6.50) 09/25/23 15:39 Lymph # (Auto) 2.17 K/uL (1.20-3.40) 09/25/23 15:39 Love # (Auto) 0.54 K/uL (0.11-0.59) 09/25/23 15:39 Eos # (Auto) 0.04 K/uL (0.00-0.50) 09/25/23 15:39 Baso # (Auto) 0.04 K/uL (0.00-0.20) 09/25/23 15:39 Immature Gran # (Auto) 0.03 K/uL (0.01-0.20) 09/25/23 15:39 Platelet Estimate Normal (Normal) 09/25/23 15:39 RBC Morphology Unremarkable 09/25/23 15:39 PT 12.1 Seconds (9.0-12.0) H 09/25/23 16:30 INR 1.1 (0.9-1.1) 09/25/23 16:30 Sodium 138 mmol/L (136-145) 09/25/23 15:38 Potassium 3.6 mmol/L (3.5-5.1) 09/25/23 15:38 Chloride 104 mmol/L (98-107) 09/25/23 15:38 Carbon Dioxide 23 mmol/L (21-32) 09/25/23 15:38 Anion Gap 11 (3-11) 09/25/23 15:38 BUN 20 mg/dl (6-23) 09/25/23 15:38 Creatinine 0.73 mg/dl (0.6-1.2) 09/25/23 15:38 Est Cr Clr Drug Dosing 76.9 ml/min 09/25/23 15:38 Est GFR ( Amer) 100.9 ml/min 09/25/23 15:38 Est GFR (Non-Af Amer) 87.0 ml/min 09/25/23 15:38 BUN/Creatinine Ratio 27.4 (10-20) H 09/25/23 15:38 Glucose 224 mg/dl (70-99(Fasting)) H 09/25/23 15:38 POC Glucose 369 mg/dl (70-99) H* 09/25/23 22:56 Calcium 9.8 mg/dl (8.6-10.3) 09/25/23 15:38 Phosphorus 3.0 mg/dl (2.5-4.9) 09/25/23 15:38 Magnesium 1.4 mg/dl (1.7-2.4) L 09/25/23 15:38 Total Bilirubin 0.7 mg/dl (0.2-1.0) 09/25/23 15:38 AST 26 U/L (13-39) 09/25/23 15:38 ALT 32 U/L (7-52) 09/25/23 15:38 Alkaline Phosphatase 129 U/L (34-104) H 09/25/23 15:38 Troponin I High Sens 4.3 pg/ml (0-14) 09/25/23 22:52 B-Natriuretic Peptide 446 pg/ml (0-100) H 09/25/23 Unknown Total Protein 8.6 gm/dl (6.0-8.3) H 09/25/23 15:38 Albumin 4.4 gm/dl (3.4-5.0) 09/25/23 15:38 Globulin 4.2 gm/dl (2.5-4.0) H 09/25/23 15:38 Albumin/Globulin Ratio 1.0 (0.9-2) 09/25/23 15:38 Lipase 19 U/L (11-82) 09/25/23 15:38 TSH 0.085 uIu/ml (0.300-4.500) L 09/25/23 15:38 Free T4 1.00 ng/dl (0.61-1.60) 09/25/23 15:38 Urine Color Yellow 09/25/23 16:20 Urine Appearance Clear (Clear) 09/25/23 16:20 Urine pH 5.5 (4.5-7.5) 09/25/23 16:20 Ur Specific Beaver 1.013 (1.000-1.030) 09/25/23 16:20 Urine Protein Negative (Negative) 09/25/23 16:20 Urine Glucose (UA) Negative (Negative) 09/25/23 16:20 Urine Ketones Negative (Negative) 09/25/23 16:20 Urine Blood Negative (Negative) 09/25/23 16:20 Urine Nitrite Negative (Negative) 09/25/23 16:20 Urine Bilirubin Negative (Negative) 09/25/23 16:20 Urine Urobilinogen Negative (Negative) 09/25/23 16:20 Ur Leukocyte Esterase Negative (Negative) 09/25/23 16:20 Adenovirus (PCR) Not Detected (NotDetected) 09/25/23 16:20 B. pertussis DNA (PCR) Not Detected (NotDetected) 09/25/23 16:20 B.parapertussis DNA PCR Not Detected (NotDetected) 09/25/23 16:20 C. pneumoniae DNA (PCR) Not Detected (NotDetected) 09/25/23 16:20 Coronavirus OC43 (PCR) Not Detected (NotDetected) 09/25/23 16:20 Coronavirus HKU1 (PCR) Not Detected (NotDetected) 09/25/23 16:20 Coronavirus 229E (PCR) Not Detected (NotDetected) 09/25/23 16:20 SARS-CoV-2 (PCR) Not Detected (NotDetected) 09/25/23 16:20 Coronavirus NL63 (PCR) Not Detected (NotDetected) 09/25/23 16:20 Human Metapneumovir PCR Not Detected (NotDetected) 09/25/23 16:20 Influenza Type A (PCR) Not Detected (NotDetected) 09/25/23 16:20 Influenza Type B (PCR) Not Detected (NotDetected) 09/25/23 16:20 M. pneumoniae (PCR) Not Detected (NotDetected) 09/25/23 16:20 Parainfluenza 1 (PCR) Not Detected (NotDetected) 09/25/23 16:20 Parainfluenza 2 (PCR) Not Detected (NotDetected) 09/25/23 16:20 Parainfluenza 3 (PCR) Not Detected (NotDetected) 09/25/23 16:20 Parainfluenza 4 (PCR) Not Detected (NotDetected) 09/25/23 16:20 RSV (PCR) Not Detected (NotDetected) 09/25/23 16:20 Entero/Rhino (PCR) Not Detected (NotDetected) 09/25/23 16:20 Impressions Chest X-Ray 09/25/23 15:29 XR chest 1V portable HISTORY: 63 years-old Female Chest pain, nonspecific acute chest pain COMPARISON: 09/16/2023 TECHNIQUE: AP view of the chest FINDINGS: Cardiomediastinal and hilar silhouettes are within normal limits. No pneumothorax, pleural effusion or airspace consolidation. The bones appear grossly intact. IMPRESSION: No acute process. ACT 112: Negative or not required by law. The above report was generated using voice recognition software. It may contain grammatical, syntax or spelling errors. Electronically signed by: Aditya Curran M.D. 09/25/2023 3:54 PM Chest CTA 09/25/23 19:09 CT angio chest PE protocol CT DOSE: 795.51 mGy.cm HISTORY: 63 years-old Female with cp, elevated bnp, r/o PE. Acute chest pain TECHNIQUE: Multiple CTA images of the chest were obtained after the intravenous administration of 115 ml Optiray. Coronal and sagittal MIPS were obtained from the axial data set and were submitted for review. All measurements were obtained according to NASCET criteria. A dose lowering technique was utilized adhering to the principles of ALARA. COMPARISON: 08/14/2022 FINDINGS: CTA: Cardiomegaly. Trace pericardial effusion. Left atrial exclusion device. Mild coronary artery calcifications. Unremarkable thoracic aorta. Unremarkable pulmonary artery. No pulmonary emboli identified. CT CHEST: Unremarkable thyroid. Calcified mediastinal and hilar lymph nodes. No pneumothorax, pleural effusion, airspace consolidation or pulmonary edema. Mild nonspecific bronchial wall thickening. There are a few scattered low suspicion solid pulmonary nodules measuring up to approximately 3-4 mm. No acute upper abdominal abnormality. Mild marginal nodularity of the liver redemonstrated, possibly represent early cirrhosis. No acute fracture. Unremarkable soft tissues. Healed chronic bilateral rib fractures. IMPRESSION: Unremarkable CTA of the chest. No pulmonary emboli identified. ACT 112: Negative or not required by law. The above report was generated using voice recognition software. It may contain grammatical, syntax or spelling errors. Electronically signed by: Aditya Curran M.D. 09/25/2023 7:54 PM ECG Additional Comments: EKG - by my interpretation - study shows atrial fibrillation at 99bpm, normal axis, QRS=84, CTg=398, no acute ischemic changes PG Care Time/CCT Total # of Minutes Spent Total Time Spent with Patient: Total time spent is greater than 50% in coordination of care (as documented) at patient's floor/unit and/or counseling patient: Coding Level of Care Code 57075 INT INP/OBS CARE 3/75MIN Diagnoses Chest pain R07.9 Chest pain type: unspecified COPD (chronic obstructive pulmonary disease) J44.9 COPD type: unspecified COPD Atrial fibrillation I48.91 Foot ulcer due to secondary DM E13.621; L97.509 Diabetes mellitus E11.9 Hypercholesterolemia E78.00 Benign essential hypertension I10 Hypothyroidism E03.9 (1) Chest pain Chest pain type: unspecified Qualified Code(s): R07.9 - Chest pain, unspecified (2) COPD (chronic obstructive pulmonary disease) COPD type: unspecified COPD Qualified Code(s): J44.9 - Chronic obstructive pulmonary disease, unspecified
[2023-09-25] MEDS: FUROSEMIDE INJ 20 MG/2 ML VIAL IV ONE (21:24)
[2023-09-25] MEDS: ATORVASTATIN 40 MG TAB PO STA (21:24)
[2023-09-25] MEDS: APIXABAN 5 MG TABLET PO STA (21:25)
[2023-09-25] MEDS: SOTALOL HCL 80 MG TAB PO ONE (21:25)
[2023-09-25] MEDS ORDERED: GLUCOSE 10 TAB/TUBE PO PRN (22:41)
[2023-09-25] MEDS ORDERED: CARBOHYDRATES FOR HYPOGLYCEMIA PO PRN (22:41)
[2023-09-25] MEDS ORDERED: DEXTROSE 50% 50 ML SYRINGE IV PRN (22:41)
[2023-09-25] MEDS ORDERED: ALBUTEROL 0.5% NEB SOLN 2.5 MG/0.5 ML VIAL NEB PRN (22:41)
[2023-09-25] MEDS ORDERED: traMADol HCL 50 MG TABLET PO PRN (22:41)
[2023-09-25] MEDS ORDERED: GLUCOSE 40% GEL 15 GM TUBE PO PRN (22:41)
[2023-09-25] MEDS ORDERED: GLUCAGON FOR INJ 1 MG VIAL SQ PRN (22:41)
[2023-09-25] MEDS ORDERED: ONDANSETRON INJ 2 MG/ML 2 ML VIAL IV PRN (22:41)
[2023-09-25] MEDS: FLUTICASONE/VILANTEROL 200/25MCG 14 PUFFS/INHALER INH STA (23:26)
[2023-09-25] MEDS: LORazepam 0.5 MG TAB PO PRN (23:27)
[2023-09-25] MEDS: oxyCODONE HCL IR 5 MG TAB (IMMEDIATE RELEASE) PO PRN (23:27)
[2023-09-25] MEDS: TEMAZEPAM 15 MG CAPSULE PO PRN (23:28)
[2023-09-25] MEDS: LANTUS PER UNIT CHARGE SQ SCH (23:28)
[2023-09-25] MEDS: MIRTAZAPINE TAB 15 MG TAB PO SCH (23:28)
[2023-09-25] MEDS: GABAPENTIN 800 MG TAB PO SCH (23:28)
[2023-09-25] MEDS: MONTELUKAST SODIUM 10 MG TABLET PO SCH (23:28)
[2023-09-25] MEDS: guaiFENesin 600 MG TABCR PO SCH (23:28)
[2023-09-25] MEDS: INSULIN ASPART PER UNIT CHARGE SC SCH (23:29)
[2023-09-25] MEDS: LEVALBUTEROL HCL 0.63 MG/3 ML NEB NEB SCH (23:51)
[2023-09-26] MEDS: INSULIN HUMAN REGULAR PER UNIT 8 UNITS in SYRINGE 7.92 ML IV STA (01:46)
[2023-09-26] MEDS: POTASSIUM CHLORIDE CRTAB 20 MEQ TABCR PO STA (01:47)
[2023-09-26 06:16] LABS: Basophils # (auto) 0.02 K/uL (0.00-0.20); Basophils % (auto) 0.2 %; Hematocrit (blood only) 29.1 % (37.0-47.0); Immature Granulocytes # (auto) 0.03 K/uL (0.01-0.20); Immature Granulocytes % (auto) 0.4 %; Lymphocytes # (auto) 1.23 K/uL (1.20-3.40); Lymphocytes % (auto) 14.8 %; Mean Corpuscular Hemoglobin 33.3 pg (25.0-34.0); Mean Corpuscular Hgb Conc 34.4 g/dL (32.0-36.0); Mean Platelet Volume 10.5 fL (9.4-12.4); Monocytes # (auto) 0.52 K/uL (0.11-0.59); Monocytes % (auto) 6.3 %; Neutrophils # (auto) 6.51 K/uL (1.40-6.50); Neutrophils % (auto) 78.3 %; Platelet Count 173 K/uL (130-400); RDW Coefficient of Variation 13.8 % (11.5-14.5); RDW Standard Deviation 49.1 fL (36.4-46.3); White Blood Count 8.31 K/ul (4.8-10.8)
[2023-09-26] MEDS: LEVOTHYROXINE SODIUM 150 MCG TABLET PO SCH (06:17)
[2023-09-26 06:43] LABS: Calcium 8.6 mg/dl (8.6-10.3); Creatinine Clr Calc Pharmacy 77.2 ml/min; Est GFR (African American) 96.1 ml/min; Est GFR (Non-African American) 82.9 ml/min; Magnesium 1.3 mg/dl (1.7-2.4); Potassium 4.4 mmol/L (3.5-5.1); Troponin I High Sensitivity 4.1 pg/ml (0-14)
[2023-09-26] MEDS: METOPROLOL SUCC 25MG EXT REL TAB PO SCH (08:19)
[2023-09-26] MEDS: POTASSIUM CHLORIDE CRTAB 20 MEQ TABCR PO SCH (08:19)
[2023-09-26] MEDS: lisinopril 10 MG TAB PO SCH (08:19)
[2023-09-26] MEDS: PANTOprazole 40 MG TAB PO SCH (08:19)
[2023-09-26] MEDS: APIXABAN 5 MG TABLET PO SCH (08:20)
[2023-09-26] MEDS: VENLAFAXINE HCL XR 75 MG CAPXR PO SCH (08:20)
[2023-09-26] MEDS: SOTALOL HCL 80 MG TAB PO SCH (08:20)
[2023-09-26] MEDS: ATORVASTATIN 40 MG TAB PO SCH (08:20)
[2023-09-26] MEDS: FLUTICASONE/VILANTEROL 200/25MCG 14 PUFFS/INHALER INH SCH (08:21)
[2023-09-26] MEDS: LANTUS PER UNIT CHARGE SQ SCH ×2 (08:50→20:45)
[2023-09-26] MEDS: MAGNESIUM SULFATE / D5W 1 GM/100 ML BAG IV SCH (09:27)
[2023-09-26] MEDS: predniSONE 20 MG TAB PO SCH (09:27)
--- NOTE | 2023-09-26 10:10 | Cardiology Consultation ---
Date of Consultation September 26, 2023 Assessment & Plan (1) Atrial fibrillation: (2) Chest pain: (3) Anticoagulant long-term use: Plan 1. Atrial fibrillation: She has paroxysmal atrial fibrillation but has been in it a significant amount of time recently. She has been on anticoagulation for only a week, even though she has a watchman in place and little reluctant to consider cardioversion at this point but we should continue anticoagulation. She has a lot of symptoms during atrial fibrillation and some of this may be due to high heart rates, but she seems to dislike the sensation of atrial fibrillation which is not necessarily heart rate dependent. Her heart rate is high however and she does have expiratory wheezing so I do not want to go up on the beta-can. I am going to try switching her over to the diltiazem, she already had her beta-can today so I am going to give her short acting diltiazem today and long-acting tomorrow. She has an appointment with Dr. García in less than 2 weeks so my goal would be to try to get her by until she sees her to decide on a more definitive treatment. 2. Chest pain: I do not believe her chest pain is myocardial ischemia, the description is atypical and her enzymes are normal. I think it has something to do with the sensation of atrial fibrillation. 3. Anticoagulation: She should continue Eliquis 5 mg twice a day which is her correct dose. History of Present Illness Reason for Consultation: Symptomatic atrial fibrillation Attending Physician: Julienne Pinto MD History of Present Illness This is a 63-year-old woman who follows with [facility] cardiology and has a history of atrial flutter for which she had a flutter ablation performed and also had a Watchman procedure due to bleeding while on anticoagulation. She has had recurrent atrial fibrillation characterized by a fluttering sensation and dyspnea on exertion when in atrial fibrillation, sometimes associated with chest discomfort. She was treated with sotalol 120 mg twice a day. She presented in atrial fibrillation on September 17, 2023 and was rate controlled at the time but did have symptoms. She was discharged on September 25, 2023 in atrial fibrillation with addition of metoprolol succinate 25 mg daily and Eliquis 5 mg twice a day. She remained on sotalol 120 mg twice a day. An echocardiogram done September 17, 2023 shows normal left ventricular systolic function with an ejection fraction of 65 to 70% and mild mitral regurgitation. She presented on September 25, 2023 to the emergency room with substernal chest discomfort and electrocardiography demonstrated atrial fibrillation at a rate of 99 bpm with no acute changes. A high-sensitivity troponin measurement was normal. Her BNP was slightly elevated at 446. A chest x-ray and a chest CTA on presentation was essentially unremarkable. She continues to be uncomfortable in atrial fibrillation, she continues to have a very atypical type chest discomfort which is almost certainly not ischemic. She tells me she had some lightheadedness with exertion but does not have that in the hospital. She does have some difficulty with COPD but is not short of breath currently in the hospital. Allergies Allergy/AdvReac Type Severity Reaction Status Date / Time tuberculin,PPD,multi-puncture Allergy Severe EXTREME Verified 09/25/23 19:08 SWELLING AT SITE acetaminophen [From Tylenol] AdvReac Severe DUE TO Verified 09/25/23 19:08 LIVER ISSUES-CONTRAINDICATED azithromycin [From Zithromax] AdvReac Severe manic Verified 09/25/23 19:08 buspirone [From BuSpar] AdvReac Intermediate anxious Verified 09/25/23 19:08 NSAIDS (Non-Steroidal AdvReac Unknown HX OF A GI Verified 09/17/23 00:13 Anti-Inflamma BLEED/NOT TO TAKE. Home Medications Medication Instructions Recorded Confirmed Type albuterol sulfate 90 mcg/actuation 2 puff inhalation Q6H PRN 03/27/20 09/25/23 History aerosol inhaler (Ventolin HFA) Shortness Of Breath Or Wheezing budesonide-formoterol HFA 160 2 puff inhalation BID 03/27/20 09/25/23 History mcg-4.5 mcg/actuation aerosol inhaler (Symbicort) levothyroxine 150 mcg tablet 150 mcg PO DAILY 03/27/20 09/25/23 History montelukast 10 mg tablet 10 mg PO HS 03/27/20 09/25/23 History linagliptin 5 mg tablet (Tradjenta) 5 mg PO DAILY #30 tabs 04/30/20 09/25/23 Rx atorvastatin 40 mg tablet 40 mg PO QPM 10/07/22 09/25/23 History cholecalciferol (vitamin D3) 10 0 mcg PO DAILY 10/07/22 09/25/23 History mcg (400 unit) capsule mecobalamin (vitamin B12) 1,000 1,000 mcg PO DAILY 10/07/22 09/25/23 History mcg chewable tablet pjyqywlefqap-bybkvvut-amgqsz tablet 1 tab PO DAILY 10/07/22 09/25/23 History gabapentin 800 mg tablet 800 mg PO TID 09/17/23 09/25/23 History lisinopril 10 mg tablet 10 mg PO DAILY 09/17/23 09/25/23 History lorazepam 0.5 mg tablet 0.5 mg PO BID PRN Anxiety 09/17/23 09/25/23 History magnesium oxide 400 mg (241.3 mg 400 mg PO DAILY 09/17/23 09/25/23 History magnesium) tablet mirtazapine 7.5 mg tablet 7.5 mg PO HS 09/17/23 09/25/23 History pantoprazole 40 mg tablet,delayed 40 mg PO DAILY 09/17/23 09/25/23 History release potassium chloride 20 mEq 20 meq PO DAILY 09/17/23 09/25/23 History tablet,extended release sotalol 120 mg tablet 120 mg PO Q12 09/17/23 09/25/23 History temazepam 30 mg capsule 30 mg PO HS PRN NEEDED 09/17/23 09/25/23 History tramadol 50 mg tablet 50 mg PO TID PRN Pain 09/17/23 09/25/23 History venlafaxine 75 mg capsule,extended 75 mg PO DAILY 09/17/23 09/25/23 History release 24 hr apixaban 5 mg tablet (Eliquis) 5 mg PO BID 30 days #60 tabs 09/22/23 09/25/23 Rx metoprolol succinate 25 mg 25 mg PO QAM 30 days #30 tabs 09/22/23 09/25/23 Rx tablet,extended release 24 hr oxycodone 5 mg tablet 5 mg PO Q4H PRN pain #10 tabs 09/22/23 09/25/23 Rx Patient History Medical History COPD (chronic obstructive pulmonary disease) Atrial fibrillation Hypercholesterolemia Benign essential hypertension Diabetes mellitus Left knee pain Acute kidney injury Surgical History S/P ORIF (open reduction internal fixation) fracture H/O LEEP History of tonsillectomy and adenoidectomy Family History Mother Diabetes Hypertension Colorectal cancer Myelodysplasia (myelodysplastic syndrome) Father Heart disease Hypertension Brother Hypertension Brother Schizo affective schizophrenia Brother Suicide Social History Smoking Status: Former smoker Tobacco Type: Cigarettes Age Started Using Tobacco: 59; packs per day: 0.75; Cigarettes Per Day: 2; Second Hand Exposure: No; Do You Dip or Chew Tobacco: No; Tobacco Cessation Education Requested by Patient: No Hx Alcohol Use: Yes Alcohol type: beer and wine Hx Substance Use: No Preferred Language: [place] Communication Ability: Effective Hearing Ability: Normal Glove Machine Operator Required: No Beliefs That Will Affect Care: None marital status: Current Living Situation: Alone current occupational status: disabled How many Children do You have: 2 Other Information That Helps Us Care for You: No Feels Safe at Home: Yes Safety Concerns: Feels Safe At This Time Childhood Exposure to Second-Hand Smoke: Yes Seatbelt Use: always Sunscreen Use: Yes Assistive Devices: Cane Assistive Devices Comment: Walking stick Review of Systems Review of Systems: All systems reviewed & are unremarkable except as noted in HPI & below Physical Exam Physical Exam: Constitutional: Alert, cooperative and in no distress. She is tearful. HEENT: Unremarkable Neck: No jugular venous distention, carotid pulses are normal and equal bilaterally without bruits. Pulmonary: Expiratory wheezes on auscultation bilaterally. Cardiac: Irregular rhythm with no murmur, gallop or rub. Abdomen: Soft, nontender with normal bowel sounds. Extremities: No edema. Distal pulses intact. Neurologic: No focal findings. Skin: No rash, ecchymoses or petechiae. Results & Data Vital Signs (Past 12 Hours) Vital Signs Temp Pulse Resp BP Pulse Ox O2 Del Method 09/26/23 07:56 36.3 C L 94 H 16 111/75 100 Room Air 09/26/23 07:27 82 16 98 Room Air 09/26/23 03:12 36.5 C 110 H 18 101/60 97 Room Air 09/25/23 23:58 103 H 18 99 Room Air 09/25/23 22:48 Room Air 09/25/23 22:48 36.5 C 108 H 18 176/83 H 97 Room Air Laboratory Results Cardiac Enzymes 09/25/23 09/25/23 09/25/23 Range/Units 15:38 22:52 Unknown AST 26 (13-39) U/L Troponin I High Sens 5.1 4.3 (0-14) pg/ml B-Natriuretic Peptide 446 H (0-100) pg/ml 09/26/23 Range/Units 05:48 AST (13-39) U/L Troponin I High Sens 4.1 (0-14) pg/ml B-Natriuretic Peptide (0-100) pg/ml Coagulation 09/25/23 09/25/23 09/25/23 Range/Units 15:39 16:30 Unknown PT Cancelled 12.1 H B-Natriuretic Peptide 446 H (0-100) pg/ml CBC 09/25/23 09/26/23 Range/Units 15:39 05:48 WBC 9.29 8.31 (4.8-10.8) K/ul RBC 3.89 L 3.00 L (4.20-5.40) M/uL Hgb 12.6 10.0 L (12.0-16.0) g/dl Hct 38.4 29.1 L (37.0-47.0) % Plt Count 233 173 (130-400) K/uL Neut # (Auto) 6.47 6.51 H (1.40-6.50) K/uL Lymph # (Auto) 2.17 1.23 (1.20-3.40) K/uL [place] # (Auto) 0.54 0.52 (0.11-0.59) K/uL Eos # (Auto) 0.04 0.00 (0.00-0.50) K/uL Baso # (Auto) 0.04 0.02 (0.00-0.20) K/uL Comprehensive Metabolic Panel 09/25/23 09/26/23 Range/Units 15:38 05:48 Sodium 138 136 (136-145) mmol/L Potassium 3.6 4.4 D (3.5-5.1) mmol/L Chloride 104 104 (98-107) mmol/L Carbon Dioxide 23 25 (21-32) mmol/L BUN 20 19 (6-23) mg/dl Creatinine 0.73 0.76 (0.6-1.2) mg/dl Glucose 224 H 292 H (70-99(Fasting)) mg/dl Calcium 9.8 8.6 (8.6-10.3) mg/dl AST 26 (13-39) U/L ALT 32 (7-52) U/L Alkaline Phosphatase 129 H (34-104) U/L Total Protein 8.6 H (6.0-8.3) gm/dl Albumin 4.4 (3.4-5.0) gm/dl Intake and Output 09/25/23 09/26/23 09/26/23 22:59 06:59 14:59 Intake Total 740 / 1140 400 / 1140 Balance 740 / 1140 400 / 1140 Intake: IV 500 / 500 Sodium Chloride 0.9% 500 ml @ 500 / 500 999 mls/hr IV .Q31M ONE Rx#: [id number] Oral 240 / 640 400 / 640 Other: # Unmeasured Voids 3 Weight 81.4 kg Weight Measurement Method Standing Scale Diagnostic Findings Telemetry: Atrial fibrillation with a heart rate of around 100 on presentation and dropping to around 85 currently. PG Care Time/CCT Total # of Minutes Spent Total Time Spent with Patient: Total time spent is greater than 50% in coordination of care (as documented) at patient's floor/unit and/or counseling patient: Coding Level of Care Code 76841 INT INP/OBS CARE 3/75MIN Diagnoses Paroxysmal atrial fibrillation I48.0 Atrial fibrillation type: paroxysmal Chest pain R07.9 Chest pain type: unspecified Anticoagulant long-term use Z79.01 (1) Atrial fibrillation Atrial fibrillation type: paroxysmal Qualified Code(s): I48.0 - Paroxysmal atrial fibrillation (2) Chest pain Chest pain type: unspecified Qualified Code(s): R07.9 - Chest pain, unspecified
[2023-09-26] MEDS: LANTUS PER UNIT CHARGE SQ ONE (10:18)
[2023-09-26] MEDS: dilTIAZem HCL 30 MG TAB PO SCH (12:23)
--- NOTE | 2023-09-26 15:32 | Hospitalist Progress Note ---
Date of Service September 26, 2023 Assessment & Plan (1) Chest pain: Plan: 63yo female presenting with chest discomfort and shortness of breath. EKG with no acute ischemic changes but does show Afib with rates in 100s Troponin x 3 NEGATIVE. With asthma exacerbation, wheezing likely causing chest tightness CTA Chest neg for PE, PNA Improving with steroids, bronchodilators-continue such (2) Asthma: Plan: asthma exacberation with diffuse wheezing, chest tightness improving with steroids, nebs of note, she gets very emotionally labile with steroids and also with hyperglycemia, does not wish to be on steroids for very long not hypoxic (3) Atrial fibrillation: Plan: Patient recurrent paroxysmal atrial fibrillation after recent hospitalization for the same-had metoprolol added on at that time and started on Eliquis Has a h/o aflutter ablation and also has a Watchman device present for history of bleeding remotely after taking NSAIDs Appreciate Cardiology consult--> dc metoprolol as low dose not likely effective while on high doses of sotalol anyway and also can contribute to asthma exacerbation -Continue Sotalol 120mg po BID --start diltiazem 120mg po daily -Continue Apixaban anticoagulation -Electrolyte repletion (4) Hypomagnesemia: Plan: very low at 1.3 replace with 4 grams IV mag and increase home po dose to 400mg po bid may help convert to tsinus rhythm follow Mag level in AM (5) Diabetes mellitus: Plan: With hyperglycemia currently following steroid administration Increase Lantus to 15 units bid and tighten down Novolog SSI HgbA1C 8.4% which is much higher than previous She is only on Tradjenta at home Has plans to f/u with Endocrinology in near future for DMII and for hypothyroidism (6) Hypothyroidism: Plan: TSH low at 0.085 and with two hospitalizations for Afib now, will lower dose of levothyroxine to 125 mcg daily Free T4 normal but does not matter in the case of thyroid replacement -lower dose of levothyroxine to 125mcg daily check TSH in 6 weeks (7) Foot ulcer due to secondary DM: Plan: Patient with ulcers present on bilateral feet. She has been managing them at home. Pulses diminished but palpable. Likely secondary to diabetes. Wound care Continue Gabapentin recent arterial Dopplers ok has pending outpt appt with Podiatry (8) Hypercholesterolemia: Plan: Chronic. Stable -Continue Atorvastatin (9) Benign essential hypertension: Plan: BPs controlled continue Lisinopril dc metoprolol and starting diltiazem (10) Depression with anxiety: Plan: continue home venlafaxine, ativan, temazepam (11) Anemia: Plan: hgb 10, normocytic check B12, folate, iron studies (12) GERD (gastroesophageal reflux disease): Plan: continue PPI Plan DVT proph-Eliquis Dispo-continued stay on med tele Admission and Anticipated Discharge Date Admission Date: September 25, 2023 Subjective Pt still feeling tight in her chest and wheezing but better than yesterday. Still feels her afib fluttering in her chest. Not coughing. Feels the steroids are making her hungry and emotionally labile. She has ongoing pain in her feet bilat from neuropathy and has foot wounds Tele with Afib, rates 100s overnight and now down to 80s I discussed her care with Cardiology Physical Exam Constitutional: WD/WN, vitals as above Respiratory: normal respiratory effort; no cough Auscultation: + wheezes (diffuse expiratory wheezes); no crackles and no rhonchi Cardiovascular: RRR, no murmur, no edema Gastrointestinal (Abdomen): normal bowel sounds, soft, nontender, no hepatosplenomegaly Skin: bilat lateral feet and great toe ulcers present Psychiatric: A+Ox3, euthymic affect Results & Data Results & Data Vital Signs (Past 12 Hours) Vital Signs Temp Pulse Pulse Resp BP Pulse Ox O2 Del Method 09/26/23 14:18 90 18 98 Room Air 09/26/23 12:29 36.4 C L 76 16 115/74 98 Room Air 09/26/23 11:00 Room Air 09/26/23 07:56 36.3 C L 94 H 16 111/75 100 Room Air 09/26/23 07:27 82 16 98 Room Air 09/26/23 07:00 86 Laboratory Results CBC, BMP, magnesium reviewed PG Care Time/CCT Total # of Minutes Spent Total Time Spent with Patient: Total time spent is greater than 50% in coordination of care (as documented) at patient's floor/unit and/or counseling patient: Coding Level of Care Code 74225 SUB INP/OBS CARE 3/50MIN Diagnoses Chest pain R07.9 Chest pain type: unspecified Asthma J45.909 Paroxysmal atrial fibrillation I48.0 Atrial fibrillation type: paroxysmal Hypomagnesemia E83.42 Diabetes mellitus E11.9 Hypothyroidism E03.9 Foot ulcer due to secondary DM E13.621; L97.509 Hypercholesterolemia E78.00 Benign essential hypertension I10 Depression with anxiety F41.8 Anemia D64.9 GERD (gastroesophageal reflux disease) K21.9 (1) Chest pain Chest pain type: unspecified Qualified Code(s): R07.9 - Chest pain, unspecified (3) Atrial fibrillation Atrial fibrillation type: paroxysmal Qualified Code(s): I48.0 - Paroxysmal atrial fibrillation
[2023-09-26] MEDS ORDERED: LANTUS PER UNIT CHARGE SQ SCH (21:00)
[2023-09-27] MEDS: LEVOTHYROXINE SODIUM 125 MCG TABLET PO SCH (05:39)
--- NOTE | 2023-09-27 06:17 | Electrocardiogram Report ---
Test Reason : Blood Pressure : / mmHG Vent. Rate : 099 BPM Atrial Rate : 000 BPM P-R Int : 000 ms QRS Dur : 084 ms QT Int : 380 ms P-R-T Axes : 000 061 046 degrees QTc Int : 487 ms Atrial fibrillation Nonspecific ST abnormality Abnormal ECG When compared with ECG of 19-SEP-2023 05:42, Atrial fibrillation has replaced Sinus rhythm ST now depressed in Anterior leads T wave amplitude has decreased in Anterolateral leads Confirmed by Rivas Jaime ([id number]) on 09/27/2023 6:16:52 AM Referred By: Confirmed By:Rivas Jaime
[2023-09-27 06:57] LABS: Basophils # (auto) 0.01 K/uL (0.00-0.20); Basophils % (auto) 0.2 %; Eosinophils # (auto) 0.01 K/uL (0.00-0.50); Eosinophils % (auto) 0.2 %; Hematocrit (blood only) 29.1 % (37.0-47.0); Hemoglobin 9.8 g/dl (12.0-16.0); Immature Granulocytes # (auto) 0.03 K/uL (0.01-0.20); Immature Granulocytes % (auto) 0.5 %; Lymphocytes # (auto) 1.66 K/uL (1.20-3.40); Lymphocytes % (auto) 25.8 %; Mean Corpuscular Hemoglobin 33.2 pg (25.0-34.0); Mean Corpuscular Hgb Conc 33.7 g/dL (32.0-36.0); Mean Corpuscular Volume 98.6 fL (80.0-100.0); Mean Platelet Volume 10.2 fL (9.4-12.4); Monocytes # (auto) 0.46 K/uL (0.11-0.59); Monocytes % (auto) 7.1 %; Neutrophils # (auto) 4.27 K/uL (1.40-6.50); Neutrophils % (auto) 66.2 %; Platelet Count 171 K/uL (130-400); RDW Standard Deviation 50.1 fL (36.4-46.3); Red Blood Count 2.95 M/uL (4.20-5.40); White Blood Count 6.44 K/ul (4.8-10.8)
[2023-09-27 07:17] LABS: BUN Creatinine Ratio 24.4 (10-20); Calcium 8.9 mg/dl (8.6-10.3); Creatinine Clr Calc Pharmacy 71.4 ml/min; Est GFR (African American) 87.6 ml/min; Est GFR (Non-African American) 75.6 ml/min; Potassium 4.4 mmol/L (3.5-5.1)
[2023-09-27 07:36] LABS: Ferritin 20.1 ng/ml (8-388)
[2023-09-27 07:44] LABS: Folate (Folic Acid),Ser orPlas > 22.30 ng/ml (>5.38)
[2023-09-27 07:45] LABS: Vitamin B12 437 pg/ml (180-914)
[2023-09-27] MEDS: CYANOCOBALAMIN (B-12) 500 MCG TABLET PO SCH (07:48)
[2023-09-27] MEDS: MAGNESIUM OXIDE 400 MG TAB PO SCH (07:48)
[2023-09-27] MEDS: dilTIAZem HCL 120 MG CAPCR PO SCH (07:51)
[2023-09-27] MEDS: POLYETHYLENE (MIRALAX) 17 GM PACK PO PRN (08:44)
--- NOTE | 2023-09-27 09:11 | Cardiology Progress Note ---
Date of Service September 27, 2023 Assessment & Plan Admission and Anticipated Discharge Date Admission Date: September 25, 2023 Subjective She feels better. She denies any chest pain or chest pressure. She has had no recurrent atrial fibrillation and converted around 5 PM yesterday. She has no lightheadedness or dizziness currently. In A-fib she has some mild lightheadedness. She has no lower extremity edema. She denies any tobacco use. She has no pets at home. She does note her lungs feel tight. She denies any bleeding or bruising on anticoagulation. Results & Data Vital Signs (Past 12 Hours) Vital Signs Temp Pulse Pulse Resp BP Pulse Ox O2 Del Method 09/27/23 07:59 Room Air 09/27/23 07:25 36.4 C L 64 16 118/69 100 Room Air 09/27/23 07:20 63 18 99 Room Air 09/27/23 07:00 66 09/27/23 04:00 36.8 C 69 18 119/67 100 Room Air 09/26/23 23:04 36.5 C 71 18 119/73 98 Room Air 09/26/23 22:41 70 09/26/23 22:35 66 16 98 Room Air She is awake alert and oriented x 3 in no acute distress HEENT: 2+ carotid upstroke sounds carotid bruits Lungs: Coarse breath sounds throughout. Sounds very tight with audible wheezing. Heart: Regular rate and rhythm no appreciable murmurs Extremities: No clubbing cyanosis or edema; chronic wounds Psychiatric: Her affect appeared appropriate. IMPRESSIONS: 1. Paroxysmal Atrial fibrillation 2. History of atrial flutter status post flutter ablation 3. Recurrent atrial fibrillation after her flutter ablation currently on sotalol 120 mg twice daily 4. Status post Watchman device 5. History of normal LV function by echo with type II diastolic dysfunction and top normal pulmonary artery pressures 6. Hypertension 7. History of tobacco abuse currently abstaining 8. Anxiety and depression 9. Asthma She is back in sinus rhythm this morning. She notes she had a sleep study p reviously done that was negative for sleep apnea. Which interesting as this most recent episode occurred in the morning when she woke up. She is scheduled to see Dr. García of the EP service at [facility] a week from . It Does not sound like sotalol is working for her at this point. I think the chance of improvement at 160 mg twice a day is relatively small and may make her asthma symptoms worse. Ultimately, I think she is going to need an A-fib ablation to try to maintain sinus rhythm. At that point she can be switched to Tikosyn if she can afford it. This would avoid the beta-can effect of sotalol given her lung disease. I would continue with diltiazem 120 mg of extended release daily. She should remain on anticoagulation. I did discuss with her that even if she has A-fib at home and had some chest discomfort as long as it is not overly burdensome she can stay home. We know she is not having a heart attack with her episodes of atrial fibrillation. She continues to have nonhealing wounds on her feet and ankles. She had a normal lower extremity arterial Doppler study suggesting this is microvascular disease. Standpoint she can be discharged home. She will follow-up with the EP service in 10 days.
--- NOTE | 2023-09-27 16:05 | Hospitalist Progress Note ---
Date of Service September 27, 2023 Assessment & Plan (1) Chest pain: Plan: Resolved. No evidence of acute coronary syndrome. Troponin x 3 NEGATIVE. With asthma exacerbation, wheezing likely causing chest tightness. CTA Chest neg for PE, CHF, or PNA. (2) Asthma: Plan: Acute asthma exacberation with diffuse wheezing, chest tightness on admission. Now resolved. Steroid therapy has been discontinued. She is on room air not hypoxic (3) Atrial fibrillation: Plan: Paroxysmal. Present on admission. She has since converted to normal sinus rhythm. Cardiology consultation and recommendations appreciated. Metoprolol has been switched over to diltiazem. She remains on sotalol and Eliquis. h/o aflutter ablation and also has a Watchman device present. History of GI bleeding remotely after taking NSAIDs (4) Hypomagnesemia: Plan: Present on admission. Now corrected. Continue oral replacement therapy (5) Diabetes mellitus: Plan: ADA diet. Sliding scale coverage. Lantus has been down titrated since steroids have been discontinued. HgbA1C 8.4% which is much higher than previous. She is only on Tradjenta at home (6) Hypothyroidism: Plan: TSH low at 0.085 and with two hospitalizations for Afib now, have lowered dose of levothyroxine to 125 mcg daily. Free T4 normal. Repeat TSH level at a later date (7) Foot ulcer due to secondary DM: Plan: Patient with ulcers present on bilateral feet. She has been managing them at home. Pulses diminished but palpable. Likely secondary to diabetes. Continue Wound care and gabapentin. Recent arterial Dopplers ok (8) Hypercholesterolemia: Plan: Stable. Continue statin therapy (9) Benign essential hypertension: Plan: Stable. Metoprolol has been switched to diltiazem. She remains on sotalol. Plan Hopefully home tomorrow, September 28 Admission and Anticipated Discharge Date Admission Date: September 27, 2023 Subjective Alert and oriented. No distress. She has converted from atrial fibrillation back to normal sinus rhythm. Cardiology entry noted. Hypomagnesemia has been corrected. Prednisone discontinued. Lantus dosage down titrated since glucose is down to 184. Hopefully she will go home tomorrow, September 28 Review of Systems 2 Review of Systems: Constitutional-no fever or chills ENT-no blurred vision, no double vision, no epistaxis, no sore throat Respiratory-no cough, no wheezing, no shortness of breath Cardiac-no palpitations, no chest pain, no syncope GI-no nausea, vomiting, diarrhea, melena, hematochezia -no urinary retention, no urinary incontinence, no dysuria, no hematuria Musculoskeletal-no joint pain, no muscle tenderness Skin-no bruising, no rashes, no pruritus Neuro-no isolated weakness, no paresthesia, no weakness Psych-no depression, no anxiety Physical Exam 2 Physical Exam: General-alert and oriented x3, no fevers, no chills HEENT-head atraumatic and normocephalic, pupils equal and reactive to light, extraocular muscles intact Neck-no lymphadenopathy or thyromegaly, trachea midline Chest-clear to auscultation. No rales, wheezing or rhonchi Cardiac-regular rate and rhythm, normal S1 and S2 Abdomen-normal bowel sounds, nontender, no hepatosplenomegaly Extremities-no cyanosis, clubbing, or edema Neuro-cranial nerves II through XII intact, motor and sensory function within normal limits, strength symmetrical, no focal deficits Psych-normal affect, normal mood Results & Data Results & Data Vital Signs (Past 12 Hours) Vital Signs Temp Pulse Pulse Resp BP Pulse Ox O2 Del Method 09/27/23 15:41 36.5 C 59 L 16 115/75 96 Room Air 09/27/23 10:39 36.4 C L 59 L 16 142/77 H 99 Room Air 09/27/23 07:59 Room Air 09/27/23 07:25 36.4 C L 64 16 118/69 100 Room Air 09/27/23 07:20 63 18 99 Room Air 09/27/23 07:00 66 09/27/23 04:00 36.8 C 69 18 119/67 100 Room Air Laboratory Results 09/27/23 06:23 09/27/23 06:23 PG Care Time/CCT Total # of Minutes Spent Total Time Spent with Patient: Total time spent is greater than 50% in coordination of care (as documented) at patient's floor/unit and/or counseling patient: Coding Level of Care Code 78171 SUB INP/OBS CARE 3/50MIN Diagnoses Chest pain R07.9 Chest pain type: unspecified Asthma J45.909 Paroxysmal atrial fibrillation I48.0 Atrial fibrillation type: paroxysmal Hypomagnesemia E83.42 Diabetes mellitus E11.9 Hypothyroidism E03.9 Foot ulcer due to secondary DM E13.621; L97.509 Hypercholesterolemia E78.00 Benign essential hypertension I10 (1) Chest pain Chest pain type: unspecified Qualified Code(s): R07.9 - Chest pain, unspecified (3) Atrial fibrillation Atrial fibrillation type: paroxysmal Qualified Code(s): I48.0 - Paroxysmal atrial fibrillation
--- NOTE | 2023-09-27 16:38 | Electrocardiogram Report ---
Test Reason : Blood Pressure : / mmHG Vent. Rate : 062 BPM Atrial Rate : 062 BPM P-R Int : 166 ms QRS Dur : 082 ms QT Int : 440 ms P-R-T Axes : 089 074 068 degrees QTc Int : 446 ms Normal sinus rhythm Normal ECG When compared with ECG of 25-SEP-2023 15:25, Sinus rhythm has replaced Atrial fibrillation Vent. rate has decreased BY 37 BPM Non-specific change in ST segment in Lateral leads T wave amplitude has increased in Inferior leads T wave amplitude has increased in Anterolateral leads Confirmed by Ej Martinez ([id number]) on 09/27/2023 4:37:48 PM Referred By: REFERRED SELF Confirmed By:Alan Martinez
[2023-09-27] MEDS: DICLOFENAC SOD 1% GEL 100 GM TUBE EXT PRN (16:51)
[2023-09-27] MEDS: LANTUS PER UNIT CHARGE SQ SCH (22:03)
--- NOTE | 2023-09-28 12:43 | Discharge Summary ---
Date of Service September 28, 2023 Admission HPI Per Admitting Provider Arabella Quick is a 63yo male with history of atrial fibrillation, HTN, HLP, Hypothyroidism, DM and Asthma presenting with chest pain and shortness of breath. Patient was recently admitted to [facility] from 09/17/23 - 09/22/23 after presenting with hyperglylcemia, AF and asthma/COPD exacerbation. She was discharged home in stable condition and reports that she felt fairly well. She woke this morning, however, with sharp substernal chest pain and fullness in her chest. She reports that the sensation occurs when she is in AF. Her discomfort has progressed throughout the day and she also feels that she is more short of breath. She feels tightness in her upper chest and feels like she needs to cough and clear secretions but is unable to do so. No report of fever, chills, abdominal pain, nausea, vomiting, diarrhea or constipation. In the ER she is afebrile, tachycardic at 100bpm, NAD ER Course: Lasix Guaifenesn Xopenex Solumedrol Atorvastatin Apixaban Sotalol Fluticasone/Vilanterol Ativan 0.5mg Principal Diagnosis Paroxysmal atrial fibrillation with palpitations, hypomagnesemia, exacerbation intrinsic asthma Discharge Exam General-alert and oriented x3, no fevers, no chills HEENT-head atraumatic and normocephalic, pupils equal and reactive to light, extraocular muscles intact Neck-no lymphadenopathy or thyromegaly, trachea midline Chest-clear to auscultation. No rales, wheezing or rhonchi Cardiac-regular rate and rhythm, normal S1 and S2 Abdomen-normal bowel sounds, nontender, no hepatosplenomegaly Extremities-no cyanosis, clubbing, or edema Neuro-cranial nerves II through XII intact, motor and sensory function within normal limits, strength symmetrical, no focal deficits Psych-normal affect, normal mood Discharge Data Allergies Allergy/AdvReac Type Severity Reaction Status Date / Time tuberculin,PPD,multi-puncture Allergy Severe EXTREME Verified 09/25/23 19:08 SWELLING AT SITE acetaminophen [From Tylenol] AdvReac Severe DUE TO Verified 09/25/23 19:08 LIVER ISSUES-CONTRAINDICATED azithromycin [From Zithromax] AdvReac Severe manic Verified 09/25/23 19:08 buspirone [From BuSpar] AdvReac Intermediate anxious Verified 09/25/23 19:08 NSAIDS (Non-Steroidal AdvReac Unknown HX OF A GI Verified 09/17/23 00:13 Anti-Inflamma BLEED/NOT TO TAKE. Consultations 09/25/23 20:13 ED Decision to Admit Stat 09/26/23 09:10 Consult Cardiology Routine Ordered Studies 09/25/23 19:09 CT angio chest PE protocol Stat Hospital Course (1) Chest pain: Resolved. No evidence of acute coronary syndrome. Troponin x 3 NEGATIVE. With asthma exacerbation, wheezing likely causing chest tightness. CTA Chest neg for PE, CHF, or PNA. (2) Asthma: Acute asthma exacberation with diffuse wheezing, chest tightness on admission. Now resolved. Steroid therapy has been discontinued. She is on room air (3) Atrial fibrillation: Paroxysmal. Present on admission. She has since converted to normal sinus rhythm. Cardiology consultation and recommendations appreciated. Metoprolol has been switched over to diltiazem. She remains on sotalol and Eliquis. h/o aflutter ablation and also has a Watchman device present. History of GI bleeding remotely after taking NSAIDs (4) Hypomagnesemia: Present on admission. Now corrected. Continue oral replacement therapy (5) Diabetes mellitus: ADA diet. Sliding scale coverage. Lantus has been down titrated since steroids have been discontinued. Metformin added today, September 28. HgbA1C 8.4% which is much higher than previous. She is on Tradjenta at home (6) Hypothyroidism: TSH low at 0.085 and with two hospitalizations for Afib now, have lowered dose of levothyroxine to 125 mcg daily. Free T4 normal. Repeat TSH level at a later date (7) Foot ulcer due to secondary DM: Patient with ulcers present on bilateral feet. She has been managing them at home. Pulses diminished but palpable. Likely secondary to diabetes. Continue Wound care and gabapentin. Recent arterial Dopplers ok (8) Hypercholesterolemia: Stable. Continue statin therapy (9) Benign essential hypertension: Stable. Metoprolol has been switched to diltiazem. She remains on sotalol. Plan Home todaySeptember 28 Total Time Total Time Spent Total Time Spent (In Minutes): 45-minute Discharge Plan Discharge Items Patient Disposition: Home - Self-Care Reason For Visit: CHEST DISCOMFORT, SOB Discharge Diagnosis: Paroxysmal atrial fibrillation with palpitations, hypomagnesemia, acute exacerbation intrinsic asthma Activity: Resume your previous activity Non-emergency contact: Primary Care Provider Call non-emergency contact if: you have any medication questions and your symptoms worsen Follow-up/Referrals: Leigh Ann Justin [Primary Care Provider] - 10/05/23 2:45 pm Diet: Carb Consistent or DM2 and Heart Healthy Addtl Attending Provider Instructions: Take metformin 500 mg twice daily. Use oxycodone 5 mg as needed for pain. Pending Studies at Discharge: No Stand-Alone Forms: [facility] [employer], Smoking Cessation Medications and DC Order Prescriptions: New metformin 500 mg Tablet 500 mg PO BIDM Qty: 60 0RF diltiazem HCl [Cardizem CD] 120 mg Capsule,Extended Release 24hr 120 mg PO QAM Qty: 30 0RF oxycodone 5 mg Tablet 5 mg PO Q8H PRN (Reason: pain) Qty: 20 0RF guaifenesin [Mucinex] 600 mg Tablet Extended Release 12hr 600 mg PO BID Qty: 20 0RF Continued Tradjenta 5 mg tablet 5 mg PO DAILY Qty: 30 2RF levothyroxine 150 mcg tablet 150 mcg PO DAILY montelukast 10 mg tablet 10 mg PO HS budesonide-formoterol [Symbicort] 160-4.5 mcg/actuation HFA aerosol inhaler 2 puff inhalation BID albuterol sulfate [Ventolin HFA] 90 mcg/actuation HFA aerosol inhaler 2 puff inhalation Q6H PRN (Reason: Shortness Of Breath Or Wheezing) atorvastatin 40 mg tablet 40 mg PO QPM cholecalciferol (vitamin D3) 10 mcg (400 unit) capsule 0 mcg PO DAILY Rx Instructions: PT UNSURE OF STRENGTH mecobalamin (vitamin B12) 1,000 mcg tablet,chewable 1,000 mcg PO DAILY [id number] Tablet 1 tab PO DAILY venlafaxine 75 mg capsule,extended release 24hr 75 mg PO DAILY tramadol 50 mg tablet 50 mg PO TID PRN (Reason: Pain) sotalol 120 mg tablet 120 mg PO Q12 magnesium oxide 400 mg (241.3 mg magnesium) tablet 400 mg PO DAILY lorazepam 0.5 mg tablet 0.5 mg PO BID PRN (Reason: Anxiety) gabapentin 800 mg tablet 800 mg PO TID temazepam 30 mg capsule 30 mg PO HS PRN (Reason: NEEDED) pantoprazole 40 mg tablet,delayed release (DR/EC) 40 mg PO DAILY lisinopril 10 mg tablet 10 mg PO DAILY mirtazapine 7.5 mg tablet 7.5 mg PO HS potassium chloride 20 mEq tablet extended release 20 meq PO DAILY oxycodone 5 mg Tablet 5 mg PO Q4H PRN (Reason: pain) Qty: 10 0RF Eliquis 5 mg Tablet 5 mg PO BID 30 Days Qty: 60 0RF Discontinued metoprolol succinate 25 mg Tablet Extended Release 24 Hr 25 mg PO QAM 30 Days Qty: 30 0RF Discharge Orders: Discharge Order (Routine); Ordered 09/28/23 Ordered By: Keon Bean Admission Data Admit Date/Time: 09/27/23 14:06 Attending Provider: Keon Bean Admit Provider: Nanci Hughes Primary Care Provider: Leigh Ann Justin Other Providers: Nanci Hughes; Bashir Roberson Coding Level of Care Code 42808 INP/OBS DISCH >30 MIN Diagnoses Chest pain R07.9 Chest pain type: unspecified Asthma J45.909 Paroxysmal atrial fibrillation I48.0 Atrial fibrillation type: paroxysmal Hypomagnesemia E83.42 Diabetes mellitus E11.9 Hypothyroidism E03.9 Foot ulcer due to secondary DM E13.621; L97.509 Hypercholesterolemia E78.00 Benign essential hypertension I10
[2023-09-28] MEDS: metFORMIN HCL 500 MG TAB PO SCH (12:58)
== END 2023-09-28 14:46 | disposition home or self-care (01) | DRG 202 ==
LOC: 2N 15:12 → ED 15:12 → SUATTDRO 20:54 → 2N 22:15